=== PATIENT | male | born 1950 | race Hispanic/Latino ===

== ENCOUNTER 2017-04-02 23:40 | Inpatient (IN) | payer MEDICARE, OTHER ==
[2017-04-02 23:40] VITALS: BMI 33.1
--- NOTE | 2017-04-03 00:51 | ED PDOC ---
Arrival/HPI - General Chief Complaint: Altered Mental Status Time Seen by Provider: 04/03/17 00:38 Historian: Patient - History of Present Illness Narrative History of Present Illness (Text): 04/03/17 00:45 García Joseph is a 66 year old male smoker, whose past medical history includes hypertension, diabetes, hyperlipidemia, COPD, vertigo, chronic lower back pain, and peripheral neuropathy, who presents to the Emergency Room brought in by EMS status post syncopal episode. Patient states he was at home earlier tonight when he fell and had a syncopal episode. Patient states he is unable to recall the incident and notes he is having difficulty focusing. Patient states he woke up on the floor, felt weak/dizzy, and was unable to get up on his own. Patient notified his neighbor who called EMS. Patient denies any fever, chills, chest pain, abdominal pain, nausea, vomiting, diarrhea, neck pain, headache, or any other complaints. PMD: Dr. Pierce Bowman Time/Duration: Other (tonight) Symptom Course: Unchanged Activities at Onset: Rest, Light Context: Home Past Medical History - Provider Review Nursing Documentation Reviewed: Yes - Infectious Disease Hx of Infectious Diseases: None - Cardiac Hx Cardiac Disorders: Yes Hx Hypertension: Yes - Pulmonary Hx Respiratory Disorders: No - Neurological Hx Neurological Disorder: Yes (neuropathy) - HEENT Hx HEENT Disorder: No - Renal Hx Renal Disorder: No - Endocrine/Metabolic Hx Diabetes Mellitus Type 2: Yes - Hematological/Oncological Hx Blood Disorders: No - Integumentary Hx Dermatological Disorder: No - Musculoskeletal/Rheumatological Hx Musculoskeletal Disorders: No - Gastrointestinal Hx Gastrointestinal Disorders: No - Genitourinary/Gynecological Hx Genitourinary Disorders: No - Psychiatric Hx Psychophysiologic Disorder: No Hx Substance Use: No - Surgical History Hx Appendectomy: Yes Family/Social History - Physician Review Nursing Documentation Reviewed: Yes Family/Social History: Unknown Family HX Smoking Status: Heavy Smoker > 10 Cigarettes Daily Hx Alcohol Use: No Hx Substance Use: No Allergies/Home Meds Allergies/Adverse Reactions: Allergies No Known Allergies Allergy (Verified 12/24/16 12:53) Home Medications: Home Meds Medication Instructions Recorded Confirmed Alprazolam [Xanax] 0.5 mg PO DAILY 12/24/16 04/03/17 Meclizine [Meclizine*] 25 mg PO TID 12/24/16 04/03/17 Gabapentin [Neurontin] 300 mg PO BID 04/03/17 04/03/17 Meloxicam [Mobic] 15 mg PO DAILY 04/03/17 04/03/17 Review of Systems - Physician Review All systems were reviewed & negative as marked: Yes - Review of Systems Constitutional: Other (+weakness). absent: Fevers Eyes: Normal ENT: Normal Respiratory: Normal. absent: SOB, Cough Cardiovascular: Syncope. absent: Chest Pain Gastrointestinal: Normal. absent: Abdominal Pain, Diarrhea, Nausea, Vomiting Genitourinary Male: Normal Musculoskeletal: Normal. absent: Back Pain, Neck Pain Skin: Normal Neurological: Dizziness. absent: Headache Endocrine: Normal Hemo/Lymphatic: Normal Psychiatric: Normal Physical Exam Vital Signs Reviewed: Yes Vital Signs Temp Pulse Resp BP Pulse Ox 04/03/17 03:20 85 16 138/47 L 95 04/03/17 02:53 87 18 140/78 87 L 04/03/17 00:53 90 18 143/73 96 04/02/17 23:57 98.6 F 97 H 18 147/71 97 Temperature: Afebrile Blood Pressure: Normal Pulse: Regular Respiratory Rate: Normal Appearance: Positive for: Well-Appearing, Non-Toxic, Comfortable Pain Distress: None Mental Status: Positive for: other (Drowsy but arousable, oriented x3) Finger Stick Blood Glucose: 363 - Systems Exam Head: Present: Atraumatic, Normocephalic Pupils: Present: PERRL Extroacular Muscles: Present: EOMI Conjunctiva: Present: Normal Mouth: Present: Moist Mucous Membranes Neck: Present: Normal Range of Motion Respiratory/Chest: Present: Clear to Auscultation, Good Air Exchange. No: Respiratory Distress, Accessory Muscle Use Cardiovascular: Present: Regular Rate and Rhythm, Normal S1, S2. No: Murmurs Abdomen: Present: Normal Bowel Sounds. No: Tenderness, Distention, Peritoneal Signs Back: Present: Normal Inspection Upper Extremity: Present: Normal Inspection. No: Cyanosis, Edema Lower Extremity: Present: Normal Inspection. No: Edema Neurological: Present: GCS=15, CN II-XII Intact Skin: Present: Warm, Dry, Normal Color. No: Rashes Psychiatric: Present: Oriented x 3, Other (Drowsy but arousable) Medical Decision Making ED Course and Treatment: 04/03/17 00:45 Impression: 66 year old male presents s/p syncopal episode with dizziness and weakness. Differential Diagnosis included but are not limited to: syncope Plan: -- CT Head w/o contrast -- EKG -- CXR -- Labs, cardiac enzymes -- Reassess and disposition Prior Visits: Notes and results from previous visits were reviewed. Progress Notes: Reviewed EKG, NSR at [address]pm[address] Non-specific ST/T wave changes. 04/03/17 02:57 Reviewed radiology, CXR shows no active disease. 04/03/17 04:[address] Chelsi Bowman, who is aware and agrees with plan. Pt will go to Telemetry observation for syncope. - Lab Interpretations Lab Results: 04/03/17 01:08 04/03/17 01:08 Lab Results 04/03/17 01:08: WBC 4.3 L, RBC 5.08, Hgb 14.6, Hct 41.2 L, MCV 81.1, MCH 28.7, MCHC 35.4, RDW 13.9, Plt Count 124, MPV 10.2 04/03/17 01:08: Sodium 134, Potassium 4.5, Chloride 103, Carbon Dioxide 22, Anion Gap 14, BUN 14, Creatinine 0.9, Est GFR ( Amer) > 60, Est GFR (Non- Af Amer) > 60, Random Glucose 294 H, Calcium 9.6, Total Bilirubin 1.1, AST 34, ALT 27, Alkaline Phosphatase 90, Lactate Dehydrogenase 653, Total Creatine Kinase 34 L, Troponin I < 0.01, Total Protein 7.0, Albumin 4.1, Globulin 2.9, Albumin/Globulin Ratio 1.4 04/03/17 01:08: PT 10.4, INR 0.96, APTT 25.7 I have reviewed the lab results: Yes - RAD Interpretation Narrative RAD Interpretations (Text): CXR shows no active disease. Radiology Orders: 04/03/17 01:03 HEAD W/O CONTRAST [CT] Stat 04/03/17 01:04 CHEST PORTABLE [RAD] Stat Parallel Computing Software Engineer: ED Physician - EKG Interpretation Interpreted by ED Physician: Yes Type: 12 lead EKG - Scribe Statement The provider has reviewed the documentation as recorded by the Kaz Villafana Provider Attestation: All medical record entries made by the Scribe were at my direction and personally dictated by me. I have reviewed the chart and agree that the record accurately reflects my personal performance of the history, physical exam, medical decision making, and the department course for this patient. I have also personally directed, reviewed, and agree with the discharge instructions and disposition. Disposition/Present on Arrival - Present on Arrival Any Indicators Present on Arrival: No History of DVT/PE: No History of Uncontrolled Diabetes: Yes Urinary Catheter: No History of Decub. Ulcer: No History Surgical Site Infection Following: None - Disposition Have Diagnosis and Disposition been Completed?: Yes Diagnosis: Syncope Disposition: HOSPITALIZED Disposition Time: 04:28 Patient Plan: Observation Patient Problems: Current Active Problems Problem Status Onset Syncope Acute Condition: STABLE Discharge Instructions (ExitCare): Syncope (ED)
[2017-04-03 02:01] LABS: HEMATOCRIT 41.2 % (42.0-52.0); MEAN CELL VOLUME 81.1 fL (80.0-105.0); MEAN CORPUSCULAR HEMOGLOBIN 28.7 pg (25.0-35.0); MEAN CORPUSCULAR HGB CONC 35.4 g/dl (31.0-37.0); MEAN PLATELET VOLUME 10.2 fl (7.0-11.0); RED CELL DISTRIBUTION WIDTH 13.9 % (11.5-14.5); WHITE BLOOD COUNT 4.3 10^3/ul (4.5-11.0)
[2017-04-03 02:09] LABS: INR 0.96 (0.93-1.08); PARTIAL THROMBOPLASTIN TIME 25.7 Seconds (23.7-30.8)
[2017-04-03 02:15] LABS: ALB/GLOB RATIO 1.4 (1.1-1.8); ALKALINE PHOSPHATASE 90 U/L (38-133); ALT/SGPT 27 U/L (7-56); AST/SGOT 34 U/L (15-59); BILIRUBIN,TOTAL 1.1 mg/dL (0.2-1.3); BLOOD UREA NITROGEN 14 mg/dL (7-21); CALCIUM 9.6 mg/dL (8.4-10.5); CARBON DIOXIDE 22 mmol/L (21-33); CHLORIDE 103 mmol/L (98-107); GFR AFRICAN-AMERICAN > 60; GLUCOSE,RANDOM 294 mg/dL (70-110); POTASSIUM 4.5 mmol/L (3.6-5.0); SODIUM 134 mmol/L (132-148)
[2017-04-03 02:26] LABS: TROPONIN I < 0.01 ng/mL
--- NOTE | 2017-04-03 05:05 | CT ---
EXAM: CT Head Without Intravenous Contrast CLINICAL HISTORY: 66 years old, male; Signs and symptoms; Syncope and collapse TECHNIQUE: Axial computed tomography images of the head/brain without intravenous contrast. This CT exam was performed using one or more of the following dose reduction techniques: automated exposure control, adjustment of the mA and/or kV according to patient size, and/or use of iterative reconstruction technique. EXAM DATE/TIME: 04/03/2017 1:03 AM COMPARISON: CT - HEAD W/O CONTRAST 12/23/2016 8:42:54 PM FINDINGS: There is atrophy. There is chronic small vessel ischemic disease. There is no hemorrhage or edema. Again seen is partial opacification of the ethmoid sinuses. The osseous structures are normal. IMPRESSION: No acute findings.
--- NOTE | 2017-04-03 08:43 | RAD ---
HISTORY: Syncope COMPARISON: 12/23/2016 FINDINGS: LUNGS: The lungs are clear. PLEURA: No significant pleural effusion identified, no pneumothorax apparent. CARDIOVASCULAR: Normal. OSSEOUS STRUCTURES: No significant abnormalities. VISUALIZED UPPER ABDOMEN: Normal. OTHER FINDINGS: None. IMPRESSION: No active pulmonary disease.
--- NOTE | 2017-04-03 13:26 | CARD ---
APPROVED REPORT EXAM: Two-dimensional and M-mode echocardiogram with Doppler and color Doppler. INDICATION Chest Pain Syncope 2D DIMENSIONS Left Atrium (2D)4.3 (1.6-4.0cm)IVSd1.5 (0.7-1.1cm) LVDd4.8 (3.9-5.9cm)PWd1.5 (0.7-1.1cm) LVDs3.2 (2.5-4.0cm)FS (%) 33.9 % LVEF (%)62.5 (>50%) M-Mode DIMENSIONS Aortic Root3.30 (2.2-3.7cm)Aortic Cusp Exc.2.10 (1.5-2.0cm) Aortic Valve AoV Peak Knmomnec905.0cm/Kyacee Peak GR.8mmHg Mitral Valve MV E Uxjwtmlu55.1cm/sMV A Mxtqkivp50.7cm/sE/A ratio0.7 TDI E/Lateral E'0.0E/Medial E'0.0 Tricuspid Valve TR Peak Yzwtvhps589rw/sRAP [id number] Peak Gr.18mmHg [id number] LEFT VENTRICLE The left ventricle is normal size. There is mild concentric left ventricular hypertrophy. The left ventricular function is normal. The left ventricular ejection fraction is within the normal range. There is normal LV segmental wall motion. Transmitral Doppler flow pattern is Grade I-abnormal relaxation pattern. RIGHT VENTRICLE The right ventricle is normal size. There is normal right ventricular wall thickness. The right ventricular systolic function is normal. ATRIA The left atrium is borderline dilated. The right atrium size is normal. AORTIC VALVE The aortic valve is mildly sclerotic. No aortic regurgitation is present. There is no aortic valvular stenosis. MITRAL VALVE The mitral valve is mildly thickened. There is no mitral valve regurgitation noted. TRICUSPID VALVE There is no pulmonary hypertension. GREAT VESSELS The aortic root is normal in size. The IVC was not visualized. PERICARDIAL EFFUSION There is a trace circumferential pericardial effusion. <Conclusion> The left ventricle is normal size. There is mild concentric left ventricular hypertrophy. The left ventricular function is normal. The left ventricular ejection fraction is within the normal range. There is normal LV segmental wall motion. Transmitral Doppler flow pattern is Grade I-abnormal relaxation pattern.
[2017-04-03] MEDS: Insulin Reg-MEDIUM-Coverage SC SCH ×3 (13:45→22:55)
--- NOTE | 2017-04-03 15:35 | CON ---
DATE: 04/03/2017 REASON FOR CONSULTATION: Dizziness and altered mental status. HISTORY OF PRESENT ILLNESS: The patient is a 66-year-old male who lives by himself, has a history of hypertension, diabetes mellitus, COPD, and chronic low back pain as well as peripheral neuropathy. The patient presented because of a fainting spell at home. The patient stated that nobody witnessed what happened. He fell on his back, but reported no injuries. The patient denies any associated uri ne incontinence or tongue biting. The patient denies experiencing palpitation. SOCIAL HISTORY: Former smoker. MEDICATIONS: Levemir 20 units subcutaneously at bedtime, Neurontin 300 mg t.i.d., Nicoderm patch, Pe rcocet 2 tablets q. 6 hours p.r.n. HOME MEDICATIONS: Include meclizine, Xanax, Neurontin and Mobic. REVIEW OF SYSTEMS: No nausea or vomiting, no fever or chills. PHYSICAL EXAMINATION: GENERAL: The patient is an elderly male who does not appear to be in any distress. VITAL SIGNS: Blood pressure 152/86, heart rate 89, respirations 17, temperature 98.6. HEENT: No pallor or icterus. NECK: No JVD. CHEST: Clear. HEART: S1, S2 regular. EXTREMITIES: No edema. LABORATORY DATA: PT, PTT are within normal limits. SMA-7 is within normal limits except for glucose of 294. One set of troponin is negative. Hemoglobin and hematocrit 14.6 and 41.2. White count and platelet count are 4.3 and 124,[address] scan without contrast revealed no acute fi ndings. EKG revealed sinus rhythm with nonspecific T-wave changes. Chest x-ray revealed borderline cardiomegaly with mild CHF. ASSESSMENT: 1. Syncopal episode. 2. Hypertension. 3. Uncontrolled diabetes mellitus. 4. Peripheral neuropathy. 5. Abnormal EKG with evidence of nonspecific lateral T-wave changes. RECOMMENDATIONS: Continue current Levemir, Neurontin and Percocet therapy. Start aspirin 81 mg once a day. Obtain an echocardiogram and carotid Doppler. Seizure as well as fall precautions. Caio Alonzo MD cc: [id number] TT: 04/03/2017 15:34:18 Confirmation # [id number] Dictation # [id number]
--- NOTE | 2017-04-03 17:22 | US ---
PROCEDURE: Bilateral carotid artery duplex ultrasound HISTORY: Carotid stenosis syncope PHYSICIAN(S): Idris Arenas MD. TECHNIQUE: Duplex sonography and color-flow Doppler were used to evaluate the carotid bifurcations and limited segments of the vertebral arteries bilaterally. FINDINGS: There is moderate to extensive smooth heterogeneous plaque noted at the carotid bifurcations bilaterally. The peak systolic velocity in the proximal right internal carotid artery is 117 cm/sec. This corresponds to a 40-59 percent proximal right ICA stenosis. Moderately elevated systolic velocities are noted in the proximal right external carotid artery. There is antegrade flow in the right vertebral artery. The peak systolic velocity in the proximal left internal carotid artery is 127 cm/sec. This corresponds to a 40-59 percent proximal left ICA stenosis. Normal systolic velocities are noted in the proximal left external carotid artery. There is antegrade flow in the left vertebral artery. IMPRESSION: 1. Bilateral 40-59 percent proximal ICA stenoses. 2. Antegrade flow in both vertebral arteries.
[2017-04-03] MEDS: Oxycodone/Acetaminophen 5/325 mg Tab PO PRN (21:40)
[2017-04-03] MEDS: Insulin Detemir 100 units/ml Vial (Levemir) SC SCH (22:56)
--- NOTE | 2017-04-03 23:11 | CARD ---
APPROVED REPORT EKG Measurement Heart [id number] <Conclusion> Normal sinus rhythm Nonspecific T wave abnormality Abnormal ECG
--- NOTE | 2017-04-04 05:20 | CP.PCM.PN ---
Subjective - Date & Time of Evaluation Date of Evaluation: 04/04/17 Time of Evaluation: 05:17 - Subjective Subjective: Patient was seen at bedside because he complained of chest pain and sob. Chest pain was in sternal area, mild, no radiation, sharp pain. Has little sob. No other complaints. Denies sweating, palpitation, nausea. 182/87 , 98% on 2L/min. EKG, troponin, SL NTG were ordered before patient was seen. This 66 year old male was admitted with chest pain. Has PMH of DM,HTN, HLD, COPD, peripheral neuropathy, chronic back pain. Objective - Vital Signs/Intake and Output Vital Signs (last 24 hours): Temp Pulse Resp BP Pulse Ox 98.2 F 79 20 135/80 98 04/04/17 00:00 04/04/17 02:00 04/04/17 00:49 04/04/17 00:00 04/04/17 00:00 - Medications Medications: Current Medications Gabapentin (Neurontin) 300 mg PO TID JIMBO PRN Reason: Protocol Last Admin: 04/03/17 17:45 Dose: 300 mg Insulin Detemir (Levemir) 20 unit SC HS [facility] Last Admin: 04/03/17 22:56 Dose: 20 unit Insulin Human Regular (Humulin R Med) 0 units SC ACHS [facility] PRN Reason: Protocol Last Admin: 04/03/17 22:55 Dose: 3 units Nicotine (Nicoderm Cq) 1 patch TD DAILY [facility] Last Admin: 04/03/17 10:42 Dose: 1 patch Oxycodone/Acetaminophen (Percocet 5/325 Mg Tab) 2 tab PO Q6H PRN PRN Reason: Pain, moderate (4-7) Stop: 04/06/17 10:09 Last Admin: 04/03/17 21:40 Dose: 2 tab - Labs Labs: PT 10.4 Seconds (9.9-11.8) 04/03/17 01:08 INR 0.96 (0.93-1.08) 04/03/17 01:08 APTT 25.7 Seconds (23.7-30.8) 04/03/17 01:08 - Constitutional Appears: Well, No Acute Distress - Head Exam Head Exam: NORMAL INSPECTION, NORMOCEPHALIC - Eye Exam Eye Exam: Normal appearance - ENT Exam ENT Exam: Normal Exam - Neck Exam Neck Exam: Normal Inspection - Respiratory Exam Respiratory Exam: Clear to Ausculation Bilateral - Cardiovascular Exam Cardiovascular Exam: REGULAR RHYTHM, +S1 (Normal.), +S2 (Normal.). absent: JVD - GI/Abdominal Exam GI & Abdominal Exam: absent: Distended, Tenderness - Rectal Exam Rectal Exam: Deferred - Extremities Exam Extremities Exam: Normal Inspection - Back Exam Back Exam: NORMAL INSPECTION - Neurological Exam Neurological Exam: Alert, Oriented x3 - Skin Skin Exam: Normal Color Assessment and Plan - Assessment and Plan (Free Text) Assessment: Chest pain. DM. HTN. Obesity. HLD. COPD. Plan: EKG stat-> no acute changes.NSR. Troponin. NTG 0.4mg Q5M x 3., with 2nd NTG pain subsided. Continue present management.
[2017-04-04] MEDS ORDERED: Albuterol-Ipratrop 3 mg / 0.5 (3 ml) UD IH STA (05:24)
[2017-04-04 05:45] LABS: ADD MANUAL DIFF? NO
[2017-04-04 05:56] LABS: BASO # 0.02 K/mm3 (0.0-2.0); BASO % 0.6 % (0.0-3.0); EOS # 0.2 (0.0-0.7); EOS % 5.3 % (1.5-5.0); GRAN # 1.82 (1.4-6.5); GRAN % 50.7 % (50.0-68.0); HEMATOCRIT 40.5 % (42.0-52.0); LYMPH # 1.3 (1.2-3.4); LYMPH % 36.2 % (22.0-35.0); MEAN CELL VOLUME 80.2 fL (80.0-105.0); MEAN CORPUSCULAR HEMOGLOBIN 27.7 pg (25.0-35.0); MEAN CORPUSCULAR HGB CONC 34.6 g/dl (31.0-37.0); MONO # 0.3 (0.1-0.6); MONO % 7.2 % (1.0-6.0); PLATELET COUNT 100 10^3/uL (120.0-450.0); RED CELL DISTRIBUTION WIDTH 13.7 % (11.5-14.5); RETIC% 1.29 % (0.5-1.5); WHITE BLOOD COUNT 3.6 10^3/ul (4.5-11.0)
[2017-04-04 06:02] LABS: ALB/GLOB RATIO 1.4 (1.1-1.8); ALKALINE PHOSPHATASE 71 U/L (38-133); ALT/SGPT 33 U/L (7-56); AST/SGOT 22 U/L (15-59); BILIRUBIN,TOTAL 1.1 mg/dL (0.2-1.3); BLOOD UREA NITROGEN 15 mg/dL (7-21); CALCIUM 9.2 mg/dL (8.4-10.5); CARBON DIOXIDE 25 mmol/L (21-33); CHLORIDE 103 mmol/L (98-107); GFR AFRICAN-AMERICAN > 60; GLUCOSE,RANDOM 213 mg/dL (70-110); POTASSIUM 3.9 mmol/L (3.6-5.0); SODIUM 138 mmol/L (132-148); TOTAL PROTEIN 6.7 g/dL (5.8-8.3)
[2017-04-04 06:16] LABS: TROPONIN I < 0.01 ng/mL
[2017-04-04 07:19] LABS: ERYTHROCYTE SEDIMENTATION RATE 10 mm/hr (0.00-15.0)
[2017-04-04] MEDS: Insulin Reg-MEDIUM-Coverage SC SCH ×4 (08:17→21:44)
--- NOTE | 2017-04-04 10:23 | PN ---
DATE: 04/04/2017 REASON FOR CONSULTATION AND FOLLOWUP: Dizziness, vertigo. BRIEF CLINICAL HISTORY: A 66-year-old male with history of diabetes, hypertension, hyperlipidemia, C OPD, chronic low back pain, peripheral neuropathy. Because of fainting spells, the patient states, w hen he moves his head, he feels dizzy and things spin around, walks with a cane. PHYSICAL EXAMINATION: VITAL SIGNS: Temperature afebrile, heart rate 84, blood pressure 120/77. HEENT: PERRLA. Extraocular muscles intact. NECK: Supple. No carotid bruits. No thyromegaly. CHEST: Clear to auscultation. HEART: S1, S2 regular. ABDOMEN: Soft. EXTREMITIES: Clubbing, cyanosis negative. LABORATORY DATA: Blood workup as follows: WBC 3.6, hemoglobin 14, hematocrit 40.5, platelet count 1 00. ____ 130, potassium 3.9, chloride 103, carbon dioxide 25, anion gap of 14, BUN 15, creatinine 0. 8. Troponin 0.01 x 2 negative. IMPRESSION: No evidence of acute coronary syndrome. Vertigo, possible benign positional vertigo. D iabetes, hypertension, hyperlipidemia, uncontrolled diabetes, peripheral neuropathy. The patient had echocardiography done yesterday that shows normal left ventricular function, ejection fraction withi n normal limit, no segmental wall motion abnormality. No evidence of pulmonary hypertension, no sign ificant regurgitant, valvular heart disease or stenotic valvular disease is noted. No valvular aorti c stenosis or regurgitation noted. RECOMMENDATION: Suggest neuro evaluation. Because of multiple risk factors, suggest a stress test, but the patient has dizzy spells and cannot go under the camera. If remains in hospital, do on Monda y or as outpatient. CVS status is stable. No arrhythmia noted. We will discontinue telemetry. We will do orthostatic hypotension and if remains orthostatic negative, we will discontinue telemetry. Thank you, Dr. Bowman, for providing the opportunity in taking care of the patient. Joey Rodney MD cc: [id number] TT: 04/04/2017 10:22:28 Confirmation # [id number] Dictation # [id number] tn
[2017-04-04] MEDS ORDERED: Gadodiamide 287 MG/ML VIAL (20ML) IV ONE (11:08)
--- NOTE | 2017-04-04 12:19 | CON ---
DATE: 04/04/2017 REASON FOR CONSULTATION: Dizziness. HISTORY OF PRESENT ILLNESS: The patient is a 66-year-old male who has been asked for evaluation of mando burns. The patient's dizziness started about 4 months ago, which was described as room spinning. He was given meclizine which improved symptoms briefly and then again he had episodes of dizziness. He was in the Emergency Room a few times because of these complaints. Over the last few weeks, his dizziness has gotten worse. He has difficulty sitting. He falls backwards. He has been using a wal ker to walk. He is not walking properly even with a walker according to him. Sometimes he said when he turns his head he feels dizzy, mostly towards the right side. Dizziness is not associated with a ny nausea or vomiting. There is no loss of vision. There is no hearing loss or ringing in the ears. He had MRI of the brain done a couple months ago and it was normal. Denies any focal weakness in a nely or legs. REVIEW OF SYSTEMS: Denies any headache, chest pain, shortness of breath, abdominal pain, constipatio n, diarrhea, dysuria, pyuria, cough or sputum production. PAST MEDICAL HISTORY: Includes hypertension, diabetes mellitus, hyperlipidemia, COPD, chronic low b ack pain and peripheral neuropathy. MEDICATIONS: Humulin, Levemir, Neurontin, Percocet p.r.n. He was taking meclizine while he was home ; however, it was not helping him. ALLERGIES: No known drug allergies. SOCIAL HISTORY: He does smoke cigarettes. Denies use of alcohol or illicit drugs. FAMILY HISTORY: Reviewed and noncontributory to the case. PHYSICAL EXAMINATION: GENERAL: The patient is a middle-aged male lying on the bed, in no acute distress. VITAL SIGNS: His blood pressure is 129/77, heart rate is 75 per minute, breathing at a rate of 16 pe r minute, temperature is 97.5 degrees Fahrenheit. HEENT: Head is normocephalic, atraumatic. NECK: Supple. There are no carotid bruits. LUNGS: Clear. CARDIOVASCULAR: S1, S2 audible. No murmurs. ABDOMEN: Soft and nontender. Bowel sounds are present. NEUROLOGIC EXAMINATION: MENTAL STATUS: The patient is awake, alert, oriented to time, place, person. Speech is fluent. Nam ing and repetition is normal. Memory and cognition are intact. CRANIAL NERVES: Pupils are 4 mm bilaterally reactive to light. Visual alexander are full. Extraocular movements are intact. There is no facial asymmetry. Palate is upgoing bilaterally and tongue is mi dline. MOTOR: Tone is normal. Power is 5/5 bilaterally in all extremities. Reflexes 1+ and symmetrical in the upper extremities, absent in the lower extremities. Plantars downgoing bilaterally. CEREBELLAR: Wmxmqm-um-[id number] shows no dysmetria. GAIT: Deferred. The patient walks with the help of a walker and was very unsteady. The patient was made to sit on the bed; however, the patient unable to sit and fall backwards. CEREBELLAR EXAMINATION: [id number]-vk-enqm shows mild terminal dysmetria. Zqix-qp-dmyz is normal. Rapi d alternating movements are normal. LABORATORY DATA: Labs reviewed, shows WBC of 3.6, hemoglobin 14.0, hematocrit 14.5 and platelets of 100. His INR is 0.96. Sodium is 138, potassium 3.9, chloride 103, carbon dioxide content 25, BUN of 15, creatinine 0.8, and glucose of 217. IMPRESSION: 1. Dizziness associated with gait ataxia and postural instability. The differential includes possib le paraneoplastic syndrome with his history of heavy smoking. Other differentials include possible v estibular dysfunction, possible Shy-Drager syndrome. 2. Diabetic neuropathy. RECOMMENDATIONS: 1. The patient to have MRI of the brain with and without contrast. 2. The patient also to have imaging of the chest to rule out any underlying neoplasm of the chest. 3. The patient to have anti-Yo antibodies. 4. The patient to have physical therapy for gait imbalance. 5. We will give him low dose of benzodiazepine, Ativan 1 mg twice a day to see if that helps his diz ziness. 6. The patient is to be continued on his Neurontin for his underlying diabetic neuropathy. 7. Please continue supportive care and other treatment. Thank you for the opportunity to participate in the care of this patient. Itzel Palmer MD cc: [phone] TT: 04/04/2017 12:18:12 Confirmation # [id number] Dictation # [id number]
--- NOTE | 2017-04-04 12:48 | MRI ---
PROCEDURE: MRI BRAIN WITH AND WITHOUT CONTRAST HISTORY: ataxia, r/o cerebellar mets COMPARISON: 12/24/2016 TECHNIQUE: Multiplanar, multisequence MR images of the brain were obtained with and without intravenous contrast enhancement. 20 cc of Omniscan FINDINGS: HEMORRHAGE: None DWI: No evidence of an acute or early subacute infarction. BRAIN PARENCHYMA: No mass,mass effect or edema. No atrophy or chronic microvascular ischemic changes. ENHANCEMENT: No abnormal intracranial enhancement. VENTRICLES: Unremarkable. No hydrocephalus. CRANIUM: Unremarkable. ORBITS: Grossly unremarkable. PARANASAL SINUSES/MASTOIDS: Partial opacification of the right-sided ethmoid air cells VASCULAR SYSTEM: Skull base flow voids intact. OTHER FINDINGS: None . IMPRESSION: No acute findings. No evidence of metastatic disease. There are no cerebellar abnormality seen
--- NOTE | 2017-04-04 12:58 | CT ---
PROCEDURE: CT Chest without contrast HISTORY: copd, smoker, vertigo, r/o lesion COMPARISON: 12/25/2016 TECHNIQUE: Contiguous axial images were obtained through the chest without intravenous contrast enhancement. Sagittal and coronal reconstructions were performed. Radiation dose (DLP): mGy-cm. This CT exam was performed using one or more of the following dose reduction techniques: Automated exposure control, adjustment of the mA and/or kV according to patient size, and/or use of iterative reconstruction technique. FINDINGS: LUNGS: There is a 14 mm patchy nodular infiltrate in the right upper lobe seen on image 16 series 3. This was not present on the previous exam and is most likely infectious or inflammatory in origin. Followup is recommended to exclude neoplasm MEDIASTINUM: Unremarkable thoracic aorta. No aneurysm. Normal sized heart. Main pulmonary artery unremarkable. No vascular congestion. No lymphadenopathy. PLEURA: No pleural fluid. No pneumothorax. BONES: No fracture. No destructive lesion. UPPER ABDOMEN: Grossly unremarkable. OTHER FINDINGS: Extensive coronary artery calcifications are seen IMPRESSION: There is a patchy nodular infiltrate in the right upper lobe . This was not present on the previous exam and is most likely infectious or inflammatory in origin. Followup is recommended to exclude neoplasm
[2017-04-04] MEDS: cefTRIAXone 1 gm 1 GM/100 ML BAG IVPB SCH (17:26)
[2017-04-04] MEDS: Insulin Detemir 100 units/ml Vial (Levemir) SC SCH (21:46)
--- NOTE | 2017-04-04 23:24 | PN ---
DATE: 04/04/2017 The patient was seen this Friday morning in room 264, bed 1. The patient requested a neurology consu ltation by Dr. Cuenca who no longer rounds at [facility] on a regular basis, so I am pleased t o request neurological opinion with Dr. Palmer. I met with Dr. Palmer and discussed the case with him in great detail and then joined him during part of his exam of the patient later this morning. When I first came into the room, I was quite concerned that the patient complained of worsening dizziness, b ut now he reported it as a falling backwards. The nurses report they were not able to do orthostatic blood pressures as they had difficulty getting him to sit at the edge of the bed and it was impossib le for him to stand, he kept falling backwards. I spoke with the patient. We tried again to find th e same results. On physical exam, there is a bit of a tremor which has not been present in the past up until only a f ew days ago. Of course I became quite concerned with the possibility of cerebellar infarct or cerebe llar metastatic disease in view of his history of tobacco use. Although an MRI of the brain and CT s can of the chest was performed within the last [address] of the brain was just done yesterday, I will repeat MRI of the brain with and without gadolinium as well as high resolution CT scan of the chest. I spoke with the radiologist informed him of my suspicion worrying about a primary lung malig rizwan with cerebellum metastases. The case was reviewed with neurology. Workup for paraneoplastic s yndrome was ordered by Dr. Palmer. Later in the day, I have reviewed the CT and MRI reports and scans. MRI with and without contrast was essentially unremarkable. There is no evidence of cerebellar inf arcts, there are some typical changes at age, small vessel disease and minimal atrophy. CT scan of t he chest revealed what looks more like an infiltrate than a solitary mass or nodule that is new since the CT scan of December and does not show on chest x-ray. It is noted near the apex of the right upper lobe, most likely infectious or inflammatory origin, although malignancy could not be ruled out afte r my discussion with the radiologist. So the patient was started on Rocephin. We will follow chest x-ray and repeat CAT scan in a couple o f days to look for resolution of his infiltrate. Meanwhile thallium stress test is pending, hopefull y for Friday after a few days of antibiotics. Tomorrow morning I will explain these findings in grea ter detail with the patient. Await the Hu and Yo antibody screen ordered by Dr. Palmer. Continue mecl izine, nicotine patch, gabapentin, oxycodone, Tylenol, etc. Alex Bowman MD cc: [id number] TT: 04/04/2017 23:23:09 Confirmation # [id number] Dictation # [id number] jn
[2017-04-05] MEDS: Oxycodone/Acetaminophen 5/325 mg Tab PO PRN ×2 (00:37→08:10)
[2017-04-05 07:32] LABS: ADD MANUAL DIFF? NO
[2017-04-05 07:35] LABS: BASO # 0.02 K/mm3 (0.0-2.0); BASO % 0.5 % (0.0-3.0); EOS # 0.3 (0.0-0.7); EOS % 6.9 % (1.5-5.0); GRAN # 2.08 (1.4-6.5); GRAN % 49.2 % (50.0-68.0); HEMATOCRIT 39.3 % (42.0-52.0); LYMPH # 1.5 (1.2-3.4); LYMPH % 34.6 % (22.0-35.0); MEAN CELL VOLUME 80.9 fL (80.0-105.0); MEAN CORPUSCULAR HEMOGLOBIN 27.6 pg (25.0-35.0); MEAN CORPUSCULAR HGB CONC 34.1 g/dl (31.0-37.0); MEAN PLATELET VOLUME 9.7 fl (7.0-11.0); MONO # 0.4 (0.1-0.6); MONO % 8.8 % (1.0-6.0); PLATELET COUNT 99 10^3/uL (120.0-450.0); RED CELL DISTRIBUTION WIDTH 13.6 % (11.5-14.5); WHITE BLOOD COUNT 4.2 10^3/ul (4.5-11.0)
[2017-04-05 07:57] LABS: BLOOD UREA NITROGEN 16 mg/dL (7-21); CALCIUM 9.1 mg/dL (8.4-10.5); CARBON DIOXIDE 27 mmol/L (21-33); CHLORIDE 100 mmol/L (98-107); GFR AFRICAN-AMERICAN > 60; GLUCOSE,RANDOM 232 mg/dL (70-110); SODIUM 135 mmol/L (132-148)
[2017-04-05] MEDS: Insulin Reg-MEDIUM-Coverage SC SCH ×4 (08:11→21:49)
[2017-04-05] MEDS: cefTRIAXone 1 gm 1 GM/100 ML BAG IVPB SCH (09:59)
--- NOTE | 2017-04-05 10:30 | HP ---
CHIEF COMPLAINT: Dizziness and syncope at home. HISTORY OF PRESENT ILLNESS: This is a 66-year-old man I have known for several years with a history of diabetes. This recent episode began in December of this year when he developed sudden onset of room spinning, dizziness made worse with changes in head position. He was initially seen in the office an d treated with meclizine. Approximately 2 days later came to the Emergency Room because of the sever ity of symptoms. CT scan of the head was unremarkable. Labs and EKG were unremarkable. He continue d on meclizine. Approximately 6 days later, room spinning dizziness was extreme. He came to the [facility] Room again. Again, CT scan was unremarkable. He was admitted, evaluated by neurology. MRI o f the brain was done. MRI of the lumbar spine was done. Carotid ultrasound and CT scan of the chest were done and all normal. His symptoms had subsided. He was discharged to home. Over the past 3 m onths, he was unable to work, continued to have intermittent dizziness. His baseline symptoms of ronda betic neuropathy continue to bother him and his sugars remain difficult to control. He was seen by n eurologist and either EMG and/or nerve conduction studies were done showing the diabetic neuropathy. On the day of this admission the patient was home, was in his usual state of health, sugars were thu vated but reasonable, he was in the kitchen and had a syncopal episode, falling to the floor. He den ies incontinence of stool or urine. He denies chest pain, palpitations or diaphoresis. There was no aura. There was no reported seizure-like activity. He woke up on the floor a brief time later, riddhi led the ambulance and came to the Emergency Room. He did not appear postictal to the Emergency Room staff and arrangements were made for admission. Neurology consultation was requested, but the patien t asked for a change in terms of his neurologist. Labs and IV fluids were ordered. Repeat workup wa s not ordered pending neurology input as an extensive workup had just been done. PAST MEDICAL HISTORY: Significant for hypertension since 2007, diabetes since 2007, hyperlipidemia s [place] 2012. He does not take statin medicines because of side effects. There is no history of tuberc ulosis, asthma, seizures and gout. He does have some COPD as he is a lifetime smoker. There is no h istory of TIA, ASCVD, myocardial infarction, coronary artery disease or cancers of any type. In 2009 he had some difficulty with urination and was diagnosed with benign prostatic hypertrophy. He has a history of chronic low back pain and peripheral neuropathy related to his diabetes. PAST SURGICAL HISTORY: Significant for appendectomy at age 18 and hospitalization in 2007 when he wa s diagnosed with hypertension and diabetes. ALLERGIES: He has no allergies to medications. SOCIAL HISTORY: He continues to smoke. He quit drinking in 2007. He does not drink coffee. He has not had a colonoscopy. He is due for an eye exam, but had no insurance up until December when he turne d 66 and became eligible for Medicare. He had a stress test in 2007. There is no dental or podiatry followup. He did not take the flu shot or pneumonia vaccine. FAMILY HISTORY: His mother at age 54 of stroke. His father lived to beyond [id number] and pa ssed in the year 1999. He is the 4th of 6 siblings. He has 2 sisters, both alive and well. He has 3 brothers who passed; 1 of heart disease and 2 of unknown causes. He is single with no children. 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 Problem list in the office includes a diagnosis of hypertension, diabetes with neuropathy, chronic ba ck pain, and benign prostatic hypertrophy. The patient was seen in room 264, bed 1 on this morning, the morning after his late night ad mission, he was admitted to observation status having not yet spent a midnight in hospital. PHYSICAL EXAMINATION: GENERAL: He was awake, alert, appropriate and in good spirits. He answered questions appropriately and his mental status is at baseline. HEAD AND NECK: Unremarkable. HEENT: Conjunctivae are pink. Mucous membranes are moist. NECK: Supple, without masses. Thyroid is not palpable. LUNGS: Clear to auscultation and percussion with a slightly prolonged expiratory phase of COPD. HEART: Regular, nontachycardic. ABDOMEN: Slightly overweight, but nontender. There is no guarding or rebound. EXTREMITIES: DP and PT pulses are present and good. There is no peripheral edema noted. NEUROLOGIC: See neurologist's consult note. IMPRESSION: Syncope with a history of vertigo and continued vertigo symptoms, but now patient report ing a bit of a change in that symptoms are not room spinning, but more of a falling backwards. PLAN: Initial labs were done. We will order neurology consultation with Dr. Cuenca, echocardiogram and stress test with his drug room clerk, Dr. Mendosa, and Dr. Rodney. Need to add a Nicoderm patch in vi ew of his tobacco use disorder. Continue Percocet 10 mg t.i.d. for his neuropathy pain along with Ne urontin/gabapentin. I will ask the nurses to check orthostatic blood pressures. In the Emergency Ro om, neurology consultation was called with Dr. Kan but the patient requests Dr. Cuenca and I will make that change. Will order further workup pending results of the above. Alex Bowman MD cc: [id number] TT: 04/05/2017 10:29:23 poncho
--- NOTE | 2017-04-05 14:06 | PN ---
DATE: 04/05/2017 SUBJECTIVE: The patient is lying on the bed, in no acute distress. Denies having any headache or di zziness. PHYSICAL EXAMINATION: VITAL SIGNS: His blood pressure is 147/85, heart rate is 77 per minute, breathing at a rate of 16 pe r minute, temperature is 97.7 degrees Fahrenheit. HEENT: Normocephalic, atraumatic. NECK: Supple. There are no carotid bruits. LUNGS: Clear. CARDIOVASCULAR: S1, S2 audible. No murmurs. ABDOMEN: Soft, nontender, bowel sounds present. NEUROLOGIC EXAMINATION: MENTAL STATUS: The patient is awake, alert, oriented to time, place, person. Speech is fluent. Nam ing and repetition normal. Memory and cognition are intact. CRANIAL NERVE: Pupils are 3 mm, bilaterally reactive to light. Visual alexander are full. Extraocular movements are intact. There is no facial asymmetry. Palate is upgoing bilaterally and tongue is mi dline. MOTOR: Tone is normal. Power is 5/5 bilaterally in all extremities. He still cannot sit without castro pport and tends to fall backwards. Plantars downgoing bilaterally. LABORATORY DATA: Labs reviewed. MRI of the brain: No acute findings, no evidence of metastatic dis ease. He had a CT scan of the chest that shows there is a patchy nodular infiltrate in the right upp er lobe. This was not present on the previous exam. It is most likely infectious or inflammatory in origin. Followup was recommended to exclude neoplasm. IMPRESSION: Dizziness associated with gait ataxia and postural instability. Rule out paraneoplastic syndrome. RECOMMENDATIONS: 1. The patient had anti-Yo and anti-Hu antibodies done. The reports are awaited. 2. The patient may be continued on Ativan for his dizziness. 3. The patient to have physical therapy for gait imbalance. 4. The patient to be continued on Neurontin for his underlying diabetic neuropathy. 5. The patient to have a repeat CT chest in a few days to see the evolution of the findings of the C T scan of the chest. 6. Please continue supportive care and other treatment. Thank you for the opportunity to participate in the care of this patient. Itzel Palmer MD cc: [id number] TT: 04/05/2017 14:06:37 Confirmation # [id number] Dictation # [id number] tn
--- NOTE | 2017-04-05 16:14 | CARD ---
APPROVED REPORT EKG Measurement Heart [id number] AL 156P68 [id number] <Conclusion> Normal sinus rhythm Nonspecific ST and T wave abnormality Abnormal ECG
[2017-04-05] MEDS ORDERED: Oxycodone/Acetaminophen 5/325 mg Tab PO ONE (18:34)
--- NOTE | 2017-04-05 18:44 | CP.PCM.PN ---
Subjective - Date & Time of Evaluation Date of Evaluation: 04/05/17 Time of Evaluation: 18:34 - Subjective Subjective: pt is c/o cp left sided . pain is constant ,and pt is noted to be coughing.pt is admitted for vertigo /syncopal episode. pt temp is 99.6 Objective - Vital Signs/Intake and Output Vital Signs (last 24 hours): Temp Pulse Resp BP Pulse Ox 98.1 F 101 H 19 141/81 97 04/05/17 18:00 04/05/17 18:00 04/05/17 18:00 04/05/17 18:00 04/05/17 00:00 Intake and Output: 04/05/17 04/05/17 06:59 18:59 Intake Total 120 1240 Output Total 900 Balance -780 1240 - Medications Medications: Current Medications Diazepam (Valium) 2 mg PO BID JIMBO PRN Reason: Protocol Gabapentin (Neurontin) 300 mg PO TID JIMBO PRN Reason: Protocol Last Admin: 04/05/17 17:05 Dose: 300 mg Ceftriaxone Sodium (Rocephin 1 Gram Ivpb) 1 gm in 100 mls @ 100 mls/hr IVPB DAILY JIMBO PRN Reason: Protocol Last Admin: 04/05/17 09:59 Dose: 100 mls/hr Insulin Detemir (Levemir) 20 unit SC HS [facility] Last Admin: 04/04/17 21:46 Dose: 20 unit Insulin Human Regular (Humulin R Med) 0 units SC ACHS JIMBO PRN Reason: Protocol Last Admin: 04/05/17 17:05 Dose: 5 units Meclizine HCl (Antivert) 25 mg PO TID [facility] Nicotine (Nicoderm Cq) 1 patch TD DAILY [facility] Last Admin: 04/05/17 09:59 Dose: 1 patch Oxycodone/Acetaminophen (Percocet 5/325 Mg Tab) 2 tab PO Q6H PRN PRN Reason: Pain, moderate (4-7) Stop: 04/06/17 10:09 Last Admin: 04/05/17 08:10 Dose: 2 tab - Labs Labs: 04/05/17 07:00 04/05/17 07:00 PT 10.4 Seconds (9.9-11.8) 04/03/17 01:08 INR 0.96 (0.93-1.08) 04/03/17 01:08 APTT 25.7 Seconds (23.7-30.8) 04/03/17 01:08 - Constitutional Appears: No Acute Distress - Head Exam Head Exam: NORMOCEPHALIC - Eye Exam Eye Exam: PERRL - ENT Exam ENT Exam: Mucous Membranes Moist - Neck Exam Neck Exam: Full ROM - Respiratory Exam Respiratory Exam: Chest Wall Tenderness, NORMAL BREATHING PATTERN - Cardiovascular Exam Cardiovascular Exam: RRR, +S1, +S2 - Rectal Exam Rectal Exam: Deferred - Extremities Exam Extremities Exam: Full ROM - Neurological Exam Neurological Exam: Awake, CN II-XII Intact, Oriented x3 - Psychiatric Exam Psychiatric exam: Normal Affect - Skin Skin Exam: Dry, Warm Assessment and Plan - Assessment and Plan (Free Text) Assessment: cp / musculoskeletal hx of dm and HTN . VRTIGO. cough and low grade fever./viral syndrome. Plan: eks /no acute changes. will give percocet 1 tab stat. cardiac iso x1.
[2017-04-05 20:04] LABS: TROPONIN I < 0.01 ng/mL
[2017-04-05] MEDS: Insulin Detemir 100 units/ml Vial (Levemir) SC SCH (21:43)
[2017-04-06] MEDS: Oxycodone/Acetaminophen 5/325 mg Tab PO PRN ×2 (04:31→17:27)
[2017-04-06] MEDS: Insulin Reg-MEDIUM-Coverage SC SCH ×4 (08:35→22:48)
[2017-04-06] MEDS ORDERED: guaiFENesin 200 mg/10 ml Syrup UD PO PRN (09:02)
[2017-04-06] MEDS: cefTRIAXone 1 gm 1 GM/100 ML BAG IVPB SCH (09:34)
--- NOTE | 2017-04-06 22:08 | CARD ---
APPROVED REPORT EKG Measurement Heart [id number] <Conclusion> Normal sinus rhythm Nonspecific T wave abnormality Abnormal ECG
[2017-04-06] MEDS: Insulin Detemir 100 units/ml Vial (Levemir) SC SCH (22:32)
--- NOTE | 2017-04-07 08:04 | PN ---
DATE: 04/05/2017 The patient was seen this Friday morning in room 264, bed 1. He continues on telemetry with no ectopy noted. He is awake, alert and appropriate, still complainin g of dizziness. Case was reviewed with the industrial gas servicer today. He remains unable to do orthostatic blood pressures, because he cannot sit up or stand without falling backwards. A CT scan of the chest was reviewed again showing infiltrate, most likely inflammatory or infectious rather than neoplastic in origin. MRI of the brain with and without contrast was reviewed again, which was negative for ce rebellar pathology. LABORATORY DATA: Remain unremarkable. PHYSICAL EXAMINATION: CHEST: Clear. HEART: Regular. I cannot appreciate any rales or rhonchi. There is a decreased expiratory sound of chronic obstructive pulmonary disease. EXTREMITIES: Show no edema. PLAN: Because of persistent dizziness and falling backwards, I will add benzodiazepine in the form o f a long acting Valium 2 mg twice a day. We will also resume his meclizine and hopefully schedule a thallium stress test for Friday. Obviously, it will need to be a Persantine thallium stress as he is unable to stand or walk, but would rule out any cardiac issues involved due to his risk factors and the chest pain that he had on presentation. Alex Bowman MD cc: [id number] TT: 04/05/2017 18:25:45 Confirmation # [id number] Dictation # [id number] mn
[2017-04-07] MEDS: Insulin Reg-MEDIUM-Coverage SC SCH ×4 (08:51→21:52)
[2017-04-07] MEDS ORDERED: Aminophylline 25 mg/ml Inj ONE (11:13)
[2017-04-07] MEDS: cefTRIAXone 1 gm 1 GM/100 ML BAG IVPB SCH (11:26)
[2017-04-07] MEDS: Oxycodone/Acetaminophen 5/325 mg Tab PO PRN ×2 (13:40→21:53)
--- NOTE | 2017-04-07 15:53 | CARD ---
APPROVED REPORT Protocol: LEXISCAN Test Type: Lexiscan Sestamibi Stress Test Attending Physician: Dr. joselyn mccray Referring Physician: Dr. Alex Bowman Test Indications: Syncope Height:6 ft 0 in Weight:267lbs Medications: Rocephin Neurontin Insulin Nicoderm Medical History: 66 y/o male hx of syncopal episode Target HR: 155 bpm Resting ECG: normal Resting Heart Rate: 86 bpm Resting Blood Pressure: 130/70mmHg Submaximum (85%): 132 bpm PROCEDURE Pharmacologic stress testing was performed using 0.4mg per 5ml of regadenoson given intravenously over 7-10 seconds. Reversal agent aminophyline 100 mg, given intravenously for Other. POST EXERCISE Reason for Termination: Protocol completed Target HR: No Max HR: 94 bpm 66% of Maximum Predicted HR: 155 bpm Exercise duration: 00:48 min:sec, 0 Stage Exercise capacity: 1.0METs Max Blood Pressure: 134/64mmHg Blood Pressure response to exercise: normal resting BP - appropriate response Heart Rate response to exercise: appropriate Chest Pain: No, none Angina index: 0 Arrhythmia: No, none ST Change: No, none Deviation: 0 mm INTERPRETATION Stress EKG Conclusion: Negative IV Lexiscan for Ischemia and for chest pain, Nuclear scan to follow. Signed by joselyn mccray Electronically Approved: 04/07/2017 13:20:41 EXAM: Myocardial Perfusion REST/STRESS Stress Test Type: Pharmacologic Imaging Protocol Rest Spect myocardial perfusion imaging was performed in supine position 60 minutes following the injection of 10.6 mCi of Tc-99 Myoview. At peak stress, the patient was injected intravenously with 30.8mCi of Tc-99 tetrofosmin after an infusion time of 0 minutes and 10 seconds. Gated Stress Spect was performed 80 minutes after intravenous Tc-99 Myoview injection. The images were gated to evaluate regional wall motion and calculate ventricular ejection fraction.Images were reconstructed using backfilter projection method in short horizontal and verticle long axis. Spect slices were generated. LV Perfusion The quality of the study is good. The left ventricle is within normal limits in size. The right ventricle is unremarkable. The lung uptake is normal. The distribution of tracer reveals a moderate sized area of moderately to severely decreased perfusion involving mid to basal inferolateral wall on the stress study. The remainder of the LV myocardium is unremarkable. The rest myocardial perfusion study shows improvement of defects. Wall Motion Wall motion study shows inferlateral hypokinesis of the left ventricle. LVEF = 53%. Conclusion 1. Abnormal SPECT myocardial perfusion study. 2. Patitally reversible, inferolateral defec is suggestive of ischemia. 3. Normal overall LV function despite inferolateral hypokinesis.
[2017-04-07] MEDS ORDERED: Aspirin 325 mg EC Tablets PO STA (19:02)
[2017-04-07] MEDS: Insulin Detemir 100 units/ml Vial (Levemir) SC SCH (21:53)
--- NOTE | 2017-04-07 22:59 | PN ---
DATE: 04/06/2017 The patient was seen this Friday morning in room 264, bed 1, resting comfortably in bed, but still ve ry dizzy, cannot sit up without falling backwards. Orthostatic blood pressures were not able to be m easured for that reason. PHYSICAL EXAMINATION: GENERAL: The patient is in good spirits. Awake and alert. LUNGS: Clear. HEART: Regular. He continues on IV Rocephin for the infiltrate seen on CT scan. He is scheduled for a thallium stres s test tomorrow with Dr. Rodney because of the multiple risk factors including tobacco use, diabetes, a nd hypertension. He is on meclizine and Valium for the dizziness. Neurology and cardiology consults appreciated. Case discussed with cardiology. Alex Bowman MD cc: 439 TT: 04/07/2017 22:59:14 Confirmation # [id number] Dictation # [id number] tn
--- NOTE | 2017-04-07 23:04 | PN ---
DATE: 04/07/2017 The patient was seen this Friday late evening. He went for a thallium stress test this morning beccolleen se of the symptoms of chest pain on admission and, because of multiple risk factors, this stress test was abnormal and he is scheduled for cardiac catheterization tomorrow with Dr. Rodney. PLAN: I spoke with the patient about his dizziness. He remains dizzy and falling backwards when he tries to sit up. He tried sitting and even standing, but fell back again. After cardiac catheteriza tion, we need to reassess his neurologic symptoms and I look for input from neurology regarding our t reatment options and to help us determine our next disposition; although, the patient tells me today he was approached about the rehab facilities. Alex Bowman MD cc: [id number] TT: 04/07/2017 23:03:28 Confirmation # [id number] Dictation # [id number]
[2017-04-08] MEDS ORDERED: Lidocaine 2% Inj (20ml) ONE (06:52)
[2017-04-08] MEDS ORDERED: Iohexol 350mgl/ml 50 ML ONE (06:53)
[2017-04-08] MEDS ORDERED: Nitroglycerin 50mg in D5W 50 MG/250 ML BOTTLE IV ONE (06:53)
[2017-04-08] MEDS ORDERED: Midazolam 2 MG/2 ML VIAL ONE ×2 (07:26→08:26)
[2017-04-08] MEDS ORDERED: Phenylephrine 10 mg/ml Inj ONE (07:54)
[2017-04-08] MEDS: Insulin Reg-MEDIUM-Coverage SC SCH ×4 (07:55→22:09)
[2017-04-08] MEDS ORDERED: Eptifibatide 20 mg/10mL Inj IVP ONE ×2 (08:00→08:08)
[2017-04-08] MEDS ORDERED: Iohexol 350 MG/100 ML VIAL ONE (08:02)
--- NOTE | 2017-04-08 08:41 | PN ---
DATE: 04/07/2017 REASON FOR CONSULTATION AND FOLLOWUP: Dizziness, vertigo. BRIEF CLINICAL HISTORY: A 66-year-old male with a history of diabetes, hyperlipidemia, COPD, chronic low back pain, peripheral neuropathy admitted because of the severe vertigo. Multiple risk factors for coronary artery disease. The patient is scheduled for a stress test today. PHYSICAL EXAMINATION: VITAL SIGNS: Temperature afebrile, heart rate 8____, blood pressure 141/84. HEENT: PERRLA. Extraocular muscles intact. NECK: Supple. No carotid bruits. No thyromegaly. CHEST: Clear to auscultation. HEART: S1, S2 regular. ABDOMEN: Soft. EXTREMITIES: Clubbing and cyanosis negative. BLOOD WORKUP: As follows: WBC 4.____, hemoglobin 13.____, hematocrit 39.____, platelet count 99. C hemistry shows sodium 135, potassium 4, chloride 100, ____, anion gap of 12, BUN 16, creatinine 0.9. IMPRESSION: Vertigo, ____ negative, diabetes, hypertension, hyperlipidemia, obesity, multiple risk f actors for coronary artery disease. Suggest a stress test today. The patient had echocardiography d one that showed ejection fraction within the normal limits. No segmental wall motion ____ pulmonary hypertension. No significant valvular regurgitant ____ heart disease. No significant aortic stenosi s. RECOMMENDATION: Continue neuro workup. We will get a stress test today. ____ Dr. Bowman for providing the opportunity in taking care of the patient. We will follow with you. Joey Rodney MD cc:Alex Bomwan MD [id number] TT: 04/07/2017 11:31:45 Confirmation # [id number] Dictation # [id number] poncho
[2017-04-08] MEDS ORDERED: Sodium Chloride 0.9% 1,000 ML IV SCH (09:30)
[2017-04-08] MEDS: cefTRIAXone 1 gm 1 GM/100 ML BAG IVPB SCH (11:00)
--- NOTE | 2017-04-08 11:08 | PN ---
DATE: 04/08/2017 REASON FOR CONSULTATION AND FOLLOWUP: Cardiac evaluation, dizziness, vertigo, chest pain, abnormal s tress test. BRIEF CLINICAL HISTORY: This is a 66-year-old male with history of diabetes, hypertension, hyperlipi demia, COPD, chronic back pain, peripheral neuropathy, active tobacco abuse, admitted with some chest pain, underwent a stress test that was abnormal. The patient is scheduled for cardiac catheterizati on today. Denies any chest pain now. PHYSICAL EXAMINATION: VITAL SIGNS: Temperature afebrile, heart rate 85, blood pressure 151/80. HEENT: PERRLA. Extraocular muscles intact. NECK: Supple. No carotid bruits. No thyromegaly. CHEST: Clear to auscultation. HEART: S1, S2 regular. ABDOMEN: Soft. EXTREMITIES: Clubbing and cyanosis negative. LABORATORY DATA: WBC 4.2, hemoglobin 13.4, hematocrit 39.3, platelet count 99. Chemistry shows sodi um 135, potassium 4, chloride 100, carbon dioxide 24, anion gap 12, BUN 16, creatinine 0.9. IMPRESSION: Abnormal stress test. The patient underwent cardiac catheterization that revealed dista l left main 30% stenosis, left anterior descending proximal 80%, mid to distal 3 stenosis 90% and silviano y distal 95% stenosis near the apex and also in the mid distal third 95% stenosis, circumflex is a mo derate to large caliber vessel, ostial 30% stenosis. Right coronary artery was huge, super-dominant, large caliber vessel, proximally shows very ectatic and in between the 2 ectasias, 99% stenosis note d and distal right coronary artery contains a huge right posterior descending artery which has a 70-8 0% ostial stenosis. Preserved left ventricular function, ejection fraction 55-60%, end-diastolic pre ssure within the range of 15. The patient underwent percutaneous transluminal coronary angioplasty o f right coronary artery with a drug-eluting stent placed and plain balloon angioplasty of distal righ t posterior descending artery was done. Though the patient had technically severe 2-vessel disease, he was not a good candidate for open heart surgery, #1 being high risk of perioperative stroke as wel l as also distal target left anterior descending and right coronary artery are very poor target for c oronary artery bypass graft, so treatment options were catheter-based treatment adapted. RECOMMENDATIONS: Plan is to check lipid profile, TSH, hemoglobin A1c. Continue baby aspirin, contin ue Plavix 75 mg daily, add Lipitor 40 mg daily, add beta arianne 25 mg twice a day, metoprolol, add l isinopril ____ mg daily. Check BUN and creatinine tomorrow. Continue hydration and will schedule fo r a staged PTCA of LAD in 4 weeks, that is 05/08. Discussed at length with the patient. Also, emphas is made on complete compliance with medication, weight reduction as well as complete cessation of smo brenton. We will discuss with Dr. Bowman. Thank you, Dr. Bowman, for providing the opportunity in taking care of the patient. Joey Rodney MD cc:Alex Bowman MD 305 TT: 04/08/2017 11:08:30 Confirmation # [id number] Dictation # [id number] tn
--- NOTE | 2017-04-08 11:30 | PN ---
DATE: 04/08/2017 SUBJECTIVE: The patient is lying on the bed, in no acute distress. Said his dizziness is a little b jin. PHYSICAL EXAMINATION: VITAL SIGNS: His blood pressure is 151/81, heart rate is 85 per minute, breathing at a rate of 16 p er minute, temperature is 98 degrees Fahrenheit. HEENT: Normocephalic, atraumatic. NECK: Supple. There are no carotid bruits. LUNGS: Clear. CARDIOVASCULAR: S1, S2 audible. No murmurs. ABDOMEN: Soft, nontender. Bowel sounds present. NEUROLOGIC EXAMINATION: MENTAL STATUS: The patient is awake, alert, oriented to time, place, person. Speech is fluent. Nam ing and repetition normal. Memory and cognition are intact. CRANIAL NERVE EXAMINATION: Pupils are 4 mm bilaterally reactive to light. Visual alexander are full. Extraocular movements are intact. There is no facial asymmetry. Palate is upgoing bilaterally and t ongue is midline. MOTOR EXAMINATION: No nystagmus is seen. Power is 5/5 bilaterally in all extremities. Cpabhg-uo-ok se shows no dysmetria. Gait is deferred at the moment. LABORATORY DATA: Labs reviewed, shows anti-Hu antibody negative, antibody-Yo negative. IMPRESSION: 1. Dizziness, which is likely secondary to labyrinthine dysfunction. RECOMMENDATIONS: 1. The patient is currently on Valium 10 mg twice a day. The patient will be continued as it is pro bably helping his dizziness. 2. The patient is a good candidate for rehab placement to help his dizziness and gait dysfunction. 3. The patient to be continued on Neurontin for his underlying diabetic neuropathy. 4. Please continue other treatment and supportive care. Thank you for the opportunity to participate in the care of this patient. Itzel Palmer MD cc: [id number] TT: 04/08/2017 11:29:44 Confirmation # [id number] Dictation # [id number] poncho
--- NOTE | 2017-04-08 12:42 | CARD ---
APPROVED REPORT Procedure(s) performed: Left Heart Catheterization PTCA with Stenting of Prximal RCA with GINO PTCA with Balloon Angioplasty of R PDA HISTORY The patient is a 66 year-old male with a history of : most recent EF: 53%. (EF Method: RADIONUCLIDE), diabetes mellitus with insulin treatment , chronic lung disease, tobacco history() : The patient is a current smoker , hypertension , dyslipidemia , was C/o Chest discomfort and abnormal Stress test. INDICATION The indication(s) include : positive stress test. CASE TECHNIQUE The patient was brought electively to the Cardiac Catheterization Laboratory in a fasting state and was prepped and draped in a sterile manner. The left wrist was infiltrated with 2% Lidocaine subcutaneous anesthesia. A 6 Fr Glidesheath (Radial) sheath was inserted into the left radial artery without difficulty. Coronary angiography was performed using coronary diagnostic catheters. The left coronary system was accessed and visualized with a Diagnostic ,5 Fr JL 4 catheter. The right coronary system was accessed and visualized with a Diagnostic ,5 Fr JR 4 catheter. The left ventricle was accessed and visualized with a 5 Fr Pigtail 145 (Angled) catheter. Left ventricular/Aortic Valve gradient assessed on pullback. Left ventriculogram was performed in SENA projection. Closure device was deployed with a Fr TR Band (Large) without any complications. The patient tolerated the procedure well and there were no complications associated with the procedure. Vessel Analysis The patient's coronary anatomy is co-dominant. The left main coronary artery is a large size vessel with diffuse calcification noted throughout this vessel and without significant stenosis. There is a 20-30% stenosis in the distal segment. The left main bifurcates to the left anterior descending and circumflex. The left anterior descending artery is a medium size vessel with diffuse calcification noted throughout this vessel and with significant stenosis. There is a 90% stenosis in the mid segment. Multiple stenoses in mid segment sausage shape and very distal LAD near apex 95% stenosis The first diagonal branch is a medium size vessel with diffuse calcification noted throughout this vessel and without significant stenosis. There is a 70% stenosis in the proximal segment. The second diagonal branch is a medium size vessel with diffuse calcification noted throughout this vessel and without significant stenosis. The circumflex artery is a medium size vessel with diffuse calcification noted throughout this vessel and without significant stenosis. The first obtuse marginal branch is a small size vessel with diffuse calcification noted throughout this vessel and without significant stenosis. The second obtuse marginal branch is a small size vessel with diffuse calcification noted throughout this vessel and without significant stenosis. The left posterior descending artery is a small size vessel with diffuse calcification noted throughout this vessel and without significant stenosis. The right coronary artery is a large size vessel with diffuse calcification noted throughout this vessel and with significant stenosis. There is a 99% stenosis in the proximal segment. Two stenoses and in B/w Ectatic vessel The right posterior descending artery is a large size vessel with diffuse calcification noted throughout this vessel and with significant stenosis. There is a 70-80% stenosis in the ostial segment. and diffusely disease proximal segment The right posterolateral branch is a medium size vessel with diffuse calcification noted throughout this vessel and without significant stenosis. Left Ventricle The left ventricle is normal in size with normal contractility. There was no cardiomyopathy. The left ventricular ejection fraction is estimated to be 55-60%. The left ventricular end diastolic pressure is 15 mmHg. There was no gradient across the aortic valve upon pullback. PCI Technique Lesion Anticoagulation was achieved with Heparin. Percutaneous coronary intervention was performed on the proximal right coronary artery. The lesion stenosis prior to intervention was 99% with RALPH 2 flow. A 6 Fr JR 4 Guide Catheter was used to engage the ostium. BALLOON DILATION A Balloon catheter 2.5 x 15 mm Sprinter RX was inserted and inflated up to 12atm for 20seconds. STENT DEPLOYMENT A drug-eluting stent 3.5 x 18 mm Resolute GINO was inserted and inflated up to 14.00atm for 17seconds. POST STENT DEPLOYMENT BALLOON DILATION A Balloon catheter 5.0 x 8 mm Trek RX NC was inserted and inflated up to 14atm for 20seconds. Final angiography reveals 0 % stenosis with RALPH 3 flow. PCI Technique Lesion 2 Percutaneous Coronary Intervention was performed on the right posterior descending artery. The lesion stenosis prior to intervention was 70-80% with RALPH 2 flow. A 6 Fr JR 4 Guide Catheter was used to engage the ostium. BALLOON DILATION A Balloon catheter 2.5 x 25 mm Sprinter RX was inserted and inflated up to 8.00atm for 60seconds. Multiple Inflation 6-8 atnos for 60 seconds each Final angiography reveals 0 % stenosis with RALPH 3 flow. Conclusion Two Vessel Critical Diz, Involving LAD and RCA Distal RCA and LAD are not good target for CABG, Preserved LV FX. EF-55-60%, EDP-15 mmof Hg. Successful pTCA with GINO of Proximal RCA and POBA of R PDA done( RCA is A Super Dominant and Very large vessel Wrap around apex) Recommendations Smoking Cessation Cardiac Rehabilitation ReferralDaily ASA with Plavix for at least one year Aggressive Medical TherapyCardiac Risk Reduction Program Weight Loss Reduction Program Add Statin Beta En, AndACE Inhibitor as Bp Is tolerated, Stage PTCA of LAD in Four Weeks ( may 08, 2017 ) at 7;30 am. CC; DR. Leora Bowman MD
[2017-04-08 12:48] LABS: ADD MANUAL DIFF? NO
[2017-04-08 12:52] LABS: BASO # 0.01 K/mm3 (0.0-2.0); BASO % 0.3 % (0.0-3.0); EOS # 0.2 (0.0-0.7); EOS % 5.2 % (1.5-5.0); GRAN # 2.17 (1.4-6.5); GRAN % 56.1 % (50.0-68.0); HEMATOCRIT 40.5 % (42.0-52.0); LYMPH # 1.2 (1.2-3.4); LYMPH % 31.9 % (22.0-35.0); MEAN CORPUSCULAR HEMOGLOBIN 28.1 pg (25.0-35.0); MEAN CORPUSCULAR HGB CONC 35.1 g/dl (31.0-37.0); MEAN PLATELET VOLUME 9.8 fl (7.0-11.0); MONO # 0.3 (0.1-0.6); MONO % 6.5 % (1.0-6.0); PLATELET COUNT 123 10^3/uL (120.0-450.0); RED CELL DISTRIBUTION WIDTH 13.6 % (11.5-14.5); WHITE BLOOD COUNT 3.9 10^3/ul (4.5-11.0)
[2017-04-08 13:01] LABS: BLOOD UREA NITROGEN 22 mg/dL (7-21); CALCIUM 9.5 mg/dL (8.4-10.5); CARBON DIOXIDE 23 mmol/L (21-33); CHLORIDE 99 mmol/L (98-107); GFR AFRICAN-AMERICAN > 60; POTASSIUM 4.6 mmol/L (3.6-5.0); SODIUM 133 mmol/L (132-148)
[2017-04-08 13:13] LABS: GLUCOSE,RANDOM 334 mg/dL (70-110)
[2017-04-08] MEDS ORDERED: Bacitracin 500 Units/gm Oint Foilpak UD ONE (13:30)
--- NOTE | 2017-04-08 17:27 | CARD ---
APPROVED REPORT EKG Measurement Heart [id number] ME [id number] <Conclusion> Normal sinus rhythm Normal ECG
[2017-04-08] MEDS: Oxycodone/Acetaminophen 5/325 mg Tab PO PRN (17:28)
[2017-04-08] MEDS: Insulin Detemir 100 units/ml Vial (Levemir) SC SCH (22:09)
[2017-04-09 06:08] VITALS: O2SAT 97
[2017-04-09] MEDS ORDERED: Insulin Detemir 100 units/ml Vial (Levemir) SC SCH (06:09)
--- NOTE | 2017-04-09 08:14 | PN ---
DATE: 04/08/2017 The patient was seen this Friday in room 273, bed 1. He was initially admitted with worsenin g vertigo and falling backwards. The patient also reported some chest pain. Because of multiple ris k factors including cigarette smoking, elevated cholesterol, diabetes, a Thallium stress test was don e and that was abnormal yesterday. Today, he went for cardiac catheterization with Dr. Rodney. Critical stenoses were noted and addressed with stenting and he is scheduled for repeat stenting a fe w weeks. He looks and feels much, much better than before. Four days without smoking has improved h is skin color tremendously. He feels that his dizziness is better with meclizine and benzodiazepines but a true test of his ability with physical therapy, ambulation, and balance has yet to be performe d. He has the been approached by caseworkers and discharge planners to discuss physical therapy and reha bilitation facilities but she says he is not interested in going to a facility out of town. We will consider physical therapy here at [facility] if needed but first we need to test his state of b alance. He is approaching several days of IV antibiotics for pneumonia noted on chest CT. I will or chilo a followup CT scan for tomorrow to view the infiltrate that was not visible on chest x-ray. IMPRESSION: 1. Vertigo or ataxia. 2. Coronary artery disease. Abnormal thallium stress, critical stenosis with stent placement marla hale today. 3. Pneumonic infiltrate noted on chest CT, now on day 4 or 5 of IV antibiotics. 4. Chronic obstructive pulmonary disease. 5. Diabetes. 6. Obesity. PLAN: Repeat CT, physical therapy, TCU evaluation as the patient is not interested in traveling out of town for physical therapy rehab facility but will consider TCU. Alex Bowman MD cc: [id number] TT: 04/09/2017 08:11:22 Confirmation # [id number] Dictation # [id number] tn
[2017-04-09] MEDS: Insulin Reg-MEDIUM-Coverage SC SCH ×3 (08:17→17:05)
[2017-04-09] MEDS: cefTRIAXone 1 gm 1 GM/100 ML BAG IVPB SCH (09:49)
[2017-04-09 09:56] LABS: ADD MANUAL DIFF? NO
[2017-04-09 09:59] LABS: BASO # 0.01 K/mm3 (0.0-2.0); BASO % 0.3 % (0.0-3.0); EOS # 0.2 (0.0-0.7); EOS % 5.9 % (1.5-5.0); GRAN # 2.16 (1.4-6.5); GRAN % 57.7 % (50.0-68.0); HEMATOCRIT 38.9 % (42.0-52.0); LYMPH % 27.8 % (22.0-35.0); MEAN CELL VOLUME 79.7 fL (80.0-105.0); MEAN CORPUSCULAR HEMOGLOBIN 28.3 pg (25.0-35.0); MEAN CORPUSCULAR HGB CONC 35.5 g/dl (31.0-37.0); MEAN PLATELET VOLUME 10.2 fl (7.0-11.0); MONO # 0.3 (0.1-0.6); MONO % 8.3 % (1.0-6.0); PLATELET COUNT 124 10^3/uL (120.0-450.0); RED CELL DISTRIBUTION WIDTH 13.4 % (11.5-14.5); WHITE BLOOD COUNT 3.7 10^3/ul (4.5-11.0)
[2017-04-09 10:12] LABS: ALB/GLOB RATIO 1.4 (1.1-1.8); ALKALINE PHOSPHATASE 83 U/L (38-133); ALT/SGPT 33 U/L (7-56); AST/SGOT 27 U/L (15-59); BILIRUBIN,TOTAL 0.9 mg/dL (0.2-1.3); BLOOD UREA NITROGEN 24 mg/dL (7-21); CALCIUM 9.6 mg/dL (8.4-10.5); CARBON DIOXIDE 23 mmol/L (21-33); CHLORIDE 99 mmol/L (98-107); CHOLESTEROL 217 mg/dL (130-200); GFR AFRICAN-AMERICAN > 60; MAGNESIUM 1.6 mg/dL (1.7-2.2); PHOSPHOROUS 3.9 mg/dL (2.5-4.5); POTASSIUM 4.1 mmol/L (3.6-5.0); SODIUM 134 mmol/L (132-148); TOTAL PROTEIN 7.1 g/dL (5.8-8.3)
[2017-04-09 10:19] LABS: GLUCOSE,RANDOM 371 mg/dL (70-110)
[2017-04-09] MEDS: Oxycodone/Acetaminophen 5/325 mg Tab PO PRN (10:52)
[2017-04-09] MEDS ORDERED: Magnesium Oxide 400 mg Tab UD PO ONE (12:18)
[2017-04-09 12:21] VITALS: RESP 20
--- NOTE | 2017-04-09 15:24 | CARD ---
APPROVED REPORT EKG Measurement Heart [id number] NC [id number] <Conclusion> Normal sinus rhythm Nonspecific T wave abnormality Abnormal ECG
--- NOTE | 2017-04-09 15:43 | PN ---
DATE: 04/09/2017 REASON FOR CONSULTATION AND FOLLOWUP: Cardiac evaluation, coronary artery disease, status post PTCA. BRIEF CLINICAL HISTORY: This is a 66-year-old male with a past medical history of diabetes, hyperten miracle, hyperlipidemia, COPD, chronic back pain, vertigo, peripheral neuropathy, active tobacco abuse. Admitted with some chest discomfort and dizziness. The patient underwent a stress test, abnormal. Yesterday, patient underwent cardiac catheterization and had angioplasty of right coronary artery and plain balloon angioplasty of RPDA. Denies any chest pain, shortness of breath, any palpitation. PHYSICAL EXAMINATION: VITAL SIGNS: Temperature afebrile, heart rate 77, blood pressure 127/61. HEENT: PERRLA. Extraocular muscles intact. NECK: Supple. No carotid bruits. No thyromegaly. CHEST: Clear to auscultation. HEART: S1, S2 regular. ABDOMEN: Soft. EXTREMITIES: Clubbing, cyanosis negative. BLOOD WORKUP: WBC 3.7, hemoglobin 13. , hematocrit 38.8, platelet count 124. Chemistry shows so dium 134, potassium 4. , chloride , carbon dioxide 23, anion gap of 16, BUN 24, creatinine 0 .9. IMPRESSION: Multivessel coronary artery disease, status post percutaneous transluminal coronary naman oplasty of right coronary artery, needs staged percutaneous transluminal coronary angioplasty of left anterior descending on 05/08/2017, diabetes, hypertension, hyperlipidemia, active tobacco abuse, ___ __ vertigo. RECOMMENDATION: Continue aspirin, continue Plavix, continue atorvastatin 40 mg daily, continue ramip ril 1.25 mg daily, continue Lopressor 25 b.i.d. Possible discharge when the patient is stable from n eurology point of view and the patient will be readmitted for a staged PTCA of LAD on 05/08/2017 at 7 a.m. Thank you, Dr. Bowman, for providing us the opportunity in taking care of the patient. Joey Rodney MD cc:Alex Bowman MD 305 TT: 04/09/2017 15:42:32 Confirmation # [id number] Dictation # [id number]
--- NOTE | 2017-04-09 15:59 | CT ---
PROCEDURE: CT Chest without contrast HISTORY: F/U on infiltrate vs neop on prior CT COMPARISON: CT chest from 04/04 2017. TECHNIQUE: Contiguous axial images were obtained through the chest without intravenous contrast enhancement. Sagittal and coronal reconstructions were performed. Radiation dose (DLP): 742.55 mGy-cm. This CT exam was performed using one or more of the following dose reduction techniques: Automated exposure control, adjustment of the mA and/or kV according to patient size, and/or use of iterative reconstruction technique. FINDINGS: LUNGS: Since the prior examination, there has been no significant interval change in the size and appearance of 1.4 x 1.5 cm mixed attenuation lesion with some degree of ground-glass attenuation in the right upper lobe (series 4, image 31). The lungs are well inflated. There is no dense consolidation or suspicious pulmonary nodules. There is a 3 mm calcified nodule in the peripheral left upper lobe. There are no endobronchial lesions. There is subsegmental atelectasis in both lower lobes. MEDIASTINUM: The aorta is not dilated. The heart is normal in size. There is no pericardial effusion. There are advanced atherosclerotic coronary artery calcifications. There is no pathologic axillary or mediastinal lymphadenopathy. PLEURA: No pleural fluid. No pneumothorax. BONES: There are scattered hemangiomas in the thoracic vertebral bodies. There is mild multilevel degenerative disc disease. UPPER ABDOMEN: Both adrenal glands are normal in size. There is mild splenomegaly and statement are of prior granulomatous disease. OTHER FINDINGS: None. IMPRESSION: Little interval change in the size and appearance of mixed density 1.4 x 1.5 cm lesion in the right upper lobe. Findings could be related to nonspecific infection/ inflammation however low grade neoplasm cannot be entirely excluded. Short-term interval follow-up after medical management is recommended to ensure complete resolution.
[2017-04-09 17:10] VITALS: BP 137/73
[2017-04-09] MEDS ORDERED: Magnesium Oxide 400 mg Tab UD PO SCH (18:00)
[2017-04-09 18:31] VITALS: PULSE 75; TEMP 98.3
[2017-04-10] MEDS ORDERED: Magnesium Oxide 400 mg Tab UD PO ONE (11:00)
== END 2017-04-09 21:00 | DRG 246 ==
LOC: ED 23:40 → ERH 04-03 04:28 → 2RNO 04-03 07:58 → OBSVTOIN 04-04 10:21 → 2RSO 04-08 09:17
PROVIDERS: ADMIT Internal Medicine; ATTEND Internal Medicine
PROC: 027034Z Dilation of Coronary Artery, One Artery with Drug-eluting Intraluminal Device, Percutaneous Approach (ICD-10-PCS; principal; 2017-04-08)
PROC: 02703ZZ Dilation of Coronary Artery, One Artery, Percutaneous Approach (ICD-10-PCS; 2017-04-08)
PROC: 4A023N7 Measurement of Cardiac Sampling and Pressure, Left Heart, Percutaneous Approach (ICD-10-PCS; 2017-04-08)
PROC: B2051ZZ Plain Radiography of Left Heart using Low Osmolar Contrast (ICD-10-PCS; 2017-04-08)
PROC: B2011ZZ Plain Radiography of Multiple Coronary Arteries using Low Osmolar Contrast (ICD-10-PCS; 2017-04-08)
PROC: 3E033PZ Introduction of Platelet Inhibitor into Peripheral Vein, Percutaneous Approach (ICD-10-PCS; 2017-04-08)
DX: I25.10 Atherosclerotic heart disease of native coronary artery without angina pectoris (principal); J18.9 Pneumonia, unspecified organism; J44.0 Chronic obstructive pulmonary disease with (acute) lower respiratory infection; H83.2X9 Labyrinthine dysfunction, unspecified ear; E11.42 Type 2 diabetes mellitus with diabetic polyneuropathy; E11.65 Type 2 diabetes mellitus with hyperglycemia; I10 Essential (primary) hypertension; F17.210 Nicotine dependence, cigarettes, uncomplicated; E78.5 Hyperlipidemia, unspecified; R27.0 Ataxia, unspecified; N40.0 Benign prostatic hyperplasia without lower urinary tract symptoms; G89.29 Other chronic pain; M54.5 Low back pain; R55 Syncope and collapse; B34.9 Viral infection, unspecified; E66.9 Obesity, unspecified; Z68.34 Body mass index [BMI] 34.0-34.9, adult

== ENCOUNTER 2017-04-20 12:53 | Inpatient (IN) | payer MEDICARE, OTHER ==
[2017-04-20 13:00] VITALS: BMI 30.3
[2017-04-20] MEDS ORDERED: Sodium Chloride 0.9% 500 ML IV STA (13:19)
[2017-04-20] MEDS ORDERED: Iohexol 350 MG/100 ML VIAL ONE ×2 (13:20→15:30)
--- NOTE | 2017-04-20 13:34 | ED PDOC ---
Arrival/HPI - General Chief Complaint: GI Problem Time Seen by Provider: 04/20/17 12:55 Historian: Patient - History of Present Illness Narrative History of Present Illness (Text): 04/20/17 12:55 A 66 year old male, whose past medical history includes hypertension, coronary artery disease with stents, diabetes, vertigo, peripheral neuropathy, and multiple falls was brought in by EMS complaining of constipation for the past 2 weeks. Patient reports he fell backwards last night and doesn't remember if hit his head or passed out. He does recall feeling dizzy prior to falling. PMD told patient to come to emergency department. Patient reports urinary retention for the past week without any urine output. He also has been having a decrease in appetite and dizziness but denies any chest pain, headache, shortness of breath, leg swelling or any other complaints at this time. PMD: Dr. Bowman Symptom Onset: Sudden Symptom Course: Unchanged Activities at Onset: Rest Context: Home Past Medical History - Provider Review Nursing Documentation Reviewed: Yes - Infectious Disease Hx of Infectious Diseases: None - Cardiac Hx Cardiac Disorders: Yes (hyperlipidemia) Hx Hypertension: Yes - Pulmonary Hx Respiratory Disorders: No - Neurological Hx Neurological Disorder: Yes (neuropathy, vertigo) - HEENT Hx HEENT Disorder: No - Renal Hx Renal Disorder: No - Endocrine/Metabolic Hx Endocrine Disorders: Yes Hx Diabetes Mellitus Type 2: Yes - Hematological/Oncological Hx Blood Transfusions: No Hx Blood Transfusion Reaction: No - Integumentary Hx Dermatological Disorder: No - Musculoskeletal/Rheumatological Hx Musculoskeletal Disorders: Yes (uses cane) Hx Falls: Yes - Gastrointestinal Hx Gastrointestinal Disorders: No - Genitourinary/Gynecological Hx Genitourinary Disorders: No - Psychiatric Hx Psychophysiologic Disorder: No Hx Substance Use: No - Surgical History Hx Vascular Surgery: Yes Other/Comment: "stent in the L arm" - Anesthesia Hx Anesthesia: Yes Hx Anesthesia Reactions: No Hx Malignant Hyperthermia: No Family/Social History - Physician Review Nursing Documentation Reviewed: Yes Family/Social History: No Known Family HX Smoking Status: Former Smoker Hx Alcohol Use: No Hx Substance Use: No Allergies/Home Meds Allergies/Adverse Reactions: Allergies No Known Allergies Allergy (Verified 04/20/17 12:59) Home Medications: Home Meds Medication Instructions Recorded Confirmed Gabapentin [Neurontin] 300 mg PO BID 04/03/17 04/20/17 Insulin Aspar/Insulin N 70/30 1 unit SQ PRN PRN 04/20/17 04/20/17 [Novolog Mix 70/30-U/ml 3Ml] Review of Systems - Physician Review All systems were reviewed & negative as marked: Yes - Review of Systems Constitutional: absent: Fevers Eyes: Vision Changes Respiratory: absent: SOB Cardiovascular: absent: Chest Pain Gastrointestinal: Constipation, Appetite Changes Genitourinary Male: Urinary Output Changes, Other (urinary retention). absent: Frequency Musculoskeletal: absent: Other (leg swelling) Skin: Abscess Neurological: Dizziness. absent: Headache Endocrine: Other (hyperglycemia) Physical Exam Vital Signs Reviewed: Yes Vital Signs Temp Pulse Resp BP Pulse Ox 04/20/17 16:28 85 19 126/81 100 04/20/17 14:38 97.2 F L 04/20/17 13:00 98.6 F 84 18 117/60 95 Temperature: Afebrile Blood Pressure: Normal Pulse: Regular Respiratory Rate: Normal Appearance: Positive for: Non-Toxic Pain Distress: None Mental Status: Positive for: Alert and Oriented X 3 Finger Stick Blood Glucose: 332 - Systems Exam Head: Present: Atraumatic, Normocephalic Pupils: Present: PERRL Conjunctiva: Present: Normal Mouth: Present: Moist Mucous Membranes Pharnyx: Present: Normal. No: ERYTHEMA, EXUDATE Neck: Present: Normal Range of Motion Respiratory/Chest: Present: Clear to Auscultation, Good Air Exchange. No: Respiratory Distress, Accessory Muscle Use Cardiovascular: Present: Regular Rate and Rhythm, Normal S1, S2. No: Murmurs Abdomen: Present: Normal Bowel Sounds. No: Tenderness, Distention, Peritoneal Signs Rectal: Present: Other (moderate amount of hard stool in rectal vault; scribe Belqes present) Back: Present: Normal Inspection Upper Extremity: Present: Normal Inspection. No: Cyanosis, Edema Lower Extremity: Present: Normal Inspection. No: Edema Neurological: Present: GCS=15, CN II-XII Intact, Speech Normal Skin: Present: Warm, Dry, Normal Color. No: Rashes Psychiatric: Present: Alert, Oriented x 3, Normal Insight, Normal Concentration Medical Decision Making ED Course and Treatment: 04/20/17 12:55 Impression: A 66 year old male with constipation and urinary retention. Differential Diagnosis included but are not limited to: non-complicated constipation vs. urinary retention vs. mass vs. obstruction Plan: -- EKG -- CT abd/pelvis -- CT head -- labs -- Urinalysis -- IV fluids, Enema -- Reassess and disposition Prior Visits: Notes and results from previous visits were reviewed. Patient last reported to the emergency department on 04/04/17 for evaluation s/p syncopal episode. - Lab Interpretations I have reviewed the lab results: Yes - EKG Interpretation Interpreted by ED Physician: Yes Type: 12 lead EKG - Medication Orders Current Medication Orders: Sodium Chloride (Sodium Chloride 0.9%) 1,000 mls @ 100 mls/hr IV .Q10H [facility] Stop: 04/21/17 03:12 Discontinued Medications Sodium Chloride (Sodium Chloride 0.9%) 500 mls @ 999 mls/hr IV .Q31M STA Stop: 04/20/17 13:49 Last Admin: 04/20/17 13:27 Dose: 999 mls/hr Iohexol (Omnipaque 350 100 Ml) Confirm Administered Dose 350 mg .ROUTE .STK-MED ONE Stop: 04/20/17 13:21 Iohexol (Omnipaque 350 100 Ml) Confirm Administered Dose 350 mg .ROUTE .STK-MED ONE Stop: 04/20/17 15:31 Sodium Phosphate (Fleet Enema) 135 ml RC STAT STA Stop: 04/20/17 13:18 Last Admin: 04/20/17 13:26 Dose: 135 ml ED OBSERVATION Date of observation admission: 04/20/17 Time of observation admission: 12:55 - Observation admission statement Patient is being placed in observation because:: constipation - Goals of Observation Goals of observation are:: reevaluate patient symptoms - Progress Note Progress Note: 04/20/17 13:30 Patient with glucose of 331, no ag; BUN is 24; labs showing some dehydration as well. Other labs are unremarkable. 04/20/17 13:40 Norris catheter placed with urine output 1000 cc of urine. 04/20/17 15:20 Patient still with minimal stool, minimal bowel movement despite taking stool softener. 04/20/17 15:30 Manual disimpaction redone, significant amount of hard stool removed from vault. EKG: Ordered, reviewed, and independently interpreted the EKG. Rate : 86 BPM Rhythm : NSR Interpretation : Normal intervals, normal axis, no ST/T changes 04/20/17 16:40 CT Abdomen and Pelvis with contrast Creator : Umberto Hooks MD IMPRESSION: Circumferential thickening of the wall of the duodenum. Likely infectious/ inflammatory. Nonobstructing calculus disease right kidney. Additional benign and/or incidental findings described above. 04/20/17 16:42 CT HEAD WITHOUT CONTRAST Creator : Umberto Hooks MD IMPRESSION: No acute intracranial abnormalities. No significant findings to account for the clinical presentation. No significant interval change compared to the prior examination(s). 04/20/17 17:17 Patient with noted history; given the multiple medical issues, including near syncope with dehydration, uncontrolled diabetes with duodenitis on CT and urinary retention, the patient will need multiple midnight stays in the hospital for further evaluation and treatment. Case discussed with Dr. Fuentes Bowman. - Scribe Statement The provider has reviewed the documentation as recorded by the Keyannaibe Christine Palencia Provider Scribe Attestation: All medical record entries made by the Keyannaibodilia were at my direction and personally dictated by me. I have reviewed the chart and agree that the record accurately reflects my personal performance of the history, physical exam, medical decision making, and the department course for this patient. I have also personally directed, reviewed, and agree with the discharge instructions and disposition. Disposition/Present on Arrival - Present on Arrival Any Indicators Present on Arrival: Yes History of DVT/PE: No History of Uncontrolled Diabetes: Yes Urinary Catheter: No History of Decub. Ulcer: No History Surgical Site Infection Following: None - Disposition Have Diagnosis and Disposition been Completed?: Yes Diagnosis: Dizziness, Near syncope, Constipation, Uncontrolled diabetes mellitus, Urinary retention, Duodenitis, Dehydration Disposition: HOSPITALIZED Disposition Time: 12:55 Patient Plan: Admission Condition: FAIR
[2017-04-20 13:42] LABS: ALB/GLOB RATIO 1.4 (1.1-1.8); ALT/SGPT 25 U/L (7-56); AMYLASE 60 U/L (35-125); AST/SGOT 19 U/L (15-59); BLOOD UREA NITROGEN 24 mg/dL (7-21); CALCIUM 9.4 mg/dL (8.4-10.5); GFR AFRICAN-AMERICAN > 60; GFR NON-AFRICAN AMERICAN 55; LIPASE 58 U/L (23-300)
[2017-04-20 13:53] LABS: INR 1.03 (0.93-1.08); PROTHROMBIN TIME 11.1 Seconds (9.9-11.8)
[2017-04-20 14:24] LABS: TROPONIN I < 0.01 ng/mL
[2017-04-20 14:41] LABS: PH,URINE 5.5 (4.7-8.0); URINE BILIRUBIN NEGATIVE (NEGATIVE); URINE BLOOD NEGATIVE (NEGATIVE); URINE GLUCOSE (UA) >=1000 mg/dL (NEGATIVE); URINE LEUKOCYTE ESTERASE NEGATIVE Leu/uL (NEGATIVE); URINE NITRATE NEGATIVE (NEGATIVE); URINE PROTEIN 30 mg/dL (<30 mg/dL); URINE UROBILINOGEN 0.2 E.U./dL (<1 E.U./dL)
[2017-04-20 14:43] LABS: URINE APPEARANCE SL CLOUDY (CLEAR); URINE COLOR YELLOW (YELLOW)
[2017-04-20 14:50] LABS: URINE RBC 0 - 2 /hpf (0-2); URINE WBC 0 - 2 /hpf (0-6)
[2017-04-20 14:51] LABS: URINE EPITHELIAL CELLS 0 - 2 /hpf (0-5)
[2017-04-20 15:04] LABS: BASO # 0.02 K/mm3 (0.0-2.0); BASO % 0.4 % (0.0-3.0); EOS # 0.2 (0.0-0.7); EOS % 3.7 % (1.5-5.0); GRAN # 3.39 (1.4-6.5); GRAN % 72.9 % (50.0-68.0); HEMOGLOBIN 12.6 gm/dL (14.0-18.0); LYMPH # 0.8 (1.2-3.4); LYMPH % 17.2 % (22.0-35.0); MEAN CELL VOLUME 80.9 fL (80.0-105.0); MEAN CORPUSCULAR HEMOGLOBIN 27.7 pg (25.0-35.0); MEAN CORPUSCULAR HGB CONC 34.2 g/dl (31.0-37.0); MEAN PLATELET VOLUME 10.5 fl (7.0-11.0); MONO # 0.3 (0.1-0.6); MONO % 5.8 % (1.0-6.0); PLATELET COUNT 147 10^3/uL (120.0-450.0); RBC 4.55 10^6/uL (3.5-6.1); RED CELL DISTRIBUTION WIDTH 13.7 % (11.5-14.5); WHITE BLOOD COUNT 4.7 10^3/ul (4.5-11.0)
--- NOTE | 2017-04-20 16:38 | CT ---
PROCEDURE: CT Abdomen and Pelvis with contrast HISTORY: No BMs x 2.5 weeks and bloated Hyperglycemia. COMPARISON: 04/09/2017 CT thorax. TECHNIQUE: Contrast dose: 100 cc Omnipaque 350 Radiation dose: Total exam DLP = 3076.99 mGy-cm. This CT exam was performed using one or more of the following dose reduction techniques: Automated exposure control, adjustment of the mA and/or kV according to patient size, and/or use of iterative reconstruction technique. FINDINGS: LOWER THORAX: Unremarkable. LIVER: Hepatic steatosis. No focal masses. No intrahepatic bile duct dilatation or perihepatic ascites. Hepatomegaly. GALLBLADDER AND BILE DUCTS: Unremarkable. PANCREAS: Unremarkable. No gross lesion or ductal dilatation. SPLEEN: Benign-appearing calcifications in an otherwise unremarkable spleen with respect to size and oral contour. ADRENALS: Unremarkable. No mass. KIDNEYS AND URETERS: Right kidney: 7 mm lower pole calculus, nonobstructing. Unremarkable. No hydronephrosis. No solid mass. Incidental finding(s): Lower pole simple cyst left kidney 3.2 cm. VASCULATURE: Densely calcified visceral branches, non aneurysmal abdominal aorta. BOWEL: Circumferential thickening of the duodenum likely infectious or inflammatory. Unremarkable stomach. Constipation without fecal impaction or obstruction. APPENDIX: No abnormalities to suggest acute appendicitis. No right lower quadrant inflammatory processes identified. PERITONEUM: Unremarkable. No free fluid. No free air. LYMPH NODES: Unremarkable. No enlarged lymph nodes. BLADDER: Unremarkable. REPRODUCTIVE: Norris catheter satisfactorily visualized in the decompressed urinary bladder. BONES: No acute fracture. OTHER FINDINGS: None. IMPRESSION: Circumferential thickening of the wall of the duodenum. Likely infectious/ inflammatory. Nonobstructing calculus disease right kidney. Additional benign and/or incidental findings described above.
--- NOTE | 2017-04-20 16:41 | CT ---
PROCEDURE: CT HEAD WITHOUT CONTRAST. HISTORY: fall COMPARISON: 04/03/2017 TECHNIQUE: Axial computed tomography images were obtained through the head/brain without intravenous contrast. Radiation dose: Total exam DLP = 3076.99 mGy-cm. This CT exam was performed using one or more of the following dose reduction techniques: Automated exposure control, adjustment of the mA and/or kV according to patient size, and/or use of iterative reconstruction technique. FINDINGS: HEMORRHAGE: No intracranial hemorrhage. BRAIN: No mass effect or edema. No atrophy or chronic microvascular ischemic changesMacro hypertrophy. VENTRICLES: Unremarkable. No hydrocephalus. CALVARIUM: Unremarkable. PARANASAL SINUSES: Chronic ethmoid sinusitis MASTOID AIR CELLS: Unremarkable as visualized. No inflammatory changes. OTHER FINDINGS: None. IMPRESSION: No acute intracranial abnormalities. No significant findings to account for the clinical presentation. No significant interval change compared to the prior examination(s).
[2017-04-20] MEDS ORDERED: Sodium Chloride 0.9% 1,000 ML IV STA (17:13)
--- NOTE | 2017-04-20 20:17 | CARD ---
APPROVED REPORT EKG Measurement Heart [id number] <Conclusion> Normal sinus rhythm Normal ECG
[2017-04-21] MEDS ORDERED: Oxycodone/Acetaminophen 5/325 mg Tab PO PRN (07:13)
[2017-04-21] MEDS: Insulin Reg-HIGH-Coverage SC SCH ×4 (09:13→21:24)
[2017-04-21] MEDS: POLYETHYLENE GLYCOL 3350 17 GM/Dose PACKET PO SCH (09:14)
[2017-04-21] MEDS: Sodium Chloride 0.45% 1,000 ML IV SCH ×2 (09:15→18:01)
--- NOTE | 2017-04-21 10:07 | CP.PCM.CON ---
History of Present Illness - History of Present Illness History of Present Illness: Consult writtten in chart Imp: Dizziness seconday to lavbrynthine dysfunction. Gait dysfunction Diabetic Neuropathy Rec: Trial oF Valium 2mg bid. Physical Therapy. Increase Neurontin 400 mg tid. Rehab. placement. Past Patient History - Infectious Disease Hx of Infectious Diseases: None - Past Social History Smoking Status: Former Smoker - CARDIAC Hx Cardiac Disorders: Yes (hyperlipidemia) Hx Hypertension: Yes - PULMONARY Hx Respiratory Disorders: No - NEUROLOGICAL Hx Neurological Disorder: Yes (neuropathy, vertigo) - HEENT Hx HEENT Problems: No - RENAL Hx Chronic Kidney Disease: No - ENDOCRINE/METABOLIC Hx Endocrine Disorders: Yes Hx Diabetes Mellitus Type 2: Yes - HEMATOLOGICAL/ONCOLOGICAL Hx Blood Disorders: No - INTEGUMENTARY Hx Dermatological Problems: No - MUSCULOSKELETAL/RHEUMATOLOGICAL Hx Falls: Yes - GASTROINTESTINAL Hx Gastrointestinal Disorders: No - GENITOURINARY/GYNECOLOGICAL Hx Genitourinary Disorders: No - PSYCHIATRIC Hx Psychophysiologic Disorder: No - SURGICAL HISTORY Other/Comment: "stent in the L arm" - ANESTHESIA Hx Anesthesia: Yes Hx Anesthesia Reactions: No Hx Malignant Hyperthermia: No Meds Allergies/Adverse Reactions: Allergies Allergy/AdvReac Type Severity Reaction Status Date / Time No Known Allergies Allergy Verified 04/20/17 12:59 - Medications Medications: Current Medications Diazepam (Valium) 2 mg PO BID [facility] PRN Reason: Protocol Gabapentin (Neurontin) 400 mg PO TID [facility] PRN Reason: Protocol Sodium Chloride (Sodium Chloride 0.45%) 1,000 mls @ 100 mls/hr IV .Q10H [facility] Last Admin: 04/21/17 09:15 Dose: 100 mls/hr Insulin Human Regular (Humulin R High) 0 units SC ACHS [facility] PRN Reason: Protocol Last Admin: 04/21/17 09:13 Dose: 4 units Oxycodone/Acetaminophen (Percocet 5/325 Mg Tab) 1 tab PO Q4H PRN PRN Reason: Pain, moderate (4-7) Stop: 04/24/17 07:14 Polyethylene Glycol (Miralax) 17 gm PO DAILY [facility] Last Admin: 04/21/17 09:14 Dose: 17 gm Tamsulosin HCl (Flomax) 0.4 mg PO DAILY [facility] Last Admin: 04/21/17 09:14 Dose: 0.4 mg Results - Vital Signs Recent Vital Signs: Last Vital Signs Temp 98.3 F 04/21/17 08:53 Pulse 80 04/21/17 08:53 Resp 18 04/21/17 08:53 BP 145/82 04/21/17 08:53 Pulse Ox 98 04/21/17 08:53 - Labs Result Diagrams: 04/20/17 13:26 04/20/17 13:26 Labs: Laboratory Results - last 24 hr 04/21/17 08:41 POC Glucose (mg/dL) 230 H
[2017-04-21 10:22] LABS: BASO # 0.02 K/mm3 (0.0-2.0); BASO % 0.5 % (0.0-3.0); EOS # 0.2 (0.0-0.7); EOS % 4.3 % (1.5-5.0); GRAN # 2.82 (1.4-6.5); GRAN % 66.9 % (50.0-68.0); HEMOGLOBIN 11.8 gm/dL (14.0-18.0); LYMPH % 22.8 % (22.0-35.0); MEAN CELL VOLUME 80.1 fL (80.0-105.0); MEAN CORPUSCULAR HEMOGLOBIN 27.6 pg (25.0-35.0); MEAN CORPUSCULAR HGB CONC 34.4 g/dl (31.0-37.0); MEAN PLATELET VOLUME 9.9 fl (7.0-11.0); MONO # 0.2 (0.1-0.6); MONO % 5.5 % (1.0-6.0); PLATELET COUNT 123 10^3/uL (120.0-450.0); RBC 4.28 10^6/uL (3.5-6.1); RED CELL DISTRIBUTION WIDTH 13.4 % (11.5-14.5); WHITE BLOOD COUNT 4.2 10^3/ul (4.5-11.0)
[2017-04-21 10:33] LABS: ALB/GLOB RATIO 1.4 (1.1-1.8); ALBUMIN 3.7 g/dL (3.0-4.8); ALT/SGPT 29 U/L (7-56); AST/SGOT 21 U/L (15-59); BLOOD UREA NITROGEN 14 mg/dL (7-21); CALCIUM 9.2 mg/dL (8.4-10.5); GFR AFRICAN-AMERICAN > 60; GFR NON-AFRICAN AMERICAN > 60
--- NOTE | 2017-04-21 15:19 | CP.PCM.CON ---
History of Present Illness - History of Present Illness History of Present Illness: shortly patient is 66 years old male, but not no previous psychiatric history, patient denied history of psychiatric admissions, denied history of suicidal attempts, patient has multiple medical problems including hypertension , coronary artery disease with stents, diabetes, vertigo, peripheral neuropathy , and multiple falls was brought in by EMS complaining of constipation for the past 2 weeks, pt also had ? head trauma, psychological consult was called for evaluation of depressive symptoms, patient was making statements like "I want to , why I cannot end it all?". Patient was seen and examined, patient presented to be tearful, reported that she feels hopeless, depressed, and embarrassed. Patient stated that he wanted to , denied any intent or plan to kill himself. Patient reported that he hears voices but nobody is around, patient also reported that she feels hopeless that he has no family, he lives by himself, he cannot work, he has financial problems. Patient reported to have no appetite, not sleeping well. Denied using drugs denied smoking denied drinking alcohol. Past psychiatric history: Patient denied. Medical issues as above. Patient was offered psychiatric admission, patient is willing to sign himself into the psychiatric inpatient unit after medical stabilization. Patient was offered to be initiated on Prozac for depressed mood, Sonata for insomnia. Risk benefits alternatives were discussed with the patient. 04/21/17 10:00 04/21/17 10:00 Lab Results 04/21/17 11:05: POC Glucose (mg/dL) 272 H 04/21/17 10:00: Sodium 138, Potassium 4.3, Chloride 103, Carbon Dioxide 26, Anion Gap 13, BUN 14, Creatinine 0.9, Est GFR ( Amer) > 60, Est GFR (Non- Af Amer) > 60, Random Glucose 274 H, Calcium 9.2, Total Bilirubin 0.9, AST 21, ALT 29, Alkaline Phosphatase 75, Total Protein 6.4, Albumin 3.7, Globulin 2.7, Albumin/Globulin Ratio 1.4 04/21/17 10:00: WBC 4.2 L, RBC 4.28, Hgb 11.8 L, Hct 34.3 L, MCV 80.1, MCH 27.6 , MCHC 34.4, RDW 13.4, Plt Count 123, MPV 9.9, Gran % 66.9, Lymph % (Auto) 22.8 , [place] % (Auto) 5.5, Eos % (Auto) 4.3, Baso % (Auto) 0.5, Gran # 2.82, Lymph # 1.0 L, [place] # 0.2, Eos # 0.2, Baso # 0.02 04/21/17 08:41: POC Glucose (mg/dL) 230 H 04/20/17 13:49: Urine Color Yellow, Urine Appearance Sl cloudy, Urine pH 5.5, Ur Specific [place] >= 1.030, Urine Protein 30 H, Urine Glucose (UA) >=1000, Urine Ketones Negative, Urine Blood Negative, Urine Nitrate Negative, Urine Bilirubin Negative, Urine Urobilinogen 0.2, Ur Leukocyte Esterase Negative, Urine RBC 0 - 2, Urine WBC 0 - 2, Ur Epithelial Cells 0 - 2 04/20/17 13:26: Sodium 138, Potassium 4.3, Chloride 103, Carbon Dioxide 25, Anion Gap 14, BUN 24 H, Creatinine 1.3, Est GFR ( Amer) > 60, Est GFR ( Non-Af Amer) 55, Random Glucose 331 H*, Calcium 9.4, Total Bilirubin 0.6, AST 19 , ALT 25, Alkaline Phosphatase 83, Lactate Dehydrogenase 329 L, Total Creatine Kinase 23 L, Troponin I < 0.01, Total Protein 6.9, Albumin 4.0, Globulin 2.9, Albumin/Globulin Ratio 1.4, Amylase 60, Lipase 58 04/20/17 13:26: PT 11.1, INR 1.03, APTT 28.0 04/20/17 13:26: WBC 4.7 D, RBC 4.55, Hgb 12.6 L, Hct 36.8 L, MCV 80.9, MCH 27.7 , MCHC 34.2, RDW 13.7, Plt Count 147, MPV 10.5, Gran % 72.9 H, Lymph % (Auto) 17.2 L, [place] % (Auto) 5.8, Eos % (Auto) 3.7, Baso % (Auto) 0.4, Gran # 3.39, Lymph # 0.8 L, [place] # 0.3, Eos # 0.2, Baso # 0.02 Vital Signs Temp Pulse Resp BP Pulse Ox 04/21/17 08:53 98.3 F 80 18 145/82 98 04/21/17 08:15 82 04/20/17 20:33 81 17 141/73 04/20/17 18:50 98.5 F 84 20 148/80 99 04/20/17 17:30 81 17 141/73 99 04/20/17 16:28 85 19 126/81 100 04/20/17 14:38 97.2 F L 04/20/17 13:00 98.6 F 84 18 117/60 95 mental status examination: Patient presented to be depressed, tearful during the interview, speech was low volume under productive, more described as depressed, hopeless, and embarrassed , affect was mood congruent thought process coherent and goal directed, thought content patient denied visual hallucinations reported to hear voices, denied paranoid ideation. Insight and judgment are impaired, impulses are well predictable. Impression: Rule out major depressive disorder severe with psychosis Rule out mood disorder due to general medical condition Plan: Prozac will be started for major depressive disorder Sonata will be started at the nighttime for insomnia Physical therapy evaluation Neurologist evaluated patient Physical therapy evaluation Patient was in agreement to go to psychiatric inpatient treatment after medical stabilization We'll follow-up on this patient by us accordingly Thank you very much for letting Carmen speak and care of the patient Past Patient History - Infectious Disease Hx of Infectious Diseases: None - Past Social History Smoking Status: Former Smoker - CARDIAC Hx Cardiac Disorders: Yes (hyperlipidemia) Hx Hypertension: Yes - PULMONARY Hx Respiratory Disorders: No - NEUROLOGICAL Hx Neurological Disorder: Yes (neuropathy, vertigo) - HEENT Hx HEENT Problems: No - RENAL Hx Chronic Kidney Disease: No - ENDOCRINE/METABOLIC Hx Endocrine Disorders: Yes Hx Diabetes Mellitus Type 2: Yes - HEMATOLOGICAL/ONCOLOGICAL Hx Blood Disorders: No - INTEGUMENTARY Hx Dermatological Problems: No - MUSCULOSKELETAL/RHEUMATOLOGICAL Hx Falls: Yes - GASTROINTESTINAL Hx Gastrointestinal Disorders: No - GENITOURINARY/GYNECOLOGICAL Hx Genitourinary Disorders: No - PSYCHIATRIC Hx Psychophysiologic Disorder: No - SURGICAL HISTORY Other/Comment: "stent in the L arm" - ANESTHESIA Hx Anesthesia: Yes Hx Anesthesia Reactions: No Hx Malignant Hyperthermia: No Meds Allergies/Adverse Reactions: Allergies Allergy/AdvReac Type Severity Reaction Status Date / Time No Known Allergies Allergy Verified 04/20/17 12:59 - Medications Medications: Current Medications Diazepam (Valium) 2 mg PO BID [facility] PRN Reason: Protocol Last Admin: 04/21/17 12:28 Dose: 2 mg Fluoxetine HCl (Prozac) 10 mg PO DAILY [facility] Gabapentin (Neurontin) 400 mg PO TID [facility] PRN Reason: Protocol Sodium Chloride (Sodium Chloride 0.45%) 1,000 mls @ 100 mls/hr IV .Q10H [facility] Last Admin: 04/21/17 09:15 Dose: 100 mls/hr Insulin Human Regular (Humulin R High) 0 units SC ACHS [facility] PRN Reason: Protocol Last Admin: 04/21/17 12:35 Dose: 7 units Oxycodone/Acetaminophen (Percocet 5/325 Mg Tab) 1 tab PO Q4H PRN PRN Reason: Pain, moderate (4-7) Stop: 04/24/17 07:14 Polyethylene Glycol (Miralax) 17 gm PO DAILY [facility] Last Admin: 04/21/17 09:14 Dose: 17 gm Tamsulosin HCl (Flomax) 0.4 mg PO DAILY [facility] Last Admin: 04/21/17 09:14 Dose: 0.4 mg Zaleplon (Sonata) 5 mg PO HS PRN PRN Reason: Insomnia Results - Vital Signs Recent Vital Signs: Last Vital Signs Temp 98.3 F 04/21/17 08:53 Pulse 80 04/21/17 08:53 Resp 18 04/21/17 08:53 BP 145/82 04/21/17 08:53 Pulse Ox 98 04/21/17 08:53 - Labs Result Diagrams: 04/21/17 10:00 04/21/17 10:00 Labs: Laboratory Results - last 24 hr 04/21/17 04/21/17 04/21/17 08:41 10:00 10:00 WBC 4.2 L RBC 4.28 Hgb 11.8 L Hct 34.3 L MCV 80.1 MCH 27.6 MCHC 34.4 RDW 13.4 Plt Count 123 MPV 9.9 Gran % 66.9 Lymph % (Auto) 22.8 [place] % (Auto) 5.5 Eos % (Auto) 4.3 Baso % (Auto) 0.5 Gran # 2.82 Lymph # 1.0 L [place] # 0.2 Eos # 0.2 Baso # 0.02 Sodium 138 Potassium 4.3 Chloride 103 Carbon Dioxide 26 Anion Gap 13 BUN 14 Creatinine 0.9 Est GFR ( Amer) > 60 Est GFR (Non-Af Amer) > 60 POC Glucose (mg/dL) 230 H Random Glucose 274 H Calcium 9.2 Total Bilirubin 0.9 AST 21 ALT 29 Alkaline Phosphatase 75 Total Protein 6.4 Albumin 3.7 Globulin 2.7 Albumin/Globulin Ratio 1.4 04/21/17 11:05 WBC RBC Hgb Hct MCV MCH MCHC RDW Plt Count MPV Gran % Lymph % (Auto) [place] % (Auto) Eos % (Auto) Baso % (Auto) Gran # Lymph # [place] # Eos # Baso # Sodium Potassium Chloride Carbon Dioxide Anion Gap BUN Creatinine Est GFR ( Amer) Est GFR (Non-Af Amer) POC Glucose (mg/dL) 272 H Random Glucose Calcium Total Bilirubin AST ALT Alkaline Phosphatase Total Protein Albumin Globulin Albumin/Globulin Ratio
[2017-04-22] MEDS: Sodium Chloride 0.45% 1,000 ML IV SCH ×2 (02:51→13:18)
[2017-04-22 07:03] LABS: BASO # 0.01 K/mm3 (0.0-2.0); BASO % 0.2 % (0.0-3.0); EOS # 0.2 (0.0-0.7); GRAN # 2.56 (1.4-6.5); GRAN % 60.5 % (50.0-68.0); LYMPH # 1.1 (1.2-3.4); MEAN CELL VOLUME 79.5 fL (80.0-105.0); MEAN CORPUSCULAR HEMOGLOBIN 27.4 pg (25.0-35.0); MEAN CORPUSCULAR HGB CONC 34.5 g/dl (31.0-37.0); MEAN PLATELET VOLUME 10.3 fl (7.0-11.0); MONO # 0.4 (0.1-0.6); MONO % 8.3 % (1.0-6.0); PLATELET COUNT 131 10^3/uL (120.0-450.0); RBC 4.38 10^6/uL (3.5-6.1); RED CELL DISTRIBUTION WIDTH 13.4 % (11.5-14.5); WHITE BLOOD COUNT 4.2 10^3/ul (4.5-11.0)
[2017-04-22 07:15] LABS: BLOOD UREA NITROGEN 12 mg/dL (7-21); CALCIUM 9.1 mg/dL (8.4-10.5); GFR AFRICAN-AMERICAN > 60; GFR NON-AFRICAN AMERICAN > 60
[2017-04-22] MEDS: Insulin Reg-HIGH-Coverage SC SCH ×4 (08:00→22:14)
[2017-04-22] MEDS: POLYETHYLENE GLYCOL 3350 17 GM/Dose PACKET PO SCH (09:12)
--- NOTE | 2017-04-22 14:17 | CP.PCM.CON ---
History of Present Illness - History of Present Illness History of Present Illness: F/u note: shortly patient is 66 years old male, but not no previous psychiatric history, patient denied history of psychiatric admissions, denied history of suicidal attempts, patient has multiple medical problems including hypertension , coronary artery disease with stents, diabetes, vertigo, peripheral neuropathy , and multiple falls was brought in by EMS complaining of constipation for the past 2 weeks, pt also had ? head trauma, psychological consult was called for evaluation of depressive symptoms, patient was making statements like "I want to , why I cannot end it all?". Patient was seen and examined yesterday, this short story writer is f/u on this pt today, pt was observed sitting, c/o back pain, pt said that he was not able to sleep last night, patient was educated about PRN meds, pt verbalized understanding. patient presented to be tearful, reported that she feels hopeless, depressed, and embarrassed. was compliant with prozac, no side effects. Patient reported to have no appetite. Patient was offered psychiatric admission, patient is willing to sign himself into the psychiatric inpatient unit after medical stabilization. pt still wants to be admitted to the psych unit. mental status examination: Patient presented to be depressed, tearful during the interview, speech was low volume/ under productive, mood " depressed, hopeless, and embarrassed", affect was mood congruent thought process coherent and goal directed, thought content patient denied visual hallucinations reported to hear voices, denied paranoid ideation. Insight and judgment are impaired, impulses are well predictable. Impression: Rule out major depressive disorder severe with psychosis Rule out mood disorder due to general medical condition Plan: Prozac was started for major depressive disorder Sonata was started at the nighttime for insomnia Physical therapy evaluation Neurologist evaluated patient Physical therapy evaluation Patient was in agreement to go to psychiatric inpatient treatment after medical stabilization We'll follow-up on this patient by us accordingly Thank you very much for letting me to participate in care of your pt. Temp Pulse Resp BP Pulse Ox 98.6 F 77 20 139/83 97 04/22/17 06:00 04/22/17 06:00 04/22/17 06:00 04/22/17 06:00 04/22/17 06:00 Laboratory Results - last 24 hr 04/20/17 04/20/17 04/21/17 13:01 14:33 16:00 WBC RBC Hgb Hct MCV MCH MCHC RDW Plt Count MPV Gran % Lymph % (Auto) [place] % (Auto) Eos % (Auto) Baso % (Auto) Gran # Lymph # [place] # Eos # Baso # Sodium Potassium Chloride Carbon Dioxide Anion Gap BUN Creatinine Est GFR ( Amer) Est GFR (Non-Af Amer) POC Glucose (mg/dL) 332 H 295 H 238 H Random Glucose Calcium 04/21/17 04/22/17 04/22/17 21:06 06:30 06:30 WBC 4.2 L RBC 4.38 Hgb 12.0 L Hct 34.8 L MCV 79.5 L MCH 27.4 MCHC 34.5 RDW 13.4 Plt Count 131 MPV 10.3 Gran % 60.5 Lymph % (Auto) 26.0 [place] % (Auto) 8.3 H Eos % (Auto) 5.0 Baso % (Auto) 0.2 Gran # 2.56 Lymph # 1.1 L [place] # 0.4 Eos # 0.2 Baso # 0.01 Sodium 138 Potassium 4.0 Chloride 104 Carbon Dioxide 25 Anion Gap 13 BUN 12 Creatinine 0.8 Est GFR ( Amer) > 60 Est GFR (Non-Af Amer) > 60 POC Glucose (mg/dL) 186 H Random Glucose 219 H Calcium 9.1 04/22/17 04/22/17 07:10 11:19 WBC RBC Hgb Hct MCV MCH MCHC RDW Plt Count MPV Gran % Lymph % (Auto) [place] % (Auto) Eos % (Auto) Baso % (Auto) Gran # Lymph # [place] # Eos # Baso # Sodium Potassium Chloride Carbon Dioxide Anion Gap BUN Creatinine Est GFR ( Amer) Est GFR (Non-Af Amer) POC Glucose (mg/dL) 251 H 263 H Random Glucose Calcium Past Patient History - Infectious Disease Hx of Infectious Diseases: None - Past Social History Smoking Status: Former Smoker - CARDIAC Hx Cardiac Disorders: Yes (hyperlipidemia) Hx Hypertension: Yes - PULMONARY Hx Respiratory Disorders: No - NEUROLOGICAL Hx Neurological Disorder: Yes (neuropathy, vertigo) - HEENT Hx HEENT Problems: No - RENAL Hx Chronic Kidney Disease: No - ENDOCRINE/METABOLIC Hx Diabetes Mellitus Type 2: Yes - HEMATOLOGICAL/ONCOLOGICAL Hx Blood Disorders: No - INTEGUMENTARY Hx Dermatological Problems: No - MUSCULOSKELETAL/RHEUMATOLOGICAL Hx Falls: Yes - GASTROINTESTINAL Hx Gastrointestinal Disorders: No - GENITOURINARY/GYNECOLOGICAL Hx Genitourinary Disorders: No - PSYCHIATRIC Hx Psychophysiologic Disorder: No - SURGICAL HISTORY Other/Comment: "stent in the L arm" - ANESTHESIA Hx Anesthesia: Yes Hx Anesthesia Reactions: No Hx Malignant Hyperthermia: No Meds Allergies/Adverse Reactions: Allergies Allergy/AdvReac Type Severity Reaction Status Date / Time No Known Allergies Allergy Verified 04/20/17 12:59 - Medications Medications: Current Medications Diazepam (Valium) 2 mg PO BID [facility] PRN Reason: Protocol Last Admin: 04/22/17 09:13 Dose: 2 mg Fluoxetine HCl (Prozac) 10 mg PO DAILY [facility] Last Admin: 04/22/17 09:13 Dose: 10 mg Gabapentin (Neurontin) 400 mg PO TID [facility] PRN Reason: Protocol Last Admin: 04/22/17 13:17 Dose: 400 mg Sodium Chloride (Sodium Chloride 0.45%) 1,000 mls @ 100 mls/hr IV .Q10H [facility] Last Admin: 04/22/17 13:18 Dose: 100 mls/hr Insulin Human Regular (Humulin R High) 0 units SC ACHS [facility] PRN Reason: Protocol Last Admin: 04/22/17 12:52 Dose: 7 units Oxycodone/Acetaminophen (Percocet 5/325 Mg Tab) 1 tab PO Q4H PRN PRN Reason: Pain, moderate (4-7) Stop: 04/24/17 07:14 Polyethylene Glycol (Miralax) 17 gm PO DAILY [facility] Last Admin: 04/22/17 09:12 Dose: 17 gm Tamsulosin HCl (Flomax) 0.4 mg PO DAILY [facility] Last Admin: 04/22/17 09:12 Dose: 0.4 mg Zaleplon (Sonata) 5 mg PO HS PRN PRN Reason: Insomnia Last Admin: 04/21/17 21:24 Dose: 5 mg Results - Vital Signs Recent Vital Signs: Last Vital Signs Temp 98.6 F 04/22/17 06:00 Pulse 77 04/22/17 06:00 Resp 20 04/22/17 06:00 BP 139/83 04/22/17 06:00 Pulse Ox 97 04/22/17 06:00 - Labs Result Diagrams: 04/22/17 06:30 04/22/17 06:30 Labs: Laboratory Results - last 24 hr 04/21/17 04/21/17 04/22/17 16:00 21:06 06:30 WBC 4.2 L RBC 4.38 Hgb 12.0 L Hct 34.8 L MCV 79.5 L MCH 27.4 MCHC 34.5 RDW 13.4 Plt Count 131 MPV 10.3 Gran % 60.5 Lymph % (Auto) 26.0 [place] % (Auto) 8.3 H Eos % (Auto) 5.0 Baso % (Auto) 0.2 Gran # 2.56 Lymph # 1.1 L [place] # 0.4 Eos # 0.2 Baso # 0.01 Sodium Potassium Chloride Carbon Dioxide Anion Gap BUN Creatinine Est GFR ( Amer) Est GFR (Non-Af Amer) POC Glucose (mg/dL) 238 H 186 H Random Glucose Calcium 04/22/17 04/22/17 04/22/17 06:30 07:10 11:19 WBC RBC Hgb Hct MCV MCH MCHC RDW Plt Count MPV Gran % Lymph % (Auto) [place] % (Auto) Eos % (Auto) Baso % (Auto) Gran # Lymph # [place] # Eos # Baso # Sodium 138 Potassium 4.0 Chloride 104 Carbon Dioxide 25 Anion Gap 13 BUN 12 Creatinine 0.8 Est GFR ( Amer) > 60 Est GFR (Non-Af Amer) > 60 POC Glucose (mg/dL) 251 H 263 H Random Glucose 219 H Calcium 9.1
[2017-04-23] MEDS: Sodium Chloride 0.45% 1,000 ML IV SCH ×2 (01:33→12:55)
--- NOTE | 2017-04-23 06:03 | CP.PCM.PN ---
Subjective - Date & Time of Evaluation Date of Evaluation: 04/22/17 Time of Evaluation: 09:00 - Subjective Subjective: Seen this Friday a.m. in Rm 367-1. Severely depressed, sees no future. +BM, dizziness continues but much better than presentation 3 - 4 months ago Objective - Vital Signs/Intake and Output Vital Signs (last 24 hours): Temp Pulse Resp BP Pulse Ox 98.6 F 74 20 151/51 H 94 L 04/23/17 00:00 04/23/17 02:00 04/23/17 00:00 04/23/17 00:00 04/23/17 00:00 Intake and Output: 04/22/17 04/23/17 18:59 06:59 Intake Total 300 660 Output Total 1100 900 Balance -800 -240 - Medications Medications: Current Medications Diazepam (Valium) 2 mg PO BID [facility] PRN Reason: Protocol Last Admin: 04/22/17 17:15 Dose: 2 mg Fluoxetine HCl (Prozac) 10 mg PO DAILY [facility] Last Admin: 04/22/17 09:13 Dose: 10 mg Gabapentin (Neurontin) 400 mg PO TID [facility] PRN Reason: Protocol Last Admin: 04/22/17 17:14 Dose: 400 mg Sodium Chloride (Sodium Chloride 0.45%) 1,000 mls @ 100 mls/hr IV .Q10H [facility] Last Admin: 04/23/17 01:33 Dose: 100 mls/hr Insulin Human Regular (Humulin R High) 0 units SC ACHS [facility] PRN Reason: Protocol Last Admin: 04/22/17 22:14 Dose: Not Given Oxycodone/Acetaminophen (Percocet 5/325 Mg Tab) 1 tab PO Q4H PRN PRN Reason: Pain, moderate (4-7) Stop: 04/24/17 07:14 Polyethylene Glycol (Miralax) 17 gm PO DAILY [facility] Last Admin: 04/22/17 09:12 Dose: 17 gm Tamsulosin HCl (Flomax) 0.4 mg PO DAILY [facility] Last Admin: 04/22/17 09:12 Dose: 0.4 mg Zaleplon (Sonata) 5 mg PO HS PRN PRN Reason: Insomnia Last Admin: 04/21/17 21:24 Dose: 5 mg - Labs Labs: 04/22/17 06:30 04/22/17 06:30 PT 11.1 Seconds (9.9-11.8) 04/20/17 13:26 INR 1.03 (0.93-1.08) 04/20/17 13:26 APTT 28.0 Seconds (23.7-30.8) 04/20/17 13:26 - Constitutional Appears: Non-toxic, No Acute Distress - Head Exam Head Exam: NORMAL INSPECTION - Eye Exam Pupil Exam: PERRL - ENT Exam ENT Exam: Mucous Membranes Moist - Neck Exam Neck Exam: Full ROM, Lymphadenopathy, Meningismus, Normal Inspection, Tenderness , Thyromegaly - Respiratory Exam Respiratory Exam: Clear to Ausculation Bilateral - Cardiovascular Exam Cardiovascular Exam: REGULAR RHYTHM - GI/Abdominal Exam GI & Abdominal Exam: Soft, Normal Bowel Sounds - Extremities Exam Extremities Exam: Full ROM, Normal Capillary Refill, Normal Inspection. absent : Joint Swelling, Pedal Edema - Back Exam Back Exam: NORMAL INSPECTION - Neurological Exam Neurological Exam: Alert, Awake, CN II-XII Intact, Normal Gait, Oriented x3 Neuro motor strength exam: Left Upper Extremity: 5, Right Upper Extremity: 5, Left Lower Extremity: 5, Right Lower Extremity: 5 - Psychiatric Exam Psychiatric exam: Depressed Assessment and Plan (1) Constipation Status: Acute (2) Dehydration Status: Resolved (3) Dizziness Status: Acute (4) Duodenitis Status: Resolved (5) Near syncope Status: Resolved (6) Uncontrolled diabetes mellitus Status: Acute (7) Urinary retention Status: Acute (8) Syncope Status: Acute
[2017-04-23] MEDS: Insulin Reg-HIGH-Coverage SC SCH ×4 (07:46→21:36)
--- NOTE | 2017-04-23 08:57 | CP.PCM.CON ---
History of Present Illness - History of Present Illness History of Present Illness: F/u note: shortly patient is 66 years old male, but not no previous psychiatric history, patient denied history of psychiatric admissions, denied history of suicidal attempts, patient has multiple medical problems including hypertension , coronary artery disease with stents, diabetes, vertigo, peripheral neuropathy , and multiple falls was brought in by EMS complaining of constipation for the past 2 weeks, pt also had ? head trauma, psychological consult was called for evaluation of depressive symptoms, patient was making statements like "I want to , why I cannot end it all?". Patient was seen and examined today, pt aid "my mood is the same, I feel depressed still, no future for me...", pt expressed wish to , but denied thoughts of harming self or others. pt denied feeling anxious, but worried about his future, feeling of loneliness. pt c/o numbness and "pins and needles in my legs, it is my neuropathy", neurontin was offered and started for diabetic neuropathy and mood stabilization/anxiety. pt tolerates prozac well, asked sonata to be given as scheduled. Patient reported to have no appetite. Patient was offered psychiatric admission, patient is willing to sign himself into the psychiatric inpatient unit after medical stabilization. pt still wants to be admitted to the psych unit. mental status examination: Patient presented to be depressed, tearful during the interview, speech was low volume/ under productive, mood " depressed, hopeless, and lonely", affect was mood congruent thought process coherent and goal directed, thought content patient denied visual hallucinations reported to hear voices, denied paranoid ideation. Insight and judgment are impaired, impulses are well predictable. Impression: Rule out major depressive disorder severe with psychosis Rule out mood disorder due to general medical condition Plan: Prozac was increased to 20mg po daily for major depressive disorder Sonata 5mg po jimbo at nighttime for insomnia neurontin 100mg tid for diabetic neuropathy Physical therapy recommended MARYJANE Neurologist evaluated patient Patient was in agreement to go to psychiatric inpatient treatment after medical stabilization We'll follow-up on this patient by us accordingly Thank you very much for letting me to participate in care of your pt. Past Patient History - Infectious Disease Hx of Infectious Diseases: None - Past Social History Smoking Status: Former Smoker - CARDIAC Hx Cardiac Disorders: Yes (hyperlipidemia) Hx Hypertension: Yes - PULMONARY Hx Respiratory Disorders: No - NEUROLOGICAL Hx Neurological Disorder: Yes (neuropathy, vertigo) - HEENT Hx HEENT Problems: No - RENAL Hx Chronic Kidney Disease: No - ENDOCRINE/METABOLIC Hx Diabetes Mellitus Type 2: Yes - HEMATOLOGICAL/ONCOLOGICAL Hx Blood Disorders: No - INTEGUMENTARY Hx Dermatological Problems: No - MUSCULOSKELETAL/RHEUMATOLOGICAL Hx Falls: Yes - GASTROINTESTINAL Hx Gastrointestinal Disorders: No - GENITOURINARY/GYNECOLOGICAL Hx Genitourinary Disorders: No - PSYCHIATRIC Hx Psychophysiologic Disorder: No - SURGICAL HISTORY Other/Comment: "stent in the L arm" - ANESTHESIA Hx Anesthesia: Yes Hx Anesthesia Reactions: No Hx Malignant Hyperthermia: No Meds Allergies/Adverse Reactions: Allergies Allergy/AdvReac Type Severity Reaction Status Date / Time No Known Allergies Allergy Verified 04/20/17 12:59 - Medications Medications: Current Medications Diazepam (Valium) 2 mg PO BID [facility] PRN Reason: Protocol Last Admin: 04/22/17 17:15 Dose: 2 mg Fluoxetine HCl (Prozac) 10 mg PO DAILY [facility] Last Admin: 04/22/17 09:13 Dose: 10 mg Gabapentin (Neurontin) 400 mg PO TID [facility] PRN Reason: Protocol Last Admin: 04/22/17 17:14 Dose: 400 mg Sodium Chloride (Sodium Chloride 0.45%) 1,000 mls @ 100 mls/hr IV .Q10H [facility] Last Admin: 04/23/17 01:33 Dose: 100 mls/hr Insulin Detemir (Levemir) 14 unit SC HS JIMBO Insulin Human Regular (Humulin R High) 0 units SC ACHS [facility] PRN Reason: Protocol Last Admin: 04/23/17 07:46 Dose: 4 units Oxycodone/Acetaminophen (Percocet 5/325 Mg Tab) 1 tab PO Q4H PRN PRN Reason: Pain, moderate (4-7) Stop: 04/24/17 07:14 Polyethylene Glycol (Miralax) 17 gm PO DAILY [facility] Last Admin: 04/22/17 09:12 Dose: 17 gm Tamsulosin HCl (Flomax) 0.4 mg PO DAILY [facility] Last Admin: 04/22/17 09:12 Dose: 0.4 mg Zaleplon (Sonata) 5 mg PO HS PRN PRN Reason: Insomnia Last Admin: 04/21/17 21:24 Dose: 5 mg Results - Vital Signs Recent Vital Signs: Last Vital Signs Temp 98.6 F 04/23/17 00:00 Pulse 73 04/23/17 06:00 Resp 20 04/23/17 00:00 BP 151/51 H 04/23/17 00:00 Pulse Ox 94 L 04/23/17 00:00 - Labs Result Diagrams: 04/22/17 06:30 04/22/17 06:30 Labs: Laboratory Results - last 24 hr 04/22/17 04/22/17 04/22/17 11:19 15:48 21:30 POC Glucose (mg/dL) 263 H 271 H 210 H
[2017-04-23] MEDS: POLYETHYLENE GLYCOL 3350 17 GM/Dose PACKET PO SCH ×2 (09:35→17:07)
--- NOTE | 2017-04-23 11:35 | CP.PCM.PN ---
Subjective - Date & Time of Evaluation Date of Evaluation: 04/23/17 Time of Evaluation: 11:22 - Subjective Subjective: Patient is seen sitting in chair ad bedside. Was speaking to a gnosticism marine mechanic earlier. Depression remains a major problem for him at this time. He is also concerned about his urinary retention ( Norris catheter still in place ) . Scheduled for EGD in AM with Dr. Franco to evaluate the duodenal wall thickening seen on CT. Frustrated as to no answers concerning his dizziness and falls at home, as well as his neuropathy. I reassured the patient that as answers are found they will be relayed and explained to him. Todays physical exam is unchanged. Labs show glucose is still elevated at about 230's. Awaiting Urology consult. Consider D/C Norris and follow a voiding trial. Continue with Prozac and Sonata as per Dr. Jose F Cerna. Patient agrees with transfer to when medically stable. Continuing with Valium 2mg and Neurontin 400mg as per Dr. Palmer. Will continue to follow the patient closely. Objective - Vital Signs/Intake and Output Vital Signs (last 24 hours): Temp Pulse Resp BP Pulse Ox 98.1 F 71 20 157/87 H 96 04/23/17 06:00 04/23/17 06:00 04/23/17 06:00 04/23/17 06:00 04/23/17 06:00 Intake and Output: 04/23/17 04/23/17 06:59 18:59 Intake Total 1860 0 Output Total 900 1200 Balance 960 -1200 - Medications Medications: Current Medications Diazepam (Valium) 2 mg PO BID [facility] PRN Reason: Protocol Last Admin: 04/23/17 09:34 Dose: 2 mg Fluoxetine HCl (Prozac) 20 mg PO DAILY [facility] Last Admin: 04/23/17 09:34 Dose: 20 mg Gabapentin (Neurontin) 400 mg PO TID [facility] PRN Reason: Protocol Last Admin: 04/23/17 09:34 Dose: 400 mg Gabapentin (Neurontin) 100 mg PO TID [facility] PRN Reason: Protocol Last Admin: 04/23/17 09:35 Dose: 100 mg Sodium Chloride (Sodium Chloride 0.45%) 1,000 mls @ 100 mls/hr IV .Q10H [facility] Last Admin: 04/23/17 01:33 Dose: 100 mls/hr Insulin Detemir (Levemir) 14 unit SC HS [facility] Insulin Human Regular (Humulin R High) 0 units SC ACHS [facility] PRN Reason: Protocol Last Admin: 04/23/17 07:46 Dose: 4 units Oxycodone/Acetaminophen (Percocet 5/325 Mg Tab) 1 tab PO Q4H PRN PRN Reason: Pain, moderate (4-7) Stop: 04/24/17 07:14 Polyethylene Glycol (Miralax) 17 gm PO DAILY [facility] Last Admin: 04/23/17 09:35 Dose: 17 gm Tamsulosin HCl (Flomax) 0.4 mg PO DAILY [facility] Last Admin: 04/23/17 09:34 Dose: 0.4 mg Zaleplon (Sonata) 5 mg PO HS PRN PRN Reason: Insomnia Last Admin: 04/21/17 21:24 Dose: 5 mg - Labs Labs: 04/22/17 06:30 04/22/17 06:30 PT 11.1 Seconds (9.9-11.8) 04/20/17 13:26 INR 1.03 (0.93-1.08) 04/20/17 13:26 APTT 28.0 Seconds (23.7-30.8) 04/20/17 13:26
--- NOTE | 2017-04-23 12:04 | CP.PCM.CON ---
<Marry Sykes - Last Filed: 04/23/17 12:03> History of Present Illness - History of Present Illness History of Present Illness: Seen and examined at bedside this am, Chart was reviewed. Request for consult is for Duodenal thickening on ct scan. HPI: This is a 66 y.o male with PMG of HTN, DM, recent PTCA with drug eluding stent on Plavix done on 04/08/17, he is due back to have stage PTCA with Dr. Rodney on 05/08/2017 as reviewed in chart. Patient not sure about having to take "blood thinners". Patient reported to have had dizziness at home and fell, not sure if he had head injury. Had a ct scan of the head that was negative for bleed and infarct. He also complained of constipation for 2 weeks, he stated that he went to rehab after cardiac cath and had no BM while there. He does c/o mid abdominal pain. On admission he said that he had BM upon admission but none for 2 days now. But he was also not urinating at home and found to have urinary retention, now with a arredondo. Patient reports that he does not take any laxatives ,he had ct scan done on admission and found to have constipation, duodenal thickening, nonobstructing right renal stone, and denies N/V, dyspepsia. Never had EGD or colon. Denies weight loss, does c/o loss appetite and feeling depressed, denies wanting to hurt self. He did say that he shashi take Percoet for pain LE, but at least 2x week. PMH: HLD,HTN,DM, type II, Peripheral neuropathy, Vertigo, CAD, s/p stent PSH: Appendectomy, Cardiac cath 04/08/17, PTCA RCA, w/drug eluding stent Social HX: smker, has not smoked for 1 week now, denies ETOH, Drugs Family HX: pateint denies Allergies: NKDA MEDS: reviewed as per MAR ROS: systems reviewed with positive findings, see MAR Past Patient History - Infectious Disease Hx of Infectious Diseases: None - Past Social History Smoking Status: Former Smoker - CARDIAC Hx Cardiac Disorders: Yes (hyperlipidemia) Hx Hypertension: Yes - PULMONARY Hx Respiratory Disorders: No - NEUROLOGICAL Hx Neurological Disorder: Yes (neuropathy, vertigo) - HEENT Hx HEENT Problems: No - RENAL Hx Chronic Kidney Disease: No - ENDOCRINE/METABOLIC Hx Diabetes Mellitus Type 2: Yes - HEMATOLOGICAL/ONCOLOGICAL Hx Blood Disorders: No - INTEGUMENTARY Hx Dermatological Problems: No - MUSCULOSKELETAL/RHEUMATOLOGICAL Hx Falls: Yes - GASTROINTESTINAL Hx Gastrointestinal Disorders: No - GENITOURINARY/GYNECOLOGICAL Hx Genitourinary Disorders: No - PSYCHIATRIC Hx Psychophysiologic Disorder: No - SURGICAL HISTORY Other/Comment: "stent in the L arm" - ANESTHESIA Hx Anesthesia: Yes Hx Anesthesia Reactions: No Hx Malignant Hyperthermia: No Meds Allergies/Adverse Reactions: Allergies Allergy/AdvReac Type Severity Reaction Status Date / Time No Known Allergies Allergy Verified 04/20/17 12:59 - Medications Medications: Current Medications Diazepam (Valium) 2 mg PO BID [facility] PRN Reason: Protocol Last Admin: 04/23/17 09:34 Dose: 2 mg Fluoxetine HCl (Prozac) 20 mg PO DAILY [facility] Last Admin: 04/23/17 09:34 Dose: 20 mg Gabapentin (Neurontin) 400 mg PO TID [facility] PRN Reason: Protocol Last Admin: 04/23/17 09:34 Dose: 400 mg Gabapentin (Neurontin) 100 mg PO TID [facility] PRN Reason: Protocol Last Admin: 04/23/17 09:35 Dose: 100 mg Sodium Chloride (Sodium Chloride 0.45%) 1,000 mls @ 100 mls/hr IV .Q10H [facility] Last Admin: 04/23/17 01:33 Dose: 100 mls/hr Insulin Detemir (Levemir) 14 unit SC HS [facility] Insulin Human Regular (Humulin R High) 0 units SC ACHS [facility] PRN Reason: Protocol Last Admin: 04/23/17 11:32 Dose: 7 units Oxycodone/Acetaminophen (Percocet 5/325 Mg Tab) 1 tab PO Q4H PRN PRN Reason: Pain, moderate (4-7) Stop: 04/24/17 07:14 Polyethylene Glycol (Miralax) 17 gm PO DAILY [facility] Last Admin: 04/23/17 09:35 Dose: 17 gm Tamsulosin HCl (Flomax) 0.4 mg PO DAILY [facility] Last Admin: 04/23/17 09:34 Dose: 0.4 mg Zaleplon (Sonata) 5 mg PO HS PRN PRN Reason: Insomnia Last Admin: 04/21/17 21:24 Dose: 5 mg Physical Exam - Constitutional Appears: No Acute Distress - Head Exam Head Exam: NORMAL INSPECTION - Eye Exam Eye Exam: Normal appearance. absent: Scleral icterus - ENT Exam ENT Exam: Mucous Membranes Moist - Neck Exam Neck exam: Positive for: Normal Inspection - Respiratory Exam Respiratory Exam: Decreased Breath Sounds, NORMAL BREATHING PATTERN. absent: Rales, Wheezes, Respiratory Distress - Cardiovascular Exam Cardiovascular Exam: +S1, +S2 - GI/Abdominal Exam GI & Abdominal Exam: Distended, Normal Bowel Sounds, Soft, Tenderness (mid abdomen). absent: Guarding, Rebound - Extremities Exam Extremities exam: Positive for: pedal pulses present. Negative for: calf tenderness, pedal edema - Neurological Exam Neurological exam: Alert, Oriented x3 - Skin Skin Exam: Dry, Warm Results - Vital Signs Recent Vital Signs: Last Vital Signs Temp 98.1 F 04/23/17 06:00 Pulse 71 04/23/17 06:00 Resp 20 04/23/17 06:00 BP 157/87 H 04/23/17 06:00 Pulse Ox 96 04/23/17 06:00 - Labs Result Diagrams: 04/22/17 06:30 04/22/17 06:30 Labs: Laboratory Results - last 24 hr 04/22/17 04/22/17 04/23/17 15:48 21:30 07:11 POC Glucose (mg/dL) 271 H 210 H 234 H 04/23/17 11:19 POC Glucose (mg/dL) 293 H Assessment & Plan - Assessment and Plan (Free Text) Assessment: ASSESSMENT: Urinary retention Constipation s/p Dehydration Duodenal thickening on ct scan/ Duodenitis Vertigo CAD, s/p PTCA 04/08/17 DM type II PLAN: clear liquid on Miralax, increase to BID start PPI, see orders spoke to patient and nursing staff, patient will benefit from EGD for futher evaluation of duodenal thickening, will clarify anticoagulant therapy. Thank you for this consult and for allowing us to participate in your patient care, will make further recommendations based upon clinical course. Seen and discussed w/ Dr. Franco. <Yehuda Franco V - Last Filed: 04/23/17 23:58> Meds - Medications Medications: Current Medications Aspirin (Aspirin Chewable) 81 mg PO DAILY [facility] Last Admin: 04/23/17 17:33 Dose: 81 mg Clopidogrel Bisulfate (Plavix) 75 mg PO DAILY [facility] Last Admin: 04/23/17 17:34 Dose: 75 mg Diazepam (Valium) 2 mg PO BID [facility] PRN Reason: Protocol Last Admin: 04/23/17 17:06 Dose: 2 mg Fluoxetine HCl (Prozac) 20 mg PO DAILY [facility] Last Admin: 04/23/17 09:34 Dose: 20 mg Gabapentin (Neurontin) 400 mg PO TID [facility] PRN Reason: Protocol Last Admin: 04/23/17 17:06 Dose: 400 mg Gabapentin (Neurontin) 100 mg PO TID [facility] PRN Reason: Protocol Last Admin: 04/23/17 17:05 Dose: 100 mg Sodium Chloride (Sodium Chloride 0.45%) 1,000 mls @ 100 mls/hr IV .Q10H [facility] Last Admin: 04/23/17 12:55 Dose: 100 mls/hr Insulin Detemir (Levemir) 14 unit SC HS [facility] Last Admin: 04/23/17 21:38 Dose: 14 unit Insulin Human Regular (Humulin R High) 0 units SC ACHS [facility] PRN Reason: Protocol Last Admin: 04/23/17 21:36 Dose: Not Given Lisinopril (Zestril) 20 mg PO DAILY [facility] Last Admin: 04/23/17 18:15 Dose: 20 mg Oxycodone/Acetaminophen (Percocet 5/325 Mg Tab) 1 tab PO Q4H PRN PRN Reason: Pain, moderate (4-7) Stop: 04/24/17 07:14 Pantoprazole Sodium (Protonix Inj) 40 mg IVP DAILY [facility] Last Admin: 04/23/17 13:18 Dose: 40 mg Polyethylene Glycol (Miralax) 17 gm PO BID [facility] Last Admin: 04/23/17 17:07 Dose: 17 gm Tamsulosin HCl (Flomax) 0.4 mg PO DAILY [facility] Last Admin: 04/23/17 09:34 Dose: 0.4 mg Zaleplon (Sonata) 5 mg PO HS PRN PRN Reason: Insomnia Last Admin: 04/21/17 21:24 Dose: 5 mg Results - Vital Signs Recent Vital Signs: Last Vital Signs Temp 98.2 F 04/23/17 16:00 Pulse 68 04/23/17 22:00 Resp 20 04/23/17 16:00 BP 160/91 H 04/23/17 18:15 Pulse Ox 96 04/23/17 16:00 - Labs Result Diagrams: 04/22/17 06:30 04/22/17 06:30 Labs: Laboratory Results - last 24 hr 04/23/17 04/23/17 04/23/17 07:11 11:19 15:54 POC Glucose (mg/dL) 234 H 293 H 276 H 04/23/17 21:21 POC Glucose (mg/dL) 218 H Attending/Attestation - Attestation I have personally seen and examined this patient.: Yes I have fully participated in the care of the patient.: Yes I have reviewed all pertinent clinical information: Yes Notes (Text): th
[2017-04-23] MEDS: Insulin Detemir 100 units/ml Vial (Levemir) SC SCH (21:38)
[2017-04-24] MEDS: Sodium Chloride 0.45% 1,000 ML IV SCH (00:03)
[2017-04-24] MEDS: Insulin Reg-HIGH-Coverage SC SCH ×4 (08:19→22:23)
[2017-04-24] MEDS ORDERED: Propofol 10 mg/ml Inj (20 ML) ONE (09:58)
[2017-04-24] MEDS ORDERED: Sodium Chloride 0.9% 1,000 ML IV SCH (10:15)
[2017-04-24] MEDS: POLYETHYLENE GLYCOL 3350 17 GM/Dose PACKET PO SCH ×2 (11:02→18:15)
--- NOTE | 2017-04-24 12:52 | CP.PCM.PCO ---
Physician Communication Note - Physician Communication Note Physician Communication Note: pt was at [facility] during am round,f/u on pt tomorrow , as per RN no acute issue
[2017-04-24] MEDS: Insulin Detemir 100 units/ml Vial (Levemir) SC SCH (22:27)
[2017-04-25] MEDS: Sodium Chloride 0.45% 1,000 ML IV SCH ×2 (00:50→12:02)
--- NOTE | 2017-04-25 06:41 | CP.PCM.PN ---
Subjective - Date & Time of Evaluation Date of Evaluation: 04/24/17 Time of Evaluation: 09:00 - Subjective Subjective: At Endo Objective - Vital Signs/Intake and Output Vital Signs (last 24 hours): Temp Pulse Resp BP Pulse Ox 98.1 F 73 20 115/64 95 04/25/17 01:30 04/25/17 05:33 04/25/17 01:30 04/25/17 01:30 04/25/17 01:30 Intake and Output: 04/24/17 04/25/17 18:59 06:59 Intake Total 480 360 Output Total 1800 1400 Balance -1320 -1040 - Medications Medications: Current Medications Aspirin (Aspirin Chewable) 81 mg PO DAILY [facility] Last Admin: 04/24/17 11:03 Dose: 81 mg Clopidogrel Bisulfate (Plavix) 75 mg PO DAILY [facility] Last Admin: 04/24/17 11:02 Dose: 75 mg Diazepam (Valium) 2 mg PO BID [facility] PRN Reason: Protocol Last Admin: 04/24/17 17:16 Dose: 2 mg Fluoxetine HCl (Prozac) 20 mg PO DAILY [facility] Last Admin: 04/24/17 11:02 Dose: 20 mg Gabapentin (Neurontin) 400 mg PO TID [facility] PRN Reason: Protocol Last Admin: 04/24/17 17:16 Dose: 400 mg Gabapentin (Neurontin) 100 mg PO TID [facility] PRN Reason: Protocol Last Admin: 04/24/17 17:15 Dose: 100 mg Sodium Chloride (Sodium Chloride 0.45%) 1,000 mls @ 100 mls/hr IV .Q10H [facility] Last Admin: 04/25/17 00:50 Dose: 100 mls/hr Insulin Detemir (Levemir) 14 unit SC HS [facility] Last Admin: 04/24/17 22:27 Dose: 14 unit Insulin Human Regular (Humulin R High) 0 units SC ACHS [facility] PRN Reason: Protocol Last Admin: 04/24/17 22:23 Dose: Not Given Lisinopril (Zestril) 20 mg PO DAILY [facility] Last Admin: 04/24/17 11:02 Dose: 20 mg Pantoprazole Sodium (Protonix Inj) 40 mg IVP DAILY [facility] Last Admin: 04/24/17 11:01 Dose: 40 mg Polyethylene Glycol (Miralax) 17 gm PO BID [facility] Last Admin: 04/24/17 18:15 Dose: 17 gm Tamsulosin HCl (Flomax) 0.4 mg PO DAILY [facility] Last Admin: 04/24/17 11:02 Dose: 0.4 mg Zaleplon (Sonata) 5 mg PO HS PRN PRN Reason: Insomnia Last Admin: 04/25/17 01:29 Dose: 5 mg - Labs Labs: 04/22/17 06:30 04/22/17 06:30 PT 11.1 Seconds (9.9-11.8) 04/20/17 13:26 INR 1.03 (0.93-1.08) 04/20/17 13:26 APTT 28.0 Seconds (23.7-30.8) 04/20/17 13:26 - Constitutional Appears: Well Assessment and Plan (1) Constipation Status: Acute (2) Dehydration Status: Resolved (3) Dizziness Status: Acute (4) Duodenitis Status: Resolved (5) Near syncope Status: Resolved (6) Uncontrolled diabetes mellitus Status: Acute (7) Urinary retention Status: Acute (8) Syncope Status: Acute (9) Depressed Status: Acute
[2017-04-25] MEDS: Insulin Reg-HIGH-Coverage SC SCH ×4 (08:23→22:30)
[2017-04-25] MEDS: POLYETHYLENE GLYCOL 3350 17 GM/Dose PACKET PO SCH ×2 (09:29→17:56)
--- NOTE | 2017-04-25 11:14 | CP.PCM.PN ---
<Marry Sykes - Last Filed: 04/25/17 11:11> Subjective - Date & Time of Evaluation Date of Evaluation: 04/25/17 Time of Evaluation: 08:55 - Subjective Subjective: S&E at bedside, chart reviewed. Had egd yesterday, found gastric ulcer and esophagitis, appear BE, no biopsy, patient on ASA and Plavix. Eating breakfast and tolerating. Had small BM, no bleeding or new complaints. No reports of bleeding. No SOB or chest pain. Objective - Vital Signs/Intake and Output Vital Signs (last 24 hours): Temp Pulse Resp BP Pulse Ox 98.3 F 73 20 139/68 96 04/25/17 08:20 04/25/17 09:28 04/25/17 08:20 04/25/17 09:28 04/25/17 08:20 Intake and Output: 04/25/17 04/25/17 06:59 18:59 Intake Total 1800 Output Total 2150 Balance -350 - Medications Medications: Current Medications Aspirin (Aspirin Chewable) 81 mg PO DAILY [facility] Last Admin: 04/25/17 09:29 Dose: 81 mg Clopidogrel Bisulfate (Plavix) 75 mg PO DAILY [facility] Last Admin: 04/25/17 09:28 Dose: 75 mg Diazepam (Valium) 2 mg PO BID [facility] PRN Reason: Protocol Last Admin: 04/25/17 09:28 Dose: 2 mg Fluoxetine HCl (Prozac) 20 mg PO DAILY [facility] Last Admin: 04/25/17 09:28 Dose: 20 mg Gabapentin (Neurontin) 400 mg PO TID [facility] PRN Reason: Protocol Last Admin: 04/25/17 09:29 Dose: 400 mg Gabapentin (Neurontin) 100 mg PO TID [facility] PRN Reason: Protocol Last Admin: 04/25/17 09:28 Dose: 100 mg Sodium Chloride (Sodium Chloride 0.45%) 1,000 mls @ 100 mls/hr IV .Q10H [facility] Last Admin: 04/25/17 00:50 Dose: 100 mls/hr Insulin Detemir (Levemir) 14 unit SC HS [facility] Last Admin: 04/24/17 22:27 Dose: 14 unit Insulin Human Regular (Humulin R High) 0 units SC ACHS [facility] PRN Reason: Protocol Last Admin: 04/25/17 08:23 Dose: 4 units Lisinopril (Zestril) 20 mg PO DAILY [facility] Last Admin: 04/25/17 09:28 Dose: 20 mg Pantoprazole Sodium (Protonix Inj) 40 mg IVP DAILY [facility] Last Admin: 04/25/17 09:29 Dose: 40 mg Polyethylene Glycol (Miralax) 17 gm PO BID [facility] Last Admin: 04/25/17 09:29 Dose: 17 gm Tamsulosin HCl (Flomax) 0.4 mg PO DAILY [facility] Last Admin: 04/25/17 09:28 Dose: 0.4 mg Zaleplon (Sonata) 5 mg PO HS PRN PRN Reason: Insomnia Last Admin: 04/25/17 01:29 Dose: 5 mg - Labs Labs: 04/22/17 06:30 04/22/17 06:30 PT 11.1 Seconds (9.9-11.8) 04/20/17 13:26 INR 1.03 (0.93-1.08) 04/20/17 13:26 APTT 28.0 Seconds (23.7-30.8) 04/20/17 13:26 - Constitutional Appears: No Acute Distress - Head Exam Head Exam: NORMAL INSPECTION - Eye Exam Eye Exam: Normal appearance. absent: Scleral icterus - ENT Exam ENT Exam: Mucous Membranes Moist - Neck Exam Neck Exam: Normal Inspection - Respiratory Exam Respiratory Exam: NORMAL BREATHING PATTERN. absent: Respiratory Distress - Cardiovascular Exam Cardiovascular Exam: +S1, +S2 - GI/Abdominal Exam GI & Abdominal Exam: Soft, Normal Bowel Sounds. absent: Guarding, Tenderness, Rebound - Extremities Exam Extremities Exam: absent: Calf Tenderness, Pedal Edema - Neurological Exam Neurological Exam: Alert, Awake, Oriented x3 - Skin Skin Exam: Dry, Warm Assessment and Plan - Assessment and Plan (Free Text) Assessment: ASSESSMENT: Urinary retention Constipation s/p Dehydration Duodenal thickening on ct scan/ Duodenitis s/p EGD: gastric ulcer, esophagitis, BE Vertigo CAD, s/p PTCA 04/08/17 DM type II PLAN: mod carb soft diet on Miralax, increase to BID continue PPI on ASA and Plavix repeat EGD 8 weeks, discussed with patient Seen and discussed w/ Dr. Franco. <Yehuda Franco V - Last Filed: 04/25/17 23:58> Objective - Vital Signs/Intake and Output Vital Signs (last 24 hours): Temp Pulse Resp BP Pulse Ox 98.7 F 73 18 145/79 93 L 04/25/17 16:00 04/25/17 18:00 04/25/17 16:00 04/25/17 16:00 04/25/17 16:00 Intake and Output: 04/25/17 04/26/17 18:59 06:59 Intake Total 900 380 Output Total 1800 850 Balance -900 -470 - Medications Medications: Current Medications Aspirin (Aspirin Chewable) 81 mg PO DAILY [facility] Last Admin: 04/25/17 09:29 Dose: 81 mg Clopidogrel Bisulfate (Plavix) 75 mg PO DAILY [facility] Last Admin: 04/25/17 09:28 Dose: 75 mg Diazepam (Valium) 2 mg PO BID [facility] PRN Reason: Protocol Last Admin: 04/25/17 17:26 Dose: 2 mg Fluoxetine HCl (Prozac) 20 mg PO DAILY [facility] Last Admin: 04/25/17 09:28 Dose: 20 mg Gabapentin (Neurontin) 400 mg PO TID [facility] PRN Reason: Protocol Last Admin: 04/25/17 17:26 Dose: 400 mg Gabapentin (Neurontin) 100 mg PO TID [facility] PRN Reason: Protocol Last Admin: 04/25/17 17:26 Dose: 100 mg Sodium Chloride (Sodium Chloride 0.45%) 1,000 mls @ 100 mls/hr IV .Q10H [facility] Last Admin: 04/25/17 12:02 Dose: 100 mls/hr Insulin Detemir (Levemir) 14 unit SC HS [facility] Last Admin: 04/25/17 22:30 Dose: 14 unit Insulin Human Regular (Humulin R High) 0 units SC ACHS [facility] PRN Reason: Protocol Last Admin: 04/25/17 22:30 Dose: Not Given Lisinopril (Zestril) 20 mg PO DAILY [facility] Last Admin: 04/25/17 09:28 Dose: 20 mg Pantoprazole Sodium (Protonix Inj) 40 mg IVP DAILY [facility] Last Admin: 04/25/17 09:29 Dose: 40 mg Polyethylene Glycol (Miralax) 17 gm PO BID [facility] Last Admin: 04/25/17 17:56 Dose: Not Given Tamsulosin HCl (Flomax) 0.4 mg PO DAILY [facility] Last Admin: 04/25/17 09:28 Dose: 0.4 mg Zaleplon (Sonata) 5 mg PO HS PRN PRN Reason: Insomnia Last Admin: 04/25/17 23:29 Dose: 5 mg - Labs Labs: 04/22/17 06:30 04/22/17 06:30 PT 11.1 Seconds (9.9-11.8) 04/20/17 13:26 INR 1.03 (0.93-1.08) 04/20/17 13:26 APTT 28.0 Seconds (23.7-30.8) 04/20/17 13:26 Attending/Attestation - Attestation I have personally seen and examined this patient.: Yes I have fully participated in the care of the patient.: Yes I have reviewed all pertinent clinical information, including history, physical exam and plan: Yes Notes (Text): this
--- NOTE | 2017-04-25 15:14 | CP.PCM.PN ---
Subjective - Date & Time of Evaluation Date of Evaluation: 04/25/17 Time of Evaluation: 15:00 - Subjective Subjective: 66 Y/O male admitted on 04/20/2017 complaining of constipation, dizziness frequent falls at home, syncope, and urinary retention. During his hospital stay was found to be severely depressed and therefore consult with Dr. Callie Cerna was requested and patient started on antidepressants. CT of the abdomen showed thickening of the duodenal wall, so Dr. Franco was asked to evaluate. EGD showed some ulcers and gastritis and patient was Rx'ed PPI's. Patient is on ASA and Plavix because of recent coronary stent placement. When seen today, patient is resting comfortably. His spirits are good, much less depressed, even laughed and joked a bit. He did complain they have not taken him for physical therapy yet. Overall is is markedly improved. His Physical exam is unchanged/ unremarkable. At this point we will D/C his Norris Catheter for a voiding trial. If the patient urinates in the next 8 hours, I feel he is medically cleared for transfer to . Objective - Vital Signs/Intake and Output Vital Signs (last 24 hours): Temp Pulse Resp BP Pulse Ox 98.3 F 73 20 139/68 96 04/25/17 08:20 04/25/17 09:28 04/25/17 08:20 04/25/17 09:28 04/25/17 08:20 Intake and Output: 04/25/17 04/25/17 06:59 18:59 Intake Total 1800 900 Output Total 2150 1800 Balance -350 -900 - Medications Medications: Current Medications Aspirin (Aspirin Chewable) 81 mg PO DAILY [facility] Last Admin: 04/25/17 09:29 Dose: 81 mg Clopidogrel Bisulfate (Plavix) 75 mg PO DAILY [facility] Last Admin: 04/25/17 09:28 Dose: 75 mg Diazepam (Valium) 2 mg PO BID [facility] PRN Reason: Protocol Last Admin: 04/25/17 09:28 Dose: 2 mg Fluoxetine HCl (Prozac) 20 mg PO DAILY [facility] Last Admin: 04/25/17 09:28 Dose: 20 mg Gabapentin (Neurontin) 400 mg PO TID [facility] PRN Reason: Protocol Last Admin: 04/25/17 13:03 Dose: 400 mg Gabapentin (Neurontin) 100 mg PO TID [facility] PRN Reason: Protocol Last Admin: 04/25/17 13:03 Dose: 100 mg Sodium Chloride (Sodium Chloride 0.45%) 1,000 mls @ 100 mls/hr IV .Q10H [facility] Last Admin: 04/25/17 12:02 Dose: 100 mls/hr Insulin Detemir (Levemir) 14 unit SC HS [facility] Last Admin: 04/24/17 22:27 Dose: 14 unit Insulin Human Regular (Humulin R High) 0 units SC ACHS [facility] PRN Reason: Protocol Last Admin: 04/25/17 12:00 Dose: 4 units Lisinopril (Zestril) 20 mg PO DAILY [facility] Last Admin: 04/25/17 09:28 Dose: 20 mg Pantoprazole Sodium (Protonix Inj) 40 mg IVP DAILY [facility] Last Admin: 04/25/17 09:29 Dose: 40 mg Polyethylene Glycol (Miralax) 17 gm PO BID [facility] Last Admin: 04/25/17 09:29 Dose: 17 gm Tamsulosin HCl (Flomax) 0.4 mg PO DAILY [facility] Last Admin: 04/25/17 09:28 Dose: 0.4 mg Zaleplon (Sonata) 5 mg PO HS PRN PRN Reason: Insomnia Last Admin: 04/25/17 01:29 Dose: 5 mg - Labs Labs: 04/22/17 06:30 04/22/17 06:30 PT 11.1 Seconds (9.9-11.8) 04/20/17 13:26 INR 1.03 (0.93-1.08) 04/20/17 13:26 APTT 28.0 Seconds (23.7-30.8) 04/20/17 13:26
--- NOTE | 2017-04-25 17:31 | CP.PCM.CON ---
History of Present Illness - History of Present Illness History of Present Illness: F/u note: shortly patient is 66 years old male, but not no previous psychiatric history, patient denied history of psychiatric admissions, denied history of suicidal attempts, patient has multiple medical problems including hypertension , coronary artery disease with stents, diabetes, vertigo, peripheral neuropathy , and multiple falls was brought in by EMS complaining of constipation for the past 2 weeks, pt also had ? head trauma, psychological consult was called for evaluation of depressive symptoms, patient was making statements like "I want to , why I cannot end it all?". 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 patient presented to be less tearful, reported that feels hopeless, depressed, and embarrassed. was compliant with prozac, no side effects. Patient reported his appetite is improving. Patient was offered psychiatric admission, patient is willing to sign himself into the psychiatric inpatient unit after medical stabilization. pt still wants to be admitted to the psych unit. mental status examination: Patient presented to be depressed, was not tearful today, speech was low volume / under productive, mood " depressed", affect was mood congruent thought process coherent and goal directed, thought content patient denied visual hallucinations reported to hear voices, denied paranoid ideation. Insight and judgment are impaired, impulses are well predictable. Impression: Rule out major depressive disorder severe with psychosis Rule out mood disorder due to general medical condition Plan: Prozac was increased to 20mg daily for major depressive disorder Sonata 5mg at nighttime for insomnia Physical therapy evaluation Neurologist evaluated patient Physical therapy evaluation Patient was in agreement to go to psychiatric inpatient treatment after medical stabilization We'll follow-up on this patient by us accordingly Thank you very much for letting me to participate in care of your pt. Past Patient History - Infectious Disease Hx of Infectious Diseases: None - Past Social History Smoking Status: Former Smoker - CARDIAC Hx Cardiac Disorders: Yes (hyperlipidemia) Hx Hypertension: Yes - PULMONARY Hx Respiratory Disorders: No - NEUROLOGICAL Hx Neurological Disorder: Yes (neuropathy, vertigo) - HEENT Hx HEENT Problems: No - RENAL Hx Chronic Kidney Disease: No - ENDOCRINE/METABOLIC Hx Diabetes Mellitus Type 2: Yes - HEMATOLOGICAL/ONCOLOGICAL Hx Blood Disorders: No - INTEGUMENTARY Hx Dermatological Problems: No - MUSCULOSKELETAL/RHEUMATOLOGICAL Hx Falls: Yes - GASTROINTESTINAL Hx Gastrointestinal Disorders: No - GENITOURINARY/GYNECOLOGICAL Hx Genitourinary Disorders: No - PSYCHIATRIC Hx Psychophysiologic Disorder: No - SURGICAL HISTORY Other/Comment: "stent in the L arm" - ANESTHESIA Hx Anesthesia: Yes Hx Anesthesia Reactions: No Hx Malignant Hyperthermia: No Meds Allergies/Adverse Reactions: Allergies Allergy/AdvReac Type Severity Reaction Status Date / Time No Known Allergies Allergy Verified 04/20/17 12:59 - Medications Medications: Current Medications Aspirin (Aspirin Chewable) 81 mg PO DAILY [facility] Last Admin: 04/25/17 09:29 Dose: 81 mg Clopidogrel Bisulfate (Plavix) 75 mg PO DAILY [facility] Last Admin: 04/25/17 09:28 Dose: 75 mg Diazepam (Valium) 2 mg PO BID [facility] PRN Reason: Protocol Last Admin: 04/25/17 09:28 Dose: 2 mg Fluoxetine HCl (Prozac) 20 mg PO DAILY [facility] Last Admin: 04/25/17 09:28 Dose: 20 mg Gabapentin (Neurontin) 400 mg PO TID [facility] PRN Reason: Protocol Last Admin: 04/25/17 13:03 Dose: 400 mg Gabapentin (Neurontin) 100 mg PO TID [facility] PRN Reason: Protocol Last Admin: 04/25/17 13:03 Dose: 100 mg Sodium Chloride (Sodium Chloride 0.45%) 1,000 mls @ 100 mls/hr IV .Q10H [facility] Last Admin: 04/25/17 12:02 Dose: 100 mls/hr Insulin Detemir (Levemir) 14 unit SC HS [facility] Last Admin: 04/24/17 22:27 Dose: 14 unit Insulin Human Regular (Humulin R High) 0 units SC ACHS [facility] PRN Reason: Protocol Last Admin: 04/25/17 12:00 Dose: 4 units Lisinopril (Zestril) 20 mg PO DAILY [facility] Last Admin: 04/25/17 09:28 Dose: 20 mg Pantoprazole Sodium (Protonix Inj) 40 mg IVP DAILY [facility] Last Admin: 04/25/17 09:29 Dose: 40 mg Polyethylene Glycol (Miralax) 17 gm PO BID [facility] Last Admin: 04/25/17 09:29 Dose: 17 gm Tamsulosin HCl (Flomax) 0.4 mg PO DAILY [facility] Last Admin: 04/25/17 09:28 Dose: 0.4 mg Zaleplon (Sonata) 5 mg PO HS PRN PRN Reason: Insomnia Last Admin: 04/25/17 01:29 Dose: 5 mg Results - Vital Signs Recent Vital Signs: Last Vital Signs Temp 98.3 F 04/25/17 08:20 Pulse 73 04/25/17 09:28 Resp 20 04/25/17 08:20 BP 139/68 04/25/17 09:28 Pulse Ox 96 04/25/17 08:20 - Labs Result Diagrams: 04/22/17 06:30 04/22/17 06:30 Labs: Laboratory Results - last 24 hr 04/24/17 04/25/17 04/25/17 21:09 07:42 11:18 POC Glucose (mg/dL) 225 H 231 H 221 H
[2017-04-25] MEDS: Insulin Detemir 100 units/ml Vial (Levemir) SC SCH (22:30)
[2017-04-26] MEDS: Sodium Chloride 0.45% 1,000 ML IV SCH ×2 (08:11→18:40)
[2017-04-26] MEDS: Insulin Reg-HIGH-Coverage SC SCH ×3 (08:23→17:06)
[2017-04-26] MEDS: POLYETHYLENE GLYCOL 3350 17 GM/Dose PACKET PO SCH ×2 (09:59→17:05)
--- NOTE | 2017-04-26 13:30 | CP.PCM.CON ---
History of Present Illness - History of Present Illness History of Present Illness: F/u note: shortly patient is 66 years old male, but not no previous psychiatric history, patient denied history of psychiatric admissions, denied history of suicidal attempts, patient has multiple medical problems including hypertension , coronary artery disease with stents, diabetes, vertigo, peripheral neuropathy , and multiple falls was brought in by EMS complaining of constipation for the past 2 weeks, pt also had ? head trauma, psychological consult was called for evaluation of depressive symptoms, patient was making statements like "I want to , why I cannot end it all?". pt said that he feels meds are "started to work", c/o insomnia, will increase sonata and give a scheduled dose. patient presented to be less tearful, reported that feels hopeless, depressed, and embarrassed. was compliant with prozac, no side effects. Patient reported his appetite is improving. Patient was offered psychiatric admission, patient is willing to sign himself into the psychiatric inpatient unit after medical stabilization. pt still wants to be admitted to the psych unit. mental status examination: Patient presented to be depressed, was not tearful today, speech was low volume / under productive, mood " depressed", affect was mood congruent thought process coherent and goal directed, thought content patient denied visual hallucinations reported to hear voices, denied paranoid ideation. Insight and judgment are impaired, impulses are well predictable. Impression: Rule out major depressive disorder severe with psychosis Rule out mood disorder due to general medical condition Plan: Prozac was increased to 20mg daily for major depressive disorder Sonata 10mg at nighttime for insomnia Physical therapy evaluation Neurologist evaluated patient Physical therapy evaluation Patient was in agreement to go to psychiatric inpatient treatment after medical stabilization We'll follow-up on this patient by us accordingly Thank you very much for letting me to participate in care of your pt. Past Patient History - Infectious Disease Hx of Infectious Diseases: None - Past Social History Smoking Status: Former Smoker - CARDIAC Hx Cardiac Disorders: Yes (hyperlipidemia) Hx Hypertension: Yes - PULMONARY Hx Respiratory Disorders: No - NEUROLOGICAL Hx Neurological Disorder: Yes (neuropathy, vertigo) - HEENT Hx HEENT Problems: No - RENAL Hx Chronic Kidney Disease: No - ENDOCRINE/METABOLIC Hx Diabetes Mellitus Type 2: Yes - HEMATOLOGICAL/ONCOLOGICAL Hx Blood Disorders: No - INTEGUMENTARY Hx Dermatological Problems: No - MUSCULOSKELETAL/RHEUMATOLOGICAL Hx Falls: Yes - GASTROINTESTINAL Hx Gastrointestinal Disorders: No - GENITOURINARY/GYNECOLOGICAL Hx Genitourinary Disorders: No - PSYCHIATRIC Hx Psychophysiologic Disorder: No - SURGICAL HISTORY Other/Comment: "stent in the L arm" - ANESTHESIA Hx Anesthesia: Yes Hx Anesthesia Reactions: No Hx Malignant Hyperthermia: No Meds Allergies/Adverse Reactions: Allergies Allergy/AdvReac Type Severity Reaction Status Date / Time No Known Allergies Allergy Verified 04/20/17 12:59 - Medications Medications: Current Medications Aspirin (Aspirin Chewable) 81 mg PO DAILY [facility] Last Admin: 04/26/17 09:58 Dose: 81 mg Clopidogrel Bisulfate (Plavix) 75 mg PO DAILY [facility] Last Admin: 04/26/17 09:59 Dose: 75 mg Diazepam (Valium) 2 mg PO BID [facility] PRN Reason: Protocol Last Admin: 04/26/17 09:58 Dose: 2 mg Fluoxetine HCl (Prozac) 20 mg PO DAILY [facility] Last Admin: 04/26/17 09:58 Dose: 20 mg Gabapentin (Neurontin) 600 mg PO TID [facility] PRN Reason: Protocol Sodium Chloride (Sodium Chloride 0.45%) 1,000 mls @ 100 mls/hr IV .Q10H [facility] Last Admin: 04/26/17 08:11 Dose: 100 mls/hr Insulin Detemir (Levemir) 14 unit SC HS [facility] Last Admin: 04/25/17 22:30 Dose: 14 unit Insulin Human Regular (Humulin R High) 0 units SC [facility] PRN Reason: Protocol Last Admin: 04/26/17 11:59 Dose: 10 units Lisinopril (Zestril) 20 mg PO DAILY [facility] Last Admin: 04/26/17 09:58 Dose: 20 mg Pantoprazole Sodium (Protonix Inj) 40 mg IVP DAILY [facility] Last Admin: 04/26/17 09:59 Dose: 40 mg Polyethylene Glycol (Miralax) 17 gm PO BID [facility] Last Admin: 04/26/17 09:59 Dose: 17 gm Tamsulosin HCl (Flomax) 0.4 mg PO DAILY [facility] Last Admin: 04/26/17 09:58 Dose: 0.4 mg Zaleplon (Sonata) 10 mg PO [facility] Results - Vital Signs Recent Vital Signs: Last Vital Signs Temp 97.9 F 04/26/17 07:30 Pulse 74 04/26/17 09:58 Resp 20 07/08/17 07:30 BP 141/78 04/26/17 09:58 Pulse Ox 100 04/26/17 07:30 - Labs Result Diagrams: 04/22/17 06:30 04/22/17 06:30
[2017-04-26] MEDS: Insulin Detemir 100 units/ml Vial (Levemir) SC SCH (21:34)
[2017-04-27] MEDS: Sodium Chloride 0.45% 1,000 ML IV SCH ×2 (04:49→15:43)
--- NOTE | 2017-04-27 05:33 | CP.PCM.PN ---
Subjective - Date & Time of Evaluation Date of Evaluation: 04/27/17 Time of Evaluation: 05:30 - Subjective Subjective: S:Patient was seen at bedside. States that his feet are on fire. He is on neurontin at home for his neuropathy and requests neurontin. It has been discontinued. A note of neurologist from 04/21 indicates that neurontion should be increased to 400 mg PO TID. Patient has no other complaints at this time. Medical record was reviewed. O: Last Vital Signs 3 Temp 98.7 F 04/26/17 17:20 Pulse 95 H 04/26/17 18:00 Resp 20 04/26/17 17:20 BP 129/79 04/26/17 17:20 Pulse Ox 97 04/26/17 17:20 Awake, alert ,not in distress. LUNGS:Normal breathing pattern. Both Lower extremity inspection:NAD. A: Neuropathic pain. P:Neurontin 400 mg PO stat. Objective - Vital Signs/Intake and Output Vital Signs (last 24 hours): Temp Pulse Resp BP Pulse Ox 98.7 F 95 H 20 129/79 97 04/26/17 17:20 04/26/17 18:00 04/26/17 17:20 04/26/17 17:20 04/26/17 17:20 Intake and Output: 04/26/17 04/27/17 18:59 06:59 Intake Total 0 360 Output Total 1100 700 Balance -1100 -340 - Medications Medications: Current Medications Aspirin (Aspirin Chewable) 81 mg PO DAILY [facility] Last Admin: 04/26/17 09:58 Dose: 81 mg Clopidogrel Bisulfate (Plavix) 75 mg PO DAILY [facility] Last Admin: 04/26/17 09:59 Dose: 75 mg Diazepam (Valium) 2 mg PO BID [facility] PRN Reason: Protocol Last Admin: 04/26/17 17:05 Dose: 2 mg Fluoxetine HCl (Prozac) 20 mg PO DAILY [facility] Last Admin: 04/26/17 09:58 Dose: 20 mg Gabapentin (Neurontin) 600 mg PO TID [facility] Last Admin: 04/26/17 17:05 Dose: 600 mg Sodium Chloride (Sodium Chloride 0.45%) 1,000 mls @ 100 mls/hr IV .Q10H [facility] Last Admin: 04/27/17 04:49 Dose: 100 mls/hr Insulin Detemir (Levemir) 14 unit SC HS [facility] Last Admin: 04/26/17 21:34 Dose: 14 unit Insulin Human Regular (Humulin R High) 0 units SC [facility] PRN Reason: Protocol Last Admin: 04/26/17 17:06 Dose: 7 units Lisinopril (Zestril) 20 mg PO DAILY [facility] Last Admin: 04/26/17 09:58 Dose: 20 mg Pantoprazole Sodium (Protonix Inj) 40 mg IVP DAILY [facility] Last Admin: 04/26/17 09:59 Dose: 40 mg Polyethylene Glycol (Miralax) 17 gm PO BID [facility] Last Admin: 04/26/17 17:05 Dose: 17 gm Tamsulosin HCl (Flomax) 0.4 mg PO DAILY [facility] Last Admin: 04/26/17 09:58 Dose: 0.4 mg Zaleplon (Sonata) 10 mg PO HS [facility] Last Admin: 04/26/17 21:33 Dose: 10 mg - Labs Labs: 04/22/17 06:30 04/22/17 06:30 PT 11.1 Seconds (9.9-11.8) 04/20/17 13:26 INR 1.03 (0.93-1.08) 04/20/17 13:26 APTT 28.0 Seconds (23.7-30.8) 04/20/17 13:26
[2017-04-27 08:01] LABS: ALB/GLOB RATIO 1.5 (1.1-1.8); ALBUMIN 3.9 g/dL (3.0-4.8); ALT/SGPT 36 U/L (7-56); AST/SGOT 24 U/L (15-59); BLOOD UREA NITROGEN 15 mg/dL (7-21); CALCIUM 9.3 mg/dL (8.4-10.5); GFR AFRICAN-AMERICAN > 60; GFR NON-AFRICAN AMERICAN > 60
[2017-04-27 08:05] LABS: BASO # 0.01 K/mm3 (0.0-2.0); BASO % 0.2 % (0.0-3.0); EOS # 0.2 (0.0-0.7); EOS % 5.1 % (1.5-5.0); GRAN # 2.72 (1.4-6.5); GRAN % 60.9 % (50.0-68.0); HEMOGLOBIN 11.7 gm/dL (14.0-18.0); LYMPH # 1.2 (1.2-3.4); LYMPH % 27.3 % (22.0-35.0); MEAN CELL VOLUME 80.5 fL (80.0-105.0); MEAN CORPUSCULAR HEMOGLOBIN 26.9 pg (25.0-35.0); MEAN CORPUSCULAR HGB CONC 33.4 g/dl (31.0-37.0); MEAN PLATELET VOLUME 10.8 fl (7.0-11.0); MONO # 0.3 (0.1-0.6); MONO % 6.5 % (1.0-6.0); PLATELET COUNT 105 10^3/uL (120.0-450.0); RBC 4.35 10^6/uL (3.5-6.1); RED CELL DISTRIBUTION WIDTH 13.6 % (11.5-14.5); WHITE BLOOD COUNT 4.5 10^3/ul (4.5-11.0)
[2017-04-27] MEDS: Insulin Reg-HIGH-Coverage SC SCH ×4 (08:21→21:34)
[2017-04-27] MEDS: POLYETHYLENE GLYCOL 3350 17 GM/Dose PACKET PO SCH ×2 (09:44→17:28)
--- NOTE | 2017-04-27 12:31 | CP.PCM.CON ---
History of Present Illness - History of Present Illness History of Present Illness: F/u note: shortly patient is 66 years old male, but not no previous psychiatric history, patient denied history of psychiatric admissions, denied history of suicidal attempts, patient has multiple medical problems including hypertension , coronary artery disease with stents, diabetes, vertigo, peripheral neuropathy , and multiple falls was brought in by EMS complaining of constipation for the past 2 weeks, pt also had ? head trauma, psychological consult was called for evaluation of depressive symptoms, patient was making statements like "I want to , why I cannot end it all?". pt said that he feels meds are "started to work", c/o insomnia even after sonata was increased yesterday, will dc it and initiate ambien, risk/benefits and alternatives discussed with pt. patient presented to be less tearful, reported that feels hopeless, depressed, and embarrassed. was compliant with prozac, no side effects. pt reported that his appetite is better, pt ate 100% of his meal. mental status examination: Patient presented to be depressed, was not tearful today, speech was low volume / under productive, mood " depressed", affect was mood congruent thought process coherent and goal directed, thought content patient denied visual hallucinations reported to hear voices, denied paranoid ideation. Insight and judgment are impaired, impulses are well predictable. Impression: Rule out major depressive disorder severe with psychosis Rule out mood disorder due to general medical condition Plan: Prozac was increased to 30mg daily for major depressive disorder Sonata d/c ambien 5mg po hs, pt was educated about risk of falls, pt said "I am not walking during the night time, I will ask for help if I need to" Neurontin 600mg po tid for diabetic neuropathy Physical therapy evaluation Neurologist evaluated patient Physical therapy evaluation Patient was in agreement to go to psychiatric inpatient treatment after medical stabilization We'll follow-up on this patient by us accordingly Thank you very much for letting me to participate in care of your pt. Past Patient History - Infectious Disease Hx of Infectious Diseases: None - Past Social History Smoking Status: Former Smoker - CARDIAC Hx Cardiac Disorders: Yes (hyperlipidemia) Hx Hypertension: Yes - PULMONARY Hx Respiratory Disorders: No - NEUROLOGICAL Hx Neurological Disorder: Yes (neuropathy, vertigo) - HEENT Hx HEENT Problems: No - RENAL Hx Chronic Kidney Disease: No - ENDOCRINE/METABOLIC Hx Diabetes Mellitus Type 2: Yes - HEMATOLOGICAL/ONCOLOGICAL Hx Blood Disorders: No - INTEGUMENTARY Hx Dermatological Problems: No - MUSCULOSKELETAL/RHEUMATOLOGICAL Hx Falls: Yes - GASTROINTESTINAL Hx Gastrointestinal Disorders: No - GENITOURINARY/GYNECOLOGICAL Hx Genitourinary Disorders: No - PSYCHIATRIC Hx Psychophysiologic Disorder: No - SURGICAL HISTORY Other/Comment: "stent in the L arm" - ANESTHESIA Hx Anesthesia: Yes Hx Anesthesia Reactions: No Hx Malignant Hyperthermia: No Meds Allergies/Adverse Reactions: Allergies Allergy/AdvReac Type Severity Reaction Status Date / Time No Known Allergies Allergy Verified 04/20/17 12:59 - Medications Medications: Current Medications Aspirin (Aspirin Chewable) 81 mg PO DAILY [facility] Last Admin: 04/27/17 09:43 Dose: 81 mg Clopidogrel Bisulfate (Plavix) 75 mg PO DAILY [facility] Last Admin: 04/27/17 09:43 Dose: 75 mg Diazepam (Valium) 2 mg PO BID [facility] PRN Reason: Protocol Last Admin: 04/27/17 09:43 Dose: 2 mg Fluoxetine HCl (Prozac) 30 mg PO DAILY [facility] Gabapentin (Neurontin) 600 mg PO TID [facility] Last Admin: 04/27/17 09:43 Dose: 600 mg Sodium Chloride (Sodium Chloride 0.45%) 1,000 mls @ 100 mls/hr IV .Q10H [facility] Last Admin: 04/27/17 04:49 Dose: 100 mls/hr Insulin Detemir (Levemir) 14 unit SC HS [facility] Last Admin: 04/26/17 21:34 Dose: 14 unit Insulin Human Regular (Humulin R High) 0 units SC ACHS [facility] PRN Reason: Protocol Last Admin: 04/27/17 12:08 Dose: 7 units Lisinopril (Zestril) 20 mg PO DAILY [facility] Last Admin: 04/27/17 09:43 Dose: 20 mg Pantoprazole Sodium (Protonix Inj) 40 mg IVP DAILY [facility] Last Admin: 04/27/17 09:44 Dose: 40 mg Polyethylene Glycol (Miralax) 17 gm PO BID [facility] Last Admin: 04/27/17 09:44 Dose: 17 gm Tamsulosin HCl (Flomax) 0.4 mg PO DAILY [facility] Last Admin: 04/27/17 09:43 Dose: 0.4 mg Zolpidem Tartrate (Ambien) 5 mg PO HS PRN; Protocol PRN Reason: Insomnia Results - Vital Signs Recent Vital Signs: Last Vital Signs Temp 99.0 F 04/27/17 06:00 Pulse 71 04/27/17 10:00 Resp 19 04/27/17 06:00 BP 134/73 04/27/17 09:43 Pulse Ox 95 04/27/17 06:00 - Labs Result Diagrams: 04/27/17 07:00 04/27/17 07:00 Labs: Laboratory Results - last 24 hr 04/27/17 04/27/17 07:00 07:00 WBC 4.5 RBC 4.35 Hgb 11.7 L Hct 35.0 L MCV 80.5 MCH 26.9 MCHC 33.4 RDW 13.6 Plt Count 105 L MPV 10.8 Gran % 60.9 Lymph % (Auto) 27.3 [place] % (Auto) 6.5 H Eos % (Auto) 5.1 H Baso % (Auto) 0.2 Gran # 2.72 Lymph # 1.2 [place] # 0.3 Eos # 0.2 Baso # 0.01 Sodium 137 Potassium 3.7 Chloride 103 Carbon Dioxide 24 Anion Gap 14 BUN 15 Creatinine 0.9 Est GFR ( Amer) > 60 Est GFR (Non-Af Amer) > 60 Random Glucose 240 H Calcium 9.3 Total Bilirubin 0.5 AST 24 ALT 36 Alkaline Phosphatase 92 Total Protein 6.4 Albumin 3.9 Globulin 2.5 Albumin/Globulin Ratio 1.5
[2017-04-27 17:19] VITALS: RESP 20
[2017-04-27] MEDS: Insulin Detemir 100 units/ml Vial (Levemir) SC SCH (21:32)
[2017-04-28] MEDS: Sodium Chloride 0.45% 1,000 ML IV SCH (04:22)
[2017-04-28 08:12] VITALS: BP 138/86; TEMP 99.5; O2SAT 96
[2017-04-28] MEDS: Insulin Reg-HIGH-Coverage SC SCH ×3 (09:07→12:52)
[2017-04-28] MEDS: POLYETHYLENE GLYCOL 3350 17 GM/Dose PACKET PO SCH (09:11)
[2017-04-28 09:54] LABS: BASO # 0.03 K/mm3 (0.0-2.0); BASO % 0.6 % (0.0-3.0); EOS # 0.2 (0.0-0.7); EOS % 4.1 % (1.5-5.0); GRAN # 3.32 (1.4-6.5); GRAN % 64.6 % (50.0-68.0); HEMOGLOBIN 12.6 gm/dL (14.0-18.0); LYMPH # 1.2 (1.2-3.4); LYMPH % 23.5 % (22.0-35.0); MEAN CELL VOLUME 80.7 fL (80.0-105.0); MEAN CORPUSCULAR HEMOGLOBIN 27.3 pg (25.0-35.0); MEAN CORPUSCULAR HGB CONC 33.9 g/dl (31.0-37.0); MEAN PLATELET VOLUME 10.7 fl (7.0-11.0); MONO # 0.4 (0.1-0.6); MONO % 7.2 % (1.0-6.0); PLATELET COUNT 114 10^3/uL (120.0-450.0); RBC 4.61 10^6/uL (3.5-6.1); RED CELL DISTRIBUTION WIDTH 13.9 % (11.5-14.5); WHITE BLOOD COUNT 5.1 10^3/ul (4.5-11.0)
[2017-04-28 09:55] LABS: ALB/GLOB RATIO 1.4 (1.1-1.8); ALBUMIN 4.3 g/dL (3.0-4.8); ALT/SGPT 36 U/L (7-56); AST/SGOT 24 U/L (15-59); BLOOD UREA NITROGEN 13 mg/dL (7-21); CALCIUM 9.8 mg/dL (8.4-10.5); GFR AFRICAN-AMERICAN > 60; GFR NON-AFRICAN AMERICAN > 60
--- NOTE | 2017-04-28 12:25 | CP.PCM.PN ---
Subjective - Date & Time of Evaluation Date of Evaluation: 04/28/17 Time of Evaluation: 09:10 - Subjective Subjective: S&E at bedside, chart reviewed. OOB to chair, tolerating breakfast. Had 2 good amount BM, no bleeding, reports it was loose. No N/V or abdominal pain. Had difficulty urination yesterday, urine residual 600 cc. No hematuria. Objective - Vital Signs/Intake and Output Vital Signs (last 24 hours): Temp Pulse Resp BP Pulse Ox 99.5 F 75 20 138/86 96 04/28/17 08:11 04/28/17 09:09 04/28/17 08:11 04/28/17 09:09 04/28/17 08:11 Intake and Output: 04/28/17 04/28/17 06:59 18:59 Intake Total 1560 Output Total 2160 Balance -600 - Medications Medications: Current Medications Aspirin (Aspirin Chewable) 81 mg PO DAILY [facility] Last Admin: 04/28/17 09:08 Dose: 81 mg Clopidogrel Bisulfate (Plavix) 75 mg PO DAILY [facility] Last Admin: 04/28/17 09:08 Dose: 75 mg Diazepam (Valium) 2 mg PO BID [facility] PRN Reason: Protocol Last Admin: 04/28/17 09:12 Dose: 2 mg Fluoxetine HCl (Prozac) 30 mg PO DAILY [facility] Last Admin: 04/28/17 09:08 Dose: 30 mg Gabapentin (Neurontin) 600 mg PO TID [facility] Last Admin: 04/28/17 09:09 Dose: 600 mg Sodium Chloride (Sodium Chloride 0.45%) 1,000 mls @ 100 mls/hr IV .Q10H [facility] Last Admin: 04/28/17 04:22 Dose: Not Given Insulin Detemir (Levemir) 14 unit SC HS [facility] Last Admin: 04/27/17 21:32 Dose: 14 unit Insulin Human Regular (Humulin R High) 0 units SC ACHS [facility] PRN Reason: Protocol Last Admin: 04/28/17 09:11 Dose: 4 units Lisinopril (Zestril) 20 mg PO DAILY [facility] Last Admin: 04/28/17 09:09 Dose: 20 mg Pantoprazole Sodium (Protonix Inj) 40 mg IVP DAILY [facility] Last Admin: 04/28/17 09:08 Dose: 40 mg Polyethylene Glycol (Miralax) 17 gm PO BID [facility] Last Admin: 04/28/17 09:11 Dose: Not Given Tamsulosin HCl (Flomax) 0.4 mg PO DAILY [facility] Last Admin: 04/28/17 09:08 Dose: 0.4 mg Zolpidem Tartrate (Ambien) 5 mg PO HS PRN; Protocol PRN Reason: Insomnia - Labs Labs: 04/28/17 09:20 04/28/17 09:20 PT 11.1 Seconds (9.9-11.8) 04/20/17 13:26 INR 1.03 (0.93-1.08) 04/20/17 13:26 APTT 28.0 Seconds (23.7-30.8) 04/20/17 13:26 - Constitutional Appears: No Acute Distress - Head Exam Head Exam: NORMOCEPHALIC - Eye Exam Eye Exam: Normal appearance. absent: Scleral icterus - ENT Exam ENT Exam: Mucous Membranes Moist - Neck Exam Neck Exam: Normal Inspection - Respiratory Exam Respiratory Exam: NORMAL BREATHING PATTERN. absent: Respiratory Distress - Cardiovascular Exam Cardiovascular Exam: +S1, +S2 - GI/Abdominal Exam GI & Abdominal Exam: Soft, Normal Bowel Sounds. absent: Guarding, Tenderness, Rebound - Extremities Exam Extremities Exam: absent: Calf Tenderness, Pedal Edema - Neurological Exam Neurological Exam: Alert, Awake, Oriented x3 - Skin Skin Exam: Dry, Warm Assessment and Plan - Assessment and Plan (Free Text) Assessment: ASSESSMENT: Urinary retention Constipation s/p Dehydration Duodenal thickening on ct scan/ Duodenitis s/p EGD: gastric ulcer, esophagitis, BE Vertigo CAD, s/p PTCA 04/08/17 DM type II PLAN: continue mod carb soft diet cont Miralax BID continue PPI on ASA and Plavix repeat EGD 8 weeks, discussed with patient, FU ulcers urology FU Seen and discussed w/ Dr. Franco.
--- NOTE | 2017-04-28 15:46 | CP.PCM.CON ---
History of Present Illness - History of Present Illness History of Present Illness: F/u note: shortly patient is 66 years old male, but not no previous psychiatric history, patient denied history of psychiatric admissions, denied history of suicidal attempts, patient has multiple medical problems including hypertension , coronary artery disease with stents, diabetes, vertigo, peripheral neuropathy , and multiple falls was brought in by EMS complaining of constipation for the past 2 weeks, pt also had ? head trauma, psychological consult was called for evaluation of depressive symptoms, patient was making statements like "I want to , why I cannot end it all?". pt said that he feels "very sad, I want to get better", c/o insomnia but was able to fall back to sleep, tolerated ambien better. patient presented to be less tearful, reported that feels hopeless, depressed, and embarrassed. was compliant with prozac, no side effects. pt reported that his appetite is better, pt ate 100% of his meal. mental status examination: Patient presented to be depressed, was not tearful today, speech was low volume / under productive, mood " depressed", affect was mood congruent thought process coherent and goal directed, thought content patient denied visual hallucinations reported to hear voices, denied paranoid ideation. Insight and judgment are impaired, impulses are well predictable. Impression: Rule out major depressive disorder severe with psychosis Rule out mood disorder due to general medical condition Plan: Prozac was increased to 30mg daily yesterday for major depressive disorder Sonata d/c ambien 5mg po hs, for insomnia Neurontin 600mg po tid for diabetic neuropathy Physical therapy evaluation Neurologist evaluated patient Physical therapy evaluation, MARYJANE, pt was able to ambulate with the rolling walker Patient was in agreement to go to psychiatric inpatient treatment after medical stabilization pt will be transferred to the psychiatric inpatient unit, PMD, GI, PT will be f/ u pt on the psych unit Past Patient History - Infectious Disease Hx of Infectious Diseases: None - Past Social History Smoking Status: Former Smoker - CARDIAC Hx Cardiac Disorders: Yes (hyperlipidemia) Hx Hypertension: Yes - PULMONARY Hx Respiratory Disorders: No - NEUROLOGICAL Hx Neurological Disorder: Yes (neuropathy, vertigo) - HEENT Hx HEENT Problems: No - RENAL Hx Chronic Kidney Disease: No - ENDOCRINE/METABOLIC Hx Diabetes Mellitus Type 2: Yes - HEMATOLOGICAL/ONCOLOGICAL Hx Blood Disorders: No - INTEGUMENTARY Hx Dermatological Problems: No - MUSCULOSKELETAL/RHEUMATOLOGICAL Hx Falls: Yes - GASTROINTESTINAL Hx Gastrointestinal Disorders: No - GENITOURINARY/GYNECOLOGICAL Hx Genitourinary Disorders: No - PSYCHIATRIC Hx Psychophysiologic Disorder: No - SURGICAL HISTORY Other/Comment: "stent in the L arm" - ANESTHESIA Hx Anesthesia: Yes Hx Anesthesia Reactions: No Hx Malignant Hyperthermia: No Meds Home Medications: Home Medication List Medication Instructions Recorded Confirmed Type Aspirin [Aspirin Chewable] 81 mg PO DAILY 04/28/17 Rx Clopidogrel [Plavix] 75 mg PO DAILY tab 04/28/17 Rx FLUoxetine [Prozac] 30 mg PO DAILY cap 04/28/17 Rx Gabapentin [Neurontin] 600 mg PO TID tab 04/28/17 Rx Insulin Detemir [Levemir] 14 unit SC HS unit 04/28/17 Rx Insulin Human Regular-HIGH 0 units SC ACHS ml 04/28/17 Rx [HumuLIN R HIGH] Lisinopril [Zestril] 20 mg PO DAILY tab 04/28/17 Rx Pantoprazole [Protonix Inj] 40 mg IVP DAILY vial 04/28/17 Rx Polyethylene Glycol 3350 [Miralax] 17 gm PO BID packet 04/28/17 Rx Tamsulosin [Flomax] 0.4 mg PO DAILY cap 04/28/17 Rx Zolpidem [Ambien] 5 mg PO HS PRN tab 04/28/17 Rx diaZEpam [Valium] 2 mg PO BID tab 04/28/17 Rx Allergies/Adverse Reactions: Allergies Allergy/AdvReac Type Severity Reaction Status Date / Time No Known Allergies Allergy Verified 04/20/17 12:59 - Medications Medications: Current Medications Aspirin (Aspirin Chewable) 81 mg PO DAILY [facility] Last Admin: 04/28/17 09:08 Dose: 81 mg Clopidogrel Bisulfate (Plavix) 75 mg PO DAILY [facility] Last Admin: 04/28/17 09:08 Dose: 75 mg Diazepam (Valium) 2 mg PO BID [facility] PRN Reason: Protocol Last Admin: 04/28/17 09:12 Dose: 2 mg Fluoxetine HCl (Prozac) 30 mg PO DAILY [facility] Last Admin: 04/28/17 09:08 Dose: 30 mg Gabapentin (Neurontin) 600 mg PO TID [facility] Last Admin: 04/28/17 14:35 Dose: 600 mg Sodium Chloride (Sodium Chloride 0.45%) 1,000 mls @ 100 mls/hr IV .Q10H [facility] Last Admin: 04/28/17 04:22 Dose: Not Given Insulin Detemir (Levemir) 14 unit SC HS [facility] Last Admin: 04/27/17 21:32 Dose: 14 unit Insulin Human Regular (Humulin R High) 0 units SC ACHS [facility] PRN Reason: Protocol Last Admin: 04/28/17 12:52 Dose: 10 units Lisinopril (Zestril) 20 mg PO DAILY [facility] Last Admin: 04/28/17 09:09 Dose: 20 mg Pantoprazole Sodium (Protonix Inj) 40 mg IVP DAILY [facility] Last Admin: 04/28/17 09:08 Dose: 40 mg Polyethylene Glycol (Miralax) 17 gm PO BID [facility] Last Admin: 04/28/17 09:11 Dose: Not Given Tamsulosin HCl (Flomax) 0.4 mg PO DAILY [facility] Last Admin: 04/28/17 09:08 Dose: 0.4 mg Zolpidem Tartrate (Ambien) 5 mg PO HS PRN; Protocol PRN Reason: Insomnia Results - Vital Signs Recent Vital Signs: Last Vital Signs Temp 99.5 F 04/28/17 08:11 Pulse 75 04/28/17 09:09 Resp 20 04/28/17 08:11 BP 138/86 04/28/17 09:09 Pulse Ox 96 04/28/17 08:11 - Labs Result Diagrams: 04/28/17 09:20 04/28/17 09:20 Labs: Laboratory Results - last 24 hr 04/27/17 04/27/17 04/28/17 15:52 21:11 09:20 WBC 5.1 RBC 4.61 Hgb 12.6 L Hct 37.2 L MCV 80.7 MCH 27.3 MCHC 33.9 RDW 13.9 Plt Count 114 L MPV 10.7 Gran % 64.6 Lymph % (Auto) 23.5 [place] % (Auto) 7.2 H Eos % (Auto) 4.1 Baso % (Auto) 0.6 Gran # 3.32 Lymph # 1.2 [place] # 0.4 Eos # 0.2 Baso # 0.03 Sodium Potassium Chloride Carbon Dioxide Anion Gap BUN Creatinine Est GFR ( Amer) Est GFR (Non-Af Amer) POC Glucose (mg/dL) 265 H 240 H Random Glucose Calcium Total Bilirubin AST ALT Alkaline Phosphatase Total Protein Albumin Globulin Albumin/Globulin Ratio 04/28/17 09:20 WBC RBC Hgb Hct MCV MCH MCHC RDW Plt Count MPV Gran % Lymph % (Auto) [place] % (Auto) Eos % (Auto) Baso % (Auto) Gran # Lymph # [place] # Eos # Baso # Sodium 137 Potassium 4.1 Chloride 103 Carbon Dioxide 22 Anion Gap 16 BUN 13 Creatinine 0.9 Est GFR ( Amer) > 60 Est GFR (Non-Af Amer) > 60 POC Glucose (mg/dL) Random Glucose 248 H Calcium 9.8 Total Bilirubin 0.8 AST 24 ALT 36 Alkaline Phosphatase 85 Total Protein 7.4 Albumin 4.3 Globulin 3.1 Albumin/Globulin Ratio 1.4
[2017-04-28 17:13] VITALS: PULSE 93
--- NOTE | 2017-05-02 11:38 | CP.PCM.CON ---
History of Present Illness - History of Present Illness History of Present Illness: Chief complaint: Constipation This is a 66 y/o male who was seen in his room at [facility]. Pt reports a history of Diabetes and Diabetic Neuropathy , were he was having multiple falls and was staying in a rehab center where he developed a severe constipation. He reported this to the staff at the facility; however he reported they were non-responsive, and he signed out AMA. Pt presented to the hospital, he reports being disimpacted, and he also reports a__ _ at home. He was found to have urinary retention, and was complaining of poor urine output. Arredondo catheter was then placed and consultation was requested. Pt reports prior to this episode he had been voiding, although with a slow stream. He does report chronic urinary frequency/urgency and urge incontinence for the past few years since being diagnosed with diabetes, he has not seen a urologist, he is unsure about any PSA or prostate cancer screening. A consultation was requested regarding the above. Review of Systems - Review of Systems All systems: reviewed and no additional remarkable complaints except Review of Systems: ROS: 12 point review of systems was obtained. * Positive for dizziness, multiple falls, lower extremity numbness and pain in his feet. * No recent chest pain or palpitation. * No recent cough or SOB * Positive for Constipation * Positive for urinary retention * Other systems are negative Past Patient History - Infectious Disease Hx of Infectious Diseases: None - Past Medical History & Family History Past Medical History?: Yes Pertinent Family History: Noncontributory - Past Social History Smoking Status: Never Smoked Alcohol: None - CARDIAC Hx Cardiac Disorders: Yes (hyperlipidemia) Hx Hypertension: Yes Other/Comment: CAD, HTN - PULMONARY Hx Respiratory Disorders: No - NEUROLOGICAL Hx Neurological Disorder: Yes (neuropathy, vertigo) Other/Comment: Vertigo, Peripheral Neuropathy, Multiple Falls - HEENT Hx HEENT Problems: No - RENAL Hx Chronic Kidney Disease: No - ENDOCRINE/METABOLIC Hx Diabetes Mellitus Type 2: Yes Other/Comment: DM - HEMATOLOGICAL/ONCOLOGICAL Hx Blood Disorders: No - INTEGUMENTARY Hx Dermatological Problems: No - MUSCULOSKELETAL/RHEUMATOLOGICAL Hx Falls: Yes - GASTROINTESTINAL Hx Gastrointestinal Disorders: No Hx Constipation: Yes - GENITOURINARY/GYNECOLOGICAL Hx Genitourinary Disorders: No - PSYCHIATRIC Hx Anxiety: Yes Hx Depression: Yes Hx Emotional Abuse: Yes Hx Physical Abuse: No Hx Sexual Abuse: No Hx Substance Use: No - SURGICAL HISTORY Hx Coronary Stent: Yes Other/Comment: "stent in the L arm" - ANESTHESIA Hx Anesthesia: Yes Hx Anesthesia Reactions: No Hx Malignant Hyperthermia: No Meds Allergies/Adverse Reactions: Allergies Allergy/AdvReac Type Severity Reaction Status Date / Time No Known Allergies Allergy Verified 04/30/17 15:29 - Medications Medications: Current Medications Aspirin (Ecotrin) 81 mg PO DAILY [facility] Last Admin: 05/02/17 08:26 Dose: 81 mg Clopidogrel Bisulfate (Plavix) 75 mg PO DAILY [facility] Last Admin: 05/02/17 08:26 Dose: 75 mg Diazepam (Valium) 2 mg PO BID [facility] PRN Reason: Protocol Last Admin: 05/02/17 08:27 Dose: 2 mg Fluoxetine HCl (Prozac) 40 mg PO DAILY [facility] Last Admin: 05/02/17 08:27 Dose: 40 mg Gabapentin (Neurontin) 600 mg PO TID [facility] PRN Reason: Protocol Last Admin: 05/02/17 08:26 Dose: 600 mg Insulin Detemir (Levemir) 24 unit SC HS [facility] Last Admin: 05/01/17 22:11 Dose: 24 unit Insulin Human Regular (Humulin R Med) 0 units SC ACHS [facility] PRN Reason: Protocol Last Admin: 05/02/17 08:16 Dose: 3 units Lisinopril (Zestril) 20 mg PO DAILY [facility] Last Admin: 05/02/17 08:27 Dose: 20 mg Nicotine (Nicoderm Cq) 1 patch TD DAILY [facility] Last Admin: 05/02/17 08:27 Dose: 1 patch Nitrofurantoin Macrocrystals (Macrobid) 100 mg PO Q12 [facility] Last Admin: 05/02/17 07:10 Dose: 100 mg Pantoprazole Sodium (Protonix Ec Tab) 40 mg PO 0600 [facility] Last Admin: 05/02/17 07:10 Dose: 40 mg Polyethylene Glycol (Miralax) 17 gm PO DAILY PRN PRN Reason: Constipation Tamsulosin HCl (Flomax) 0.4 mg PO DAILY [facility] Last Admin: 05/02/17 08:26 Dose: 0.4 mg Zolpidem Tartrate (Ambien) 5 mg PO HS [facility] PRN Reason: Protocol Last Admin: 05/01/17 22:30 Dose: 5 mg Physical Exam - Constitutional Additional comments: Pt is awake and alert, he is in no acute distress. He is seen in his bed at [facility]. - Neck Exam Additional comments: Supple. No adenopathy - Respiratory Exam Additional comments: Normal respiratory effort. - Cardiovascular Exam Additional comments: Positive S1 and S2 - GI/Abdominal Exam Additional comments: Soft, nontender, non-distended. No Hepatosplenomegaly. No CVA tenderness. - Exam Additional comments: Phallus is normal. There is a arredondo catheter in place, clear color urine noted. Scrotum normal, testes are bilaterally descended, nontender, no masses, epididymis normal. - Back Exam Additional comments: No cyanosis or edema. Normal lower extremity strength noted. Results - Vital Signs Recent Vital Signs: Last Vital Signs Temp 98.1 F 05/02/17 07:48 Pulse 86 05/02/17 07:48 Resp 20 05/02/17 07:48 BP 130/71 05/02/17 07:48 Pulse Ox - Labs Result Diagrams: 04/28/17 09:20 04/28/17 09:20 Labs: WBC count 4.2 Hb: 12.0 GFR: > 60 UA: 0-2 RBC, 0-2 WBC, >1000 Glucose, Positive for protein, Negative for nitrates No Urine culture notedWBC count 4.2 Hb: 12.0 GFR: > 60 UA: 0-2 RBC, 0-2 WBC, >1000 Glucose, Positive for protein, Negative for nitrates No Urine culture noted Laboratory Results - last 24 hr 05/01/17 05/01/17 16:36 21:46 POC Glucose (mg/dL) 278 H 237 H - Impressions Impression: CT scan of the abdomen/pelvis, which showed right kidney 7 mm lower pole calculus, no obstructing, no hydronephrosis, and no mass. There is a simple cyst noted on the lower pole of the left kidney. Bladder was unremarkable. There was circumferential thickening of the wall of the duodenum likely infectious or inflammatory. Assessment & Plan - Assessment and Plan (Free Text) Assessment: This is a 66 y/o male who had urinary retention. Currently pt has a arredondo catheter in place and judging by pt previous symptoms he appears to have a hyperactive bladder likely from diabetes and neuropathy. He also likely has some aspect of bladder outlet obstruction. The plan for now will be to maintain the arredondo catheter indwelling and continue pt on Tamsulosin. Currently Pt is not ambulating well due to the diabetic neuropathy and balance issues. When this has improved and Pt is able to stand and ambulate to the bathroom without difficulty, I would recommend arredondo be removed for a voiding trial. We will need to check it post op residual, after arredondo has been be removed. I discussed with Pt that he also should have outpatient urologic follow up once he is discharged to check on his voiding and improve his symptoms of urgency and urge incontinence. Pt understands and agrees, for now we will continue to address his acute issues of the severe constipation and his dizziness, and plan on a voiding trial when he has medically improved. Plan: Pt understands and agrees, for now we will continue to address his acute issues of the severe constipation and his dizziness, and plan on a voiding trial when he has medically improved.
== END 2017-04-28 16:50 | DRG 392 ==
LOC: ED 12:53 → EROBSV 12:55 → OBSVTOIN 17:13 → ERH 17:32 → 3RNO 18:58
PROVIDERS: ADMIT Internal Medicine; ATTEND Emergency Medicine
PROC: 0T9B70Z Drainage of Bladder with Drainage Device, Via Natural or Artificial Opening (ICD-10-PCS; 2017-04-20)
PROC: 0DJ08ZZ Inspection of Upper Intestinal Tract, Via Natural or Artificial Opening Endoscopic (ICD-10-PCS; principal; 2017-04-24 09:00)
DX: K59.00 Constipation, unspecified (principal); K25.9 Gastric ulcer, unspecified as acute or chronic, without hemorrhage or perforation; K22.70 Barrett's esophagus without dysplasia; R33.9 Retention of urine, unspecified; E11.42 Type 2 diabetes mellitus with diabetic polyneuropathy; E86.0 Dehydration; E11.65 Type 2 diabetes mellitus with hyperglycemia; K29.80 Duodenitis without bleeding; F32.9 Major depressive disorder, single episode, unspecified; K29.70 Gastritis, unspecified, without bleeding; E78.5 Hyperlipidemia, unspecified; G47.00 Insomnia, unspecified; I10 Essential (primary) hypertension; I25.10 Atherosclerotic heart disease of native coronary artery without angina pectoris; H83.2X9 Labyrinthine dysfunction, unspecified ear; R26.9 Unspecified abnormalities of gait and mobility; R55 Syncope and collapse; F41.9 Anxiety disorder, unspecified; Z79.4 Long term (current) use of insulin; Z87.891 Personal history of nicotine dependence; Z95.5 Presence of coronary angioplasty implant and graft

== ENCOUNTER 2017-04-28 16:30 | Inpatient (IN) | payer MEDICARE, OTHER ==
[2017-04-28] MEDS: POLYETHYLENE GLYCOL 3350 17 GM/Dose PACKET PO SCH (18:55)
--- NOTE | 2017-04-28 19:45 | PCM.BM ---
Treatment Plan Problems - Problems identified on initial assessmt HOPELESS/HELPLESS Date Initiated: 04/28/17 Time Initiated: 20:00 Assessment reference: NA Status: Active Priority: 1 ACTIVITY INTOLERANCE Date Initiated: 04/28/17 Time Initiated: 22:00 Assessment reference: NA Status: Active Priority: 2 FEELING WORTHLESS Date Initiated: 04/28/17 Time Initiated: 22:00 Assessment reference: NA Status: Active Priority: 3 ALTERED SLEEP Date Initiated: 04/28/17 Time Initiated: 22:00 Assessment reference: NA Status: Active Priority: 4 Treatment assets and liabiliti Patient Assests: cooperative, negotiates basic needs, cognitively intact Patient Liabilities: live alone, physical pain, financial problems, poor support system, dietary restrictions, medical problems - Milieu Protocol Maintain good personal hygiene: daily Encourage regular showers, daily Remind patient to perform daily oral care, daily Assist patient to perform ADL's Maintain personal safety: every shift Educate patient to report safety concerns to staff, every shift Monitor environment for contraband/sharps Medication safety: Monitor for expected outcome, potential side effects: every shift, Assess barriers to learning: every shift, Assess readiness for medication education: every shift Discharge/Continuing Care - Education Needs Education Needs: Patient Medication, Patient Diagnosis/Disease Process, Patient Coping Skills, Patient Community resources, Patient Activities of Daily Living, Patient Pain, Patient Nutrition, Patient Health Practices/Safety, Patient Personal Hygiene/Grooming, Patient Aftercare Safety Plan - Discharge Discharge Criteria: Tolerates medication w/o severe side effects, Free of Suicidal thoughts, Free of agitation, Normal sleep pattern, Ability to care for self, Reduction of target symptoms Discharge to:: Home
[2017-04-28] MEDS ORDERED: Insulin Detemir 100 units/ml Vial (Levemir) SC SCH (22:00)
[2017-04-28] MEDS: Insulin Reg-LOW-Coverage SC SCH (22:35)
--- NOTE | 2017-04-29 04:38 | CP.PCM.PN ---
Subjective - Date & Time of Evaluation Date of Evaluation: 04/28/17 Time of Evaluation: 21:00 - Subjective Subjective: Patient was seen in the day room. He allegedly fell down . States that he went to throw cup in garbage , he fell down.First denied any headache, dizziness, nausea, pains anywhere in the body , then another time stated that he felt dizzy.States that he did not hit his head or did not pass out.This Has no acute symptoms now. This 66 year old white male was admitted with depression. Has PMH of HTN,DM,HLD,COPD, dizziness, Smoker, appendectomy. Objective - Vital Signs/Intake and Output Vital Signs (last 24 hours): Temp Pulse Resp BP Pulse Ox 98.9 F 98 H 16 132/75 04/28/17 17:44 04/28/17 17:44 04/28/17 17:44 04/28/17 17:44 - Medications Medications: Current Medications Aspirin (Ecotrin) 81 mg PO DAILY [facility] Clopidogrel Bisulfate (Plavix) 75 mg PO DAILY [facility] Diazepam (Valium) 2 mg PO BID [facility] PRN Reason: Protocol Last Admin: 04/28/17 18:55 Dose: 2 mg Fluoxetine HCl (Prozac) 30 mg PO DAILY [facility] Gabapentin (Neurontin) 600 mg PO TID [facility] PRN Reason: Protocol Last Admin: 04/28/17 18:55 Dose: 600 mg Insulin Detemir (Levemir) 14 unit SC HS [facility] Last Admin: 04/28/17 22:37 Dose: 14 unit Insulin Human Regular (Humulin R Low) 0 units SC ACHS [facility] PRN Reason: Protocol Last Admin: 04/28/17 22:35 Dose: 3 units Lisinopril (Zestril) 20 mg PO DAILY [facility] Pantoprazole Sodium (Protonix Ec Tab) 40 mg PO 0600 [facility] Polyethylene Glycol (Miralax) 17 gm PO BID [facility] Last Admin: 04/28/17 18:55 Dose: 17 gm Tamsulosin HCl (Flomax) 0.4 mg PO DAILY [facility] Zolpidem Tartrate (Ambien) 5 mg PO HS [facility] PRN Reason: Protocol Last Admin: 04/28/17 22:34 Dose: 5 mg - Constitutional Appears: Well, No Acute Distress - Head Exam Head Exam: ATRAUMATIC, NORMAL INSPECTION, NORMOCEPHALIC - Eye Exam Eye Exam: Normal appearance - ENT Exam ENT Exam: Normal External Ear Exam - Neck Exam Neck Exam: Normal Inspection - Respiratory Exam Respiratory Exam: NORMAL BREATHING PATTERN - Cardiovascular Exam Cardiovascular Exam: absent: JVD - GI/Abdominal Exam GI & Abdominal Exam: absent: Distended - Rectal Exam Rectal Exam: Deferred - Extremities Exam Extremities Exam: Normal Inspection Additional comments: Stood up with assistance, walked to the chair without having pains. - Back Exam Back Exam: NORMAL INSPECTION - Neurological Exam Neurological Exam: Alert, Oriented x3 - Psychiatric Exam Psychiatric exam: Normal Affect, Normal Mood - Skin Skin Exam: Normal Color Assessment and Plan - Assessment and Plan (Free Text) Assessment: S/P fall. Dizziness. HTN. DM. Depression. Plan: Neurocheck as ordered for 24 hours. F/U by PMD. As per PMD. Continue present management.
[2017-04-29] MEDS ORDERED: Pantoprazole 40 mg EC Tab PO SCH (06:00)
[2017-04-29 08:17] LABS: HDL CHOLESTEROL 35 mg/dL (29-60); LDL CHOLESTEROL 99 mg/dL (0-129)
[2017-04-29 08:56] LABS: FREE T4 0.97 ng/dL (0.78-2.19)
[2017-04-29] MEDS: Insulin Reg-LOW-Coverage SC SCH ×2 (09:54→12:34)
[2017-04-29] MEDS: POLYETHYLENE GLYCOL 3350 17 GM/Dose PACKET PO SCH (09:54)
[2017-04-29] MEDS ORDERED: POLYETHYLENE GLYCOL 3350 17 GM/Dose PACKET PO PRN (10:17)
[2017-04-29 13:25] LABS: URINE APPEARANCE CLEAR (CLEAR); URINE BILIRUBIN NEGATIVE (NEGATIVE); URINE BLOOD NEGATIVE (NEGATIVE); URINE COLOR YELLOW (YELLOW); URINE GLUCOSE (UA) 500 mg/dL (NEGATIVE); URINE LEUKOCYTE ESTERASE NEGATIVE Leu/uL (NEGATIVE); URINE NITRATE NEGATIVE (NEGATIVE); URINE PROTEIN NEGATIVE mg/dL (<30 mg/dL); URINE UROBILINOGEN 0.2 E.U./dL (<1 E.U./dL)
--- NOTE | 2017-04-29 13:26 | PCM.PSYCH ---
Initial Psychiatric Evaluation - Initial Psychiatric Evaluation Type of Admission: Voluntary Legal Status: Capacity (ppatient has capacity to sign consent for treatment) Chief Complaint (in patient's own words): "yesterday I was feeling very hopeless, I was thinking about referral go home, kill myself, it will be and of my story" Patient's Reaction to Hospitalization: patient was transferred from the medical floor for evaluation of depressive symptoms, feeling of hopelessness and helplessness, possible suicidal ideation, no clear plan or intent to kill himself, patient needs further evaluation and stabilization, medications titration. Patient wants to be admitted, wants to get better. History of Present Illness and Precipitating Events: shortly patient is 66 years old male, with not known previous psychiatric history, patient denied history of psychiatric admissions, denied history of suicidal attempts, patient has multiple medical problems including hypertension, coronary artery disease with stents, diabetes, vertigo, peripheral neuropathy, and multiple falls was brought in by EMS complaining of constipation for the past 2 weeks, pt also had ? head trauma, psychiatric consult was called for evaluation of depressive symptoms, patient was making statements like "I want to , why I cannot end it all?". shortly patient was seen on the medical floor. Medical team clear patient for transfer to the psychiatric inpatient unit, patient was transferred yesterday. Please see this comic book writer consultation notes for more detailed information. Transfer was uneventful. At the time of admission to the medical side patient was feeling depressed, hopeless, helpless, worthless, patient also had feeling of being a burden, as well as verbalize thoughts of killing himself by cutting his wrists. Prozac was initiated, this comic book writer implemented Sonata, patient was not able to fall asleep and stays sleeps, Ambien was initiated. patient tolerated medications well, had improved appetite, sleep is somewhat better, but patient was found to be depressed, hopeless, and wants to be admitted to the psychiatric inpatient unit for further evaluation and stabilization. Patient was seen today at the morning time, as per nursing report patient fell yesterday try to take something from the floor, patient lost his balance. Patient was seen by house physician, medical team was notified. medications reviewed, patient is on full precaution. Patient said incident of falling yesterday affect his mood very much. Patient was tearful and sad it will be better if I will and it all, I will go home, and kill myself. "I feel very hopeless, this happening to me?" (pt has prefer neuropathy, difficulties to ambulate, numbness in his LE). pt said that he was thinking to overdose on medications. pt also reported that he had one BM, but " I didn't feel it, now I even more embarrassed, I need to wear diapers?", pt was provided with emotional support and empathic listening, was advised to speak to his PMD. pt denied feeling anxious. no psychotic symptoms elicited. denied abuse Past psych h/o: denied suicidal attempts, denied h/o admission to the psych unit. Family h/o: pt denied family h/o mental illness. pt denied using drugs, but smokes one pack a day, counseling provided. medical history: Patient has diabetes, peripheral neuropathy, urinary retention , lower extremities weakness, multiple medical problems, history of multiple falls in the past Lab Results 04/29/17 06:55: Triglycerides 266 H, Cholesterol 188, LDL Cholesterol Direct 99 , HDL Cholesterol 35 04/29/17 06:55: Free T4 0.97, TSH 3rd Generation 1.82 Vital Signs Temp Pulse Resp BP 04/29/17 09:53 77 128/69 04/29/17 07:37 97.9 F 77 22 128/69 04/29/17 07:23 97.9 F 77 20 128/69 04/28/17 17:44 98.9 F 98 H 16 132/75 Current Medications: Active Medications Generic Name Dose Route Start Last Admin Trade Name Heather PRN Reason Stop Dose Admin Aspirin 81 mg 04/29/17 08:00 04/29/17 09:53 Ecotrin PO 81 mg DAILY [facility] Administration Clopidogrel Bisulfate 75 mg 04/29/17 08:00 04/29/17 09:53 Plavix PO 75 mg DAILY [facility] Administration Diazepam 2 mg 04/28/17 17:45 04/29/17 10:18 Valium PO Not Given BID [facility] Protocol Fluoxetine HCl 30 mg 04/29/17 08:00 04/29/17 09:51 Prozac PO 30 mg DAILY [facility] Administration Gabapentin 600 mg 04/28/17 18:00 04/29/17 09:53 Neurontin PO 600 mg TID [facility] Administration Protocol Insulin Detemir 14 unit 04/28/17 22:00 04/28/17 22:37 Levemir SC 14 unit HS [facility] Administration Insulin Human Regular 0 units 04/28/17 22:00 04/29/17 12:34 Humulin R Low SC 3 units ACHS [facility] Administration Protocol Lisinopril 20 mg 04/29/17 08:00 04/29/17 09:53 Zestril PO 20 mg DAILY [facility] Administration Nicotine 1 patch 04/29/17 10:30 04/29/17 12:40 Nicoderm Cq TD 1 patch DAILY [facility] Administration Pantoprazole Sodium 40 mg 04/29/17 06:00 04/29/17 09:53 Protonix Ec Tab PO 40 mg 0600 [facility] Administration Polyethylene Glycol 17 gm 04/29/17 10:17 Miralax PO DAILY PRN Constipation Tamsulosin HCl 0.4 mg 04/29/17 08:00 04/29/17 09:53 Flomax PO 0.4 mg DAILY [facility] Administration Zolpidem Tartrate 5 mg 04/28/17 22:00 04/28/17 22:34 Ambien PO 5 mg HS [facility] Administration Protocol Past Psychiatric History - Past Psychiatric History Previous Treatment History: None Prior Professional Help: see HPI Prior Psychiatric Treatment: see HPI At [facility]: see HPI Duration: see HPI Nature of Treatment: see HPI Explanation of prior treatment: see HPI History of Abuse: see HPI History of ETOH/Drug Use: see HPI History of Family Illness: see HPI Pertinent Medical Hx (Current Medical&Sleep Prob, Allergies): Allergies Allergy/AdvReac Type Severity Reaction Status Date / Time No Known Allergies Allergy Verified 04/20/17 12:59 Aspirin [Aspirin Chewable] 81 mg PO DAILY 04/28/17 Clopidogrel [Plavix] 75 mg PO DAILY tab 04/28/17 FLUoxetine [Prozac] 30 mg PO DAILY cap 04/28/17 Gabapentin [Neurontin] 600 mg PO TID tab 04/28/17 Insulin Detemir [Levemir] 14 unit SC HS unit 04/28/17 Insulin Human Regular-HIGH [HumuLIN R HIGH] 0 units SC ACHS ml 04/28/17 Lisinopril [Zestril] 20 mg PO DAILY tab 04/28/17 Pantoprazole [Protonix Inj] 40 mg IVP DAILY vial 04/28/17 Polyethylene Glycol 3350 [Miralax] 17 gm PO BID packet 04/28/17 Tamsulosin [Flomax] 0.4 mg PO DAILY cap 04/28/17 Zolpidem [Ambien] 5 mg PO HS PRN tab 04/28/17 diaZEpam [Valium] 2 mg PO BID tab 04/28/17 Review of Systems - Review of Systems Systems not reviewed;Unavailable: Acuity of Condition - EENT Eyes: As Per HPI Ears: As Per HPI Nose/Mouth/Throat: As Per HPI - Cardiovascular Cardiovascular: As Per HPI - Respiratory Respiratory: As Per HPI - Gastrointestinal Gastrointestinal: As Per HPI - Genitourinary Genitourinary: As Per HPI - Reproductive: Male Reproductive:Male: As Per HPI - Musculoskeletal Musculoskeletal: As Par HPI - Integumentary Integumentary: As Per HPI - Neurological Neurological: As Per HPI - Psychiatric Psychiatric: As Per HPI - Endocrine Endocrine: As Per HPI - Hematologic/Lymphatic Hematologic: As Per HPI Mental Status Examination - Personal Presentation Personal Presentation: Looks older than stated age - Affect Affect: Flat - Motor Activity Motor Activity: Calm, Psychomotor Retardation - Reliability in Providing Information Reliability in Providing Information: Fair - Speech Speech: Organized - Mood Mood: Depressed - Formal Thought Process Formal Thought Process: No Impairment - Obsessions/Compulsions Obsessions: None Compulsions: None - Cognitive Functions Orientation: Person, Place, Situation Sensorium: Alert Attention/Concentration: Easily distracted Abstract Thinking: [place] Estimate of Intelligence: Average Judgement: Intact, as evidence by: Insight regarding need for hospitalization - Risk Risk: Suicidal, Self-mutilation, Diminished functioning - Strength & Assets Inventory Strength & Assets Inventory: Cooperative - Limitations Limitations: Other (multiple medical issues, lives alone, feeling depressed) DSM 5 DX - DSM 5 DSM 5 Diagnosis: Rule out major depressive disorder severe with psychosis Rule out mood disorder due to general medical condition - Recommended/Plan of Treatment Treatment Recommendations and Plan of Treatment: milieu, structure, supportive therapy Prozac 30 mg daily for depressive symptoms and anxiety Sonata was started but patient did not improve on the medication Ambien 5 mg at the nighttime started, patient said that her Neurontin 600 mg 3 times a day for neuropathy and anxiety Physical therapy Follow up Patient was seen by neurology team Medical follow up We'll continue Valium 20 mg twice a day as per neurology Patient is on insulin We'll continue lisinopril 20 mg daily We'll continue Protonix Continue MiraLAX We'll continue Flomax social science manager evaluation We will monitor patient closely Projected ELOS: 7 days Prognosis: guarded Discharge Plan and Discharge Criteria: Pt will be not depressed or manic, will be more hopeful, will be not psychotic or anxious, will be not having thoughts of harming self or others, will be tolerating medications well, will not have major side effects, will be able to function, will not pose threat to self or others. - Smoking Cessation Smoking Cessation Initiated: Yes
[2017-04-29] MEDS: Insulin Reg-MEDIUM-Coverage SC SCH ×2 (17:14→21:47)
[2017-04-29] MEDS: Insulin Detemir 100 units/ml Vial (Levemir) SC SCH (21:47)
--- NOTE | 2017-04-29 23:13 | CP.PCM.PN ---
Subjective - Date & Time of Evaluation Date of Evaluation: 04/29/17 Time of Evaluation: 12:00 - Subjective Subjective: dictation system down. pt seen on 5b this friday noon. in day room. appears medically well. glucose better controlledneuropathy pain persists. off opiates. very depressed. difficult to see hope for the future. Objective - Vital Signs/Intake and Output Vital Signs (last 24 hours): Temp Pulse Resp BP Pulse Ox 97.9 F 78 22 154/72 H 04/29/17 07:37 04/29/17 16:00 04/29/17 07:37 04/29/17 16:00 - Medications Medications: Current Medications Aspirin (Ecotrin) 81 mg PO DAILY [facility] Last Admin: 04/29/17 09:53 Dose: 81 mg Clopidogrel Bisulfate (Plavix) 75 mg PO DAILY [facility] Last Admin: 04/29/17 09:53 Dose: 75 mg Diazepam (Valium) 2 mg PO BID [facility] PRN Reason: Protocol Last Admin: 04/29/17 18:06 Dose: 2 mg Fluoxetine HCl (Prozac) 30 mg PO DAILY [facility] Last Admin: 04/29/17 09:51 Dose: 30 mg Gabapentin (Neurontin) 600 mg PO TID [facility] PRN Reason: Protocol Last Admin: 04/29/17 18:06 Dose: 600 mg Insulin Detemir (Levemir) 18 unit SC HS [facility] Last Admin: 04/29/17 21:47 Dose: 18 unit Insulin Human Regular (Humulin R Med) 0 units SC ACHS [facility] PRN Reason: Protocol Last Admin: 04/29/17 21:47 Dose: 2 units Lisinopril (Zestril) 20 mg PO DAILY [facility] Last Admin: 04/29/17 09:53 Dose: 20 mg Nicotine (Nicoderm Cq) 1 patch TD DAILY [facility] Last Admin: 04/29/17 12:40 Dose: 1 patch Pantoprazole Sodium (Protonix Ec Tab) 40 mg PO 0600 [facility] Last Admin: 04/29/17 09:53 Dose: 40 mg Polyethylene Glycol (Miralax) 17 gm PO DAILY [facility] PRN Reason: Constipation Tamsulosin HCl (Flomax) 0.4 mg PO DAILY [facility] Last Admin: 04/29/17 09:53 Dose: 0.4 mg Zolpidem Tartrate (Ambien) 5 mg PO HS [facility] PRN Reason: Protocol Last Admin: 04/29/17 22:14 Dose: 5 mg - Constitutional Appears: Well - Head Exam Head Exam: ATRAUMATIC, NORMAL INSPECTION - Eye Exam Eye Exam: Normal appearance - ENT Exam ENT Exam: Mucous Membranes Moist - Neck Exam Neck Exam: Normal Inspection - Respiratory Exam Respiratory Exam: NORMAL BREATHING PATTERN - Cardiovascular Exam Cardiovascular Exam: REGULAR RHYTHM - Extremities Exam Extremities Exam: Full ROM, Normal Capillary Refill, Normal Inspection - Psychiatric Exam Psychiatric exam: Depressed - Skin Skin Exam: Normal Color
[2017-04-30] MEDS: Pantoprazole 40 mg EC Tab PO SCH (08:18)
[2017-04-30] MEDS: Insulin Reg-MEDIUM-Coverage SC SCH ×4 (08:19→21:35)
[2017-04-30 08:53] LABS: BASO # 0.02 K/mm3 (0.0-2.0); BASO % 0.3 % (0.0-3.0); EOS # 0.3 (0.0-0.7); EOS % 4.4 % (1.5-5.0); GRAN # 4.22 (1.4-6.5); GRAN % 66.7 % (50.0-68.0); HEMOGLOBIN 12.7 gm/dL (14.0-18.0); LYMPH # 1.3 (1.2-3.4); LYMPH % 20.5 % (22.0-35.0); MEAN CELL VOLUME 80.9 fL (80.0-105.0); MEAN CORPUSCULAR HEMOGLOBIN 27.9 pg (25.0-35.0); MEAN CORPUSCULAR HGB CONC 34.4 g/dl (31.0-37.0); MEAN PLATELET VOLUME 10.5 fl (7.0-11.0); MONO # 0.5 (0.1-0.6); MONO % 8.1 % (1.0-6.0); PLATELET COUNT 116 10^3/uL (120.0-450.0); RBC 4.56 10^6/uL (3.5-6.1); WHITE BLOOD COUNT 6.3 10^3/ul (4.5-11.0)
[2017-04-30 09:06] LABS: ALB/GLOB RATIO 1.5 (1.1-1.8); ALBUMIN 4.6 g/dL (3.0-4.8); ALT/SGPT 31 U/L (7-56); AST/SGOT 26 U/L (15-59); BLOOD UREA NITROGEN 17 mg/dL (7-21); CALCIUM 9.8 mg/dL (8.4-10.5); GFR AFRICAN-AMERICAN > 60; GFR NON-AFRICAN AMERICAN > 60
--- NOTE | 2017-04-30 11:18 | PCM.BM ---
Treatment Plan Problems - Problems identified on initial assessmt HOPELESS/HELPLESS Date Initiated: 04/28/17 Time Initiated: 20:00 Assessment reference: NA Status: Active Priority: 1 ACTIVITY INTOLERANCE Date Initiated: 04/28/17 Time Initiated: 22:00 Assessment reference: NA Status: Active Priority: 2 FEELING WORTHLESS Date Initiated: 04/28/17 Time Initiated: 22:00 Assessment reference: NA Status: Active Priority: 3 ALTERED SLEEP Date Initiated: 04/28/17 Time Initiated: 22:00 Assessment reference: NA Status: Active Priority: 4 Treatment assets and liabiliti Patient Assests: cooperative, negotiates basic needs, cognitively intact Patient Liabilities: live alone, physical pain, financial problems, poor support system, dietary restrictions, medical problems - Milieu Protocol Maintain good personal hygiene: daily Encourage regular showers, daily Remind patient to perform daily oral care, daily Assist patient to perform ADL's Maintain personal safety: every shift Educate patient to report safety concerns to staff, every shift Monitor environment for contraband/sharps Medication safety: Monitor for expected outcome, potential side effects: every shift, Assess barriers to learning: every shift, Assess readiness for medication education: every shift Milieu Narrative: milieu, structure, supportive therapy Prozac 30 mg daily for depressive symptoms and anxiety Sonata was started but patient did not improve on the medication Ambien 5 mg at the nighttime started, patient said that her Neurontin 600 mg 3 times a day for neuropathy and anxiety Physical therapy Follow up Patient was seen by neurology team Medical follow up We'll continue Valium 20 mg twice a day as per neurology Patient is on insulin We'll continue lisinopril 20 mg daily We'll continue Protonix Continue MiraLAX We'll continue [place] psychosocial rehabilitation counselor evaluation We will monitor patient closely Family Contact Family involvement: Famliy/SO not involved Discharge/Continuing Care - Education Needs Education Needs: Patient Medication, Patient Diagnosis/Disease Process, Patient Coping Skills, Patient Community resources, Patient Activities of Daily Living, Patient Pain, Patient Nutrition, Patient Health Practices/Safety, Patient Personal Hygiene/Grooming, Patient Aftercare Safety Plan - Discharge Discharge Criteria: Tolerates medication w/o severe side effects, Free of Suicidal thoughts, Free of agitation, Normal sleep pattern, Ability to care for self, Reduction of target symptoms Discharge to:: Home - Additional Comments milieu, structure, supportive therapy Prozac 30 mg daily for depressive symptoms and anxiety Sonata was started but patient did not improve on the medication Ambien 5 mg at the nighttime started, patient said that her Neurontin 600 mg 3 times a day for neuropathy and anxiety Physical therapy Follow up Patient was seen by neurology team Medical follow up We'll continue Valium 20 mg twice a day as per neurology Patient is on insulin We'll continue lisinopril 20 mg daily We'll continue Protonix Continue MiraLAX We'll continue [place] psychosocial rehabilitation counselor evaluation We will monitor patient closely - Treatment Team Participation Patient/Family/SO Statement: milieu, structure, supportive therapy Prozac 30 mg daily for depressive symptoms and anxiety Sonata was started but patient did not improve on the medication Ambien 5 mg at the nighttime started, patient said that her Neurontin 600 mg 3 times a day for neuropathy and anxiety Physical therapy Follow up Patient was seen by neurology team Medical follow up We'll continue Valium 20 mg twice a day as per neurology Patient is on insulin We'll continue lisinopril 20 mg daily We'll continue Protonix Continue MiraLAX We'll continue [place] psychosocial rehabilitation counselor evaluation We will monitor patient closely
[2017-04-30] MEDS: Insulin Reg-LOW-Coverage SC SCH (12:51)
--- NOTE | 2017-04-30 13:26 | PCM.PYCHPN ---
Psychiatric Progress Note - Psychiatric Progress Note Patient seen today, length of contact: 30min Patient Chief Complaint: "I feel little better.." Problems Identified/Issues Discussed: Suicide/ homicide prevention, past psychiatric h/o, current psychiatric symptoms , medical problems, risk/benefits and alternatives of medications, medications compliance, coping strategies, substance abuse h/o, relapse prevention, importance of follow up with psychiatrist and therapist, discharge plan. Medical Problems: diabetes, peripheral neuropathy, urinary retention, lower extremities weakness, multiple medical problems, history of multiple falls in the past Diagnostic Results: 04/30/17 08:30 04/30/17 08:30 Lab Results 04/30/17 08:30: Sodium 139, Potassium 4.2, Chloride 101, Carbon Dioxide 26, Anion Gap 16, BUN 17, Creatinine 1.0, Est GFR ( Amer) > 60, Est GFR (Non- Af Amer) > 60, Random Glucose 254 H, Calcium 9.8, Total Bilirubin 0.9, AST 26, ALT 31, Alkaline Phosphatase 92, Total Protein 7.7, Albumin 4.6, Globulin 3.1, Albumin/Globulin Ratio 1.5 04/30/17 08:30: WBC 6.3 D, RBC 4.56, Hgb 12.7 L, Hct 36.9 L, MCV 80.9, MCH 27.9 , MCHC 34.4, RDW 14.0, Plt Count 116 L, MPV 10.5, Gran % 66.7, Lymph % (Auto) 20.5 L, [place] % (Auto) 8.1 H, Eos % (Auto) 4.4, Baso % (Auto) 0.3, Gran # 4.22, Lymph # 1.3, [place] # 0.5, Eos # 0.3, Baso # 0.02 04/29/17 21:13: POC Glucose (mg/dL) 332 H 04/29/17 16:56: POC Glucose (mg/dL) 294 H 04/29/17 13:10: Urine Color Yellow, Urine Appearance Clear, Urine pH 6.0, Ur Specific [place] 1.015, Urine Protein Negative, Urine Glucose (UA) 500 H, Urine Ketones Negative, Urine Blood Negative, Urine Nitrate Negative, Urine Bilirubin Negative, Urine Urobilinogen 0.2, Ur Leukocyte Esterase Negative 04/29/17 06:55: Triglycerides 266 H, Cholesterol 188, LDL Cholesterol Direct 99 , HDL Cholesterol 35 04/29/17 06:55: Free T4 0.97, TSH 3rd Generation 1.82 04/29/17 06:00: RPR Nonreactive Vital Signs Temp Pulse Resp BP 04/30/17 08:18 77 131/75 04/30/17 06:50 98.2 F 77 17 131/75 04/29/17 16:00 78 154/72 H 04/29/17 09:53 77 128/69 04/29/17 07:37 97.9 F 77 22 128/69 04/29/17 07:23 97.9 F 77 20 128/69 04/28/17 17:44 98.9 F 98 H 16 132/75 DSM 5 Symptoms Update: shortly patient is 66 years old male, with not known previous psychiatric history, patient denied history of psychiatric admissions, denied history of suicidal attempts, patient has multiple medical problems including hypertension, coronary artery disease with stents, diabetes, vertigo, peripheral neuropathy, and multiple falls was brought in by EMS complaining of constipation for the past 2 weeks, pt also had ? head trauma, psychiatric consult was called for evaluation of depressive symptoms, patient was making statements like "I want to , why I cannot end it all?". shortly patient was seen on the medical floor, pt was started on meds, pt c/o hearing some voices at the beginning, but not recently. pt was seen today at the treatment team meeting, presented with improved personal hygiene, was shaved, said that he did not sleep last night (as per report pt slept all day yesterday). Pt was advised not to take any naps. Pt said his mood is improving "a little", still has episodes of hopelessness and helplessness. denied thoughts of harming self or others. pt denied any voices, last time was at the time of admission to the medical floor. NO fall so far. pt denied feeling anxious. as per staff pt is needy, has strong dependent personality traits. pt tolerates meds well, no side effects observed or reported, AIMS 0, no EPS. DSM 5 Diagnosis: Rule out major depressive disorder severe with psychosis Rule out mood disorder due to general medical condition Medication Change: Yes (prozac increased) Medical Record Reviewed: Yes Consults ordered or reviewed: medical team consult appreciated PT consult called Mental Status Examination - Cognitive Function Orientation: Person, Place, Situation Memory: Intact Attention: Poor Concentration: Poor Association: WNL Fund of Knowledge: WNL - Mood Mood: Depressed - Affect Affect: Flat - Formal Thought Process Formal Thought Process: No Impairment - Suicidal Ideation Suicidal Ideation: No - Homicidal Ideation Homicidal Ideation: No Goal/Treatment Plan - Goal/Treatment Plan Need for Continued Stay: Remain at risks for inpatient hospitalization, Severe depression anxiety, Discharge may exacerbated symptoms, Severe functional impairment Progress Toward Problem(s) and Goals/Treatment Plan: milieu, structure, supportive therapy Prozac 40 mg daily for depressive symptoms and anxiety Sonata was started but patient did not improve on the medication Ambien 5 mg at the nighttime started, patient said that her Neurontin 600 mg 3 times a day for neuropathy and anxiety Physical therapy Follow up Patient was seen by neurology team Medical follow up We'll continue Valium 20 mg twice a day as per neurology Patient is on insulin We'll continue lisinopril 20 mg daily We'll continue Protonix Continue MiraLAX We'll continue [place] social welfare clerk evaluation We will monitor patient closely Estimated Date of D/C: 05/05/17 (will evaluate on daily basis) - Smoking Cessation Smoking Cessation Initiated: Yes
--- NOTE | 2017-04-30 13:48 | PCM.BM ---
Treatment Plan Problems - Problems identified on initial assessmt HOPELESS/HELPLESS Date Initiated: 04/28/17 Time Initiated: 20:00 Assessment reference: NA Status: Active Priority: 1 ACTIVITY INTOLERANCE Date Initiated: 04/28/17 Time Initiated: 22:00 Assessment reference: NA Status: Active Priority: 2 FEELING WORTHLESS Date Initiated: 04/28/17 Time Initiated: 22:00 Assessment reference: NA Status: Active Priority: 3 ALTERED SLEEP Date Initiated: 04/28/17 Time Initiated: 22:00 Assessment reference: NA Status: Active Priority: 4 Treatment assets and liabiliti Patient Assests: cooperative, negotiates basic needs, cognitively intact Patient Liabilities: live alone, physical pain, financial problems, poor support system, dietary restrictions, medical problems - Diagnosis (1) MDD (major depressive disorder), single episode, severe with psychosis Status: Acute Interventions: 04/30/17 13:47 Psychoeducation Psychopharmacology/adjustment of medications as needed/ monitoring possible side effects Evaluate pt on daily basis Compliance with medications and follow up appointments Suicide and homicide risk assessment and prevention Relapse prevention Reduction of symptoms Improve functional status Family intervention As outpatient: cognitive behavioral therapy/interpersonal psychotherapy/ psychodynamic psychotherapy/problem-solving therapy (2) Mood disorder due to a general medical condition Status: Acute Interventions: 04/30/17 13:47 Pt will be seen by medical team as needed Medications will be confirmed and resumed Additional consultation by specialists as needed Lab work as needed (CBC, CMP, TSH, free T4, UA, Urine test for females as needed) CXR as needed EKG Physical therapy valuation as needed - Milieu Protocol Maintain good personal hygiene: daily Encourage regular showers, daily Remind patient to perform daily oral care, daily Assist patient to perform ADL's Maintain personal safety: every shift Educate patient to report safety concerns to staff, every shift Monitor environment for contraband/sharps Medication safety: Monitor for expected outcome, potential side effects: every shift, Assess barriers to learning: every shift, Assess readiness for medication education: every shift Milieu Narrative: milieu, structure, supportive therapy Prozac 40 mg daily for depressive symptoms and anxiety Sonata was started but patient did not improve on the medication Ambien 5 mg at the nighttime started, patient said that her Neurontin 600 mg 3 times a day for neuropathy and anxiety Physical therapy Follow up Patient was seen by neurology team Medical follow up We'll continue Valium 20 mg twice a day as per neurology Patient is on insulin We'll continue lisinopril 20 mg daily We'll continue Protonix Continue MiraLAX We'll continue [place] social work msw evaluation We will monitor patient closely Family Contact Family involvement: Famliy/SO not involved Discharge/Continuing Care - Education Needs Education Needs: Patient Medication, Patient Diagnosis/Disease Process, Patient Coping Skills, Patient Community resources, Patient Activities of Daily Living, Patient Pain, Patient Nutrition, Patient Health Practices/Safety, Patient Personal Hygiene/Grooming, Patient Aftercare Safety Plan - Discharge Discharge Criteria: Tolerates medication w/o severe side effects, Free of Suicidal thoughts, Free of agitation, Normal sleep pattern, Ability to care for self, Reduction of target symptoms Discharge to:: Home - Additional Comments milieu, structure, supportive therapy Prozac 40 mg daily for depressive symptoms and anxiety Sonata was started but patient did not improve on the medication Ambien 5 mg at the nighttime started, patient said that her Neurontin 600 mg 3 times a day for neuropathy and anxiety Physical therapy Follow up Patient was seen by neurology team Medical follow up We'll continue Valium 20 mg twice a day as per neurology Patient is on insulin We'll continue lisinopril 20 mg daily We'll continue Protonix Continue MiraLAX We'll continue [place] social work msw evaluation We will monitor patient closely - Treatment Team Participation Patient/Family/SO Statement: milieu, structure, supportive therapy Prozac 40 mg daily for depressive symptoms and anxiety Sonata was started but patient did not improve on the medication Ambien 5 mg at the nighttime started, patient said that her Neurontin 600 mg 3 times a day for neuropathy and anxiety Physical therapy Follow up Patient was seen by neurology team Medical follow up We'll continue Valium 20 mg twice a day as per neurology Patient is on insulin We'll continue lisinopril 20 mg daily We'll continue Protonix Continue MiraLAX We'll continue [place] social work msw evaluation We will monitor patient closely
--- NOTE | 2017-04-30 13:52 | PCM.BM ---
Treatment Plan Problems - Problems identified on initial assessmt HOPELESS/HELPLESS Date Initiated: 04/28/17 Time Initiated: 20:00 Assessment reference: NA Status: Active Priority: 1 ACTIVITY INTOLERANCE Date Initiated: 04/28/17 Time Initiated: 22:00 Assessment reference: NA Status: Active Priority: 2 FEELING WORTHLESS Date Initiated: 04/28/17 Time Initiated: 22:00 Assessment reference: NA Status: Active Priority: 3 ALTERED SLEEP Date Initiated: 04/28/17 Time Initiated: 22:00 Assessment reference: NA Status: Active Priority: 4 Treatment assets and liabiliti Patient Assests: cooperative, negotiates basic needs, cognitively intact Patient Liabilities: live alone, physical pain, financial problems, poor support system, dietary restrictions, medical problems - Milieu Protocol Maintain good personal hygiene: daily Encourage regular showers, daily Remind patient to perform daily oral care, daily Assist patient to perform ADL's Maintain personal safety: every shift Educate patient to report safety concerns to staff, every shift Monitor environment for contraband/sharps Medication safety: Monitor for expected outcome, potential side effects: every shift, Assess barriers to learning: every shift, Assess readiness for medication education: every shift Milieu Narrative: milieu, structure, supportive therapy Prozac 40 mg daily for depressive symptoms and anxiety Sonata was started but patient did not improve on the medication Ambien 5 mg at the nighttime started, patient said that her Neurontin 600 mg 3 times a day for neuropathy and anxiety Physical therapy Follow up Patient was seen by neurology team Medical follow up We'll continue Valium 20 mg twice a day as per neurology Patient is on insulin We'll continue lisinopril 20 mg daily We'll continue Protonix Continue MiraLAX We'll continue [place] geriatric social worker evaluation We will monitor patient closely Family Contact Family involvement: Famliy/SO not involved - Goals for Treatment Patient goals for treatment: TO GET PHYSICAL THERAPY AND SLEEP BETTER Discharge/Continuing Care - Education Needs Education Needs: Patient Medication, Patient Diagnosis/Disease Process, Patient Coping Skills, Patient Community resources, Patient Activities of Daily Living, Patient Pain, Patient Nutrition, Patient Health Practices/Safety, Patient Personal Hygiene/Grooming, Patient Aftercare Safety Plan - Discharge Discharge Criteria: Tolerates medication w/o severe side effects, Free of Suicidal thoughts, Free of agitation, Normal sleep pattern, Ability to care for self, Reduction of target symptoms Discharge to:: Home - Additional Comments milieu, structure, supportive therapy Prozac 40 mg daily for depressive symptoms and anxiety Sonata was started but patient did not improve on the medication Ambien 5 mg at the nighttime started, patient said that her Neurontin 600 mg 3 times a day for neuropathy and anxiety Physical therapy Follow up Patient was seen by neurology team Medical follow up We'll continue Valium 20 mg twice a day as per neurology Patient is on insulin We'll continue lisinopril 20 mg daily We'll continue Protonix Continue MiraLAX We'll continue [place] geriatric social worker evaluation We will monitor patient closely - Treatment Team Participation Patient/Family/SO Statement: milieu, structure, supportive therapy Prozac 40 mg daily for depressive symptoms and anxiety Sonata was started but patient did not improve on the medication Ambien 5 mg at the nighttime started, patient said that her Neurontin 600 mg 3 times a day for neuropathy and anxiety Physical therapy Follow up Patient was seen by neurology team Medical follow up We'll continue Valium 20 mg twice a day as per neurology Patient is on insulin We'll continue lisinopril 20 mg daily We'll continue Protonix Continue MiraLAX We'll continue [place] geriatric social worker evaluation We will monitor patient closely
[2017-04-30] MEDS: Insulin Detemir 100 units/ml Vial (Levemir) SC SCH (21:35)
[2017-05-01] MEDS: Insulin Reg-MEDIUM-Coverage SC SCH ×4 (09:11→22:30)
[2017-05-01] MEDS: Pantoprazole 40 mg EC Tab PO SCH (09:13)
--- NOTE | 2017-05-01 13:28 | PCM.PYCHPN ---
Psychiatric Progress Note - Psychiatric Progress Note Patient seen today, length of contact: 30min Patient Chief Complaint: "I don't feel good today" Problems Identified/Issues Discussed: Suicide/ homicide prevention, past psychiatric h/o, current psychiatric symptoms , medical problems, risk/benefits and alternatives of medications, medications compliance, coping strategies, substance abuse h/o, relapse prevention, importance of follow up with psychiatrist and therapist, discharge plan. Medical Problems: diabetes, peripheral neuropathy, urinary retention, lower extremities weakness, multiple medical problems, history of multiple falls in the past Diagnostic Results: 04/30/17 08:30 04/30/17 08:30 Lab Results 04/30/17 08:30: Sodium 139, Potassium 4.2, Chloride 101, Carbon Dioxide 26, Anion Gap 16, BUN 17, Creatinine 1.0, Est GFR ( Amer) > 60, Est GFR (Non- Af Amer) > 60, Random Glucose 254 H, Calcium 9.8, Total Bilirubin 0.9, AST 26, ALT 31, Alkaline Phosphatase 92, Total Protein 7.7, Albumin 4.6, Globulin 3.1, Albumin/Globulin Ratio 1.5 04/30/17 08:30: WBC 6.3 D, RBC 4.56, Hgb 12.7 L, Hct 36.9 L, MCV 80.9, MCH 27.9 , MCHC 34.4, RDW 14.0, Plt Count 116 L, MPV 10.5, Gran % 66.7, Lymph % (Auto) 20.5 L, [place] % (Auto) 8.1 H, Eos % (Auto) 4.4, Baso % (Auto) 0.3, Gran # 4.22, Lymph # 1.3, [place] # 0.5, Eos # 0.3, Baso # 0.02 04/29/17 21:13: POC Glucose (mg/dL) 332 H 04/29/17 16:56: POC Glucose (mg/dL) 294 H 04/29/17 13:10: Urine Color Yellow, Urine Appearance Clear, Urine pH 6.0, Ur Specific [place] 1.015, Urine Protein Negative, Urine Glucose (UA) 500 H, Urine Ketones Negative, Urine Blood Negative, Urine Nitrate Negative, Urine Bilirubin Negative, Urine Urobilinogen 0.2, Ur Leukocyte Esterase Negative 04/29/17 06:55: Triglycerides 266 H, Cholesterol 188, LDL Cholesterol Direct 99 , HDL Cholesterol 35 04/29/17 06:55: Free T4 0.97, TSH 3rd Generation 1.82 04/29/17 06:00: RPR Nonreactive Vital Signs Temp Pulse Resp BP 04/30/17 08:18 77 131/75 04/30/17 06:50 98.2 F 77 17 131/75 04/29/17 16:00 78 154/72 H 04/29/17 09:53 77 128/69 04/29/17 07:37 97.9 F 77 22 128/69 04/29/17 07:23 97.9 F 77 20 128/69 04/28/17 17:44 98.9 F 98 H 16 132/75 Microbiology 04/29/17 13:10 Urine Urine Culture - Final Methicillin Resistant S Aureus No Known Allergies Allergy (Verified 04/30/17 15:29) Temp Pulse Resp BP Pulse Ox 97.9 F 78 20 132/79 05/01/17 07:28 05/01/17 07:28 05/01/17 07:28 05/01/17 07:28 DSM 5 Symptoms Update: shortly patient is 66 years old male, with not known previous psychiatric history, patient denied history of psychiatric admissions, denied history of suicidal attempts, patient has multiple medical problems including hypertension, coronary artery disease with stents, diabetes, vertigo, peripheral neuropathy, and multiple falls was brought in by EMS complaining of constipation for the past 2 weeks, pt also had ? head trauma, psychiatric consult was called for evaluation of depressive symptoms, patient was making statements like "I want to , why I cannot end it all?". shortly patient was seen on the medical floor, pt was started on meds, pt c/o hearing some voices at the beginning, but not recently. pt was seen today in his room, presented with improved personal hygiene, pt said that he does not feel very well, pt UA was back and positive for s.aureus infection (RN will notify PMD), [facility] team saw pt today, d/w today, neurology will f/u on this pt. Pt said his mood is improving "a little", still has episodes of hopelessness and helplessness. denied thoughts of harming self or others. pt denied any voices, last time was at the time of admission to the medical floor. NO fall so far. pt denied feeling anxious. as per staff pt is needy, has strong dependent personality traits. pt tolerates meds well, no side effects observed or reported, AIMS 0, no EPS. DSM 5 Diagnosis: Rule out major depressive disorder severe with psychosis Rule out mood disorder due to general medical condition Medication Change: No (adjusted yesterday) Medical Record Reviewed: Yes Consults ordered or reviewed: medical team consult appreciated PT consult called Mental Status Examination - Cognitive Function Orientation: Person, Place, Situation Memory: Intact Attention: Poor Concentration: Poor Association: WNL Fund of Knowledge: WNL - Mood Mood: Depressed - Affect Affect: Flat - Formal Thought Process Formal Thought Process: No Impairment - Suicidal Ideation Suicidal Ideation: No - Homicidal Ideation Homicidal Ideation: No Goal/Treatment Plan - Goal/Treatment Plan Need for Continued Stay: Remain at risks for inpatient hospitalization, Severe depression anxiety, Discharge may exacerbated symptoms, Severe functional impairment Progress Toward Problem(s) and Goals/Treatment Plan: milieu, structure, supportive therapy Prozac 40 mg daily for depressive symptoms and anxiety Sonata was started but patient did not improve on the medication Ambien 5 mg at the nighttime started, patient said that her Neurontin 600 mg 3 times a day for neuropathy and anxiety Physical therapy Follow up Patient was seen by neurology team Medical follow up We'll continue Valium 20 mg twice a day as per neurology Patient is on insulin We'll continue lisinopril 20 mg daily We'll continue Protonix Continue MiraLAX We'll continue [place] community mental health social worker evaluation We will monitor patient closely neurology will f/u on pt d/w PMD today Estimated Date of D/C: 05/05/17 (will evaluate on daily basis)
[2017-05-01] MEDS: Insulin Detemir 100 units/ml Vial (Levemir) SC SCH (22:11)
[2017-05-02] MEDS: Pantoprazole 40 mg EC Tab PO SCH (07:10)
[2017-05-02] MEDS: Insulin Reg-MEDIUM-Coverage SC SCH ×4 (08:16→22:49)
--- NOTE | 2017-05-02 10:12 | PCM.PYCHPN ---
Psychiatric Progress Note - Psychiatric Progress Note Patient seen today, length of contact: 30min Patient Chief Complaint: "I want to be better..." Problems Identified/Issues Discussed: Suicide/ homicide prevention, past psychiatric h/o, current psychiatric symptoms , medical problems, risk/benefits and alternatives of medications, medications compliance, coping strategies, substance abuse h/o, relapse prevention, importance of follow up with psychiatrist and therapist, discharge plan. Medical Problems: diabetes, peripheral neuropathy, urinary retention, lower extremities weakness, multiple medical problems, history of multiple falls in the past Diagnostic Results: 04/30/17 08:30 04/30/17 08:30 Lab Results 04/30/17 08:30: Sodium 139, Potassium 4.2, Chloride 101, Carbon Dioxide 26, Anion Gap 16, BUN 17, Creatinine 1.0, Est GFR ( Amer) > 60, Est GFR (Non- Af Amer) > 60, Random Glucose 254 H, Calcium 9.8, Total Bilirubin 0.9, AST 26, ALT 31, Alkaline Phosphatase 92, Total Protein 7.7, Albumin 4.6, Globulin 3.1, Albumin/Globulin Ratio 1.5 04/30/17 08:30: WBC 6.3 D, RBC 4.56, Hgb 12.7 L, Hct 36.9 L, MCV 80.9, MCH 27.9 , MCHC 34.4, RDW 14.0, Plt Count 116 L, MPV 10.5, Gran % 66.7, Lymph % (Auto) 20.5 L, [place] % (Auto) 8.1 H, Eos % (Auto) 4.4, Baso % (Auto) 0.3, Gran # 4.22, Lymph # 1.3, Hunt # 0.5, Eos # 0.3, Baso # 0.02 04/29/17 21:13: POC Glucose (mg/dL) 332 H 04/29/17 16:56: POC Glucose (mg/dL) 294 H 04/29/17 13:10: Urine Color Yellow, Urine Appearance Clear, Urine pH 6.0, Ur Specific [place] 1.015, Urine Protein Negative, Urine Glucose (UA) 500 H, Urine Ketones Negative, Urine Blood Negative, Urine Nitrate Negative, Urine Bilirubin Negative, Urine Urobilinogen 0.2, Ur Leukocyte Esterase Negative 07/11/17 06:55: Triglycerides 266 H, Cholesterol 188, LDL Cholesterol Direct 99 , HDL Cholesterol 35 04/29/17 06:55: Free T4 0.97, TSH 3rd Generation 1.82 04/29/17 06:00: RPR Nonreactive Vital Signs Temp Pulse Resp BP 04/30/17 08:18 77 131/75 04/30/17 06:50 98.2 F 77 17 131/75 04/29/17 16:00 78 154/72 H 04/29/17 09:53 77 128/69 04/29/17 07:37 97.9 F 77 22 128/69 04/29/17 07:23 97.9 F 77 20 128/69 04/28/17 17:44 98.9 F 98 H 16 132/75 Microbiology 04/29/17 13:10 Urine Urine Culture - Final Methicillin Resistant S Aureus No Known Allergies Allergy (Verified 04/30/17 15:29) Temp Pulse Resp BP Pulse Ox 97.9 F 78 20 132/79 05/01/17 07:28 05/01/17 07:28 05/01/17 07:28 05/01/17 07:28 DSM 5 Symptoms Update: shortly patient is 66 years old male, with not known previous psychiatric history, patient denied history of psychiatric admissions, denied history of suicidal attempts, patient has multiple medical problems including hypertension, coronary artery disease with stents, diabetes, vertigo, peripheral neuropathy, and multiple falls was brought in by EMS complaining of constipation for the past 2 weeks, pt also had ? head trauma, psychiatric consult was called for evaluation of depressive symptoms, patient was making statements like "I want to , why I cannot end it all?". shortly patient was seen on the medical floor, pt was started on meds, pt c/o hearing some voices at the beginning, but not recently. pt was seen today in his room, presented with improved personal hygiene, antibiotics sterated by d/w for UTI. pt said his mood is improving "a little", still has episodes of hopelessness and helplessness. denied thoughts of harming self or others. pt denied feeling anxious. as per staff pt is needy, has strong dependent personality traits. pt tolerates meds well, no side effects observed or reported, AIMS 0, no EPS. DSM 5 Diagnosis: Rule out major depressive disorder severe with psychosis Rule out mood disorder due to general medical condition Medication Change: No (adjusted yesterday) Medical Record Reviewed: Yes Consults ordered or reviewed: medical team consult appreciated PT consult called Mental Status Examination - Cognitive Function Orientation: Person, Place, Situation Memory: Intact Attention: Poor (some improvement) Concentration: Poor (some improvement) Association: WNL Fund of Knowledge: WNL - Mood Mood: Depressed - Affect Affect: Flat - Formal Thought Process Formal Thought Process: No Impairment - Suicidal Ideation Suicidal Ideation: No - Homicidal Ideation Homicidal Ideation: No Goal/Treatment Plan - Goal/Treatment Plan Need for Continued Stay: Remain at risks for inpatient hospitalization, Severe depression anxiety, Discharge may exacerbated symptoms, Severe functional impairment Progress Toward Problem(s) and Goals/Treatment Plan: milieu, structure, supportive therapy Prozac 40 mg daily for depressive symptoms and anxiety Sonata was started but patient did not improve on the medication Ambien 5 mg at the nighttime started, patient said that her Neurontin 600 mg 3 times a day for neuropathy and anxiety antibiotics started by PMD Physical therapy Follow up Patient was seen by neurology team Medical follow up We'll continue Valium 20 mg twice a day as per neurology Patient is on insulin We'll continue lisinopril 20 mg daily We'll continue Protonix Continue MiraLAX We'll continue Flomax social organization professor evaluation We will monitor patient closely neurology will f/u on pt d/w PMD today Estimated Date of D/C: 05/05/17 (will evaluate on daily basis)
[2017-05-02] MEDS: Insulin Detemir 100 units/ml Vial (Levemir) SC SCH (22:51)
[2017-05-03] MEDS: Insulin Reg-MEDIUM-Coverage SC SCH ×4 (09:00→21:50)
[2017-05-03] MEDS: Pantoprazole 40 mg EC Tab PO SCH (09:08)
--- NOTE | 2017-05-03 12:54 | PCM.PYCHPN ---
Psychiatric Progress Note - Psychiatric Progress Note Patient seen today, length of contact: 30min Patient Chief Complaint: "I am thinking about , but I don't want to kill myself..." Problems Identified/Issues Discussed: Suicide/ homicide prevention, past psychiatric h/o, current psychiatric symptoms , medical problems, risk/benefits and alternatives of medications, medications compliance, coping strategies, substance abuse h/o, relapse prevention, importance of follow up with psychiatrist and therapist, discharge plan. Medical Problems: diabetes, peripheral neuropathy, urinary retention, lower extremities weakness, multiple medical problems, history of multiple falls in the past Diagnostic Results: 04/30/17 08:30 04/30/17 08:30 Lab Results 04/30/17 08:30: Sodium 139, Potassium 4.2, Chloride 101, Carbon Dioxide 26, Anion Gap 16, BUN 17, Creatinine 1.0, Est GFR ( Amer) > 60, Est GFR (Non- Af Amer) > 60, Random Glucose 254 H, Calcium 9.8, Total Bilirubin 0.9, AST 26, ALT 31, Alkaline Phosphatase 92, Total Protein 7.7, Albumin 4.6, Globulin 3.1, Albumin/Globulin Ratio 1.5 04/30/17 08:30: WBC 6.3 D, RBC 4.56, Hgb 12.7 L, Hct 36.9 L, MCV 80.9, MCH 27.9 , MCHC 34.4, RDW 14.0, Plt Count 116 L, MPV 10.5, Gran % 66.7, Lymph % (Auto) 20.5 L, [place] % (Auto) 8.1 H, Eos % (Auto) 4.4, Baso % (Auto) 0.3, Gran # 4.22, Lymph # 1.3, [place] # 0.5, Eos # 0.3, Baso # 0.02 04/29/17 21:13: POC Glucose (mg/dL) 332 H 04/29/17 16:56: POC Glucose (mg/dL) 294 H 04/29/17 13:10: Urine Color Yellow, Urine Appearance Clear, Urine pH 6.0, Ur Specific [place] 1.015, Urine Protein Negative, Urine Glucose (UA) 500 H, Urine Ketones Negative, Urine Blood Negative, Urine Nitrate Negative, Urine Bilirubin Negative, Urine Urobilinogen 0.2, Ur Leukocyte Esterase Negative 04/29/17 06:55: Triglycerides 266 H, Cholesterol 188, LDL Cholesterol Direct 99 , HDL Cholesterol 35 04/29/17 06:55: Free T4 0.97, TSH 3rd Generation 1.82 04/29/17 06:00: RPR Nonreactive Vital Signs Temp Pulse Resp BP 04/30/17 08:18 77 131/75 04/30/17 06:50 98.2 F 77 17 131/75 04/29/17 16:00 78 154/72 H 04/29/17 09:53 77 128/69 04/29/17 07:37 97.9 F 77 22 128/69 04/29/17 07:23 97.9 F 77 20 128/69 04/28/17 17:44 98.9 F 98 H 16 132/75 Microbiology 04/29/17 13:10 Urine Urine Culture - Final Methicillin Resistant S Aureus No Known Allergies Allergy (Verified 04/30/17 15:29) Temp Pulse Resp BP Pulse Ox 97.9 F 78 20 132/79 05/01/17 07:28 05/01/17 07:28 05/01/17 07:28 05/01/17 07:28 Temp Pulse Resp BP Pulse Ox 97.9 F 73 18 127/61 05/03/17 07:08 05/03/17 09:02 05/03/17 07:08 05/03/17 09:02 DSM 5 Symptoms Update: shortly patient is 66 years old male, with not known previous psychiatric history, patient denied history of psychiatric admissions, denied history of suicidal attempts, patient has multiple medical problems including hypertension, coronary artery disease with stents, diabetes, vertigo, peripheral neuropathy, and multiple falls was brought in by EMS complaining of constipation for the past 2 weeks, pt also had ? head trauma, psychiatric consult was called for evaluation of depressive symptoms, patient was making statements like "I want to , why I cannot end it all?". pt was seen today in his room, presented with improved personal hygiene, antibiotics started by d/w for UTI. pt knows about UTI dx. pt said that he feels better, pt reported that he is ambulating with walker and feeling "very happy about that", pt still has mood symptoms, but denied thoughts of harming self or others, no psychotic symptoms, but pt hears "my mother talks to me in my head", denied voices in the ears. pt said his mood is improving, still has episodes of hopelessness and helplessness. denied thoughts of harming self or others "I am thinking about , but I don't want to kill myself". pt denied feeling anxious. as per staff pt is needy, has strong dependent personality traits. pt tolerates meds well, no side effects observed or reported, AIMS 0, no EPS. DSM 5 Diagnosis: Rule out major depressive disorder severe with psychosis Rule out mood disorder due to general medical condition Medication Change: No Medical Record Reviewed: Yes Consults ordered or reviewed: medical team consult appreciated PT consult called consulted pt, see notes Mental Status Examination - Cognitive Function Orientation: Person, Place, Situation Memory: Intact Attention: Poor (some improvement) Concentration: Poor (some improvement) Association: WNL Fund of Knowledge: WNL - Mood Mood: Depressed ("I feel little better") - Affect Affect: Flat - Formal Thought Process Formal Thought Process: No Impairment - Suicidal Ideation Suicidal Ideation: No - Homicidal Ideation Homicidal Ideation: No Goal/Treatment Plan - Goal/Treatment Plan Need for Continued Stay: Remain at risks for inpatient hospitalization, Severe depression anxiety, Discharge may exacerbated symptoms, Severe functional impairment Progress Toward Problem(s) and Goals/Treatment Plan: milieu, structure, supportive therapy Prozac 40 mg daily for depressive symptoms and anxiety Sonata was started but patient did not improve on the medication Ambien 5 mg at the nighttime started, patient said that her Neurontin 600 mg 3 times a day for neuropathy and anxiety antibiotics started by PMD Physical therapy Follow up Patient was seen by neurology team Medical follow up We'll continue Valium 20 mg twice a day as per neurology Patient is on insulin We'll continue lisinopril 20 mg daily We'll continue Protonix Continue MiraLAX We'll continue Flomax social media campaign manager evaluation We will monitor patient closely neurology will f/u on pt d/w PMD Estimated Date of D/C: 05/05/17 (will evaluate on daily basis)
[2017-05-03] MEDS: Insulin Detemir 100 units/ml Vial (Levemir) SC SCH (21:43)
[2017-05-04 00:51] LABS: URINE BILIRUBIN NEGATIVE (NEGATIVE); URINE BLOOD NEGATIVE (NEGATIVE); URINE GLUCOSE (UA) NEGATIVE (NEGATIVE); URINE LEUKOCYTE ESTERASE SMALL Leu/uL (NEGATIVE); URINE NITRATE NEGATIVE (NEGATIVE); URINE PROTEIN TRACE mg/dL (<30 mg/dL); URINE UROBILINOGEN 0.2 E.U./dL (<1 E.U./dL)
[2017-05-04 00:58] LABS: URINE APPEARANCE SL CLOUDY (CLEAR); URINE COLOR YELLOW (YELLOW); URINE RBC 0 - 2 /hpf (0-2)
[2017-05-04 01:00] LABS: URINE EPITHELIAL CELLS 0 - 2 /hpf (0-5)
[2017-05-04] MEDS: Pantoprazole 40 mg EC Tab PO SCH (06:58)
[2017-05-04 07:36] VITALS: RESP 20
[2017-05-04] MEDS: Insulin Reg-MEDIUM-Coverage SC SCH ×4 (08:33→21:50)
--- NOTE | 2017-05-04 09:58 | CON ---
DATE: 05/03/2017 REASON FOR CONSULTATION: Coronary artery disease, history of angioplasty, and hypertension. HISTORY OF PRESENT ILLNESS: The patient is a 66-year-old male, now admitted to Psychiatry for depression, known case of coronary artery disease, had abnormal stress test on 04/07/2017 following, which he had cath, and that time, he had drug-eluting stent inserted into RCA and plain balloon angioplasty of RPD. He needs staged angioplasty of LAD for which he is scheduled on 05/08/2017. The patient's ejection fraction by cath was 55% to 60%. The patient is lying flat in bed without any chest pain, shortness of breath or palpitation. The patient is known to have diabetes mellitus, hypertension, neuropathy, walking difficulty, hyperlipidemia and vertigo. PAST MEDICAL HISTORY: As mentioned, coronary artery disease. As mentioned, angioplasty above, diabetes, hypertension, neuropathy. FAMILY HISTORY: Nonsignificant. SOCIAL HISTORY: He used to smoke two packs a day until 03/2017 when angioplasty was done. Drinks socially. ALLERGIES: DENIES ANY ALLERGIES. PHYSICAL EXAMINATION VITAL SIGNS: Blood pressure 108/70, respirations 18, pulse 88, temperature 97.9. HEENT: Head is normocephalic. Eyes: Pupils normal. Conjunctiva normal. Nose and throat normal. NECK: JVP low. Carotids equal. THORAX: AP diameter normal. CARDIOVASCULAR: S1 and S2. LUNGS: Clear. ABDOMEN: Soft and nontender. No organomegaly. EXTREMITIES: No clubbing or cyanosis. LABORATORY DATA: WBC is 6.3, hemoglobin 12.7, hematocrit 36.9, platelets 116. Sugar 218, sodium 139, potassium 4.2, BUN 17, creatinine 1.0. Random glucose 254. AST, ALT and total protein are within normal. Triglycerides 266, cholesterol 188 with LDL 99. TSH 1.82. EKG showed regular sinus rhythm. DIAGNOSES: Coronary artery disease, status post drug-eluting stent in right coronary artery and plain balloon angioplasty of right posterior descending artery. The patient is scheduled for staged angioplasty of left anterior descending on 05/08/2017. Diabetes mellitus, hypertension, neuropathy, hyperlipidemia and vertigo. PLAN: The patient is on aspirin 81 mg p.o. daily, Plavix 75 mg p.o. daily, Protonix 40 mg p.o. daily, Neurontin 600 mg p.o. t.i.d., lisinopril 20 p.o. daily, insulin as ordered. Since the patient has high cholesterol, we will start Lipitor 10 mg daily, goal is to keep LDL below 70. The patient is scheduled for 05/08/2017, angioplasty and stent placement for LAD. We will continue to follow with you. Joey Mendosa MD
--- NOTE | 2017-05-04 11:35 | PCM.PYCHPN ---
Psychiatric Progress Note - Psychiatric Progress Note Patient seen today, length of contact: 30min Patient Chief Complaint: "I had a good night sleep" Problems Identified/Issues Discussed: Suicide/ homicide prevention, past psychiatric h/o, current psychiatric symptoms , medical problems, risk/benefits and alternatives of medications, medications compliance, coping strategies, substance abuse h/o, relapse prevention, importance of follow up with psychiatrist and therapist, discharge plan. Medical Problems: diabetes, peripheral neuropathy, urinary retention, lower extremities weakness, multiple medical problems, history of multiple falls in the past Diagnostic Results: 04/30/17 08:30 04/30/17 08:30 Lab Results 04/30/17 08:30: Sodium 139, Potassium 4.2, Chloride 101, Carbon Dioxide 26, Anion Gap 16, BUN 17, Creatinine 1.0, Est GFR ( Amer) > 60, Est GFR (Non- Af Amer) > 60, Random Glucose 254 H, Calcium 9.8, Total Bilirubin 0.9, AST 26, ALT 31, Alkaline Phosphatase 92, Total Protein 7.7, Albumin 4.6, Globulin 3.1, Albumin/Globulin Ratio 1.5 04/30/17 08:30: WBC 6.3 D, RBC 4.56, Hgb 12.7 L, Hct 36.9 L, MCV 80.9, MCH 27.9 , MCHC 34.4, RDW 14.0, Plt Count 116 L, MPV 10.5, Gran % 66.7, Lymph % (Auto) 20.5 L, [place] % (Auto) 8.1 H, Eos % (Auto) 4.4, Baso % (Auto) 0.3, Gran # 4.22, Lymph # 1.3, [place] # 0.5, Eos # 0.3, Baso # 0.02 04/29/17 21:13: POC Glucose (mg/dL) 332 H 04/29/17 16:56: POC Glucose (mg/dL) 294 H 04/29/17 13:10: Urine Color Yellow, Urine Appearance Clear, Urine pH 6.0, Ur Specific [place] 1.015, Urine Protein Negative, Urine Glucose (UA) 500 H, Urine Ketones Negative, Urine Blood Negative, Urine Nitrate Negative, Urine Bilirubin Negative, Urine Urobilinogen 0.2, Ur Leukocyte Esterase Negative 04/29/17 06:55: Triglycerides 266 H, Cholesterol 188, LDL Cholesterol Direct 99 , HDL Cholesterol 35 04/29/17 06:55: Free T4 0.97, TSH 3rd Generation 1.82 04/29/17 06:00: RPR Nonreactive Vital Signs Temp Pulse Resp BP 04/30/17 08:18 77 131/75 04/30/17 06:50 98.2 F 77 17 131/75 04/29/17 16:00 78 154/72 H 04/29/17 09:53 77 128/69 04/29/17 07:37 97.9 F 77 22 128/69 04/29/17 07:23 97.9 F 77 20 128/69 04/28/17 17:44 98.9 F 98 H 16 132/75 Microbiology 04/29/17 13:10 Urine Urine Culture - Final Methicillin Resistant S Aureus No Known Allergies Allergy (Verified 04/30/17 15:29) Temp Pulse Resp BP Pulse Ox 97.9 F 78 20 132/79 05/01/17 07:28 05/01/17 07:28 05/01/17 07:28 05/01/17 07:28 Temp Pulse Resp BP Pulse Ox 97.9 F 73 18 127/61 05/03/17 07:08 05/03/17 09:02 05/03/17 07:08 05/03/17 09:02 DSM 5 Symptoms Update: shortly patient is 66 years old male, with not known previous psychiatric history, patient denied history of psychiatric admissions, denied history of suicidal attempts, patient has multiple medical problems including hypertension, coronary artery disease with stents, diabetes, vertigo, peripheral neuropathy, and multiple falls was brought in by EMS complaining of constipation for the past 2 weeks, pt also had ? head trauma, psychiatric consult was called for evaluation of depressive symptoms, patient was making statements like "I want to , why I cannot end it all?". pt was seen today at the dinning area, presented with improved personal hygiene , pt said that he had a good night sleep, pt reported his mood is "not bad", pt obviously is improving. pt can ambulate with the walker, at times uses wheelchair, pt is on antibiotics started by d/w for UTI. pt said his mood is improving, still has episodes of hopelessness and helplessness. denied thoughts of harming self or others "I am thinking about , but I don't want to kill myself". pt denied feeling anxious. as per staff pt is needy, has strong dependent personality traits. pt tolerates meds well, no side effects observed or reported, AIMS 0, no EPS. DSM 5 Diagnosis: Rule out major depressive disorder severe with psychosis Rule out mood disorder due to general medical condition Medication Change: No Medical Record Reviewed: Yes Consults ordered or reviewed: medical team consult appreciated PT consult called consulted pt, see notes Mental Status Examination - Cognitive Function Orientation: Person, Place, Situation Memory: Intact Attention: Poor (some improvement) Concentration: Poor (some improvement) Association: WNL Fund of Knowledge: WNL - Mood Mood: Depressed ("I feel little better") - Affect Affect: Flat - Formal Thought Process Formal Thought Process: No Impairment - Suicidal Ideation Suicidal Ideation: No - Homicidal Ideation Homicidal Ideation: No Goal/Treatment Plan - Goal/Treatment Plan Need for Continued Stay: Remain at risks for inpatient hospitalization, Severe depression anxiety, Discharge may exacerbated symptoms, Severe functional impairment Progress Toward Problem(s) and Goals/Treatment Plan: milieu, structure, supportive therapy Prozac 40 mg daily for depressive symptoms and anxiety Sonata was started but patient did not improve on the medication Ambien 5 mg at the nighttime started, patient said that her Neurontin 600 mg 3 times a day for neuropathy and anxiety antibiotics started by PMD Physical therapy Follow up Patient was seen by neurology team Medical follow up We'll continue Valium 20 mg twice a day as per neurology Patient is on insulin We'll continue lisinopril 20 mg daily We'll continue Protonix Continue MiraLAX We'll continue [place] social work nurse evaluation for DC planning We will monitor patient closely neurology will f/u on pt d/w PMD Estimated Date of D/C: 05/05/17 (will evaluate on daily basis)
[2017-05-04] MEDS ORDERED: Insulin Detemir 100 units/ml Vial (Levemir) SC SCH (20:33)
[2017-05-05] MEDS: Pantoprazole 40 mg EC Tab PO SCH (06:32)
[2017-05-05 07:22] VITALS: BP 115/71; PULSE 75; TEMP 98
[2017-05-05] MEDS: Insulin Reg-MEDIUM-Coverage SC SCH ×2 (08:11→12:50)
--- NOTE | 2017-05-05 09:45 | PN ---
DATE: 05/04/2017 The patient in room 508, bed 1. REASON FOR CONSULTATION: Follow up coronary artery disease, history of angioplasty, and hypertension. SUBJECTIVE: The patient denies any chest pain, shortness of breath or palpitations. The patient admitted to psychiatric floor for depression. PHYSICAL EXAMINATION VITAL SIGNS: Blood pressure 110/68, respiration 20, pule 87, and temperature 97.7. HEENT: Head is normocephalic. Eyes: Pupils normal. Conjunctivae normal. Nose and throat normal. NECK: JVP low. Carotids equal. THORAX: AP diameter normal. LUNGS: Clear. CARDIOPULMONARY: S1 and S2. ABDOMEN: Soft and nontender. No organomegaly. Bowel sound normal. EXTREMITIES: No clubbing or cyanosis. LABORATORY DATA: WBC is 6.3, hemoglobin 12.7 hematocrit 36.9, platelets 116. Random sugar 218, sodium 139, potassium 4.2, BUN 17, creatinine 1.0. Random glucose 275. AST, ALT, and total protein are within normal. Triglycerides 266. DIAGNOSES: Coronary artery disease. Stress test on 04/07/2017 was abnormal. Following that patient had catheter, had drug-eluting stent inserted into RCA and plain balloon angioplasty of RPD. The patient needs staged angioplasty of LAD for which he is scheduled on 05/08/2017. The patient's ejection fraction on cath was 55% to 60%. Diabetes mellitus, hypertension, diabetic neuropathy, hyperlipidemia, vertigo. PLAN: Continue present therapy including aspirin, Plavix, Protonix, Neurontin, lisinopril, insulin as ordered. Since the goal is keep LDL 70 or below, so I started Lipitor yesterday 10 mg. The patient is scheduled for LAD angioplasty and stent insertion on 05/08/2017. In the meantime, patient is asymptomatic form cardiac point of view. We will follow. Joey Mendosa MD
--- NOTE | 2017-05-05 13:24 | PCM.PYCHDC ---
Mental Status Examination - Mental Status Examination Orientation: Person, Place, Situation, Time Memory: Intact Mood: Neutral Affect: Constricted (was reactive, mood congruent) Speech: Appropriate Attention: WNL Concentration: WNL Association: WNL Fund of Knowledge: WNL Formal Thought Process: No Impairment Description of patient's judgement and insight: Pt has improved insight into mental and medical illness, pt was compliant with medications and unit rules and regulations, pt was going to groups, was calm, cooperative, socially appropriate, no behavioral incidents, no agitation, no aggression. Psychotic Thoughts and Behaviors: Pt denied v/a/t hallucinations, denied paranoid ideations, pt does not appear to be psychotic, and thought process is goal directed. Suicidal Ideation: No Current Homicidal Ideation?: No Plan: pt adamantly denied thoughts of harming self or others denied intent or plan. Discharge Summary - Discharge Note Reason for Hospitalization: patient was transferred from the medical floor for evaluation of depressive symptoms, feeling of hopelessness and helplessness, possible suicidal ideation, no clear plan or intent to kill himself, patient needs further evaluation and stabilization, medications titration. Psychiatric History (includes Medical, Family, Personal Hx): see HPI Laboratory Data: 04/30/17 08:30 04/30/17 08:30 Lab Results 05/04/17 00:20: Urine Color Yellow, Urine Appearance Sl cloudy, Urine pH 6.0, Ur Specific [place] 1.025, Urine Protein Trace H, Urine Glucose (UA) Negative, Urine Ketones Negative, Urine Blood Negative, Urine Nitrate Negative, Urine Bilirubin Negative, Urine Urobilinogen 0.2, Ur Leukocyte Esterase Small H, Urine RBC 0 - 2, Urine WBC 5 - 10, Ur Epithelial Cells 0 - 2, Urine Other [place] 05/02/17 21:35: POC Glucose (mg/dL) 218 H 05/02/17 16:14: POC Glucose (mg/dL) 252 H 05/01/17 21:46: POC Glucose (mg/dL) 237 H 05/01/17 16:36: POC Glucose (mg/dL) 278 H 04/30/17 21:26: POC Glucose (mg/dL) 300 H 04/30/17 16:28: POC Glucose (mg/dL) 275 H 04/30/17 08:30: Sodium 139, Potassium 4.2, Chloride 101, Carbon Dioxide 26, Anion Gap 16, BUN 17, Creatinine 1.0, Est GFR ( Amer) > 60, Est GFR (Non- Af Amer) > 60, Random Glucose 254 H, Calcium 9.8, Total Bilirubin 0.9, AST 26, ALT 31, Alkaline Phosphatase 92, Total Protein 7.7, Albumin 4.6, Globulin 3.1, Albumin/Globulin Ratio 1.5 04/30/17 08:30: WBC 6.3 D, RBC 4.56, Hgb 12.7 L, Hct 36.9 L, MCV 80.9, MCH 27.9 , MCHC 34.4, RDW 14.0, Plt Count 116 L, MPV 10.5, Gran % 66.7, Lymph % (Auto) 20.5 L, [place] % (Auto) 8.1 H, Eos % (Auto) 4.4, Baso % (Auto) 0.3, Gran # 4.22, Lymph # 1.3, [place] # 0.5, Eos # 0.3, Baso # 0.02 04/29/17 21:13: POC Glucose (mg/dL) 332 H 04/29/17 16:56: POC Glucose (mg/dL) 294 H 04/29/17 13:10: Urine Color Yellow, Urine Appearance Clear, Urine pH 6.0, Ur Specific [place] 1.015, Urine Protein Negative, Urine Glucose (UA) 500 H, Urine Ketones Negative, Urine Blood Negative, Urine Nitrate Negative, Urine Bilirubin Negative, Urine Urobilinogen 0.2, Ur Leukocyte Esterase Negative 04/29/17 06:55: Triglycerides 266 H, Cholesterol 188, LDL Cholesterol Direct 99 , HDL Cholesterol 35 04/29/17 06:55: Free T4 0.97, TSH 3rd Generation 1.82 04/29/17 06:00: RPR Nonreactive Vital Signs Temp Pulse Resp BP 05/05/17 08:17 75 115/71 05/05/17 07:19 98.0 F 75 20 115/71 05/04/17 16:28 77 140/66 05/04/17 08:36 82 110/68 05/04/17 07:35 97.7 F 87 20 97/65 L 05/03/17 16:00 88 108/70 05/03/17 09:02 73 127/61 05/03/17 07:08 97.9 F 73 18 127/61 05/02/17 16:30 89 108/67 05/02/17 07:48 98.1 F 86 20 130/71 05/01/17 16:00 89 126/64 05/01/17 07:28 97.9 F 78 20 132/79 04/30/17 15:00 83 115/64 04/30/17 08:18 77 131/75 04/30/17 06:50 98.2 F 77 17 131/75 04/29/17 16:00 78 154/72 H 04/29/17 09:53 77 128/69 04/29/17 07:37 97.9 F 77 22 128/69 04/29/17 07:23 97.9 F 77 20 128/69 04/28/17 17:44 98.9 F 98 H 16 132/75 Consultations:: List each consultation separately and include: 1. Reason for request. 2. Findings. 3. Follow-up Consultations: medical team consult appreciated PT consult called consulted pt, see notes cardiology consult and f/u appreciated Summary of Hospital Course include:: 1. Description of specific treatment plan utilized for patients during their course of treatmen. 2. Summarize the time- course for resolution of acute symptoms and/or regressed behaviors. 3. Describe issues identified and worked on during hospitalization. 4. Describe medication utilized. 5. Describe medical problems identified and treated. 6. Reassessment of suicide risk Summary of Hospital Course: shortly patient is 66 years old male, with not known previous psychiatric history, patient denied history of psychiatric admissions, denied history of suicidal attempts, patient has multiple medical problems including hypertension, coronary artery disease with stents, diabetes, vertigo, peripheral neuropathy, and multiple falls was brought in by EMS complaining of constipation for the past 2 weeks, pt also had ? head trauma, psychiatric consult was called for evaluation of depressive symptoms, patient was making statements like "I want to , why I cannot end it all?". shortly, patient was seen on the medical floor initially. Medical team clear patient for transfer to the psychiatric inpatient unit, patient was transferred to the psychiatric inpatient unit for evaluation and stabilization of depressive symptoms, psychotic symptoms,feeling of hopelessness, helplessness, possible suicidal ideations with a plan to cut his wrists. atient also had problem to fall asleep and stay asleep. Lab Results 04/29/17 06:55: Triglycerides 266 H, Cholesterol 188, LDL Cholesterol Direct 99 , HDL Cholesterol 35 04/29/17 06:55: Free T4 0.97, TSH 3rd Generation 1.82 Vital Signs Temp Pulse Resp BP 04/29/17 09:53 77 128/69 04/29/17 07:37 97.9 F 77 22 128/69 04/29/17 07:23 97.9 F 77 20 128/69 04/28/17 17:44 98.9 F 98 H 16 132/75 patient was stabilized on the following medications: Prozac we'll slowly titrated to 40 mg daily for depressive symptoms and anxiety Sonata was started but patient did not improve on the medication, t was discontinued Ambien 5 mg at the nighttime started, patient tolerated that well, sleep improved Neurontin 600 mg 3 times a day for neuropathy and anxiety patient tolerated medications well, no side effects observed or reported, aims 0 , no EPS. Patient had positive effect on the medications: Mood improved significantly, no feeling of hopelessness, denied feeling of helplessness, patient has future plans, patient psychotic symptoms subsided, sleep improved very much. Patient physical health also improved, patient started to ambulate with a walker. During the course of this hospitalization patient had urinary tract infection for what pt was started antibiotics, patient was seen by athletic team physician as well, at present moment patient will be transferred to the medical side for further as well as sedation and stabilization of coronary artery disease. discussed with primary care physician today. Over the course of this hospitalization pt was attending groups, pt also had medication management, had therapeutic milieu. Overall pt improved significantly, pt's affect became brighter, pt was less depressed, has realistic future oriented plans, pt also does not appear to be psychotic, or anxious, pt was socially appropriate, no behavioral issues, pts insight improved as well and soon pt deemed to be ready for discharge. At the time of the discharge pt denied been depressed, denied thoughts of harming self or others, denied psychotic symptoms, and pt does not appeared to be psychotic, denied been anxious, was considered to pose no threat to self or others, will be following up with 's office (local psychiatrist), information about follow up appointment, time and address provided to the pt, it is patient responsibility to follow up with outpatient clinic, PMD as well as specialists (see SW note for more detailed information). In case pt will need to obtain results of studies pending at discharge pt was provided with contact information of Psychiatric Inpatient unit [phone] as well as Medical Record Department [phone]. Nicotine patch was offered Counseling about smoking and alcohol cessation provided pt will be transferred to the ED for the CAD, see athletic team physician and PMD notes pt will continue all psychotropic meds Pt was educated about safety plan in case of worsening of symptoms or in case of suicidal or homicidal ideation call 911 or go to the nearest ER, also was educated to take meds as prescribed and stay away from drugs, pt verbalized understanding. - Diagnosis (1) MDD (major depressive disorder), single episode, severe with psychosis Current Visit: Yes Status: Acute (2) Mood disorder due to a general medical condition Current Visit: Yes Status: Acute - Final Diagnosis (DSM 5) Condition upon Discharge: GOOD Disposition: HOME/ ROUTINE Follow-up Treatment Plan: At the time of the discharge pt denied been depressed, denied thoughts of harming self or others, denied psychotic symptoms, and pt does not appeared to be psychotic, denied been anxious, was considered to pose no threat to self or others, will be following up with 's office (local psychiatrist), information about follow up appointment, time and address provided to the pt, it is patient responsibility to follow up with outpatient clinic, PMD as well as specialists (see SW note for more detailed information). In case pt will need to obtain results of studies pending at discharge pt was provided with contact information of Psychiatric Inpatient unit [phone] as well as Medical Record Department [phone]. Nicotine patch was offered Counseling about smoking and alcohol cessation provided pt will be transferred to the ED for the CAD, see athletic team physician and PMD notes pt will continue all psychotropic meds Pt was educated about safety plan in case of worsening of symptoms or in case of suicidal or homicidal ideation call 911 or go to the nearest ER, also was educated to take meds as prescribed and stay away from drugs, pt verbalized understanding. - Smoking Cessation Smoking Cessation Medication prescribed: Yes - Antipsychotic Medications Pt discharged on 2 or more routine antipsychotic medications: No
--- NOTE | 2017-05-05 18:09 | PN ---
DATE: 05/05/2017 Patient in room 508, bed 1. REASON FOR CONSULTATION: Followup with coronary artery disease, history of angioplasty, hypertension. HISTORY OF PRESENT ILLNESS: The patient admitted with depression to psychiatric floor. The patient has history of coronary artery disease, status post angioplasty. Denies any chest pain, shortness of breath, palpitation. The patient is sitting in chair comfortably. PHYSICAL EXAMINATION VITAL SIGNS: Blood pressure 115/71, respirations 20, pulse 75, temperature 98. HEENT: Head is normocephalic. Eyes, pupils are normal. Conjunctivae normal. Nose and throat normal. NECK: JVP low. Carotid equal. THORAX: AP diameter normal. LUNGS: Clear. CARDIOVASCULAR: S1 and S2. ABDOMEN: Soft. No tenderness. No organomegaly. Bowel sounds normal. EXTREMITIES: No clubbing, no cyanosis. LABORATORY DATA: WBC 6.3, hemoglobin 12.7, hematocrit 36.9, and platelets 116. Random CO2 of 18. Other labs are reported in all the previous notes, they were done on 04/30. DIAGNOSIS: Coronary artery disease, stress test on 04/07/2017, was abnormal. Following that, the patient had cardiac cath, put drug-eluting stent into RCA and plain balloon angioplasty of RPDA. The patient now needs staged angioplasty of LAD for which he is scheduled on 05/10/2017. The patient's ejection fraction had been on *------* 55% to 60%. The patient also has history of diabetes mellitus, hypertension, diabetic neuropathy, hyperlipidemia, vertigo. We will continue present therapy. The patient will continue to follow by psychiatry for any depression. The patient is on lisinopril 20 daily, Plavix 75 daily, Ecotrin 81 mg daily, insulin as ordered, Lipitor 10 mg daily, Neurontin 600 t.i.d. Clinically, cardiac state is stable. We will follow with you. Joey Mendosa MD
--- NOTE | 2017-05-06 09:58 | PN ---
DATE: 05/04/2017 SUBJECTIVE: The patient was seen this Friday late evening as I made rounds on the 5th floor in room 508, bed 1, new room as there was a leak in his overhead ceiling in the other room. He is quite comfortable, neuropathy pain seems to be better tolerated. He is in good spirits. Depression seems to have improved quite a bit during his stay here on 5B. He is concerned about his cardiac status. He knows that he has underlying coronary artery disease, a stent was recently placed and he is scheduled for another stent placement later this week. He denies any chest pain, but is feeling more anxious without this. PHYSICAL EXAMINATION HEENT: Head and neck are unremarkable. CARDIOPULMONARY: Heart is regular, not tachycardic. LUNGS: Good aeration right and left. EXTREMITIES: Showed no edema. IMPRESSION: 1. Major depressive episode. 2. Coronary artery disease. 3. Diabetes with severe neuropathy. 4. Severe neuropathy. 5. Hypertension. 6. Chronic pain syndrome. PLAN: Continue on antidepressants as per Dr. Ledesma. We will work on discharge plan and try to coordinate patient's discharge with his upcoming catheterization on , allow him a few days to get home and settled prior to his return. Alex Bowman MD
--- NOTE | 2017-05-06 10:21 | PN ---
DATE OF SERVICE: 05/02/2017 The patient was seen this Friday afternoon on the Psychiatry floor, room 513, bed 2. He is awake, alert, and his depression is improving. When I asked the patient to walk with me, he was very happy to do so, knowing that he needs aggressive physical therapy. On initially standing up, he fell backwards sitting on the bed to me that there is some residual vertigo and balance problems that need to be addressed. I took him for a walk in the [place] with his rolling walking. He did well except for little instability when turning. From a medical stand point, his sugar is running little high. I will adjust his insulin accordingly. We just increased his dose yesterday, so I am going to hold and continue sliding scale coverage for today. Vital signs are otherwise unremarkable. I am quite impressed with the progress he has made with regard to his depression as his voice and tone seems to be improving. We will followup closely. Alex Bowman MD
--- NOTE | 2017-05-06 10:47 | PN ---
DATE: 05/01/2017 SUBJECTIVE: The patient is seen early this morning on psychiatry floor, room 513. Hospitalized with profound depression, he seems to be responding nicely to medications. I will be speaking with the patient at length over the last years regarding the severity of his diabetes, diabetic neuropathy, and chronic back pain. MRI done just a few months ago of the lumbar spine was surprisingly unremarkable making much of his pain related to his neuropathy. Now, off opioids, he continues to do surprisingly well and that his pain complaints are quiet. He does complain of muscle weakness. He still has a problem with vertigo and falling backwards. He needs aggressive physical therapy and ambulation. I will ask Dr. Palmer, his neurologist to consult with him and ask physical therapy to follow with him as well. Because of his elevated sugars, I will increase his daily insulin and continue coverage. Alex Bowman MD
--- NOTE | 2017-05-06 15:45 | PN ---
DATE: 05/03/2017 SUBJECTIVE: The patient was seen this Friday head esthetician on the Psychiatry floor within his room, 513, bed #1. There is a leak in the ceiling of his room, so he will be moved to a different room later today. I was able to take the patient for a walk with his rolling walker. He did rather well, we walked approximately 50 yards. His gait instability is much better. His affect is improved with some smile and even occasional *------*. Sugars are still a bit elevated. I will adjust his insulin accordingly because he needs his other medications, of note is that he remains off opiates and I talked to him about this and the importance of remaining off opiates in the future, as I feel strongly it is probably related to depression and a little benefit for chronic peripheral neuropathy pain. We will follow closely and see him later tomorrow. I even have asked the nurses on the floor to continue physical therapy through the weekend and ambulate the patient whenever he requests twice a shift. Alex Bowman MD
== END 2017-05-05 16:00 | disposition short-term general hospital (02) | DRG 881 ==
LOC: PSYC 16:30
PROVIDERS: ADMIT Psychiatry & Neurology Psychiatry; ATTEND Psychiatry & Neurology Psychiatry
DX: F32.9 Major depressive disorder, single episode, unspecified (principal); E11.42 Type 2 diabetes mellitus with diabetic polyneuropathy; S09.90XA Unspecified injury of head, initial encounter; N39.0 Urinary tract infection, site not specified; N32.0 Bladder-neck obstruction; W19.XXXA Unspecified fall, initial encounter; J44.9 Chronic obstructive pulmonary disease, unspecified; F06.30 Mood disorder due to known physiological condition, unspecified; E78.5 Hyperlipidemia, unspecified; F17.210 Nicotine dependence, cigarettes, uncomplicated; F29 Unspecified psychosis not due to a substance or known physiological condition; F41.9 Anxiety disorder, unspecified; G89.4 Chronic pain syndrome; I10 Essential (primary) hypertension; I25.10 Atherosclerotic heart disease of native coronary artery without angina pectoris; K59.00 Constipation, unspecified; N28.1 Cyst of kidney, acquired; N32.81 Overactive bladder; Z91.81 History of falling; Z79.02 Long term (current) use of antithrombotics/antiplatelets; Z79.899 Other long term (current) drug therapy; Z95.5 Presence of coronary angioplasty implant and graft; B95.62 Methicillin resistant Staphylococcus aureus infection as the cause of diseases classified elsewhere

== ENCOUNTER 2017-05-05 15:52 | Inpatient (IN) | payer MEDICARE, OTHER ==
[2017-05-05 16:12] VITALS: BMI 32.3
--- NOTE | 2017-05-05 16:26 | ED PDOC ---
Arrival/HPI - General Chief Complaint: Chest Pain Time Seen by Provider: 05/05/17 16:13 Historian: Patient - History of Present Illness Time/Duration: > week Symptom Onset: Sudden Symptom Course: Unchanged Associated Symptoms (Text): 05/05/17 16:23 Patient has had intermittent chest pain for several weeks. He was admitted to a medical bed and then transferred to the psychiatric unit for depression. His depression has improved, and the patient was sent to the emergency department for admission to a telemetry bed in preparation for his cardiac catheterization. He has a neuropathy of the right lower extremity and a gait disturbance. He is currently having no chest pain or dyspnea. I spoke with his PMD Dr.E Bowman who requested a full admission to a remote telemetry bed. Past Medical History - Infectious Disease Hx of Infectious Diseases: None - Cardiac Hx Cardiac Disorders: Yes (hyperlipidemia) Hx Hypertension: Yes - Pulmonary Hx Respiratory Disorders: No - Neurological Other/Comment: NEUROPATHY - HEENT Hx HEENT Disorder: No - Renal Hx Renal Disorder: No - Endocrine/Metabolic Hx Diabetes Mellitus Type 2: Yes - Hematological/Oncological Hx Blood Disorders: No - Integumentary Hx Dermatological Disorder: No - Musculoskeletal/Rheumatological Hx Falls: Yes - Gastrointestinal Hx Gastrointestinal Disorders: No - Genitourinary/Gynecological Hx Genitourinary Disorders: No - Psychiatric Hx Substance Use: No - Surgical History Other/Comment: "stent in the L arm" - Anesthesia Hx Anesthesia: Yes Hx Anesthesia Reactions: No Hx Malignant Hyperthermia: No Family/Social History - Physician Review Nursing Documentation Reviewed: Yes Family/Social History: Unknown Family HX Smoking Status: Former Smoker Hx Alcohol Use: No Hx Substance Use: No Allergies/Home Meds Allergies/Adverse Reactions: Allergies No Known Allergies Allergy (Verified 04/30/17 15:29) Review of Systems - Physician Review All systems were reviewed & negative as marked: Yes - Review of Systems Respiratory: absent: SOB Cardiovascular: Chest Pain Gastrointestinal: absent: Abdominal Pain Neurological: absent: Headache, Dizziness Physical Exam Vital Signs Temp Pulse Resp BP Pulse Ox 05/05/17 16:11 97.5 F L 78 20 107/55 L 100 Temperature: Afebrile Blood Pressure: Normal Pulse: Regular Respiratory Rate: Normal Appearance: Positive for: Well-Appearing, Non-Toxic, Comfortable Pain Distress: None Mental Status: Positive for: Alert and Oriented X 3 - Systems Exam Head: Present: Atraumatic, Normocephalic Pupils: Present: PERRL Extroacular Muscles: Present: EOMI Conjunctiva: Present: Normal Neck: Present: Normal Range of Motion Respiratory/Chest: Present: Clear to Auscultation, Good Air Exchange, Decreased Breath Sounds. No: Respiratory Distress, Accessory Muscle Use Cardiovascular: Present: Regular Rate and Rhythm, Normal S1, S2. No: Murmurs Abdomen: Present: Normal Bowel Sounds. No: Tenderness, Distention, Peritoneal Signs, Rebound, Guarding Upper Extremity: Present: Normal Inspection. No: Cyanosis, Edema Lower Extremity: Present: Normal Inspection. No: Edema Neurological: Present: GCS=15, CN II-XII Intact, Speech Normal, Motor Func Grossly Intact Skin: Present: Warm, Dry, Normal Color. No: Rashes Psychiatric: Present: Alert, Oriented x 3, Normal Insight, Normal Concentration Disposition/Present on Arrival - Present on Arrival Any Indicators Present on Arrival: No History of DVT/PE: No History of Uncontrolled Diabetes: Yes Urinary Catheter: No History of Decub. Ulcer: No History Surgical Site Infection Following: None - Disposition Have Diagnosis and Disposition been Completed?: Yes Diagnosis: Chest pain Disposition: HOSPITALIZED Disposition Time: 16:25 Patient Plan: Admission, Telemetry Patient Problems: Current Active Problems Problem Status Onset MDD (major depressive disorder), single episode, severe with psychosis Acute Mood disorder due to a general medical condition Acute Condition: GOOD Discharge Instructions (ExitCare): Chest Pain (ED)
[2017-05-05] MEDS ORDERED: POLYETHYLENE GLYCOL 3350 17 GM/Dose PACKET PO PRN (18:50)
--- NOTE | 2017-05-05 20:37 | CARD ---
APPROVED REPORT EKG Measurement Heart [id number] <Conclusion> Normal sinus rhythm Normal ECG
[2017-05-05] MEDS: Insulin Detemir 100 units/ml Vial (Levemir) SC SCH (21:48)
[2017-05-05] MEDS ORDERED: Pneumococcal 23-Valent Vaccine IM ONE (22:14)
[2017-05-06] MEDS: Pantoprazole 40 mg EC Tab PO SCH (05:34)
[2017-05-06] MEDS: Insulin Detemir 100 units/ml Vial (Levemir) SC SCH (22:05)
--- NOTE | 2017-05-07 04:57 | PN ---
DAILY PROGRESS NOTE DATE: 05/06/2017 SUBJECTIVE: The patient was seen this Friday midday in room 375, bed 2. The patient was admitted yesterday to the acute care medical facility for chest pain and multiple risk factors and known coronary artery disease. He was discharged from psychiatry unit for severe depression, which had improved dramatically; however, the patient was becoming more and more anxious over the last day or so, worrying about an upcoming cardiac catheterization and additional stent placement. He was ambulatory on the floors, seemed to be doing rather well; however after discharge, he developed chest pain, came to the emergency room, and was evaluated. Based on known coronary artery disease with stents in place, and additional stent needed, risk factors including diabetes with years of poor control and noncompliance, tobacco use, chronic pain, morbid obesity, and hyperlipidemia. The patient had multiple risk factors, symptoms of pain, and was scheduled for catheterization making it obviously foolhardy to dismiss these, and send him home. He was admitted, cardiac isoenzymes are ordered. Cardiology consult is appreciated with Dr. Rodney, who recommends trying to move up his cardiac catheterization as soon as possible, hopefully that could be done tomorrow. PHYSICAL EXAMINATION: GENERAL: The patient is now pain free. The pain he described as mid chest heaviness, pressure, and squeezing tightness that was made worse with exertion and stress and anxieties similar to chest pain he had had before for his last hospitalization and stent placement. When I saw him, he was chest pain free on medications. HEART: Regular, not tachycardic. LUNGS: Good aeration right and left. EXTREMITIES: Show no edema. IMPRESSION: Chest pain in a 66-year-old patient with multiple risk factors including known coronary artery disease, status post stent placement few weeks ago with additional stents needing to be to placed, uncontrolled diabetes, uncontrolled hyperlipidemia, tobacco use disorder, obesity, and sedentary lifestyle. PLAN: Discharge to home being obviously a foolhardy medical decision, would certainly not be an appropriate thing. The patient has been evaluated by multiple physicians including in the emergency room, cardiology consult, and myself and my partner and his own primary care physicians and he is slated for cardiac catheterization very soon. We will discuss with cardiology; hopefully this can be done as early as tomorrow. Alex Bowman MD [facility] # [id number]
[2017-05-07] MEDS: Pantoprazole 40 mg EC Tab PO SCH (06:54)
[2017-05-07] MEDS: Insulin Detemir 100 units/ml Vial (Levemir) SC SCH (21:28)
[2017-05-08] MEDS: Pantoprazole 40 mg EC Tab PO SCH (05:25)
[2017-05-08 07:09] LABS: BASO # 0.02 K/mm3 (0.0-2.0); BASO % 0.4 % (0.0-3.0); EOS # 0.2 (0.0-0.7); EOS % 4.9 % (1.5-5.0); GRAN # 3.01 (1.4-6.5); GRAN % 60.9 % (50.0-68.0); LYMPH # 1.3 (1.2-3.4); LYMPH % 26.5 % (22.0-35.0); MEAN CELL VOLUME 78.7 fL (80.0-105.0); MEAN CORPUSCULAR HEMOGLOBIN 27.1 pg (25.0-35.0); MEAN CORPUSCULAR HGB CONC 34.5 g/dl (31.0-37.0); MEAN PLATELET VOLUME 10.4 fl (7.0-11.0); MONO # 0.4 (0.1-0.6); MONO % 7.3 % (1.0-6.0); PLATELET COUNT 115 10^3/uL (120.0-450.0); RBC 4.42 10^6/uL (3.5-6.1); RED CELL DISTRIBUTION WIDTH 14.2 % (11.5-14.5); WHITE BLOOD COUNT 4.9 10^3/ul (4.5-11.0)
[2017-05-08] MEDS ORDERED: Iodixanol 320 MG/ML 200 ML BOTTLE IV ONE (07:14)
[2017-05-08] MEDS ORDERED: Iodixanol 320 MG/ML 100 ML BOTTLE IV ONE (07:14)
[2017-05-08 07:21] LABS: INR 1.04 (0.93-1.08); PROTHROMBIN TIME 11.2 Seconds (9.9-11.8)
[2017-05-08 07:42] LABS: BLOOD UREA NITROGEN 28 mg/dL (7-21); CALCIUM 9.8 mg/dL (8.4-10.5); GFR AFRICAN-AMERICAN > 60; GFR NON-AFRICAN AMERICAN > 60; HDL CHOLESTEROL 29 mg/dL (29-60); LDL CHOLESTEROL 101 mg/dL (0-129)
[2017-05-08] MEDS: Midazolam 2 MG/2 ML VIAL ONE ×2 (08:11→11:34)
[2017-05-08] MEDS: Lidocaine 2% Inj (20ml) ONE ×2 (08:15→11:33)
[2017-05-08] MEDS: Phenylephrine 10 mg/ml Inj ONE ×2 (08:25→11:34)
[2017-05-08] MEDS: Eptifibatide 20 mg/10mL Inj IVP ONE ×2 (08:35→11:32)
[2017-05-08] MEDS: Sodium Chloride 0.9% 1,000 ML IV SCH (10:20)
[2017-05-08 11:04] LABS: BASO # 0.01 K/mm3 (0.0-2.0); BASO % 0.2 % (0.0-3.0); EOS # 0.2 (0.0-0.7); EOS % 5.3 % (1.5-5.0); GRAN # 2.49 (1.4-6.5); GRAN % 59.6 % (50.0-68.0); HEMOGLOBIN 11.2 gm/dL (14.0-18.0); LYMPH # 1.1 (1.2-3.4); MEAN CELL VOLUME 79.9 fL (80.0-105.0); MEAN CORPUSCULAR HEMOGLOBIN 27.1 pg (25.0-35.0); MEAN CORPUSCULAR HGB CONC 33.9 g/dl (31.0-37.0); MEAN PLATELET VOLUME 10.8 fl (7.0-11.0); MONO # 0.3 (0.1-0.6); MONO % 7.9 % (1.0-6.0); PLATELET COUNT 115 10^3/uL (120.0-450.0); RBC 4.13 10^6/uL (3.5-6.1); RED CELL DISTRIBUTION WIDTH 14.1 % (11.5-14.5); WHITE BLOOD COUNT 4.2 10^3/ul (4.5-11.0)
[2017-05-08 11:12] LABS: BLOOD UREA NITROGEN 26 mg/dL (7-21); GFR AFRICAN-AMERICAN > 60; GFR NON-AFRICAN AMERICAN > 60
--- NOTE | 2017-05-08 12:42 | CARD ---
APPROVED REPORT EKG Measurement Heart [id number] <Conclusion> Normal sinus rhythm Normal ECG
--- NOTE | 2017-05-08 17:20 | CARD ---
APPROVED REPORT Procedure(s) performed: Left Heart Catheterization PTCA with Stenting of Mid to Disrtal LAD with GINO HISTORY with insulin treatment , previous diagnostic cath, tobacco history() : The patient is a current smoker , previous PCI (The PCI date was 04/08/2017), hypertension , dyslipidemia . INDICATION The indication(s) include : For staged PTCA of LAD. CASE TECHNIQUE The patient was brought electively to the Cardiac Catheterization Laboratory in a fasting state and was prepped and draped in a sterile manner. The right femoral groin was infiltrated with 2% Lidocaine subcutaneous anesthesia. A 6 Fr x 11 cm Rose sheath was inserted into the right femoral artery without difficulty. Coronary angiography was performed using coronary diagnostic catheters. The left coronary system was accessed and visualized with a 6 Fr XB 3.5 catheter. The right coronary system was accessed and visualized with a Diagnostic ,5 Fr JR 4 catheter. The left ventricle was accessed and visualized with a 5 Fr Pigtail 145 (Angled) catheter. Left ventricular/Aortic Valve gradient assessed on pullback. Left ventriculogram was performed in SENA projection. Closure device was deployed with a 6 Fr Angio-Seal without any complications. The patient tolerated the procedure well and there were no complications associated with the procedure. Vessel Analysis The patient's coronary anatomy is co-dominant. The left main coronary artery is a large size vessel with diffuse calcification noted throughout this vessel and without significant stenosis. There is a 20-30% stenosis in the distal segment. The left main bifurcates to the left anterior descending and circumflex. The left anterior descending artery is a medium size vessel with diffuse calcification noted throughout this vessel and with significant stenosis. There is a 90-95% stenosis in the mid segment. Multiple stenoses in mid to distal segment and very distal near apex another 95% stenosis The first diagonal branch is a medium size vessel with diffuse calcification noted throughout this vessel and without significant stenosis. There is a 70% stenosis in the proximal segment. The second diagonal branch is a medium size vessel with diffuse calcification noted throughout this vessel and without significant stenosis. The circumflex artery is a medium size vessel with diffuse calcification noted throughout this vessel and without significant stenosis. The first obtuse marginal branch is a small size vessel with diffuse calcification noted throughout this vessel and without significant stenosis. The left posterior descending artery is a small size vessel with diffuse calcification noted throughout this vessel and without significant stenosis. The right coronary artery is a large size vessel with diffuse calcification noted throughout this vessel and without significant stenosis. patent stent There is a 30% stenosis in the ostial segment. The right posterolateral branch is a large size vessel with diffuse calcification noted throughout this vessel and without significant stenosis. patent POBA Site Left Ventricle The left ventricle is normal in size with normal contractility. There was no cardiomyopathy. The left ventricular ejection fraction is estimated to be 55-60%. The left ventricular end diastolic pressure is 16 mmHg. There was no gradient across the aortic valve upon pullback. PCI Technique Lesion Anticoagulation was achieved with Heparin. Percutaneous coronary intervention was performed on the distal left anterior descending artery segment. The lesion stenosis prior to intervention was 90% with RALPH 2 flow. A 6 Fr XB 3.5 Guide Catheter was used to engage the ostium. BALLOON DILATION A Balloon catheter 2.0 x 20 mm Sprinter RX was inserted and inflated up to 10atm for 30seconds. STENT DEPLOYMENT A drug-eluting stent 2.5 x 30 mm Resolute GINO was inserted and inflated up to 12atm for 30seconds. Final angiography reveals 0 % stenosis with RALPH 3 flow. PCI Technique Lesion 2 Percutaneous Coronary Intervention was performed on the mid left anterior descending artery segment. The lesion stenosis prior to intervention was 95% with RALPH 2 flow. A 6 Fr XB 3.5 Guide Catheter was used to engage the ostium. BALLOON DILATION A Balloon catheter 2.0 x 20 mm Sprinter RX was inserted and inflated up to 12.00atm for 11seconds. STENT DEPLOYMENT A drug-eluting stent 2.5 x 30 mm Resolute GINO was inserted and inflated up to 14.00atm for 14seconds. Final angiography reveals 0 % stenosis with RALPH 3 flow. Conclusion Patent Stent in RCA and POBA site in R PDA Successful PTCA with GINO of Mid and Distal LAD Preserved LV FX. EF-55-60%, EDP-16 mmof hg. Recommendations Smoking Cessation Cardiac Rehabilitation ReferralDaily ASA with Plavix for at least one year Aggressive Medical TherapyCardiac Risk Reduction Program Weight Loss Reduction Program CC; Leora Ceja / Navya.
[2017-05-08] MEDS: Insulin Detemir 100 units/ml Vial (Levemir) SC SCH (21:54)
[2017-05-09 00:04] VITALS: O2SAT 97
[2017-05-09] MEDS: Pantoprazole 40 mg EC Tab PO SCH (05:10)
[2017-05-09] MEDS: Sodium Chloride 0.9% 1,000 ML IV SCH (06:32)
[2017-05-09 07:23] LABS: BASO # 0.02 K/mm3 (0.0-2.0); BASO % 0.5 % (0.0-3.0); EOS # 0.2 (0.0-0.7); EOS % 4.6 % (1.5-5.0); GRAN # 2.53 (1.4-6.5); GRAN % 61.9 % (50.0-68.0); HEMOGLOBIN 10.8 gm/dL (14.0-18.0); LYMPH # 1.1 (1.2-3.4); LYMPH % 25.9 % (22.0-35.0); MEAN CELL VOLUME 78.2 fL (80.0-105.0); MEAN CORPUSCULAR HEMOGLOBIN 26.7 pg (25.0-35.0); MEAN CORPUSCULAR HGB CONC 34.2 g/dl (31.0-37.0); MONO # 0.3 (0.1-0.6); MONO % 7.1 % (1.0-6.0); PLATELET COUNT 105 10^3/uL (120.0-450.0); RBC 4.04 10^6/uL (3.5-6.1); RED CELL DISTRIBUTION WIDTH 13.6 % (11.5-14.5); WHITE BLOOD COUNT 4.1 10^3/ul (4.5-11.0)
[2017-05-09 07:48] LABS: ALB/GLOB RATIO 1.3 (1.1-1.8); ALBUMIN 3.7 g/dL (3.0-4.8); ALT/SGPT 31 U/L (7-56); AST/SGOT 20 U/L (15-59); BLOOD UREA NITROGEN 18 mg/dL (7-21); CALCIUM 9.2 mg/dL (8.4-10.5); GFR AFRICAN-AMERICAN > 60; GFR NON-AFRICAN AMERICAN > 60; MAGNESIUM 1.6 mg/dL (1.7-2.2)
[2017-05-09 11:52] VITALS: BP 134/63; RESP 18; TEMP 97
--- NOTE | 2017-05-09 15:58 | CARD ---
APPROVED REPORT EKG Measurement Heart [id number] <Conclusion> Normal sinus rhythm Normal ECG
[2017-05-09] MEDS ORDERED: Magnesium Oxide 400 mg Tab UD PO STA (17:19)
[2017-05-09 18:22] VITALS: PULSE 80
--- NOTE | 2017-05-09 23:14 | PN ---
DATE: 05/09/2017 REASON FOR THE FOLLOWUP: Status post PTCA of LAD. SUBJECTIVE: The patient denies any chest pain, shortness of breath, or any palpitations. PHYSICAL EXAMINATION VITAL SIGNS: Temperature afebrile, heart rate 72, blood pressure 134/63. HEENT: PERRLA intact. NECK: Supple. No carotid bruit. No thyromegaly. CHEST: Clear to auscultation. HEART: S1 and S2 regular. ABDOMEN: Soft. EXTREMITIES: Clubbing and cyanosis are negative. LABORATORY DATA: Blood workup as follows. WBC 4.8, hemoglobin 10.8, hematocrit 31.6, platelet count 105. Chemistry shows sodium 113, potassium 4.2, chloride 105, carbon dioxide 23, anion gap of 15, BUN 18, and creatinine 0.9. Triglyceides 279, cholesterol 180, LDL 101, HDL 29. IMPRESSION: A 66-year-old male with a past medical history significant for diabetes, hypertension, hyperlipidemia, and obesity. He yesterday underwent percutaneous transluminal coronary angioplasty of left anterior descending, staged percutaneous transluminal coronary angioplasty *------* right coronary artery. RECOMMENDATION: Continue aspirin. Continue Plavix. Supplement magnesium. We will follow with you. Thank you Dr. Bowman for providing the opportunity in taking care of Jake Mariano Joey Rodney MD
== END 2017-05-09 18:26 | disposition home or self-care (01) | DRG 247 ==
LOC: ED 15:52 → ERH 16:21 → 3RSO 18:37 → 2RSO 05-08 09:18
PROVIDERS: ADMIT Internal Medicine; ATTEND Internal Medicine
PROC: 027034Z Dilation of Coronary Artery, One Artery with Drug-eluting Intraluminal Device, Percutaneous Approach (ICD-10-PCS; principal; 2017-05-05)
PROC: 4A023N7 Measurement of Cardiac Sampling and Pressure, Left Heart, Percutaneous Approach (ICD-10-PCS; 2017-05-05)
PROC: B2051ZZ Plain Radiography of Left Heart using Low Osmolar Contrast (ICD-10-PCS; 2017-05-05)
PROC: B2011ZZ Plain Radiography of Multiple Coronary Arteries using Low Osmolar Contrast (ICD-10-PCS; 2017-05-05)
PROC: 3E033PZ Introduction of Platelet Inhibitor into Peripheral Vein, Percutaneous Approach (ICD-10-PCS; 2017-05-05)
DX: I25.10 Atherosclerotic heart disease of native coronary artery without angina pectoris (principal); E11.65 Type 2 diabetes mellitus with hyperglycemia; E78.5 Hyperlipidemia, unspecified; F32.9 Major depressive disorder, single episode, unspecified; Z68.30 Body mass index [BMI] 30.0-30.9, adult; G89.29 Other chronic pain; E66.01 Morbid (severe) obesity due to excess calories; Z79.4 Long term (current) use of insulin; Z91.19 Patient's noncompliance with other medical treatment and regimen; Z72.0 Tobacco use

== ENCOUNTER 2017-05-14 08:24 | Inpatient (IN) | payer MEDICARE, OTHER ==
[2017-05-14] MEDS ORDERED: Sodium Chloride 0.9% 1,000 ML IV STA (08:27)
[2017-05-14] MEDS ORDERED: Iohexol 240 (50 ml) ONE ×2 (08:34→17:40)
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
[2017-05-14 09:14] LABS: ADD MANUAL DIFF? NO
[2017-05-14 09:23] LABS: BASO # 0.01 K/mm3 (0.0-2.0); BASO % 0.2 % (0.0-3.0); EOS # 0.1 (0.0-0.7); EOS % 2.4 % (1.5-5.0); GRAN # 3.89 (1.4-6.5); GRAN % 72.6 % (50.0-68.0); HEMATOCRIT 32.1 % (42.0-52.0); LYMPH % 18.8 % (22.0-35.0); MEAN CELL VOLUME 78.1 fL (80.0-105.0); MEAN CORPUSCULAR HEMOGLOBIN 27.3 pg (25.0-35.0); MEAN CORPUSCULAR HGB CONC 34.9 g/dl (31.0-37.0); MEAN PLATELET VOLUME 10.3 fl (7.0-11.0); MONO # 0.3 (0.1-0.6); PLATELET COUNT 129 10^3/uL (120.0-450.0); WHITE BLOOD COUNT 5.4 10^3/ul (4.5-11.0)
[2017-05-14 09:36] LABS: ALB/GLOB RATIO 1.5 (1.1-1.8); ALKALINE PHOSPHATASE 92 U/L (38-133); ALT/SGPT 35 U/L (7-56); AST/SGOT 24 U/L (15-59); BILIRUBIN,TOTAL 0.7 mg/dL (0.2-1.3); BLOOD UREA NITROGEN 18 mg/dL (7-21); CALCIUM 9.9 mg/dL (8.4-10.5); CARBON DIOXIDE 24 mmol/L (21-33); CHLORIDE 103 mmol/L (98-107); GFR AFRICAN-AMERICAN > 60; GLUCOSE,RANDOM 176 mg/dL (70-110); LIPASE 53 U/L (23-300); POTASSIUM 3.7 mmol/L (3.6-5.0); SODIUM 140 mmol/L (132-148)
[2017-05-14] MEDS ORDERED: Iohexol 350 MG/100 ML VIAL ONE (10:08)
--- NOTE | 2017-05-14 12:46 | CT ---
PROCEDURE: CT Abdomen and Pelvis with contrast HISTORY: r/o colitis COMPARISON: None. TECHNIQUE: Contrast dose: 100 cc of Omni 350 Radiation dose: Total exam DLP = 1324 mGy-cm. This CT exam was performed using one or more of the following dose reduction techniques: Automated exposure control, adjustment of the mA and/or kV according to patient size, and/or use of iterative reconstruction technique. FINDINGS: LOWER THORAX: Unremarkable. LIVER: Unremarkable. No gross lesion or ductal dilatation. GALLBLADDER AND BILE DUCTS: Unremarkable. PANCREAS: Unremarkable. No gross lesion or ductal dilatation. SPLEEN: Unremarkable. ADRENALS: Unremarkable. No mass. KIDNEYS AND URETERS: There is a 6 x 10 mm stone in the right mid ureter with moderate hydronephrosis and perinephric stranding. VASCULATURE: Unremarkable. No aortic aneurysm. BOWEL: Unremarkable. No obstruction. No gross mural thickening. APPENDIX: Normal appendix. PERITONEUM: Unremarkable. No free fluid. No free air. LYMPH NODES: Unremarkable. No enlarged lymph nodes. BLADDER: Unremarkable. REPRODUCTIVE: Unremarkable. BONES: No acute fracture. OTHER FINDINGS: None. IMPRESSION: There is a 6 x 10 mm stone in the right mid ureter with moderate hydronephrosis and perinephric stranding.
[2017-05-14] MEDS ORDERED: LIDOCAINE IV STA ×2 (13:21→13:47)
[2017-05-14] MEDS ORDERED: SODIUM CHLORIDE 0.9% IV STA ×2 (13:21→13:47)
[2017-05-14] MEDS ORDERED: Piperacill/Tazo 4.5gm in NS 4.5 GM/100 ML BAG IVPB STA (13:30)
[2017-05-14] MEDS: Sodium Chloride 0.9% 1,000 ML IV SCH ×2 (14:27→20:39)
[2017-05-14 15:00] LABS: URINE BILIRUBIN NEGATIVE (NEGATIVE); URINE BLOOD NEGATIVE (NEGATIVE); URINE GLUCOSE (UA) NEGATIVE (NEGATIVE); URINE KETONE NEGATIVE (NEGATIVE); URINE LEUKOCYTE ESTERASE SMALL Leu/uL (NEGATIVE); URINE PROTEIN NEGATIVE mg/dL (<30 mg/dL); URINE UROBILINOGEN 0.2 E.U./dL (<1 E.U./dL)
[2017-05-14 15:01] LABS: URINE APPEARANCE CLEAR (CLEAR); URINE COLOR YELLOW (YELLOW)
[2017-05-14 15:14] LABS: URINE BACTERIA FEW (NEG); URINE EPITHELIAL CELLS 0 - 2 /hpf (0-5); URINE RBC NEGATIVE /hpf (0-2)
[2017-05-14] MEDS ORDERED: Morphine 4 mg/ml ISec IVP STA (15:41)
--- NOTE | 2017-05-14 15:58 | RAD ---
HISTORY: preop COMPARISON: CT chest without contrast 04/09/2017 FINDINGS: LUNGS: CT detected was opacity -right upper lobe is less conspicuous on this chest x-ray. Note denser areas of consolidation appreciated PLEURA: No significant pleural effusion identified, no pneumothorax apparent. CARDIOVASCULAR: Probably top-normal OSSEOUS STRUCTURES: Thoracic spondylosis VISUALIZED UPPER ABDOMEN: Normal. OTHER FINDINGS: None. IMPRESSION: No interval consolidation. The previously referenced ground-glass right upper lobe lesion is thought to perceive with chest x-ray technique
[2017-05-14] MEDS ORDERED: Lactated Ringer's 1,000 ML IV SCH (16:53)
[2017-05-14] MEDS ORDERED: HYDROmorphone 0.5 mg/0.5 ml ISec IVP PRN (16:53)
[2017-05-14] MEDS ORDERED: Propofol 10 mg/ml Inj (20 ML) ONE (16:57)
[2017-05-14] MEDS ORDERED: Midazolam 2 MG/2 ML VIAL ONE (16:57)
[2017-05-14] MEDS ORDERED: Lidocaine 1% Inj (20ml) ONE (16:57)
[2017-05-14] MEDS ORDERED: Phenylephrine 10 mg/ml Inj ONE (17:03)
--- NOTE | 2017-05-14 17:37 | CARD ---
APPROVED REPORT EKG Measurement Heart [id number] <Conclusion> Normal sinus rhythm Normal ECG
[2017-05-14] MEDS ORDERED: ePHEDrine 50 mg/ml Inj ONE (17:43)
[2017-05-14] MEDS ORDERED: POLYETHYLENE GLYCOL 3350 17 GM/Dose PACKET PO PRN (20:22)
[2017-05-14] MEDS: HYDROmorphone 1 mg/ml ISec IVP PRN (21:39)
[2017-05-14 21:57] VITALS: BMI 33.0
[2017-05-14] MEDS: Insulin Reg-MEDIUM-Coverage SC SCH (22:04)
[2017-05-14] MEDS: Insulin Detemir 100 units/ml Vial (Levemir) SC SCH (22:09)
[2017-05-15] MEDS: HYDROmorphone 1 mg/ml ISec IVP PRN ×3 (03:49→13:31)
--- NOTE | 2017-05-15 05:13 | OP ---
PROCEDURE DATE: 05/14/2017 PREOPERATIVE DIAGNOSES: Obstructing right ureteral calculus, right hydronephrosis, diabetes. POSTOPERATIVE DIAGNOSES: Obstructing right ureteral calculus, right hydronephrosis, diabetes. PROCEDURE: Cystoscopy, insertion of right ureteral stent. ATTENDING SURGEON: Dr. Troy Salas. TYPE OF ANESTHESIA: General. COMPLICATIONS: None. SPECIMEN: None. DRAINS: 6 x 28 right ureteral stent. DESCRIPTION OF PROCEDURE: After informed consent was obtained, the patient was taken to the operating room, placed in the operating room table. Anesthesia was administered. The patient was placed in dorsal lithotomy position, prepped and draped in the usual sterile fashion. A 22-Eritrean cystoscope was placed in the patient's urethra and advanced proximally under direct vision, total bladder was entered. A full survey inspection of the bladder was then performed, which revealed no stones, tumors, or foreign bodies of the bladder. The bladder was trabeculated with grade II trabeculation. The prostate was markedly enlarged with occlusive appearing lateral and median lobe. Both ureteral orifices were able to be identified. The right ureteral orifices appeared somewhat swollen. At this point, a 5-Eritrean Pollack catheter was introduced through the cystoscope. A sensory wire was introduced through the Pollack catheter and the wire was able to be guided into the right ureteral orifice. The Pollack catheter was able to be introduced into the orifice over the wire and advanced into the distal ureter. At this point, the guidewire was removed and contrast was instilled into system. There was no obvious noted calcification on film. There was retained contrast in the colon which was obscuring some of the view. With contrast in the system, there appeared to be a cutoff in the mid ureter with a filling defect. The ureter above this point was dilated, there was mild to moderate hydronephrosis noted. At this point, the sensory wire was re-passed, it able to be guided around the obstructing point and advanced up the ureter. A 6 x 28 stent was then obtained, it was passed over the wire through the cystoscope and guided into the right ureteral orifice. The stent was then advanced proximally under and fluoroscopic guidance until it was in at the appropriate position. At this point, the wire was removed. A coil was seen in the upper collecting system on fluoroscopy. A coil was seen in later on cystoscopy. There was large amount of dark urine noted draining from the stent. At this point, the procedure was completed. The bladder was drained and the cystoscope was removed. As the patient had a history of recent urinary retention, a 16-Eritrean Coude Norris catheter was passed and placed to straight bladder drainage. Plan is to have the patient admitted to receive further IV antibiotics. He will be checked tomorrow morning and if he is doing okay, Norris can be removed and he can be discharged home after voiding on appropriate antibiotics. The patient will then followup with me in the office for further treatment of the large ureteral calculus. Troy Salas MD
[2017-05-15] MEDS: Pantoprazole 40 mg EC Tab PO SCH (06:14)
[2017-05-15] MEDS: Sodium Chloride 0.9% 1,000 ML IV SCH ×3 (06:15→13:34)
[2017-05-15] MEDS: Insulin Reg-MEDIUM-Coverage SC SCH ×4 (08:22→21:59)
[2017-05-15] MEDS ORDERED: Oxycodone/Acetaminophen 5/325 mg Tab PO PRN (10:33)
--- NOTE | 2017-05-15 12:24 | RAD ---
PROCEDURE: Retrograde pyelogram HISTORY: R/O STONES COMPARISON: TECHNIQUE: Fluoroscopy was provided in the operating room. 34 seconds of fluoro time were used. Only 1 image was submitted FINDINGS: A right-sided ureteral stent is seen. The proximal and distal aspects of the stent were not included on the image. There is some contrast in the collecting system IMPRESSION: As above
--- NOTE | 2017-05-15 15:28 | HP ---
HISTORY OF PRESENT ILLNESS: The patient is a 66-year-old male with a history of diabetes and hypertension. He also has a neuropathy in his right lower extremity. He ambulates with a walker; had frequent falls at home. He is known to have coronary artery disease and had stents placed and underwent PTCA approximately 2 or 3 months ago. The patient was recently hospitalized after frequent falls at home. He became severely depressed; was [facility] and was followed by Dr. Ledesma during that time. Upon discharge, he developed chest pain and palpitations. We will readmitted to [facility] ([facility]); again underwent PTCA of his left anterior descending coronary arteries and was discharged. The patient had fallen several times at home since that discharge last week; however, this time he presents to the emergency room complaining of a right lower quadrant and flank pain. The pain was rather sudden in onset. The patient is evaluated in the emergency room and diagnosed with a urethral calculus and is admitted. Consultations from the urologists Dr. Bass and Dr. Salas is requested. ALLERGIES: He has no known medical allergies. SOCIAL HISTORY: He is a former smoker. He is a nonalcoholic drinker. He lives alone. REVIEW OF SYSTEMS: Otherwise unremarkable. PHYSICAL EXAMINATION: VITAL SIGNS: At the time of admission, his blood pressure was 130/61, heart rate 83 and he was afebrile at 98.2 degrees Fahrenheit. HEENT: Head, eyes, ears, nose and throat are unremarkable. NECK: Supple with no lymphadenopathy and no goiter. GENERAL: The patient was awake, alert and oriented. LUNGS: Clear to auscultation and percussion. HEART: Regular; no murmurs were appreciated. ABDOMEN: Round. There were normal bowel sounds. There was tenderness in the right lower quadrant on palpation. There was no distention. There was no rebound tenderness. There was right-sided CVA tenderness noted. EXTREMITIES: Free of cyanosis, clubbing or edema. NEUROLOGIC: He was intact; however, there were some sensory loss in the right lower extremity. The patient is known to have a neuropathy. DIAGNOSTIC IMAGING: His EKG showed regular sinus rhythm. His CAT scan of the abdomen showed a 6 x 10 mm right mid urethral calculus with hydronephrosis on the right side. LABORATORY DATA: His white blood cell count was normal at 5.4. Hemoglobin was 8.2, hematocrit 32.1, platelet count was 129. BUN and creatinine were 18 and 1.4 respectively. Sodium was 140, potassium 3.7, nonfasting glucose was 176. The patient was evaluated by the urologist . He was taken to the OR and a Pigtail stent was placed in the right ureter on the day of admission. The patient will be reevaluated in the morning. Fransisco Bowman MD MTDD
[2017-05-15] MEDS: Insulin Detemir 100 units/ml Vial (Levemir) SC SCH (22:10)
[2017-05-16] MEDS: HYDROmorphone 1 mg/ml ISec IVP PRN ×2 (00:48→11:41)
[2017-05-16] MEDS: Sodium Chloride 0.9% 1,000 ML IV SCH (00:55)
--- NOTE | 2017-05-16 02:17 | PN ---
DATE: 05/15/2017 SUBJECTIVE: The patient was seen this morning with room 378, bed 1, lying comfortably in bed, Norris catheter draining bloody urine. He is awake, complaining of some residual left-sided pain, understands the procedures that were done yesterday, and has been seen by urology this morning. PHYSICAL EXAMINATION: HEENT: Unremarkable. NECK: Unremarkable. LUNGS: Show good aeration right and left. ABDOMEN: Soft. EXTREMITIES: Show no edema. I did not exercise or walk with him today, but will ask our physical therapy to see him. IMPRESSION: 1. Renal colic, status post placement of a left ureteral stent by late yesterday. 2. Diabetes. 3. Coronary artery disease with recent stent placement. 4. Severe vertigo for several months for all year this year with persistent residual symptoms. 5. Major depression. PLAN: Continue current medications including antidepressants, MiraLax, Percocet for pain, out of bed and Pyridium 200 mg t.i.d. as per urologist. We will follow closely, the patient will be ready for discharge tomorrow. I spoke with him about discharge opportunities and options. It may be best for him to go to subacute rehab facility in [place] as he had a very negative experience earlier at a different facility. Alex Bowman MD
[2017-05-16] MEDS: Pantoprazole 40 mg EC Tab PO SCH (06:10)
[2017-05-16] MEDS: Insulin Reg-MEDIUM-Coverage SC SCH ×3 (08:50→17:04)
[2017-05-16 09:39] VITALS: RESP 20; O2SAT 96
[2017-05-16 17:42] VITALS: BP 138/73; PULSE 76; TEMP 97.8
--- NOTE | 2017-05-18 22:11 | DS ---
HISTORY OF PRESENT ILLNESS: This is a most unfortunate 66-year-old man, I have known for several years with diabetes, chronic pain, and diabetic neuropathy. Since he became eligible for Medicare at the age 66, he has been with severe vertigo prompting an extensive neurological workup including 3 [address] scans, MRIs, Neurology consultation, and EEGs, all essentially unrevealing. He also developed chest pain and had coronary artery disease since his most recent birthday in November, had stents placed. He was admitted for severe depression and only discharged to home recently. On the same of discharge, he returned to the emergency room because of chest pain and had cardiac catheter and stents were placed again. He is only home a few days and now for this admission comes to the hospital with severe flank pain. Kidney stone was seen on CT scan. Urology consultation was called. The patient was admitted. He was treated with antibiotics and IV fluids. Urologists Dr. Bass and Dr. Salas took the patient to the OR. The stent was placed to the ureter. He is held for overnight observation and fluids, symptoms subsided. Because of his chronic underlying condition, as well as the vertigo and generalized weakness, poor gait and instability and problems with balance it was felt he does go to subacute rehab facility. In the past, he had terrible experience at another subacute rehab facility, so the patient agreed to go to either office or [place] area for additional subacute rehab. He was transferred on 05/16/2017. DISCHARGE DIAGNOSES: 1. Renal colic with acute kidney stone in the mid ureter. 2. Diabetes. 3. Hypertension. 4. Coronary artery disease. 5. Status post recent stent placement 1 week ago. 6. Major depression. 7. Hypertension. 8. Diabetes. 9. Obesity. 10. Chronic obstructive pulmonary disease. 11. Active tobacco use disorder. Alex Bowman MD
--- NOTE | 2017-06-16 13:31 | PN ---
DATE: 05/14/2017 POSTOPERATIVE PROGRESS NOTE SUBJECTIVE: The patient is returned to his room on the floor at [facility]. He is status post cystoscopy and stent placement. PHYSICAL EXAMINATION: VITAL SIGNS: He is afebrile. GASTROINTESTINAL: His abdomen is benign. GENITOURINARY: Norris catheter is in place, which is draining clear urine. IMPRESSION AND PLAN: The plan for now is to remove the Norris for a voiding trial tomorrow morning. The patient can be discharged home on antibiotics or if he is going to rehab, he should be discharged on antibiotics. The patient will need to follow up with me in the office approximately 1 to 2 weeks to schedule him for a ureteroscopy, laser lithotripsy and removal of the stone and uretero stent. Troy Salas MD
== END 2017-05-16 19:32 | DRG 694 ==
LOC: ED 08:24 → EROBSV 09:45 → OBSVTOIN 13:33 → ERH 13:33 → EROBSV 13:33 → ERH 14:58 → 3RSO 19:08
PROVIDERS: ADMIT Internal Medicine; ATTEND Internal Medicine
PROC: 0T768DZ Dilation of Right Ureter with Intraluminal Device, Via Natural or Artificial Opening Endoscopic (ICD-10-PCS; principal; 2017-05-14 17:00)
DX: N13.2 Hydronephrosis with renal and ureteral calculous obstruction (principal); E11.40 Type 2 diabetes mellitus with diabetic neuropathy, unspecified; J44.9 Chronic obstructive pulmonary disease, unspecified; I10 Essential (primary) hypertension; I25.10 Atherosclerotic heart disease of native coronary artery without angina pectoris; F32.9 Major depressive disorder, single episode, unspecified; R29.6 Repeated falls; R42 Dizziness and giddiness; E66.9 Obesity, unspecified; Z68.33 Body mass index [BMI] 33.0-33.9, adult; Z72.0 Tobacco use; Z95.5 Presence of coronary angioplasty implant and graft; Z79.4 Long term (current) use of insulin

== ENCOUNTER 2017-09-01 10:27 | Inpatient (IN) | payer MEDICARE, OTHER ==
[2017-09-01 11:38] LABS: INR 1.17 (0.93-1.08)
[2017-09-01] MEDS ORDERED: Lidocaine 2% Jelly (Uro-Jet) ONE (11:54)
[2017-09-01] MEDS ORDERED: cefTRIAXone (Rocephin) 1 gm Inj ONE (11:54)
[2017-09-01] MEDS ORDERED: Iohexol 240 (50 ml) ONE ×2 (11:54→21:45)
[2017-09-01] MEDS ORDERED: Propofol 10 mg/ml Inj (20 ML) ONE ×3 (12:06→21:49)
[2017-09-01] MEDS ORDERED: Midazolam 2 MG/2 ML VIAL ONE (12:06)
[2017-09-01] MEDS ORDERED: Etomidate 20 mg/10ml Inj IV ONE ×2 (12:07→20:49)
[2017-09-01] MEDS ORDERED: ePHEDrine 50 mg/ml Inj ONE (12:25)
[2017-09-01] MEDS ORDERED: Phenylephrine 10 mg/ml Inj ONE ×2 (12:29→21:55)
[2017-09-01] MEDS ORDERED: Lactated Ringer's 1,000 ML IV SCH (13:30)
[2017-09-01] MEDS ORDERED: HYDROmorphone 0.5 mg/0.5 ml ISec IM STA (13:53)
--- NOTE | 2017-09-01 13:53 | RAD ---
PROCEDURE: Retrograde pyelogram HISTORY: RT Retrograde Pyelogram COMPARISON: TECHNIQUE: Fluoroscopy was provided in the operating room. 65 seconds of fluoro time were used. 21 images were submitted FINDINGS: The study shows removal of the right ureteral stent with passage of wires and instruments in the right ureter and collecting system. IMPRESSION: As above
[2017-09-01] MEDS ORDERED: HYDROmorphone 0.5 mg/0.5 ml ISec ONE ×2 (13:56→14:23)
[2017-09-01] MEDS ORDERED: HYDROmorphone 0.5 mg/0.5 ml ISec IVP ONE ×2 (13:57→14:28)
--- NOTE | 2017-09-01 16:44 | OP ---
DATE OF PROCEDURE: 09/01/2017 PREOPERATIVE DIAGNOSES: Right ureteral calculus, indwelling stent. POSTOPERATIVE DIAGNOSIS: Right ureteral calculi. PROCEDURES PERFORMED: Cystoscopy, right ureteroscopy, laser lithotripsy of right ureteral calculus, removal of ureteral debris. ATTENDING SURGEON: Dr. Troy Salas. ANESTHESIA: General. SPECIMENS: There are none. DRAINS: A 20-Austrian 2-way Norris catheter. COMPLICATIONS: There were none. DESCRIPTION OF PROCEDURE: After informed consent was obtained, the patient was taken to the operating room and placed on the operating table. Anesthesia was administered. The patient was placed in the dorsal lithotomy position, prepped and draped in usual sterile fashion. A 21-Austrian cystoscope was placed in the patient's urethra and advanced proximally under direct vision until the bladder was entered. A full survey inspection of the bladder was then performed which revealed some blood clots in the bladder. There was a stent noted exiting from the right ureteral orifice. There was dark orange urine coming out from the right ureteral orifice and dark orange urine coming out from the left ureteral orifice. There were no papillary tumors of the bladder noted. At this point, a sensor wire was obtained. The sensor wire was passed through the cystoscope and guided into the right ureteral orifice. The sensor wire was advanced up the ureter under fluoroscopic guidance until that coiled in the upper collecting system. At this point, the bladder was drained. The cystoscope was re-passed. A grasping forceps was passed and the stent was then grasped and withdrawn through the urethral meatus. On fluoroscopy, the stent was noted to uncoil. It was pulled out through the urethral meatus without difficulty. There were no obvious calcifications noted alongside the stent or in the collecting system. At this point, a semi-rigid ureteroscope was passed under direct vision into the bladder by following the wire. The ureteroscope was able to be advanced into the right ureter and advanced up the ureter under direct guidance. The ureter was widely dilated and scope passage was easy. There were some clots and debris located throughout the ureter. The scope was able to be advanced to the level of the renal pelvis. There was some small stones possibly from encrustation from the stent with a large amount of debris and some clots which were able to be irrigated through the ureteroscope out of the renal pelvis. The scope was withdrawn under direct vision. In the mid ureter, there was an area of ureteral edema with a cluster of larger stones noted. At this point, the holmium laser fiber was passed. The largest stone was approximately 6 mm with a few smaller 3-mm stones. These were able to be fragmented into small pieces. After fragmentation was completed, the holmium laser fiber was removed. Ureteral grasping forceps was then passed. Some of the small stones and debris were able to be dragged out of the ureter. Multiple passes were made on the final pass. There was no large amount of debris. There were a few small remaining calculi less than 1 mm and some small strands of clot. At this point, the ureteroscopy was completed. The cystoscope was re-passed and a 5-Austrian open-ended ureteral catheter was passed over the guidewire and into the ureter. The ureteral catheter was advanced to the level of the kidney and contrast was then instilled. Contrast was noted on fluoroscopic exam to be coming down the ureter and draining into the bladder. There appeared to be some ureteral edema likely from the ureteritis from the indwelling stent. At this point, the procedure was completed, the bladder was drained, and the cystoscope was removed. The patient tolerated the procedure well. He received intravenous antibiotics prior to the procedure. The patient was returned to the supine position and taken to the recovery room awake in stable condition. Troy Salas MD
[2017-09-01] MEDS ORDERED: Sodium Chloride 0.9% 1,000 ML IV STA (16:53)
[2017-09-01] MEDS ORDERED: Piperacillin/Tazobact 3.375 gm 100 ML IVPB STA (18:27)
[2017-09-01 19:05] LABS: BASO # 0.01 K/mm3 (0.0-2.0); BASO % 0.1 % (0.0-3.0); EOS # 0.1 (0.0-0.7); EOS % 1.3 % (1.5-5.0); GRAN # 6.43 (1.4-6.5); GRAN % 86.1 % (50.0-68.0); HEMATOCRIT 28.2 % (42.0-52.0); LYMPH # 0.6 (1.2-3.4); LYMPH % 8.6 % (22.0-35.0); MEAN CELL VOLUME 79.7 fl (80.0-105.0); MEAN CORPUSCULAR HEMOGLOBIN 23.7 pg (25.0-35.0); MEAN CORPUSCULAR HGB CONC 29.8 g/dl (31.0-37.0); MEAN PLATELET VOLUME 8.8 fl (7.0-11.0); MONO # 0.3 (0.1-0.6); MONO % 3.9 % (1.0-6.0); RED CELL DISTRIBUTION WIDTH 16.6 % (11.5-14.5); WHITE BLOOD COUNT 7.5 10^3/ul (4.5-11.0)
[2017-09-01 19:09] LABS: ALB/GLOB RATIO 1.2 (1.1-1.8); BILIRUBIN,TOTAL 0.9 mg/dL (0.2-1.3); CALCIUM 8.9 mg/dL (8.4-10.5); POTASSIUM 4.1 mmol/L (3.6-5.0); TOTAL PROTEIN 6.5 g/dL (5.8-8.3)
[2017-09-01] MEDS ORDERED: Vancomycin 1gm in NS 250ml 1 GM/250 ML BAG IVPB STA (20:05)
[2017-09-01] MEDS ORDERED: Sodium Chloride 0.9% 1,500 ML IV STA (20:05)
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
[2017-09-01] MEDS: Sodium Chloride 0.9% 1,000 ML IV SCH (20:30)
[2017-09-01] MEDS ORDERED: Sodium Chloride 0.9% 1,000 ML IV SCH (20:45)
[2017-09-01] MEDS ORDERED: Succinylcholine 200 mg/10 ml Inj IV ONE (20:49)
[2017-09-01] MEDS ORDERED: Sevoflurane - Inhalation Anesthetic Liq (250 ml) ONE (20:56)
[2017-09-01] MEDS ORDERED: Desflurane Inhalation Anesthetic Liq (240 ml) ONE (22:06)
[2017-09-02] MEDS: Piperacillin/Tazobact 3.375 gm 100 ML IVPB SCH ×2 (00:18→06:20)
[2017-09-02] MEDS: Insulin Lispro (humaLOG) LOW Coverage SC SCH ×5 (00:46→22:07)
--- NOTE | 2017-09-02 02:23 | CT ---
EXAM: CT Head Without Intravenous Contrast CLINICAL HISTORY: 66 years old, male; Signs and symptoms; Cerebral degeneration; Additional info: Eval for acute CVA TECHNIQUE: Axial computed tomography images of the head/brain without intravenous contrast. All CT scans at this facility use one or more dose reduction techniques, viz.: automated exposure control; ma/kV adjustment per patient size (including targeted exams where dose is matched to indication; i.e. head); or iterative reconstruction technique. COMPARISON: CT - HEAD W/O CONTRAST 2017-04-20 15:40 FINDINGS: Brain: No acute intracranial hemorrhage. Age-appropriate periventricular white matter disease. No edema. Ventricles: Age-appropriate ventriculomegaly. Bones: No acute displaced fracture. Sinuses: Unremarkable as visualized. No acute sinusitis. Mastoid air cells: Unremarkable as visualized. No mastoid effusion. IMPRESSION: No acute intracranial hemorrhage, or suspicious mass effect.
[2017-09-02] MEDS: Sodium Chloride 0.9% 1,000 ML IV SCH (05:30)
[2017-09-02] MEDS ORDERED: levoFLOXacin 750 mg in D5W 150 ML BAG IVPB ONE (06:45)
[2017-09-02 06:54] LABS: GRAN % 90.3 % (50.0-68.0); HEMATOCRIT 24.5 % (42.0-52.0); LYMPH # 0.5 (1.2-3.4); LYMPH % 5.4 % (22.0-35.0); MEAN CORPUSCULAR HEMOGLOBIN 23.9 pg (25.0-35.0); MEAN CORPUSCULAR HGB CONC 30.2 g/dl (31.0-37.0); MONO # 0.4 (0.1-0.6); MONO % 4.3 % (1.0-6.0); PLATELET COUNT 176 10^3/uL (120.0-450.0); WHITE BLOOD COUNT 8.8 10^3/ul (4.5-11.0)
[2017-09-02 06:57] LABS: ALB/GLOB RATIO 1.1 (1.1-1.8); CALCIUM 8.1 mg/dL (8.4-10.5); POTASSIUM 4.4 mmol/L (3.6-5.0); TOTAL PROTEIN 5.7 g/dL (5.8-8.3)
[2017-09-02] MEDS ORDERED: DAPTOmycin 500 mg Inj (Cubicin) IV ONE (06:59)
[2017-09-02] MEDS: Meropenem 1 GM in Dextrose 5% In Water 100 ML IVPB SCH ×2 (08:11→22:07)
--- NOTE | 2017-09-02 08:13 | OP ---
PROCEDURE DATE: 09/01/2017 PREOPERATIVE DIAGNOSES: Sepsis, right hydronephrosis. POSTOPERATIVE DIAGNOSES: Sepsis, right hydronephrosis. PROCEDURE: Cystoscopy, evacuation of clots, reinsertion of ureteral stent. ATTENDING SURGEON: Troy Salas MD ANESTHESIA: General. SPECIMENS: Clots were sent to pathology. DRAINS: A 22-Kenyan 3-way Norris catheter and a 6 x 28 right ureteral stent. COMPLICATIONS: There were none. OPERATIVE FINDINGS: After consent was obtained, patient was taken back to the operating room. Patient had been operated on earlier in the day. He had a ureteroscopy with laser lithotripsy and removal of a stent. Patient appeared to be developing sepsis postoperatively. He was taken back to the operating room. In the operating room, he was placed in the operating table and anesthesia was administered. He was placed in dorsolithotomy position and prepped and draped in the usual sterile fashion. Patient received additional IV antibiotics prior to the procedure. A 21-Kenyan cystoscope was placed in the patient's urethra and advanced proximally under direct vision until the bladder was entered. Inspection of the bladder revealed multiple large clots. Some clots were able to be irrigated out of the bladder, others could not. The right ureteral orifice was identified. It was widely opened. There was efflux noted coming out of the orifice. At this point, the cystoscope was changed to a 26-Kenyan resectoscope using the [employer] evacuator. The bulk of the clots could be evacuated out of the bladder. There was some clots, which were adherent to the bladder wall. A loop was obtained, some of the clots were able to be pulled off of the wall using a loop and evacuated out that way. A grasping forceps was also passed and the remaining clots were able to be pulled off of the wall and evacuated from the bladder. There was no active bleeding noted. It appeared to be a marked cystitis. At this point, the resectoscope was withdrawn and the cystoscope was repassed. The open-ended ureteral catheter was advanced through the cystoscope and guided into the orifice. The ureteral catheter was easily advanced into the ureter and contrast was instilled. There was mild hydronephrosis and fullness of the renal pelvis. There were multiple movable filling defects consistent with debris, which had been seen on the early ureteroscopy. At this point, a guidewire was passed through the open-ended ureteral catheter, advanced up the ureter until it coiled in the upper collecting system. The open-ended ureteral catheter was then removed and a 6 x 28 stent was then passed through the cystoscope into the ureter and advanced up the ureter under fluoroscopic guidance. When the stent was in proper position, the guidewire was removed. A coil was seen in the upper collecting system on fluoroscopy. A coil was seen in the bladder on cystoscopy. At this point, final inspection was made. There were few small remaining clots which were able to be irrigated out of the bladder and at this point, the cystoscope was withdrawn. A 22-Kenyan 3-way Norris catheter was then passed and placed to continuous bladder irrigation. Patient tolerated the procedure well. He was returned to the intensive care unit awake and in stable condition. Troy Salas MD
[2017-09-02 08:14] VITALS: BMI 27.1
[2017-09-02 08:43] LABS: PH,URINE 6.5 (4.7-8.0); URINE BILIRUBIN SMALL (NEGATIVE); URINE BLOOD LARGE (NEGATIVE); URINE GLUCOSE (UA) NEGATIVE (NEGATIVE); URINE KETONE NEGATIVE (NEGATIVE); URINE LEUKOCYTE ESTERASE MODERATE Leu/uL (NEGATIVE); URINE PROTEIN >=300 mg/dL (<30 mg/dL)
[2017-09-02 08:44] LABS: URINE APPEARANCE TURBID (CLEAR); URINE COLOR RED (YELLOW)
[2017-09-02 08:46] LABS: URINE BACTERIA FEW (NEG); URINE RBC TNTC /hpf (0-2); URINE WBC 25 - 30 /hpf (0-6)
[2017-09-02 08:52] LABS: ANISOCYTOSIS 1+; BAND 6 % (0-2); HYPOCHROMIA 2+; NEUTROPHIL 88 % (50.0-70.0); PLATELET ESTIMATE NORMAL (NORMAL); POLYCHROMASIA SLIGHT
[2017-09-02 08:53] LABS: LARGE PLATELETS PRESENT; MICROCYTOSIS 1+; OVALOCYTES SLIGHT; TOXIC GRANULATION SLIGHT
--- NOTE | 2017-09-02 09:17 | RAD ---
HISTORY: sepsis COMPARISON: 05/14/2017 FINDINGS: LUNGS: No active pulmonary disease. PLEURA: No significant pleural effusion identified, no pneumothorax apparent. CARDIOVASCULAR: Normal. OSSEOUS STRUCTURES: No significant abnormalities. VISUALIZED UPPER ABDOMEN: Normal. OTHER FINDINGS: None. IMPRESSION: No active disease.
[2017-09-02] MEDS ORDERED: Oxycodone/Acetaminophen 5/325 mg Tab PO PRN (09:32)
--- NOTE | 2017-09-02 09:40 | CP.CCUPN ---
<Sriram Thomas - Last Filed: 09/02/17 09:33> CCU Subjective - Physician Review Subjective (Free Text): 09/02/17 09:33 Sriram Thomas D.O. PGY-3, Critical Care Progress Note 66 year old male with a PMH of CAD w/ GINO to LAD and RCA, depression, IDDM2, and right utereteral stone who [place] [facility] [place] with Dr. Salas for R utereteral stone lithotripsy and stent removal, course complicated by sepsis and re-insertion of stent same day by Dr. Salas. Patient was seen and examined at bedside. Patient is still somewhat confused, but looks comfortable. Patient states that his pain is well controlled at this time and has no other complaints at this time. No CP/SOB/N/V/D/C/or recurred fevers. CCU Objective - Vital Signs / Intake & Output Vital Signs (Last 4 hours): Vital Signs Temp Pulse Resp BP Pulse Ox 09/02/17 08:41 104 H 30 H 145/60 96 09/02/17 08:35 101.7 F H 09/02/17 08:15 99 H 27 H 114/59 L 97 09/02/17 08:14 99 H 28 H 96 09/02/17 08:10 96 H 26 H 96 09/02/17 08:00 98 H 25 H 127/57 L 95 09/02/17 07:50 100 H 24 97 09/02/17 07:45 97 H 27 H 111/55 L 95 09/02/17 07:40 102 H 97 09/02/17 07:30 102.4 F H 101 H 22 149/67 80 L 09/02/17 07:20 104 H 24 98 09/02/17 07:15 104 H 26 H 132/59 L 70 L 09/02/17 07:10 103 H 34 H 96 09/02/17 07:00 103 H 48 H 129/60 97 09/02/17 06:50 100 H 25 H 95 09/02/17 06:45 102 H 27 H 129/65 96 09/02/17 06:40 102 H 25 H 96 09/02/17 06:30 100 H 27 H 137/55 L 95 09/02/17 06:23 103 F H 09/02/17 06:20 101 H 29 H 95 09/02/17 06:15 103 H 35 H 134/60 94 L 09/02/17 06:10 104 H 26 H 97 09/02/17 06:00 117 H 27 H 145/60 95 09/02/17 05:50 104 H 26 H 96 09/02/17 05:45 96 H 27 H 133/62 94 L 09/02/17 05:40 103 H 27 H 95 Intake and Output (Last 8hrs): Intake & Output 09/01/17 09/02/17 09/02/17 22:59 06:59 14:59 Intake Total 3050 Output Total 50 1750 Balance -50 1300 Weight 93.185 kg Intake: IV 2600 Left Antecubital 1100 ns bolus 1500 Other 450 Output: Urine 50 1750 3-way Urethral 1750 Other: Voiding Method Self-Catheterization # Bowel Movements 0 - Physical Exam Head: Positive for: Atraumatic, Normocephalic Pupils: Positive for: PERRL Extroacular Muscles: Positive for: EOMI Ears: Positive for: Normal Mouth: Positive for: Moist Mucous Membranes, Normal Tounge Nose (External): Positive for: Atraumatic Neck: Positive for: Normal Range of Motion, Trachea Midline. Negative for: MIDLINE TENDERNESS Respiratory/Chest: Positive for: Clear to Auscultation, Good Air Exchange. Negative for: Wheezes, Rales, Rhonchi Cardiovascular: Positive for: Regular Rate and Rhythm, Normal S1, S2. Negative for: Murmurs, Rub, Gallop Abdomen: Positive for: Normal Bowel Sounds. Negative for: Tenderness, Distention, Guarding Genitourinary Male: Positive for: Other (arredondo in place w/ CBI) Upper Extremity: Positive for: Normal Inspection. Negative for: Cyanosis, Edema Lower Extremity: Positive for: Normal Inspection, Other (SCDs in place). Negative for: Edema Neurological: Positive for: Other (awake, alert, oriented to self, not place or time, follows simple commands, nonfocal) Skin: Positive for: Warm, Dry. Negative for: Rashes - Medications Active Medications: Active Medications Generic Name Dose Route Start Last Admin Trade Name Freq PRN Reason Stop Dose Admin Acetaminophen 650 mg 09/01/17 18:55 09/02/17 06:23 Tylenol 650 Mg Supp RC 650 mg Q6H PRN Administration Fever >100.4 F Sodium Chloride 1,000 mls @ 100 mls/hr 09/01/17 19:00 09/02/17 05:30 Sodium Chloride 0.9% IV 100 mls/hr .Q10H JIMOB Administration Meropenem 1 gm/ Dextrose 100 mls @ 100 mls/hr 09/02/17 07:00 09/02/17 08:11 IVPB 09/09/17 07:01 100 mls/hr Q12 JIMBO Administration Protocol Insulin Human Lispro 0 units 09/01/17 22:00 09/02/17 08:15 Humalog Low SC 3 units ACHS JIMBO Administration Protocol Oxycodone HCl 5 mg 09/02/17 09:33 Oxycodone Immediate Release Tab PO Q6H PRN Pain, moderate (4-7) Pantoprazole Sodium 40 mg 09/02/17 10:00 Protonix Inj IVP DAILY JIMBO - Patient Studies Lab Studies: Lab Studies 09/02/17 09/02/17 09/02/17 Range/Units 08:25 07:22 06:00 WBC (4.5-11.0) 10^3/ul RBC (3.5-6.1) 10^6/uL Hgb (14.0-18.0) g/dL Hct (42.0-52.0) % MCV (80.0-105.0) fl MCH (25.0-35.0) pg MCHC (31.0-37.0) g/dl RDW (11.5-14.5) % Plt Count (120.0-450.0) 10^3/uL MPV (7.0-11.0) fl Gran % (50.0-68.0) % Lymph % (Auto) (22.0-35.0) % [place] % (Auto) (1.0-6.0) % Eos % (Auto) (1.5-5.0) % Baso % (Auto) (0.0-3.0) % Gran # (1.4-6.5) Lymph # (1.2-3.4) [place] # (0.1-0.6) Eos # (0.0-0.7) Baso # (0.0-2.0) K/mm3 Neutrophils % (Manual) (50.0-70.0) % Band Neutrophils % (0-2) % Lymphocytes % (Manual) (22.0-35.0) % Monocytes % (Manual) (1.0-6.0) % Toxic Granulation Platelet Evaluation (NORMAL) Large Platelets Polychromasia Hypochromasia Anisocytosis (manual) Microcytosis (manual) Ovalocytes PT (9.4-12.5) SECONDS INR (0.93-1.08) Sodium (132-148) mmol/L Potassium (3.6-5.0) mmol/L Chloride (98-107) mmol/L Carbon Dioxide (21-33) mmol/L Anion Gap (10-20) BUN (7-21) mg/dL Creatinine (0.8-1.5) mg/dL Est GFR ( Amer) Est GFR (Non-Af Amer) POC Glucose (mg/dL) 297 H (65-110) mg/dL Random Glucose (70-110) mg/dL Lactic Acid 2.7 H (0.7-2.1) mmol/L Calcium (8.4-10.5) mg/dL Total Bilirubin (0.2-1.3) mg/dL AST (17-59) U/L ALT (7-56) U/L Alkaline Phosphatase (38-126) U/L Total Protein (5.8-8.3) g/dL Albumin (3.0-4.8) g/dL Globulin gm/dL Albumin/Globulin Ratio (1.1-1.8) Urine Color Red (YELLOW) Urine Appearance Turbid (CLEAR) Urine pH 6.5 (4.7-8.0) Ur Specific [place] 1.020 (1.005-1.035) Urine Protein >=300 H (<30 mg/dL) mg/dL Urine Glucose (UA) Negative (NEGATIVE) mg/dL Urine Ketones Negative (NEGATIVE) mg/dL Urine Blood Large H (NEGATIVE) Urine Nitrate Positive H (NEGATIVE) Urine Bilirubin Small H (NEGATIVE) Urine Urobilinogen 1.0 H (<1 E.U./dL) E.U./dL Ur Leukocyte Esterase Moderate H (NEGATIVE) Cynthia/uL Urine RBC Tntc (0-2) /hpf Urine WBC 25 - 30 (0-6) /hpf Urine Bacteria Few (NEG) 09/02/17 09/02/17 09/02/17 Range/Units 06:00 06:00 00:50 WBC 8.8 (4.5-11.0) 10^3/ul RBC 3.10 L (3.5-6.1) 10^6/uL Hgb 7.4 L (14.0-18.0) g/dL Hct 24.5 L (42.0-52.0) % MCV 79.0 L (80.0-105.0) fl MCH 23.9 L (25.0-35.0) pg MCHC 30.2 L (31.0-37.0) g/dl RDW 17.0 H (11.5-14.5) % Plt Count 176 (120.0-450.0) 10^3/uL MPV 9.0 (7.0-11.0) fl Gran % 90.3 H (50.0-68.0) % Lymph % (Auto) 5.4 L (22.0-35.0) % [place] % (Auto) 4.3 (1.0-6.0) % Eos % (Auto) 0.0 L (1.5-5.0) % Baso % (Auto) 0.0 (0.0-3.0) % Gran # 7.90 H (1.4-6.5) Lymph # 0.5 L (1.2-3.4) [place] # 0.4 (0.1-0.6) Eos # 0.0 (0.0-0.7) Baso # 0.00 (0.0-2.0) K/mm3 Neutrophils % (Manual) 88 H (50.0-70.0) % Band Neutrophils % 6 H (0-2) % Lymphocytes % (Manual) 5 L (22.0-35.0) % Monocytes % (Manual) 1 (1.0-6.0) % Toxic Granulation Slight Platelet Evaluation Normal (NORMAL) Large Platelets Present Polychromasia Slight Hypochromasia 2+ Anisocytosis (manual) 1+ Microcytosis (manual) 1+ Ovalocytes Slight PT (9.4-12.5) SECONDS INR (0.93-1.08) Sodium 134 (132-148) mmol/L Potassium 4.4 (3.6-5.0) mmol/L Chloride 103 (98-107) mmol/L Carbon Dioxide 24 (21-33) mmol/L Anion Gap 11 (10-20) BUN 32 H (7-21) mg/dL Creatinine 2.0 H (0.8-1.5) mg/dL Est GFR ( Amer) 41 Est GFR (Non-Af Amer) 34 POC Glucose (mg/dL) (65-110) mg/dL Random Glucose 297 H (70-110) mg/dL Lactic Acid 3.6 H (0.7-2.1) mmol/L Calcium 8.1 L (8.4-10.5) mg/dL Total Bilirubin 1.0 (0.2-1.3) mg/dL AST 32 (17-59) U/L ALT 33 (7-56) U/L Alkaline Phosphatase 73 (38-126) U/L Total Protein 5.7 L (5.8-8.3) g/dL Albumin 2.9 L (3.0-4.8) g/dL Globulin 2.7 gm/dL Albumin/Globulin Ratio 1.1 (1.1-1.8) Urine Color (YELLOW) Urine Appearance (CLEAR) Urine pH (4.7-8.0) Ur Specific [place] (1.005-1.035) Urine Protein (<30 mg/dL) mg/dL Urine Glucose (UA) (NEGATIVE) mg/dL Urine Ketones (NEGATIVE) mg/dL Urine Blood (NEGATIVE) Urine Nitrate (NEGATIVE) Urine Bilirubin (NEGATIVE) Urine Urobilinogen (<1 E.U./dL) E.U./dL Ur Leukocyte Esterase (NEGATIVE) Cynthia/uL Urine RBC (0-2) /hpf Urine WBC (0-6) /hpf Urine Bacteria (NEG) 09/02/17 09/01/17 09/01/17 Range/Units 00:40 18:44 18:44 WBC (4.5-11.0) 10^3/ul RBC (3.5-6.1) 10^6/uL Hgb (14.0-18.0) g/dL Hct (42.0-52.0) % MCV (80.0-105.0) fl MCH (25.0-35.0) pg MCHC (31.0-37.0) g/dl RDW (11.5-14.5) % Plt Count (120.0-450.0) 10^3/uL MPV (7.0-11.0) fl Gran % (50.0-68.0) % Lymph % (Auto) (22.0-35.0) % [place] % (Auto) (1.0-6.0) % Eos % (Auto) (1.5-5.0) % Baso % (Auto) (0.0-3.0) % Gran # (1.4-6.5) Lymph # (1.2-3.4) [place] # (0.1-0.6) Eos # (0.0-0.7) Baso # (0.0-2.0) K/mm3 Neutrophils % (Manual) (50.0-70.0) % Band Neutrophils % (0-2) % Lymphocytes % (Manual) (22.0-35.0) % Monocytes % (Manual) (1.0-6.0) % Toxic Granulation Platelet Evaluation (NORMAL) Large Platelets Polychromasia Hypochromasia Anisocytosis (manual) Microcytosis (manual) Ovalocytes PT (9.4-12.5) SECONDS INR (0.93-1.08) Sodium 137 (132-148) mmol/L Potassium 4.1 (3.6-5.0) mmol/L Chloride 102 (98-107) mmol/L Carbon Dioxide 24 (21-33) mmol/L Anion Gap 15 (10-20) BUN 26 H (7-21) mg/dL Creatinine 1.7 H (0.8-1.5) mg/dL Est GFR ( Amer) 49 Est GFR (Non-Af Amer) 41 POC Glucose (mg/dL) 321 H (65-110) mg/dL Random Glucose 200 H (70-110) mg/dL Lactic Acid 3.8 H (0.7-2.1) mmol/L Calcium 8.9 (8.4-10.5) mg/dL Total Bilirubin 0.9 (0.2-1.3) mg/dL AST 16 L (17-59) U/L ALT 23 (7-56) U/L Alkaline Phosphatase 102 (38-126) U/L Total Protein 6.5 (5.8-8.3) g/dL Albumin 3.5 (3.0-4.8) g/dL Globulin 3.0 gm/dL Albumin/Globulin Ratio 1.2 (1.1-1.8) Urine Color (YELLOW) Urine Appearance (CLEAR) Urine pH (4.7-8.0) Ur Specific [place] (1.005-1.035) Urine Protein (<30 mg/dL) mg/dL Urine Glucose (UA) (NEGATIVE) mg/dL Urine Ketones (NEGATIVE) mg/dL Urine Blood (NEGATIVE) Urine Nitrate (NEGATIVE) Urine Bilirubin (NEGATIVE) Urine Urobilinogen (<1 E.U./dL) E.U./dL Ur Leukocyte Esterase (NEGATIVE) Cynthia/uL Urine RBC (0-2) /hpf Urine WBC (0-6) /hpf Urine Bacteria (NEG) 09/01/17 09/01/17 Range/Units 18:44 11:22 WBC 7.5 D (4.5-11.0) 10^3/ul RBC 3.54 (3.5-6.1) 10^6/uL Hgb 8.4 L (14.0-18.0) g/dL Hct 28.2 L (42.0-52.0) % MCV 79.7 L (80.0-105.0) fl MCH 23.7 L (25.0-35.0) pg MCHC 29.8 L (31.0-37.0) g/dl RDW 16.6 H (11.5-14.5) % Plt Count 193 (120.0-450.0) 10^3/uL MPV 8.8 (7.0-11.0) fl Gran % 86.1 H (50.0-68.0) % Lymph % (Auto) 8.6 L (22.0-35.0) % [place] % (Auto) 3.9 (1.0-6.0) % Eos % (Auto) 1.3 L (1.5-5.0) % Baso % (Auto) 0.1 (0.0-3.0) % Gran # 6.43 (1.4-6.5) Lymph # 0.6 L (1.2-3.4) [place] # 0.3 (0.1-0.6) Eos # 0.1 (0.0-0.7) Baso # 0.01 (0.0-2.0) K/mm3 Neutrophils % (Manual) (50.0-70.0) % Band Neutrophils % (0-2) % Lymphocytes % (Manual) (22.0-35.0) % Monocytes % (Manual) (1.0-6.0) % Toxic Granulation Platelet Evaluation (NORMAL) Large Platelets Polychromasia Hypochromasia Anisocytosis (manual) Microcytosis (manual) Ovalocytes PT 12.9 H (9.4-12.5) SECONDS INR 1.17 H (0.93-1.08) Sodium (132-148) mmol/L Potassium (3.6-5.0) mmol/L Chloride (98-107) mmol/L Carbon Dioxide (21-33) mmol/L Anion Gap (10-20) BUN (7-21) mg/dL Creatinine (0.8-1.5) mg/dL Est GFR ( Amer) Est GFR (Non-Af Amer) POC Glucose (mg/dL) (65-110) mg/dL Random Glucose (70-110) mg/dL Lactic Acid (0.7-2.1) mmol/L Calcium (8.4-10.5) mg/dL Total Bilirubin (0.2-1.3) mg/dL AST (17-59) U/L ALT (7-56) U/L Alkaline Phosphatase (38-126) U/L Total Protein (5.8-8.3) g/dL Albumin (3.0-4.8) g/dL Globulin gm/dL Albumin/Globulin Ratio (1.1-1.8) Urine Color (YELLOW) Urine Appearance (CLEAR) Urine pH (4.7-8.0) Ur Specific [place] (1.005-1.035) Urine Protein (<30 mg/dL) mg/dL Urine Glucose (UA) (NEGATIVE) mg/dL Urine Ketones (NEGATIVE) mg/dL Urine Blood (NEGATIVE) Urine Nitrate (NEGATIVE) Urine Bilirubin (NEGATIVE) Urine Urobilinogen (<1 E.U./dL) E.U./dL Ur Leukocyte Esterase (NEGATIVE) Cynthia/uL Urine RBC (0-2) /hpf Urine WBC (0-6) /hpf Urine Bacteria (NEG) Laboratory Results - last 24 hr 09/01/17 09/01/1717 11:22 18:44 18:44 WBC 7.5 D RBC 3.54 Hgb 8.4 L Hct 28.2 L MCV 79.7 L MCH 23.7 L MCHC 29.8 L RDW 16.6 H Plt Count 193 MPV 8.8 Gran % 86.1 H Lymph % (Auto) 8.6 L [place] % (Auto) 3.9 Eos % (Auto) 1.3 L Baso % (Auto) 0.1 Gran # 6.43 Lymph # 0.6 L [place] # 0.3 Eos # 0.1 Baso # 0.01 Neutrophils % (Manual) Band Neutrophils % Lymphocytes % (Manual) Monocytes % (Manual) Toxic Granulation Platelet Evaluation Large Platelets Polychromasia Hypochromasia Anisocytosis (manual) Microcytosis (manual) Ovalocytes PT 12.9 H INR 1.17 H Sodium 137 Potassium 4.1 Chloride 102 Carbon Dioxide 24 Anion Gap 15 BUN 26 H Creatinine 1.7 H Est GFR ( Amer) 49 Est GFR (Non-Af Amer) 41 POC Glucose (mg/dL) Random Glucose 200 H Lactic Acid Calcium 8.9 Total Bilirubin 0.9 AST 16 L ALT 23 Alkaline Phosphatase 102 Total Protein 6.5 Albumin 3.5 Globulin 3.0 Albumin/Globulin Ratio 1.2 Urine Color Urine Appearance Urine pH Ur Specific [place] Urine Protein Urine Glucose (UA) Urine Ketones Urine Blood Urine Nitrate Urine Bilirubin Urine Urobilinogen Ur Leukocyte Esterase Urine RBC Urine WBC Urine Bacteria 09/01/17 09/02/17 09/02/17 18:44 00:40 00:50 WBC RBC Hgb Hct MCV MCH MCHC RDW Plt Count MPV Gran % Lymph % (Auto) [place] % (Auto) Eos % (Auto) Baso % (Auto) Gran # Lymph # [place] # Eos # Baso # Neutrophils % (Manual) Band Neutrophils % Lymphocytes % (Manual) Monocytes % (Manual) Toxic Granulation Platelet Evaluation Large Platelets Polychromasia Hypochromasia Anisocytosis (manual) Microcytosis (manual) Ovalocytes PT INR Sodium Potassium Chloride Carbon Dioxide Anion Gap BUN Creatinine Est GFR ( Amer) Est GFR (Non-Af Amer) POC Glucose (mg/dL) 321 H Random Glucose Lactic Acid 3.8 H 3.6 H Calcium Total Bilirubin AST ALT Alkaline Phosphatase Total Protein Albumin Globulin Albumin/Globulin Ratio Urine Color Urine Appearance Urine pH Ur Specific [place] Urine Protein Urine Glucose (UA) Urine Ketones Urine Blood Urine Nitrate Urine Bilirubin Urine Urobilinogen Ur Leukocyte Esterase Urine RBC Urine WBC Urine Bacteria 09/02/17 09/02/17 09/02/17 06:00 06:00 06:00 WBC 8.8 RBC 3.10 L Hgb 7.4 L Hct 24.5 L MCV 79.0 L MCH 23.9 L MCHC 30.2 L RDW 17.0 H Plt Count 176 MPV 9.0 Gran % 90.3 H Lymph % (Auto) 5.4 L [place] % (Auto) 4.3 Eos % (Auto) 0.0 L Baso % (Auto) 0.0 Gran # 7.90 H Lymph # 0.5 L [place] # 0.4 Eos # 0.0 Baso # 0.00 Neutrophils % (Manual) 88 H Band Neutrophils % 6 H Lymphocytes % (Manual) 5 L Monocytes % (Manual) 1 Toxic Granulation Slight Platelet Evaluation Normal Large Platelets Present Polychromasia Slight Hypochromasia 2+ Anisocytosis (manual) 1+ Microcytosis (manual) 1+ Ovalocytes Slight PT INR Sodium 134 Potassium 4.4 Chloride 103 Carbon Dioxide 24 Anion Gap 11 BUN 32 H Creatinine 2.0 H Est GFR ( Amer) 41 Est GFR (Non-Af Amer) 34 POC Glucose (mg/dL) Random Glucose 297 H Lactic Acid 2.7 H Calcium 8.1 L Total Bilirubin 1.0 AST 32 ALT 33 Alkaline Phosphatase 73 Total Protein 5.7 L Albumin 2.9 L Globulin 2.7 Albumin/Globulin Ratio 1.1 Urine Color Urine Appearance Urine pH Ur Specific [place] Urine Protein Urine Glucose (UA) Urine Ketones Urine Blood Urine Nitrate Urine Bilirubin Urine Urobilinogen Ur Leukocyte Esterase Urine RBC Urine WBC Urine Bacteria 09/02/17 09/02/17 07:22 08:25 WBC RBC Hgb Hct MCV MCH MCHC RDW Plt Count MPV Gran % Lymph % (Auto) [place] % (Auto) Eos % (Auto) Baso % (Auto) Gran # Lymph # [place] # Eos # Baso # Neutrophils % (Manual) Band Neutrophils % Lymphocytes % (Manual) Monocytes % (Manual) Toxic Granulation Platelet Evaluation Large Platelets Polychromasia Hypochromasia Anisocytosis (manual) Microcytosis (manual) Ovalocytes PT INR Sodium Potassium Chloride Carbon Dioxide Anion Gap BUN Creatinine Est GFR ( Amer) Est GFR (Non-Af Amer) POC Glucose (mg/dL) 297 H Random Glucose Lactic Acid Calcium Total Bilirubin AST ALT Alkaline Phosphatase Total Protein Albumin Globulin Albumin/Globulin Ratio Urine Color Red Urine Appearance Turbid Urine pH 6.5 Ur Specific [place] 1.020 Urine Protein >=300 H Urine Glucose (UA) Negative Urine Ketones Negative Urine Blood Large H Urine Nitrate Positive H Urine Bilirubin Small H Urine Urobilinogen 1.0 H Ur Leukocyte Esterase Moderate H Urine RBC Tntc Urine WBC 25 - 30 Urine Bacteria Few Fingerstick Blood Sugar Results: 297 Assessment/Plan - Assessment and Plan (Free Text) Assessment: 66 year old male with a PMH of CAD w/ GINO to LAD and RCA, depression, IDDM2, and right utereteral stone who [place] [facility] [place] with Dr. Salas for R utereteral stone lithotripsy and stent removal, course complicated by sepsis and re-insertion of stent same day by Dr. Salas. Plan: Neurological AMS likely a result of post anesthesia and sepsis/fever Head CT was negative Will continue to monitor clinically Cardiovascular Hx of CAD with RCA and LAD GINO HD stable ASA and plavix on hold, will speak with urology to confirm re-starting Pulmnologic Protecting airway Satting well on NC Maintain O2Sat >92% GI NPO at this time, swallow eval pending Cont GI ppx Nephro/Electrolytes JOYCE likely combination obstructive and prerenal from sepsis, received 30ml/kg Cont NS @ 100 ID Sepsis, likely UTI versus seeding of the infection from the post ureteral stent removal Nov this AM, no leukocytosis, PRN acetaminophen in place Pending blood and urine cultures ID Dr. Marie following, will get 1 dose of daptomycin and now on merrem POD #1 cystoscopy with stent removal, lithotripsy of the right renal calculi, and then s/p replacement of stent Urology Dr. Salas following, continue with CBI PRN oxycodone, pain management Endo Known diabetic, cont RISS and accuchecks Heme Normocytic anemia likely secondary to post operative bleed, superimposed with hematuria, versus dilution HD stable Currently asymptomatic Hematuria getting pipe maker and pipe maker Will continue to monitor and transfuse if below 7 according to TRICS trial GI/DVT prophylaxis: protonix/SCDs only due to hematuria Patient was seen and examined at bedside and case was discussed at length with attending physician. - Date & Time Date: 09/02/17 Time: 07:00 <[place] Mary - Last Filed: 09/02/17 10:49> CCU Objective - Vital Signs / Intake & Output Vital Signs (Last 4 hours): Vital Signs Temp Pulse Resp BP Pulse Ox 09/02/17 10:15 96 H 25 H 127/59 L 95 09/02/17 10:10 98 H 23 95 09/02/17 10:01 97 H 19 97/72 L 96 09/02/17 10:00 97 H 24 96 09/02/17 09:50 98 H 16 97 09/02/17 09:45 98 H 25 H 120/62 95 09/02/17 09:40 98 H 17 96 09/02/17 09:30 96 H 13 115/84 96 09/02/17 09:20 97 H 18 94 L 09/02/17 09:15 91 H 127/57 L 99 09/02/17 09:10 98 H 22 99 09/02/17 09:00 98 H 19 119/58 L 96 09/02/17 08:50 99 H 16 95 09/02/17 08:45 100 H 21 137/59 L 99 09/02/17 08:41 104 H 30 H 145/60 96 09/02/17 08:40 97 H 27 H 96 09/02/17 08:35 101.7 F H 09/02/17 08:30 101 H 25 H 123/73 98 09/02/17 08:20 100 H 22 97 09/02/17 08:15 99 H 27 H 114/59 L 97 09/02/17 08:14 99 H 28 H 96 09/02/17 08:10 96 H 26 H 96 09/02/17 08:00 98 H 25 H 127/57 L 95 09/02/17 07:50 100 H 24 97 09/02/17 07:45 97 H 27 H 111/55 L 95 09/02/17 07:40 102 H 97 09/02/17 07:30 102.4 F H 101 H 22 149/67 80 L 09/02/17 07:20 104 H 24 98 09/02/17 07:15 104 H 26 H 132/59 L 70 L 09/02/17 07:10 103 H 34 H 96 09/02/17 07:00 103 H 48 H 129/60 97 09/02/17 06:50 100 H 25 H 95 Intake and Output (Last 8hrs): Intake & Output 09/01/17 09/02/17 09/02/17 22:59 06:59 14:59 Intake Total 3050 Output Total 50 1750 Balance -50 1300 Weight 205 lb 7 oz Intake: IV 2600 Left Antecubital 1100 ns bolus 1500 Other 450 Output: Urine 50 1750 3-way Urethral 1750 Other: Voiding Method Self-Catheterization # Bowel Movements 0 - Medications Active Medications: Active Medications Generic Name Dose Route Start Last Admin Trade Name Freq PRN Reason Stop Dose Admin Acetaminophen 650 mg 09/01/17 18:55 09/02/17 06:23 Tylenol 650 Mg Supp RC 650 mg Q6H PRN Administration Fever >100.4 F Sodium Chloride 1,000 mls @ 100 mls/hr 09/01/17 19:00 09/02/17 05:30 Sodium Chloride 0.9% IV 100 mls/hr .Q10H JIMBO Administration Meropenem 1 gm/ Dextrose 100 mls @ 100 mls/hr 09/02/17 07:00 09/02/17 08:11 IVPB 09/09/17 07:01 100 mls/hr Q12 JIMBO Administration Protocol Insulin Human Lispro 0 units 09/01/17 22:00 09/02/17 08:15 Humalog Low SC 3 units ACHS JIMBO Administration Protocol Oxycodone HCl 5 mg 09/02/17 09:33 09/02/17 09:50 Oxycodone Immediate Release Tab PO 5 mg Q6H PRN Administration Pain, moderate (4-7) Pantoprazole Sodium 40 mg 09/02/17 10:00 09/02/17 10:12 Protonix Inj IVP 40 mg DAILY JIMBO Administration - Patient Studies Lab Studies: Lab Studies 09/02/17 09/02/17 09/02/17 Range/Units 08:25 07:22 06:00 WBC (4.5-11.0) 10^3/ul RBC (3.5-6.1) 10^6/uL Hgb (14.0-18.0) g/dL Hct (42.0-52.0) % MCV (80.0-105.0) fl MCH (25.0-35.0) pg MCHC (31.0-37.0) g/dl RDW (11.5-14.5) % Plt Count (120.0-450.0) 10^3/uL MPV (7.0-11.0) fl Gran % (50.0-68.0) % Lymph % (Auto) (22.0-35.0) % [place] % (Auto) (1.0-6.0) % Eos % (Auto) (1.5-5.0) % Baso % (Auto) (0.0-3.0) % Gran # (1.4-6.5) Lymph # (1.2-3.4) [place] # (0.1-0.6) Eos # (0.0-0.7) Baso # (0.0-2.0) K/mm3 Neutrophils % (Manual) (50.0-70.0) % Band Neutrophils % (0-2) % Lymphocytes % (Manual) (22.0-35.0) % Monocytes % (Manual) (1.0-6.0) % Toxic Granulation Platelet Evaluation (NORMAL) Large Platelets Polychromasia Hypochromasia Anisocytosis (manual) Microcytosis (manual) Ovalocytes PT (9.4-12.5) SECONDS INR (0.93-1.08) Sodium (132-148) mmol/L Potassium (3.6-5.0) mmol/L Chloride (98-107) mmol/L Carbon Dioxide (21-33) mmol/L Anion Gap (10-20) BUN (7-21) mg/dL Creatinine (0.8-1.5) mg/dL Est GFR ( Amer) Est GFR (Non-Af Amer) POC Glucose (mg/dL) 297 H (65-110) mg/dL Random Glucose (70-110) mg/dL Lactic Acid 2.7 H (0.7-2.1) mmol/L Calcium (8.4-10.5) mg/dL Total Bilirubin (0.2-1.3) mg/dL AST (17-59) U/L ALT (7-56) U/L Alkaline Phosphatase (38-126) U/L Total Protein (5.8-8.3) g/dL Albumin (3.0-4.8) g/dL Globulin gm/dL Albumin/Globulin Ratio (1.1-1.8) Urine Color Red (YELLOW) Urine Appearance Turbid (CLEAR) Urine pH 6.5 (4.7-8.0) Ur Specific [place] 1.020 (1.005-1.035) Urine Protein >=300 H (<30 mg/dL) mg/dL Urine Glucose (UA) Negative (NEGATIVE) mg/dL Urine Ketones Negative (NEGATIVE) mg/dL Urine Blood Large H (NEGATIVE) Urine Nitrate Positive H (NEGATIVE) Urine Bilirubin Small H (NEGATIVE) Urine Urobilinogen 1.0 H (<1 E.U./dL) E.U./dL Ur Leukocyte Esterase Moderate H (NEGATIVE) Cynthia/uL Urine RBC Tntc (0-2) /hpf Urine WBC 25 - 30 (0-6) /hpf Urine Bacteria Few (NEG) 09/02/17 09/02/17 09/02/17 Range/Units 06:00 06:00 00:50 WBC 8.8 (4.5-11.0) 10^3/ul RBC 3.10 L (3.5-6.1) 10^6/uL Hgb 7.4 L (14.0-18.0) g/dL Hct 24.5 L (42.0-52.0) % MCV 79.0 L (80.0-105.0) fl MCH 23.9 L (25.0-35.0) pg MCHC 30.2 L (31.0-37.0) g/dl RDW 17.0 H (11.5-14.5) % Plt Count 176 (120.0-450.0) 10^3/uL MPV 9.0 (7.0-11.0) fl Gran % 90.3 H (50.0-68.0) % Lymph % (Auto) 5.4 L (22.0-35.0) % [place] % (Auto) 4.3 (1.0-6.0) % Eos % (Auto) 0.0 L (1.5-5.0) % Baso % (Auto) 0.0 (0.0-3.0) % Gran # 7.90 H (1.4-6.5) Lymph # 0.5 L (1.2-3.4) [place] # 0.4 (0.1-0.6) Eos # 0.0 (0.0-0.7) Baso # 0.00 (0.0-2.0) K/mm3 Neutrophils % (Manual) 88 H (50.0-70.0) % Band Neutrophils % 6 H (0-2) % Lymphocytes % (Manual) 5 L (22.0-35.0) % Monocytes % (Manual) 1 (1.0-6.0) % Toxic Granulation Slight Platelet Evaluation Normal (NORMAL) Large Platelets Present Polychromasia Slight Hypochromasia 2+ Anisocytosis (manual) 1+ Microcytosis (manual) 1+ Ovalocytes Slight PT (9.4-12.5) SECONDS INR (0.93-1.08) Sodium 134 (132-148) mmol/L Potassium 4.4 (3.6-5.0) mmol/L Chloride 103 (98-107) mmol/L Carbon Dioxide 24 (21-33) mmol/L Anion Gap 11 (10-20) BUN 32 H (7-21) mg/dL Creatinine 2.0 H (0.8-1.5) mg/dL Est GFR ( Amer) 41 Est GFR (Non-Af Amer) 34 POC Glucose (mg/dL) (65-110) mg/dL Random Glucose 297 H (70-110) mg/dL Lactic Acid 3.6 H (0.7-2.1) mmol/L Calcium 8.1 L (8.4-10.5) mg/dL Total Bilirubin 1.0 (0.2-1.3) mg/dL AST 32 (17-59) U/L ALT 33 (7-56) U/L Alkaline Phosphatase 73 (38-126) U/L Total Protein 5.7 L (5.8-8.3) g/dL Albumin 2.9 L (3.0-4.8) g/dL Globulin 2.7 gm/dL Albumin/Globulin Ratio 1.1 (1.1-1.8) Urine Color (YELLOW) Urine Appearance (CLEAR) Urine pH (4.7-8.0) Ur Specific [place] (1.005-1.035) Urine Protein (<30 mg/dL) mg/dL Urine Glucose (UA) (NEGATIVE) mg/dL Urine Ketones (NEGATIVE) mg/dL Urine Blood (NEGATIVE) Urine Nitrate (NEGATIVE) Urine Bilirubin (NEGATIVE) Urine Urobilinogen (<1 E.U./dL) E.U./dL Ur Leukocyte Esterase (NEGATIVE) Cynthia/uL Urine RBC (0-2) /hpf Urine WBC (0-6) /hpf Urine Bacteria (NEG) 09/02/17 09/01/17 09/01/17 Range/Units 00:40 18:44 18:44 WBC (4.5-11.0) 10^3/ul RBC (3.5-6.1) 10^6/uL Hgb (14.0-18.0) g/dL Hct (42.0-52.0) % MCV (80.0-105.0) fl MCH (25.0-35.0) pg MCHC (31.0-37.0) g/dl RDW (11.5-14.5) % Plt Count (120.0-450.0) 10^3/uL MPV (7.0-11.0) fl Gran % (50.0-68.0) % Lymph % (Auto) (22.0-35.0) % [place] % (Auto) (1.0-6.0) % Eos % (Auto) (1.5-5.0) % Baso % (Auto) (0.0-3.0) % Gran # (1.4-6.5) Lymph # (1.2-3.4) [place] # (0.1-0.6) Eos # (0.0-0.7) Baso # (0.0-2.0) K/mm3 Neutrophils % (Manual) (50.0-70.0) % Band Neutrophils % (0-2) % Lymphocytes % (Manual) (22.0-35.0) % Monocytes % (Manual) (1.0-6.0) % Toxic Granulation Platelet Evaluation (NORMAL) Large Platelets Polychromasia Hypochromasia Anisocytosis (manual) Microcytosis (manual) Ovalocytes PT (9.4-12.5) SECONDS INR (0.93-1.08) Sodium 137 (132-148) mmol/L Potassium 4.1 (3.6-5.0) mmol/L Chloride 102 (98-107) mmol/L Carbon Dioxide 24 (21-33) mmol/L Anion Gap 15 (10-20) BUN 26 H (7-21) mg/dL Creatinine 1.7 H (0.8-1.5) mg/dL Est GFR ( Amer) 49 Est GFR (Non-Af Amer) 41 POC Glucose (mg/dL) 321 H (65-110) mg/dL Random Glucose 200 H (70-110) mg/dL Lactic Acid 3.8 H (0.7-2.1) mmol/L Calcium 8.9 (8.4-10.5) mg/dL Total Bilirubin 0.9 (0.2-1.3) mg/dL AST 16 L (17-59) U/L ALT 23 (7-56) U/L Alkaline Phosphatase 102 (38-126) U/L Total Protein 6.5 (5.8-8.3) g/dL Albumin 3.5 (3.0-4.8) g/dL Globulin 3.0 gm/dL Albumin/Globulin Ratio 1.2 (1.1-1.8) Urine Color (YELLOW) Urine Appearance (CLEAR) Urine pH (4.7-8.0) Ur Specific [place] (1.005-1.035) Urine Protein (<30 mg/dL) mg/dL Urine Glucose (UA) (NEGATIVE) mg/dL Urine Ketones (NEGATIVE) mg/dL Urine Blood (NEGATIVE) Urine Nitrate (NEGATIVE) Urine Bilirubin (NEGATIVE) Urine Urobilinogen (<1 E.U./dL) E.U./dL Ur Leukocyte Esterase (NEGATIVE) Cynthia/uL Urine RBC (0-2) /hpf Urine WBC (0-6) /hpf Urine Bacteria (NEG) 09/01/17 09/01/17 Range/Units 18:44 11:22 WBC 7.5 D (4.5-11.0) 10^3/ul RBC 3.54 (3.5-6.1) 10^6/uL Hgb 8.4 L (14.0-18.0) g/dL Hct 28.2 L (42.0-52.0) % MCV 79.7 L (80.0-105.0) fl MCH 23.7 L (25.0-35.0) pg MCHC 29.8 L (31.0-37.0) g/dl RDW 16.6 H (11.5-14.5) % Plt Count 193 (120.0-450.0) 10^3/uL MPV 8.8 (7.0-11.0) fl Gran % 86.1 H (50.0-68.0) % Lymph % (Auto) 8.6 L (22.0-35.0) % [place] % (Auto) 3.9 (1.0-6.0) % Eos % (Auto) 1.3 L (1.5-5.0) % Baso % (Auto) 0.1 (0.0-3.0) % Gran # 6.43 (1.4-6.5) Lymph # 0.6 L (1.2-3.4) [place] # 0.3 (0.1-0.6) Eos # 0.1 (0.0-0.7) Baso # 0.01 (0.0-2.0) K/mm3 Neutrophils % (Manual) (50.0-70.0) % Band Neutrophils % (0-2) % Lymphocytes % (Manual) (22.0-35.0) % Monocytes % (Manual) (1.0-6.0) % Toxic Granulation Platelet Evaluation (NORMAL) Large Platelets Polychromasia Hypochromasia Anisocytosis (manual) Microcytosis (manual) Ovalocytes PT 12.9 H (9.4-12.5) SECONDS INR 1.17 H (0.93-1.08) Sodium (132-148) mmol/L Potassium (3.6-5.0) mmol/L Chloride (98-107) mmol/L Carbon Dioxide (21-33) mmol/L Anion Gap (10-20) BUN (7-21) mg/dL Creatinine (0.8-1.5) mg/dL Est GFR ( Amer) Est GFR (Non-Af Amer) POC Glucose (mg/dL) (65-110) mg/dL Random Glucose (70-110) mg/dL Lactic Acid (0.7-2.1) mmol/L Calcium (8.4-10.5) mg/dL Total Bilirubin (0.2-1.3) mg/dL AST (17-59) U/L ALT (7-56) U/L Alkaline Phosphatase (38-126) U/L Total Protein (5.8-8.3) g/dL Albumin (3.0-4.8) g/dL Globulin gm/dL Albumin/Globulin Ratio (1.1-1.8) Urine Color (YELLOW) Urine Appearance (CLEAR) Urine pH (4.7-8.0) Ur Specific [place] (1.005-1.035) Urine Protein (<30 mg/dL) mg/dL Urine Glucose (UA) (NEGATIVE) mg/dL Urine Ketones (NEGATIVE) mg/dL Urine Blood (NEGATIVE) Urine Nitrate (NEGATIVE) Urine Bilirubin (NEGATIVE) Urine Urobilinogen (<1 E.U./dL) E.U./dL Ur Leukocyte Esterase (NEGATIVE) Cynthia/uL Urine RBC (0-2) /hpf Urine WBC (0-6) /hpf Urine Bacteria (NEG) Laboratory Results - last 24 hr 09/01/17 09/01/17 09/01/17 11:22 18:44 18:44 WBC 7.5 D RBC 3.54 Hgb 8.4 L Hct 28.2 L MCV 79.7 L MCH 23.7 L MCHC 29.8 L RDW 16.6 H Plt Count 193 MPV 8.8 Gran % 86.1 H Lymph % (Auto) 8.6 L [place] % (Auto) 3.9 Eos % (Auto) 1.3 L Baso % (Auto) 0.1 Gran # 6.43 Lymph # 0.6 L [place] # 0.3 Eos # 0.1 Baso # 0.01 Neutrophils % (Manual) Band Neutrophils % Lymphocytes % (Manual) Monocytes % (Manual) Toxic Granulation Platelet Evaluation Large Platelets Polychromasia Hypochromasia Anisocytosis (manual) Microcytosis (manual) Ovalocytes PT 12.9 H INR 1.17 H Sodium 137 Potassium 4.1 Chloride 102 Carbon Dioxide 24 Anion Gap 15 BUN 26 H Creatinine 1.7 H Est GFR ( Amer) 49 Est GFR (Non-Af Amer) 41 POC Glucose (mg/dL) Random Glucose 200 H Lactic Acid Calcium 8.9 Total Bilirubin 0.9 AST 16 L ALT 23 Alkaline Phosphatase 102 Total Protein 6.5 Albumin 3.5 Globulin 3.0 Albumin/Globulin Ratio 1.2 Urine Color Urine Appearance Urine pH Ur Specific [place] Urine Protein Urine Glucose (UA) Urine Ketones Urine Blood Urine Nitrate Urine Bilirubin Urine Urobilinogen Ur Leukocyte Esterase Urine RBC Urine WBC Urine Bacteria 09/01/17 09/02/17 09/02/17 18:44 00:40 00:50 WBC RBC Hgb Hct MCV MCH MCHC RDW Plt Count MPV Gran % Lymph % (Auto) [place] % (Auto) Eos % (Auto) Baso % (Auto) Gran # Lymph # [place] # Eos # Baso # Neutrophils % (Manual) Band Neutrophils % Lymphocytes % (Manual) Monocytes % (Manual) Toxic Granulation Platelet Evaluation Large Platelets Polychromasia Hypochromasia Anisocytosis (manual) Microcytosis (manual) Ovalocytes PT INR Sodium Potassium Chloride Carbon Dioxide Anion Gap BUN Creatinine Est GFR ( Amer) Est GFR (Non-Af Amer) POC Glucose (mg/dL) 321 H Random Glucose Lactic Acid 3.8 H 3.6 H Calcium Total Bilirubin AST ALT Alkaline Phosphatase Total Protein Albumin Globulin Albumin/Globulin Ratio Urine Color Urine Appearance Urine pH Ur Specific [place] Urine Protein Urine Glucose (UA) Urine Ketones Urine Blood Urine Nitrate Urine Bilirubin Urine Urobilinogen Ur Leukocyte Esterase Urine RBC Urine WBC Urine Bacteria 09/02/17 09/02/17 09/02/17 06:00 06:00 06:00 WBC 8.8 RBC 3.10 L Hgb 7.4 L Hct 24.5 L MCV 79.0 L MCH 23.9 L MCHC 30.2 L RDW 17.0 H Plt Count 176 MPV 9.0 Gran % 90.3 H Lymph % (Auto) 5.4 L [place] % (Auto) 4.3 Eos % (Auto) 0.0 L Baso % (Auto) 0.0 Gran # 7.90 H Lymph # 0.5 L [place] # 0.4 Eos # 0.0 Baso # 0.00 Neutrophils % (Manual) 88 H Band Neutrophils % 6 H Lymphocytes % (Manual) 5 L Monocytes % (Manual) 1 Toxic Granulation Slight Platelet Evaluation Normal Large Platelets Present Polychromasia Slight Hypochromasia 2+ Anisocytosis (manual) 1+ Microcytosis (manual) 1+ Ovalocytes Slight PT INR Sodium 134 Potassium 4.4 Chloride 103 Carbon Dioxide 24 Anion Gap 11 BUN 32 H Creatinine 2.0 H Est GFR ( Amer) 41 Est GFR (Non-Af Amer) 34 POC Glucose (mg/dL) Random Glucose 297 H Lactic Acid 2.7 H Calcium 8.1 L Total Bilirubin 1.0 AST 32 ALT 33 Alkaline Phosphatase 73 Total Protein 5.7 L Albumin 2.9 L Globulin 2.7 Albumin/Globulin Ratio 1.1 Urine Color Urine Appearance Urine pH Ur Specific [place] Urine Protein Urine Glucose (UA) Urine Ketones Urine Blood Urine Nitrate Urine Bilirubin Urine Urobilinogen Ur Leukocyte Esterase Urine RBC Urine WBC Urine Bacteria 09/02/17 09/02/17 07:22 08:25 WBC RBC Hgb Hct MCV MCH MCHC RDW Plt Count MPV Gran % Lymph % (Auto) [place] % (Auto) Eos % (Auto) Baso % (Auto) Gran # Lymph # [place] # Eos # Baso # Neutrophils % (Manual) Band Neutrophils % Lymphocytes % (Manual) Monocytes % (Manual) Toxic Granulation Platelet Evaluation Large Platelets Polychromasia Hypochromasia Anisocytosis (manual) Microcytosis (manual) Ovalocytes PT INR Sodium Potassium Chloride Carbon Dioxide Anion Gap BUN Creatinine Est GFR ( Amer) Est GFR (Non-Af Amer) POC Glucose (mg/dL) 297 H Random Glucose Lactic Acid Calcium Total Bilirubin AST ALT Alkaline Phosphatase Total Protein Albumin Globulin Albumin/Globulin Ratio Urine Color Red Urine Appearance Turbid Urine pH 6.5 Ur Specific [place] 1.020 Urine Protein >=300 H Urine Glucose (UA) Negative Urine Ketones Negative Urine Blood Large H Urine Nitrate Positive H Urine Bilirubin Small H Urine Urobilinogen 1.0 H Ur Leukocyte Esterase Moderate H Urine RBC Tntc Urine WBC 25 - 30 Urine Bacteria Few EKG/Cardiology Studies: Cardiology / EKG Studies 09/02/17 10:28 EKG [ELECTROCARDIOGRAM] Stat Comment: Reason For Exam: CP Assessment/Plan - Assessment and Plan (Free Text) Plan: Patient seen and examined with resident, agree with ntoe with following additions/exceptions: Patient is 66yo male with PMHx of ?/dementia, CAD with stents, DM, admitted from [facility] s/p urological procedure, ureteral stent removal, lithotripsy, post op started having fevers, AMS, and increased lactate, admitted to ICU with severe Sepsis. Currently febrile, but HD stable, comfortable, with no major complaints. On broad spectrum abx, ID is following. Cultures pending Severe Sepsis UTI Dehydration CAD DM ARF Recommend: - supp o2 as needed - broad spectrum antibiotics as per ID - consider imaging, CT abdomen/pelvis without contrast (increased Cr) - follow up cultures - check prolcacitonin - anti-pyretics, cooling blanket - IVF hydration - check Ulytes - FS control - follow up ID - discuss with urology restarting dual antiplatelet agents, hx of CAD - GI ppx - DVT ppx - follow up urology critical care time 45 minutes
[2017-09-02] MEDS: oxyCODONE 5 mg Immediate Release Tab PO PRN ×3 (09:50→22:10)
--- NOTE | 2017-09-02 09:52 | RAD ---
PROCEDURE: Fluoroscopy up to 1 hour HISTORY: RT URETER STENT INSERTION COMPARISON: TECHNIQUE: Fluoroscopy was provided in the operating room. A single image was submitted FINDINGS: The images over the mid ureter showing a stent in place. The distal and proximal ends are not visualized. IMPRESSION: As above
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
[2017-09-02 10:56] LABS: GRAN # 6.68 (1.4-6.5); GRAN % 92.2 % (50.0-68.0); LYMPH # 0.4 (1.2-3.4); LYMPH % 5.2 % (22.0-35.0); MEAN CELL VOLUME 78.9 fl (80.0-105.0); MEAN CORPUSCULAR HEMOGLOBIN 23.6 pg (25.0-35.0); MEAN CORPUSCULAR HGB CONC 29.9 g/dl (31.0-37.0); MEAN PLATELET VOLUME 8.9 fl (7.0-11.0); MONO # 0.2 (0.1-0.6); MONO % 2.6 % (1.0-6.0); RED CELL DISTRIBUTION WIDTH 16.8 % (11.5-14.5); WHITE BLOOD COUNT 7.3 10^3/ul (4.5-11.0)
[2017-09-02 11:01] LABS: HEMATOCRIT 22.4 % (42.0-52.0)
[2017-09-02 11:10] LABS: CALCIUM 8.1 mg/dL (8.4-10.5); MAGNESIUM 1.3 mg/dL (1.7-2.2); PHOSPHOROUS 3.5 mg/dL (2.5-4.5); POTASSIUM 4.2 mmol/L (3.6-5.0); TOTAL PROTEIN 5.7 g/dL (5.8-8.3)
[2017-09-02 11:34] LABS: ALB/GLOB RATIO 1.1 (1.1-1.8)
[2017-09-02] MEDS ORDERED: Magnesium Sulfate 2 GM in Sodium Chloride 0.9% 100 ML IVPB ONE (11:56)
[2017-09-02] MEDS ORDERED: DiphenhydrAMINE 50 mg/ml Inj IVP STA (12:03)
[2017-09-02 21:18] LABS: GRAN # 6.18 (1.4-6.5); GRAN % 89.3 % (50.0-68.0); HEMATOCRIT 25.5 % (42.0-52.0); LYMPH # 0.5 (1.2-3.4); LYMPH % 7.4 % (22.0-35.0); MEAN CELL VOLUME 79.2 fl (80.0-105.0); MEAN CORPUSCULAR HEMOGLOBIN 25.2 pg (25.0-35.0); MEAN CORPUSCULAR HGB CONC 31.8 g/dl (31.0-37.0); MEAN PLATELET VOLUME 8.8 fl (7.0-11.0); MONO # 0.2 (0.1-0.6); MONO % 3.3 % (1.0-6.0); RED CELL DISTRIBUTION WIDTH 16.8 % (11.5-14.5); WHITE BLOOD COUNT 6.9 10^3/ul (4.5-11.0)
[2017-09-02 21:36] LABS: BILIRUBIN,TOTAL 0.8 mg/dL (0.2-1.3); CALCIUM 8.2 mg/dL (8.4-10.5); MAGNESIUM 1.8 mg/dL (1.7-2.2); POTASSIUM 3.7 mmol/L (3.6-5.0); TOTAL PROTEIN 5.7 g/dL (5.8-8.3)
--- NOTE | 2017-09-02 22:11 | CARD ---
APPROVED REPORT EKG Measurement Heart [id number] <Conclusion> Normal sinus rhythm Nonspecific ST and T wave abnormality Prolonged QT Abnormal ECG
--- NOTE | 2017-09-02 23:39 | CT ---
EXAM: CT Abdomen and Pelvis Without Intravenous Contrast CLINICAL HISTORY: 66 years old, male; Pain; Other: Flank; Additional info: Anemia, S/P lithotripsy TECHNIQUE: Axial computed tomography images of the abdomen and pelvis without intravenous contrast. All CT scans at this facility use one or more dose reduction techniques, viz.: automated exposure control; ma/kV adjustment per patient size (including targeted exams where dose is matched to indication; i.e. head); or iterative reconstruction technique. MIP reconstructed images were created and reviewed. Coronal and sagittal reformatted images were created and reviewed. COMPARISON: CT - ABD PELVIS PO IV CONTRAST 2017-05-14 12:19 FINDINGS: Lower thorax: Small bilateral pleural effusions, with adjacent compressive atelectasis (an interval change from the previous examination). ABDOMEN: Liver: The liver is enlarged and demonstrates diffuse fatty infiltration. Gallbladder and bile ducts: No acute finding. No calcified stones. No intra-extrahepatic biliary ductal dilation. Pancreas: Limited evaluation secondary to the lack of intravenous contrast. Spleen: Benign-appearing calcified nodules in an otherwise unremarkable spleen with respect to size and contour. Adrenals: No acute findings. Kidneys and ureters: Right-sided nephroureteral stent, with the proximal pigtail in the right renal pelvis and the distal pigtail within the patient's bladder. Bilateral perinephric stranding, a stable and nonspecific finding. PELVIS: Bladder: The bladder is decompressed with a Norris catheter. Extravesicular air is identified dissecting throughout the soft tissues of the extraperitoneum. Reproductive: No acute findings. Appendix: The appendix is not definitively visualized, however no pericecal inflammatory change is identified to suggest the presence of acute appendicitis. ABDOMEN and PELVIS: Stomach and bowel: A small amount of presacral fluid is identified - an interval change. Peritoneum: As above. Lymph nodes: Limited evaluation without intravenous contrast. Vasculature: No aortic aneurysm. Calcified atherosclerotic disease. Bones: No acute fracture. IMPRESSION: Findings consistent with an extraperitoneal bladder rupture, with bladder decompression by a Norris catheter. Appropriate decompression of the right kidney, with a nephroureteral stent in good position. No findings to account for patient's anemia, as detailed above.
--- NOTE | 2017-09-03 03:56 | CP.PCM.PCO ---
Subjective - Physician Review Events Since Last Encounter (Free Text): 09/03/17 03:[address] abd/pelvis which showed extraperitoneal bladder rupture. I notified Dr. Salas at 2:30am of the results and he instructed to stop bladder irrigation. Results also reviewed results to Dr. Guo. Mery Cole PGY2
[2017-09-03 07:12] LABS: EOS % 0.1 % (1.5-5.0); GRAN # 5.9 (1.4-6.5); GRAN % 87.3 % (50.0-68.0); HEMATOCRIT 28.4 % (42.0-52.0); LYMPH # 0.6 (1.2-3.4); LYMPH % 8.6 % (22.0-35.0); MEAN CELL VOLUME 78.9 fl (80.0-105.0); MEAN CORPUSCULAR HEMOGLOBIN 24.7 pg (25.0-35.0); MEAN CORPUSCULAR HGB CONC 31.3 g/dl (31.0-37.0); MONO # 0.3 (0.1-0.6); RED CELL DISTRIBUTION WIDTH 16.5 % (11.5-14.5); WHITE BLOOD COUNT 6.8 10^3/ul (4.5-11.0)
[2017-09-03] MEDS: Insulin Lispro (humaLOG) LOW Coverage SC SCH ×4 (07:39→22:51)
[2017-09-03 07:46] LABS: ALB/GLOB RATIO 1.1 (1.1-1.8); ALKALINE PHOSPHATASE 83 U/L (38-126); ALT/SGPT 32 U/L (7-56); AST/SGOT 34 U/L (17-59); BILIRUBIN,TOTAL 0.9 mg/dL (0.2-1.3); BLOOD UREA NITROGEN 28 mg/dL (7-21); CALCIUM 8.7 mg/dL (8.4-10.5); CARBON DIOXIDE 23 mmol/L (21-33); CHLORIDE 106 mmol/L (98-107); GFR AFRICAN-AMERICAN > 60; GLUCOSE,RANDOM 205 mg/dL (70-110); MAGNESIUM 1.9 mg/dL (1.7-2.2); PHOSPHOROUS 3.2 mg/dL (2.5-4.5); POTASSIUM 3.5 mmol/L (3.6-5.0); SODIUM 139 mmol/L (132-148); TOTAL PROTEIN 6.2 g/dL (5.8-8.3)
[2017-09-03] MEDS: oxyCODONE 5 mg Immediate Release Tab PO PRN ×2 (07:49→14:19)
--- NOTE | 2017-09-03 08:41 | PN ---
POSTOPERATIVE PROGRESS NOTE DATE: 09/02/2017 SUBJECTIVE: The patient is seen in the Intensive Care Unit at [facility]. He is awake and responding to questions, although somewhat lethargic. PHYSICAL EXAMINATION: VITAL SIGNS: Currently afebrile, temperature 100.8, low-grade fever, pulse 98, blood pressure 128/61, respirations 19. ABDOMEN: His abdomen is soft. No rebound or guarding. GENITOURINARY: Phallus is normal. Norris catheter in place, draining slightly blood-tinged urine on slow CBI. IMPRESSION AND PLAN: This appears to be urosepsis after initial removal of stent and ureteroscopy. Stent was replaced as the patient developed fever and chills prior to discharge. As for his mental status, the patient had a CT scan which showed no acute infarcts or abnormalities. The patient has a history of depression and has been in a nursing facility. It is unclear how much of this is chronic or due to the likely septic episode. We will discuss this with the tumbling barrel painter and Dr. Bowman, who have been following him medically. Urologically, plan is to continue IV fluids and antibiotics. We will discontinue the CBI and remove the Norris catheter. Tomorrow, the patient should be able to void. I would restart him on Flomax if his blood pressure remains okay. Await results of cultures and continue antibiotics as per ID recommendation. I will continue to follow him with you. Troy Salas MD
[2017-09-03] MEDS: Meropenem 1 GM in Dextrose 5% In Water 100 ML IVPB SCH ×2 (09:00→21:21)
[2017-09-03] MEDS ORDERED: Morphine 2 mg/ml ISec IVP PRN (09:12)
[2017-09-03] MEDS ORDERED: Vancomycin 1gm in NS 250ml 1 GM/250 ML BAG IVPB STA (10:17)
--- NOTE | 2017-09-03 10:19 | CP.PCM.PN ---
Subjective - Date & Time of Evaluation Date of Evaluation: 09/03/17 Time of Evaluation: 09:10 - Subjective Subjective: Patient is awake but still somewhat lethargic, still with some confusion, still with fevers. Objective - Vital Signs/Intake and Output Vital Signs (last 24 hours): Temp Pulse Resp BP Pulse Ox 102 F H 96 H 21 144/95 H 94 L 09/03/17 04:00 09/03/17 06:00 09/03/17 04:40 09/03/17 04:00 09/03/17 04:40 Intake and Output: 09/03/17 09/03/17 06:59 18:59 Intake Total 1525 Output Total 1400 Balance 125 - Medications Medications: Current Medications Sodium Chloride (Sodium Chloride 0.9%) 1,000 mls @ 100 mls/hr IV .Q10H [facility] Last Admin: 09/02/17 05:30 Dose: 100 mls/hr Meropenem 1 gm/ Dextrose 100 mls @ 100 mls/hr IVPB Q12 JIMBO PRN Reason: Protocol Stop: 09/09/17 07:01 Last Admin: 09/02/17 22:07 Dose: 100 mls/hr Acetaminophen (Ofirmev) 1,000 mg in 100 mls @ 400 mls/hr IVPB Q6H PRN PRN Reason: fevers Stop: 09/04/17 19:38 Last Admin: 09/03/17 03:30 Dose: 400 mls/hr Insulin Human Lispro (Humalog Low) 0 units SC ACHS JIMBO PRN Reason: Protocol Last Admin: 09/02/17 22:07 Dose: Not Given Oxycodone HCl (Oxycodone Immediate Release Tab) 5 mg PO Q6H PRN PRN Reason: Pain, moderate (4-7) Last Admin: 09/02/17 22:10 Dose: 5 mg Pantoprazole Sodium (Protonix Inj) 40 mg IVP DAILY JIMBO Last Admin: 09/02/17 10:12 Dose: 40 mg - Labs Labs: 09/02/17 21:10 09/02/17 21:10 PT 12.9 SECONDS (9.4-12.5) H 09/01/17 11:22 INR 1.17 (0.93-1.08) H 09/01/17 11:22 - Constitutional Appears: Chronically Ill - Head Exam Head Exam: NORMAL INSPECTION - ENT Exam ENT Exam: Mucous Membranes Moist - Neck Exam Neck Exam: absent: Lymphadenopathy, Meningismus - Respiratory Exam Respiratory Exam: Decreased Breath Sounds. absent: Rales - Cardiovascular Exam Cardiovascular Exam: +S1, +S2 - GI/Abdominal Exam GI & Abdominal Exam: Soft, Tenderness (on the lower quadrants with guarding). absent: Distended, Rigid Assessment and Plan - Assessment and Plan (Free Text) Plan: Assessment Severe sepsis with acute on chronic renal failure and acute encephalopathy probably related to possible perforated urinary bladder and UTI with associated ureteral stone, right ureteral stent placement S/P lithotripsy POD#2 CAD S/P PCI right ureteral stent placement because of obstructing ureteral stone 04/2017 HTN DM PVD history of depression Plan will give another dose of IV Vancomycin and continue Merrem day 2 pending blood and urine cx reviewed CT scan of the abdomen and pelvis follow up plans of Urology discussed with Dr. Li will continue to monitor clinically
--- NOTE | 2017-09-03 13:59 | RAD ---
HISTORY: confirm picc placement COMPARISON: No prior. FINDINGS: LUNGS: No active pulmonary disease. PLEURA: No significant pleural effusion identified, no pneumothorax apparent. CARDIOVASCULAR: Normal. OSSEOUS STRUCTURES: No significant abnormalities. VISUALIZED UPPER ABDOMEN: Normal. OTHER FINDINGS: None. IMPRESSION: Right-sided PICC line is seen at the cavoatrial junction in satisfactory position
--- NOTE | 2017-09-03 14:29 | CP.CCUPN ---
<Sriram Thomas - Last Filed: 09/03/17 14:18> CCU Subjective - Physician Review Subjective (Free Text): 09/03/17 11:18 Sriram Thomas D.O. PGY-2, Critical Care Progress Note 66 year old male with a PMH of CAD w/ GINO to LAD and RCA, depression, IDDM2, and right utereteral stone who presented to [facility] for SDS with Dr. Salas for R utereteral stone lithotripsy and stent removal, course complicated by sepsis and re-insertion of stent same day by Dr. Salas. Patient was seen and examined at bedside. Patient is improving slowly, was fully oriented and able to carry a conversation this AM. Patient states that he mostly just has some lower abdominal pain. CCU Objective - Vital Signs / Intake & Output Vital Signs (Last 4 hours): Vital Signs Pulse Resp BP Pulse Ox 09/03/17 13:30 97 H 22 96 09/03/17 13:00 97 09/03/17 12:30 103 H 19 97 09/03/17 12:00 98 H 19 98 09/03/17 11:56 96 H 20 09/03/17 11:55 99 H 20 09/03/17 11:54 97 H 18 09/03/17 11:53 97 H 21 09/03/17 11:52 100 H 19 09/03/17 11:51 98 H 20 09/03/17 11:50 102 H 23 09/03/17 11:49 96 H 19 09/03/17 11:48 95 H 19 09/03/17 11:47 98 H 19 09/03/17 11:30 96 H 18 100 09/03/17 11:00 98 H 20 145/99 H 96 09/03/17 10:30 93 H 22 98 Intake and Output (Last 8hrs): Intake & Output 09/02/17 09/03/17 09/03/17 22:59 06:59 14:59 Intake Total 5600 1200 Output Total 6029 1400 Balance -429 -200 Weight 97.522 kg 97.522 kg Intake: IV 800 1200 Left Antecubital 800 Left Forearm 1200 Oral 0 Blood Product 1300 Red Blood Cells Cpd As1 325 Lr Unit [id number] Red Blood Cells Cpd As1 325 Lr Unit [id number] Other 3500 Output: Urine 6029 1400 3-way Urethral 6029 1400 Other: # Bowel Movements 3 1 - Physical Exam Head: Positive for: Atraumatic, Normocephalic Pupils: Positive for: PERRL Extroacular Muscles: Positive for: EOMI Ears: Positive for: Normal Mouth: Positive for: Moist Mucous Membranes, Normal Tounge Nose (External): Positive for: Atraumatic Neck: Positive for: Normal Range of Motion, Trachea Midline. Negative for: MIDLINE TENDERNESS Respiratory/Chest: Positive for: Clear to Auscultation, Good Air Exchange. Negative for: Wheezes, Rales, Rhonchi Cardiovascular: Positive for: Regular Rate and Rhythm, Normal S1, S2. Negative for: Murmurs, Rub, Gallop Abdomen: Positive for: Normal Bowel Sounds. Negative for: Tenderness, Distention, Guarding Genitourinary Male: Positive for: Other (arredondo in place w/ CBI) Upper Extremity: Positive for: Normal Inspection. Negative for: Cyanosis, Edema Lower Extremity: Positive for: Normal Inspection, Other (SCDs in place). Negative for: Edema Neurological: Positive for: Other (awake, alert, oriented to self, place, but not time or situation, follows commands, nonfocal) Skin: Positive for: Warm, Dry. Negative for: Rashes - Medications Active Medications: Active Medications Generic Name Dose Route Start Last Admin Trade Name Freq PRN Reason Stop Dose Admin Meropenem 1 gm/ Dextrose 100 mls @ 100 mls/hr 09/02/17 07:00 09/03/17 09:00 IVPB 09/09/17 07:01 100 mls/hr Q12 JIMBO Administration Protocol Acetaminophen 1,000 mg in 100 mls @ 400 mls/hr 09/02/17 19:37 09/03/17 11:10 Ofirmev IVPB 09/04/17 19:38 400 mls/hr Q6H PRN Administration fevers Potassium Chloride 20 meq/ 1,010 mls @ 100 mls/hr 09/03/17 08:30 09/03/17 08: 53 Sodium Chloride IV 100 mls/hr .[id number] JIMBO Administration Insulin Human Lispro 0 units 09/01/17 22:00 09/03/17 07:39 Humalog Low SC 2 units ACHS JIMBO Administration Protocol Morphine Sulfate 1 mg 09/03/17 09:19 09/03/17 10:54 Morphine IV 1 mg Q4H PRN Administration Pain, severe (8-10) Oxycodone HCl 5 mg 09/02/17 09:33 09/03/17 07:49 Oxycodone Immediate Release Tab PO 5 mg Q6H PRN Administration Pain, moderate (4-7) Pantoprazole Sodium 40 mg 09/02/17 10:00 09/03/17 09:01 Protonix Inj IVP 40 mg DAILY JIMBO Administration - Patient Studies Lab Studies: Microbiology Studies 09/01/17 20:25 MRSA Culture (Admit) - Final Naris MRSA NOT DETECTED 09/02/17 08:25 Urine Culture - Final Urine,[place]red[place] No Growth (<1,000 CFU/ML) 09/01/17 18:44 Blood Culture - Preliminary Blood-Venous NO GROWTH AFTER 24 HOURS 09/01/17 18:44 Blood Culture - Preliminary Blood-Venous NO GROWTH AFTER 24 HOURS Lab Studies 09/03/17 09/03/17 09/03/17 Range/Units 07:16 06:50 06:50 WBC 6.8 (4.5-11.0) 10^3/ul RBC 3.60 (3.5-6.1) 10^6/uL Hgb 8.9 L (14.0-18.0) g/dL Hct 28.4 L (42.0-52.0) % MCV 78.9 L (80.0-105.0) fl MCH 24.7 L (25.0-35.0) pg MCHC 31.3 (31.0-37.0) g/dl RDW 16.5 H (11.5-14.5) % Plt Count 162 (120.0-450.0) 10^3/uL MPV 9.0 (7.0-11.0) fl Gran % 87.3 H (50.0-68.0) % Lymph % (Auto) 8.6 L (22.0-35.0) % [place] % (Auto) 4.0 (1.0-6.0) % Eos % (Auto) 0.1 L (1.5-5.0) % Baso % (Auto) 0.0 (0.0-3.0) % Gran # 5.90 (1.4-6.5) Lymph # 0.6 L (1.2-3.4) [place] # 0.3 (0.1-0.6) Eos # 0.0 (0.0-0.7) Baso # 0.00 (0.0-2.0) K/mm3 Sodium 139 (132-148) mmol/L Potassium 3.5 L (3.6-5.0) mmol/L Chloride 106 (98-107) mmol/L Carbon Dioxide 23 (21-33) mmol/L Anion Gap 13 (10-20) BUN 28 H (7-21) mg/dL Creatinine 1.4 (0.8-1.5) mg/dl Est GFR ( Amer) > 60 Est GFR (Non-Af Amer) 51 POC Glucose (mg/dL) 232 H (65-110) mg/dL Random Glucose 205 H (70-110) mg/dL Calcium 8.7 (8.4-10.5) mg/dL Phosphorus 3.2 (2.5-4.5) mg/dL Magnesium 1.9 (1.7-2.2) mg/dL Total Bilirubin 0.9 (0.2-1.3) mg/dL AST 34 (17-59) U/L ALT 32 (7-56) U/L Alkaline Phosphatase 83 (38-126) U/L Total Protein 6.2 (5.8-8.3) g/dL Albumin 3.2 (3.0-4.8) g/dL Globulin 3.0 gm/dL Albumin/Globulin Ratio 1.1 (1.1-1.8) Blood Type Antibody Screen Crossmatch BBK History Checked 09/02/17 09/02/17 09/02/17 Range/Units 21:41 21:10 21:10 WBC 6.9 (4.5-11.0) 10^3/ul RBC 3.22 L (3.5-6.1) 10^6/uL Hgb 8.1 L (14.0-18.0) g/dL Hct 25.5 L (42.0-52.0) % MCV 79.2 L (80.0-105.0) fl MCH 25.2 (25.0-35.0) pg MCHC 31.8 (31.0-37.0) g/dl RDW 16.8 H (11.5-14.5) % Plt Count 138 (120.0-450.0) 10^3/uL MPV 8.8 (7.0-11.0) fl Gran % 89.3 H (50.0-68.0) % Lymph % (Auto) 7.4 L (22.0-35.0) % [place] % (Auto) 3.3 (1.0-6.0) % Eos % (Auto) 0.0 L (1.5-5.0) % Baso % (Auto) 0.0 (0.0-3.0) % Gran # 6.18 (1.4-6.5) Lymph # 0.5 L (1.2-3.4) [place] # 0.2 (0.1-0.6) Eos # 0.0 (0.0-0.7) Baso # 0.00 (0.0-2.0) K/mm3 Sodium 136 (132-148) mmol/L Potassium 3.7 (3.6-5.0) mmol/L Chloride 106 (98-107) mmol/L Carbon Dioxide 22 (21-33) mmol/L Anion Gap 12 (10-20) BUN 29 H (7-21) mg/dL Creatinine 1.5 (0.8-1.5) mg/dl Est GFR ( Amer) 57 Est GFR (Non-Af Amer) 47 POC Glucose (mg/dL) 250 H (65-110) mg/dL Random Glucose 238 H (70-110) mg/dL Calcium 8.2 L (8.4-10.5) mg/dL Phosphorus 3.0 (2.5-4.5) mg/dL Magnesium 1.8 (1.7-2.2) mg/dL Total Bilirubin 0.8 (0.2-1.3) mg/dL AST 30 (17-59) U/L ALT 37 (7-56) U/L Alkaline Phosphatase 69 (38-126) U/L Total Protein 5.7 L (5.8-8.3) g/dL Albumin 2.9 L (3.0-4.8) g/dL Globulin 2.9 gm/dL Albumin/Globulin Ratio 1.0 L (1.1-1.8) Blood Type Antibody Screen Crossmatch BBK History Checked 09/02/17 09/02/17 Range/Units 16:48 10:30 WBC (4.5-11.0) 10^3/ul RBC (3.5-6.1) 10^6/uL Hgb (14.0-18.0) g/dL Hct (42.0-52.0) % MCV (80.0-105.0) fl MCH (25.0-35.0) pg MCHC (31.0-37.0) g/dl RDW (11.5-14.5) % Plt Count (120.0-450.0) 10^3/uL MPV (7.0-11.0) fl Gran % (50.0-68.0) % Lymph % (Auto) (22.0-35.0) % [place] % (Auto) (1.0-6.0) % Eos % (Auto) (1.5-5.0) % Baso % (Auto) (0.0-3.0) % Gran # (1.4-6.5) Lymph # (1.2-3.4) [place] # (0.1-0.6) Eos # (0.0-0.7) Baso # (0.0-2.0) K/mm3 Sodium (132-148) mmol/L Potassium (3.6-5.0) mmol/L Chloride (98-107) mmol/L Carbon Dioxide (21-33) mmol/L Anion Gap (10-20) BUN (7-21) mg/dL Creatinine (0.8-1.5) mg/dl Est GFR ( Amer) Est GFR (Non-Af Amer) POC Glucose (mg/dL) 256 H (65-110) mg/dL Random Glucose (70-110) mg/dL Calcium (8.4-10.5) mg/dL Phosphorus (2.5-4.5) mg/dL Magnesium (1.7-2.2) mg/dL Total Bilirubin (0.2-1.3) mg/dL AST (17-59) U/L ALT (7-56) U/L Alkaline Phosphatase (38-126) U/L Total Protein (5.8-8.3) g/dL Albumin (3.0-4.8) g/dL Globulin gm/dL Albumin/Globulin Ratio (1.1-1.8) Blood Type O POSITIVE Antibody Screen Negative Crossmatch See Detail BBK History Checked Patient has bt Laboratory Results - last 24 hr 09/02/17 09/02/17 09/02/17 10:30 16:48 21:10 WBC 6.9 RBC 3.22 L Hgb 8.1 L Hct 25.5 L MCV 79.2 L MCH 25.2 MCHC 31.8 RDW 16.8 H Plt Count 138 MPV 8.8 Gran % 89.3 H Lymph % (Auto) 7.4 L [place] % (Auto) 3.3 Eos % (Auto) 0.0 L Baso % (Auto) 0.0 Gran # 6.18 Lymph # 0.5 L [place] # 0.2 Eos # 0.0 Baso # 0.00 Sodium Potassium Chloride Carbon Dioxide Anion Gap BUN Creatinine Est GFR ( Amer) Est GFR (Non-Af Amer) POC Glucose (mg/dL) 256 H Random Glucose Calcium Phosphorus Magnesium Total Bilirubin AST ALT Alkaline Phosphatase Total Protein Albumin Globulin Albumin/Globulin Ratio Blood Type O POSITIVE Antibody Screen Negative Crossmatch See Detail BBK History Checked Patient has bt 09/02/17 09/02/17 09/03/17 21:10 21:41 06:50 WBC 6.8 RBC 3.60 Hgb 8.9 L Hct 28.4 L MCV 78.9 L MCH 24.7 L MCHC 31.3 RDW 16.5 H Plt Count 162 MPV 9.0 Gran % 87.3 H Lymph % (Auto) 8.6 L [place] % (Auto) 4.0 Eos % (Auto) 0.1 L Baso % (Auto) 0.0 Gran # 5.90 Lymph # 0.6 L [place] # 0.3 Eos # 0.0 Baso # 0.00 Sodium 136 Potassium 3.7 Chloride 106 Carbon Dioxide 22 Anion Gap 12 BUN 29 H Creatinine 1.5 Est GFR ( Amer) 57 Est GFR (Non-Af Amer) 47 POC Glucose (mg/dL) 250 H Random Glucose 238 H Calcium 8.2 L Phosphorus 3.0 Magnesium 1.8 Total Bilirubin 0.8 AST 30 ALT 37 Alkaline Phosphatase 69 Total Protein 5.7 L Albumin 2.9 L Globulin 2.9 Albumin/Globulin Ratio 1.0 L Blood Type Antibody Screen Crossmatch BBK History Checked 09/03/17 09/03/17 06:50 07:16 WBC RBC Hgb Hct MCV MCH MCHC RDW Plt Count MPV Gran % Lymph % (Auto) [place] % (Auto) Eos % (Auto) Baso % (Auto) Gran # Lymph # [place] # Eos # Baso # Sodium 139 Potassium 3.5 L Chloride 106 Carbon Dioxide 23 Anion Gap 13 BUN 28 H Creatinine 1.4 Est GFR ( Amer) > 60 Est GFR (Non-Af Amer) 51 POC Glucose (mg/dL) 232 H Random Glucose 205 H Calcium 8.7 Phosphorus 3.2 Magnesium 1.9 Total Bilirubin 0.9 AST 34 ALT 32 Alkaline Phosphatase 83 Total Protein 6.2 Albumin 3.2 Globulin 3.0 Albumin/Globulin Ratio 1.1 Blood Type Antibody Screen Crossmatch BBK History Checked Fingerstick Blood Sugar Results: 232 Critical Care Progress Note - Nutrition Nutrition: Nutrition Category Date Time Status Dysphagia/Modified Consistency Diet [DIET] Diets 09/03/17 Dinner Ordered Assessment/Plan - Assessment and Plan (Free Text) Assessment: 66 year old male with a PMH of CAD w/ GINO to LAD and RCA, depression, IDDM2, and right utereteral stone who presented to [facility] for SDS with Dr. Salas for R utereteral stone lithotripsy and stent removal, course complicated by sepsis and re-insertion of stent same day by Dr. Salas Plan: Neurological AMS improved, likely was 2/2 sepsis/fever Head CT was negative Will continue to monitor clinically Cardiovascular Hx of CAD with RCA and LAD GINO HD stable ASA and plavix on hold at this time given recent CT abd/pelvis findings Pulmnologic Protecting airway Satting well on NC Maintain O2Sat >92% GI Will advance diet today and monitor Cont GI ppx Nephro/Electrolytes JOYCE was likely combination obstructive and prerenal from sepsis BUN and Cr downtrending Strict IxOs Cont NS @ 100 ID Sepsis likely UTI versus seeding of the infection from the post ureteral stent removal Still having fevers, cont PRN tylenol No leukocytosis BCxs negative x2 D1, UCx negative ID Dr. Marie following, recs appreciated POD #2 cystoscopy with stent removal, lithotripsy of the right renal calculi, and then s/p replacement of stent Urology Dr. Salas following CT abd/pelvis showed findings suspicious for bladder rupture Discussed findings with Dr. Salas overnight who states it is bladder tear only and management should include holding CBI Discussed again with Dr. Salas in the AM who states that CBI can be re-started at a slower rate, no further recs Cont pain management Endo Known diabetic, cont RISS and accuchecks Heme Normocytic anemia likely secondary to post operative bleeding, superimposed with hematuria, versus dilution S/p 2U PRBC with improvement in Hgb HD stable at this time No signs of active bleeding Will continue to monitor closely GI/DVT prophylaxis: protonix/SCDs only due to hematuria Patient was seen and examined at bedside and case was discussed at length with attending physician. - Date & Time Date: 09/03/17 Time: 08:45 <Demetris Li - Last Filed: 09/03/17 16:09> CCU Objective - Vital Signs / Intake & Output Vital Signs (Last 4 hours): Vital Signs Pulse Resp Pulse Ox 09/03/17 14:00 110 H 09/03/17 13:30 97 H 22 96 09/03/17 13:00 97 09/03/17 12:30 103 H 19 97 Intake and Output (Last 8hrs): Intake & Output 09/03/17 09/03/17 09/03/17 06:59 14:59 22:59 Intake Total 1200 Output Total 1400 Balance -200 Weight 215 lb 215 lb Intake: IV 1200 Left Forearm 1200 Oral 0 Output: Urine 1400 3-way Urethral 1400 Other: # Bowel Movements 1 - Medications Active Medications: Active Medications Generic Name Dose Route Start Last Admin Trade Name Freq PRN Reason Stop Dose Admin Meropenem 1 gm/ Dextrose 100 mls @ 100 mls/hr 09/02/17 07:00 09/03/17 09:00 IVPB 09/09/17 07:01 100 mls/hr Q12 JIMBO Administration Protocol Acetaminophen 1,000 mg in 100 mls @ 400 mls/hr 09/02/17 19:37 09/03/17 11:10 Ofirmev IVPB 09/04/17 19:38 400 mls/hr Q6H PRN Administration fevers Potassium Chloride 40 meq/ 1,020 mls @ 125 mls/hr 09/03/17 15:00 Sodium Chloride IV .Q8H10M [facility] Insulin Human Lispro 0 units 09/01/17 22:00 09/03/17 14:19 Humalog Low SC Not Given ACHS [facility] Protocol Morphine Sulfate 1 mg 09/03/17 09:19 09/03/17 15:05 Morphine IV 1 mg Q4H PRN Administration Pain, severe (8-10) Oxycodone HCl 5 mg 09/02/17 09:33 09/03/17 14:19 Oxycodone Immediate Release Tab PO 5 mg Q6H PRN Administration Pain, moderate (4-7) Pantoprazole Sodium 40 mg 09/02/17 10:00 09/03/17 09:01 Protonix Inj IVP 40 mg DAILY JIMBO Administration - Patient Studies Lab Studies: Microbiology Studies 09/01/17 20:25 MRSA Culture (Admit) - Final Naris MRSA NOT DETECTED 09/02/17 08:25 Urine Culture - Final Urine,[place] No Growth (<1,000 CFU/ML) 09/01/17 18:44 Blood Culture - Preliminary Blood-Venous NO GROWTH AFTER 24 HOURS 09/01/17 18:44 Blood Culture - Preliminary Blood-Venous NO GROWTH AFTER 24 HOURS Lab Studies 09/03/17 09/03/17 09/03/17 Range/Units 14:10 14:10 07:16 WBC 6.3 (4.5-11.0) 10^3/ul RBC 3.35 L (3.5-6.1) 10^6/uL Hgb 8.3 L (14.0-18.0) g/dL Hct 26.2 L (42.0-52.0) % MCV 78.2 L (80.0-105.0) fl MCH 24.8 L (25.0-35.0) pg MCHC 31.7 (31.0-37.0) g/dl RDW 16.3 H (11.5-14.5) % Plt Count 143 (120.0-450.0) 10^3/uL MPV 9.1 (7.0-11.0) fl Gran % 87.8 H (50.0-68.0) % Lymph % (Auto) 8.3 L (22.0-35.0) % [place] % (Auto) 3.7 (1.0-6.0) % Eos % (Auto) 0.2 L (1.5-5.0) % Baso % (Auto) 0.0 (0.0-3.0) % Gran # 5.53 (1.4-6.5) Lymph # 0.5 L (1.2-3.4) [place] # 0.2 (0.1-0.6) Eos # 0.0 (0.0-0.7) Baso # 0.00 (0.0-2.0) K/mm3 Sodium 138 (132-148) mmol/L Potassium 3.4 L (3.6-5.0) mmol/L Chloride 108 H (98-107) mmol/L Carbon Dioxide 21 (21-33) mmol/L Anion Gap 12 (10-20) BUN 25 H (7-21) mg/dL Creatinine 1.3 (0.8-1.5) mg/dl Est GFR ( Amer) > 60 Est GFR (Non-Af Amer) 55 POC Glucose (mg/dL) 232 H (65-110) mg/dL Random Glucose 223 H (70-110) mg/dL Calcium 8.4 (8.4-10.5) mg/dL Phosphorus 2.4 L (2.5-4.5) mg/dL Magnesium 1.7 (1.7-2.2) mg/dL Total Bilirubin 0.9 (0.2-1.3) mg/dL AST 28 (17-59) U/L ALT 36 (7-56) U/L Alkaline Phosphatase 81 (38-126) U/L Total Protein 5.8 (5.8-8.3) g/dL Albumin 2.9 L (3.0-4.8) g/dL Globulin 2.8 gm/dL Albumin/Globulin Ratio 1.0 L (1.1-1.8) Blood Type Antibody Screen Crossmatch BBK History Checked 09/03/17 09/03/17 09/02/17 Range/Units 06:50 06:50 21:41 WBC 6.8 (4.5-11.0) 10^3/ul RBC 3.60 (3.5-6.1) 10^6/uL Hgb 8.9 L (14.0-18.0) g/dL Hct 28.4 L (42.0-52.0) % MCV 78.9 L (80.0-105.0) fl MCH 24.7 L (25.0-35.0) pg MCHC 31.3 (31.0-37.0) g/dl RDW 16.5 H (11.5-14.5) % Plt Count 162 (120.0-450.0) 10^3/uL MPV 9.0 (7.0-11.0) fl Gran % 87.3 H (50.0-68.0) % Lymph % (Auto) 8.6 L (22.0-35.0) % [place] % (Auto) 4.0 (1.0-6.0) % Eos % (Auto) 0.1 L (1.5-5.0) % Baso % (Auto) 0.0 (0.0-3.0) % Gran # 5.90 (1.4-6.5) Lymph # 0.6 L (1.2-3.4) [place] # 0.3 (0.1-0.6) Eos # 0.0 (0.0-0.7) Baso # 0.00 (0.0-2.0) K/mm3 Sodium 139 (132-148) mmol/L Potassium 3.5 L (3.6-5.0) mmol/L Chloride 106 (98-107) mmol/L Carbon Dioxide 23 (21-33) mmol/L Anion Gap 13 (10-20) BUN 28 H (7-21) mg/dL Creatinine 1.4 (0.8-1.5) mg/dl Est GFR ( Amer) > 60 Est GFR (Non-Af Amer) 51 POC Glucose (mg/dL) 250 H (65-110) mg/dL Random Glucose 205 H (70-110) mg/dL Calcium 8.7 (8.4-10.5) mg/dL Phosphorus 3.2 (2.5-4.5) mg/dL Magnesium 1.9 (1.7-2.2) mg/dL Total Bilirubin 0.9 (0.2-1.3) mg/dL AST 34 (17-59) U/L ALT 32 (7-56) U/L Alkaline Phosphatase 83 (38-126) U/L Total Protein 6.2 (5.8-8.3) g/dL Albumin 3.2 (3.0-4.8) g/dL Globulin 3.0 gm/dL Albumin/Globulin Ratio 1.1 (1.1-1.8) Blood Type Antibody Screen Crossmatch BBK History Checked 09/02/17 09/02/17 09/02/17 Range/Units 21:10 21:10 16:48 WBC 6.9 (4.5-11.0) 10^3/ul RBC 3.22 L (3.5-6.1) 10^6/uL Hgb 8.1 L (14.0-18.0) g/dL Hct 25.5 L (42.0-52.0) % MCV 79.2 L (80.0-105.0) fl MCH 25.2 (25.0-35.0) pg MCHC 31.8 (31.0-37.0) g/dl RDW 16.8 H (11.5-14.5) % Plt Count 138 (120.0-450.0) 10^3/uL MPV 8.8 (7.0-11.0) fl Gran % 89.3 H (50.0-68.0) % Lymph % (Auto) 7.4 L (22.0-35.0) % [place] % (Auto) 3.3 (1.0-6.0) % Eos % (Auto) 0.0 L (1.5-5.0) % Baso % (Auto) 0.0 (0.0-3.0) % Gran # 6.18 (1.4-6.5) Lymph # 0.5 L (1.2-3.4) [place] # 0.2 (0.1-0.6) Eos # 0.0 (0.0-0.7) Baso # 0.00 (0.0-2.0) K/mm3 Sodium 136 (132-148) mmol/L Potassium 3.7 (3.6-5.0) mmol/L Chloride 106 (98-107) mmol/L Carbon Dioxide 22 (21-33) mmol/L Anion Gap 12 (10-20) BUN 29 H (7-21) mg/dL Creatinine 1.5 (0.8-1.5) mg/dl Est GFR ( Amer) 57 Est GFR (Non-Af Amer) 47 POC Glucose (mg/dL) 256 H (65-110) mg/dL Random Glucose 238 H (70-110) mg/dL Calcium 8.2 L (8.4-10.5) mg/dL Phosphorus 3.0 (2.5-4.5) mg/dL Magnesium 1.8 (1.7-2.2) mg/dL Total Bilirubin 0.8 (0.2-1.3) mg/dL AST 30 (17-59) U/L ALT 37 (7-56) U/L Alkaline Phosphatase 69 (38-126) U/L Total Protein 5.7 L (5.8-8.3) g/dL Albumin 2.9 L (3.0-4.8) g/dL Globulin 2.9 gm/dL Albumin/Globulin Ratio 1.0 L (1.1-1.8) Blood Type Antibody Screen Crossmatch BBK History Checked 09/02/17 Range/Units 10:30 WBC (4.5-11.0) 10^3/ul RBC (3.5-6.1) 10^6/uL Hgb (14.0-18.0) g/dL Hct (42.0-52.0) % MCV (80.0-105.0) fl MCH (25.0-35.0) pg MCHC (31.0-37.0) g/dl RDW (11.5-14.5) % Plt Count (120.0-450.0) 10^3/uL MPV (7.0-11.0) fl Gran % (50.0-68.0) % Lymph % (Auto) (22.0-35.0) % [place] % (Auto) (1.0-6.0) % Eos % (Auto) (1.5-5.0) % Baso % (Auto) (0.0-3.0) % Gran # (1.4-6.5) Lymph # (1.2-3.4) [place] # (0.1-0.6) Eos # (0.0-0.7) Baso # (0.0-2.0) K/mm3 Sodium (132-148) mmol/L Potassium (3.6-5.0) mmol/L Chloride (98-107) mmol/L Carbon Dioxide (21-33) mmol/L Anion Gap (10-20) BUN (7-21) mg/dL Creatinine (0.8-1.5) mg/dl Est GFR ( Amer) Est GFR (Non-Af Amer) POC Glucose (mg/dL) (65-110) mg/dL Random Glucose (70-110) mg/dL Calcium (8.4-10.5) mg/dL Phosphorus (2.5-4.5) mg/dL Magnesium (1.7-2.2) mg/dL Total Bilirubin (0.2-1.3) mg/dL AST (17-59) U/L ALT (7-56) U/L Alkaline Phosphatase (38-126) U/L Total Protein (5.8-8.3) g/dL Albumin (3.0-4.8) g/dL Globulin gm/dL Albumin/Globulin Ratio (1.1-1.8) Blood Type O POSITIVE Antibody Screen Negative Crossmatch See Detail BBK History Checked Patient has bt Laboratory Results - last 24 hr 09/02/17 09/02/17 09/02/17 10:30 16:48 21:10 WBC 6.9 RBC 3.22 L Hgb 8.1 L Hct 25.5 L MCV 79.2 L MCH 25.2 MCHC 31.8 RDW 16.8 H Plt Count 138 MPV 8.8 Gran % 89.3 H Lymph % (Auto) 7.4 L [place] % (Auto) 3.3 Eos % (Auto) 0.0 L Baso % (Auto) 0.0 Gran # 6.18 Lymph # 0.5 L [place] # 0.2 Eos # 0.0 Baso # 0.00 Sodium Potassium Chloride Carbon Dioxide Anion Gap BUN Creatinine Est GFR ( Amer) Est GFR (Non-Af Amer) POC Glucose (mg/dL) 256 H Random Glucose Calcium Phosphorus Magnesium Total Bilirubin AST ALT Alkaline Phosphatase Total Protein Albumin Globulin Albumin/Globulin Ratio Blood Type O POSITIVE Antibody Screen Negative Crossmatch See Detail BBK History Checked Patient has bt 09/02/17 09/02/17 09/03/17 21:10 21:41 06:50 WBC 6.8 RBC 3.60 Hgb 8.9 L Hct 28.4 L MCV 78.9 L MCH 24.7 L MCHC 31.3 RDW 16.5 H Plt Count 162 MPV 9.0 Gran % 87.3 H Lymph % (Auto) 8.6 L [place] % (Auto) 4.0 Eos % (Auto) 0.1 L Baso % (Auto) 0.0 Gran # 5.90 Lymph # 0.6 L [place] # 0.3 Eos # 0.0 Baso # 0.00 Sodium 136 Potassium 3.7 Chloride 106 Carbon Dioxide 22 Anion Gap 12 BUN 29 H Creatinine 1.5 Est GFR ( Amer) 57 Est GFR (Non-Af Amer) 47 POC Glucose (mg/dL) 250 H Random Glucose 238 H Calcium 8.2 L Phosphorus 3.0 Magnesium 1.8 Total Bilirubin 0.8 AST 30 ALT 37 Alkaline Phosphatase 69 Total Protein 5.7 L Albumin 2.9 L Globulin 2.9 Albumin/Globulin Ratio 1.0 L Blood Type Antibody Screen Crossmatch BBK History Checked 09/03/17 09/03/17 09/03/17 06:50 07:16 14:10 WBC 6.3 RBC 3.35 L Hgb 8.3 L Hct 26.2 L MCV 78.2 L MCH 24.8 L MCHC 31.7 RDW 16.3 H Plt Count 143 MPV 9.1 Gran % 87.8 H Lymph % (Auto) 8.3 L [place] % (Auto) 3.7 Eos % (Auto) 0.2 L Baso % (Auto) 0.0 Gran # 5.53 Lymph # 0.5 L [place] # 0.2 Eos # 0.0 Baso # 0.00 Sodium 139 Potassium 3.5 L Chloride 106 Carbon Dioxide 23 Anion Gap 13 BUN 28 H Creatinine 1.4 Est GFR ( Amer) > 60 Est GFR (Non-Af Amer) 51 POC Glucose (mg/dL) 232 H Random Glucose 205 H Calcium 8.7 Phosphorus 3.2 Magnesium 1.9 Total Bilirubin 0.9 AST 34 ALT 32 Alkaline Phosphatase 83 Total Protein 6.2 Albumin 3.2 Globulin 3.0 Albumin/Globulin Ratio 1.1 Blood Type Antibody Screen Crossmatch BBK History Checked 09/03/17 14:10 WBC RBC Hgb Hct MCV MCH MCHC RDW Plt Count MPV Gran % Lymph % (Auto) [place] % (Auto) Eos % (Auto) Baso % (Auto) Gran # Lymph # [place] # Eos # Baso # Sodium 138 Potassium 3.4 L Chloride 108 H Carbon Dioxide 21 Anion Gap 12 BUN 25 H Creatinine 1.3 Est GFR ( Amer) > 60 Est GFR (Non-Af Amer) 55 POC Glucose (mg/dL) Random Glucose 223 H Calcium 8.4 Phosphorus 2.4 L Magnesium 1.7 Total Bilirubin 0.9 AST 28 ALT 36 Alkaline Phosphatase 81 Total Protein 5.8 Albumin 2.9 L Globulin 2.8 Albumin/Globulin Ratio 1.0 L Blood Type Antibody Screen Crossmatch BBK History Checked Critical Care Progress Note - Nutrition Nutrition: Nutrition Category Date Time Status Dysphagia/Modified Consistency Diet [DIET] Diets 09/03/17 Dinner Ordered Attending/Attestation - Attestation I have personally seen and examined this patient.: Yes I have fully participated in the care of the patient.: Yes I have reviewed all pertinent clinical information: Yes Notes (Text): 09/03/17 16:00 66 yo with likely UTI with sepsis, s/p uretheral stent. Cystoscopy revealed chronic cystitis as per my conversation with Dr. Salas. Free air on CT after procedure-->surgical consult with Dr. Chambers requested; discussed with Dr. Salas as well-->states tear rather then rupture likely and recommended to proceed wth slow CBI and serial abdo exam. Abdo--soft, but mildly tender, hemodynamically relatively stable except isolated episode of SVT with stable BP , Had normal BM. Repeated labs: no leukocytosis, renal function is stable, no Hb drop. Abdo exam is unchanged-->will repeat CT abdo in am (or earlier if clinical exam deteriorates). Dr. Chambers consult is pending ccm time 40 min
[2017-09-03 14:33] LABS: EOS % 0.2 % (1.5-5.0); GRAN # 5.53 (1.4-6.5); GRAN % 87.8 % (50.0-68.0); HEMATOCRIT 26.2 % (42.0-52.0); LYMPH # 0.5 (1.2-3.4); LYMPH % 8.3 % (22.0-35.0); MEAN CELL VOLUME 78.2 fl (80.0-105.0); MEAN CORPUSCULAR HEMOGLOBIN 24.8 pg (25.0-35.0); MEAN CORPUSCULAR HGB CONC 31.7 g/dl (31.0-37.0); MEAN PLATELET VOLUME 9.1 fl (7.0-11.0); MONO # 0.2 (0.1-0.6); MONO % 3.7 % (1.0-6.0); RED CELL DISTRIBUTION WIDTH 16.3 % (11.5-14.5); WHITE BLOOD COUNT 6.3 10^3/ul (4.5-11.0)
[2017-09-03 14:46] LABS: ALKALINE PHOSPHATASE 81 U/L (38-126); ALT/SGPT 36 U/L (7-56); AST/SGOT 28 U/L (17-59); BILIRUBIN,TOTAL 0.9 mg/dL (0.2-1.3); BLOOD UREA NITROGEN 25 mg/dL (7-21); CALCIUM 8.4 mg/dL (8.4-10.5); CARBON DIOXIDE 21 mmol/L (21-33); CHLORIDE 108 mmol/L (98-107); GFR AFRICAN-AMERICAN > 60; GLUCOSE,RANDOM 223 mg/dL (70-110); MAGNESIUM 1.7 mg/dL (1.7-2.2); PHOSPHOROUS 2.4 mg/dL (2.5-4.5); POTASSIUM 3.4 mmol/L (3.6-5.0); SODIUM 138 mmol/L (132-148); TOTAL PROTEIN 5.8 g/dL (5.8-8.3)
--- NOTE | 2017-09-03 16:35 | CP.PCM.CON ---
History of Present Illness - History of Present Illness History of Present Illness: Surgery Consult: Dr. Chambers 66 y/o M with PMHx of CAD, w/drug eluting stent to LAD & RCA, DM, Depression, Rt ureteral stone s/p R ureteral lithotripsy on 09/01 and stent removal by Dr. Salas. Post operative course was complicated by sepsis and stent was re- inserted. Pt was admitted to the ICU for close monitoring. Over the course of his stay, pt started having worsening of abdominal pain which prompted a CT abdomen/pelvis. CT showed findings consistent with extra-peritoneal bladder rupture with arredondo catheter in place in the bladder and R nephroureteral stent. General surgery called to evaluate for free air. Upon examining the patient in the ICU, he is A&O x 1 and unable to answer questions appropriately. Patient groaning and complaining of abdominal pain. Unable to answer other questions at this time. PMHx - CAD, Drug eluting stent to LAD and RCA, Depression, IDDM, nephrolithiasis PSHx- Rt ureteral stent, Rt ureteral lithotripsy Allergies - none Social - smokes 1 PPD w/ 50 pack year hx, Denies alcohol, Denies illicit drugs Review of Systems - Review of Systems All systems: reviewed and no additional remarkable complaints except (as per HPI ) Past Patient History - Infectious Disease Hx of Infectious Diseases: MRSA - Past Medical History & Family History Past Medical History?: Yes - Past Social History Smoking Status: Former Smoker Home Situation {Lives}: Other (residential) - CARDIAC Hx Pacemaker: No - HEENT Hx HEENT Problems: No - RENAL Hx Chronic Kidney Disease: Yes Hx Kidney Stones: Yes - ENDOCRINE/METABOLIC Hx Diabetes Mellitus Type 2: Yes - INTEGUMENTARY Hx Dermatological Problems: No - GASTROINTESTINAL Hx Gastrointestinal Disorders: No - GENITOURINARY/GYNECOLOGICAL Hx Genitourinary Disorders: No - PSYCHIATRIC Hx Substance Use: No - SURGICAL HISTORY Hx Surgeries: Yes Hx Coronary Stent: Yes - ANESTHESIA Hx Anesthesia: Yes Hx Anesthesia Reactions: No Hx Malignant Hyperthermia: No Meds Allergies/Adverse Reactions: Allergies Allergy/AdvReac Type Severity Reaction Status Date / Time No Known Allergies Allergy Verified 05/14/17 20:35 - Medications Medications: Current Medications Meropenem 1 gm/ Dextrose 100 mls @ 100 mls/hr IVPB Q12 JIMBO PRN Reason: Protocol Stop: 09/09/17 07:01 Last Admin: 09/03/17 09:00 Dose: 100 mls/hr Acetaminophen (Ofirmev) 1,000 mg in 100 mls @ 400 mls/hr IVPB Q6H PRN PRN Reason: fevers Stop: 09/04/17 19:38 Last Admin: 09/03/17 11:10 Dose: 400 mls/hr Potassium Chloride 40 meq/ (Sodium Chloride) 1,020 mls @ 125 mls/hr IV .Q8H10M [facility] Insulin Human Lispro (Humalog Low) 0 units SC ACHS [facility] PRN Reason: Protocol Last Admin: 09/03/17 14:19 Dose: Not Given Morphine Sulfate (Morphine) 1 mg IV Q4H PRN PRN Reason: Pain, severe (8-10) Last Admin: 09/03/17 15:05 Dose: 1 mg Oxycodone HCl (Oxycodone Immediate Release Tab) 5 mg PO Q6H PRN PRN Reason: Pain, moderate (4-7) Last Admin: 09/03/17 14:19 Dose: 5 mg Pantoprazole Sodium (Protonix Inj) 40 mg IVP DAILY [facility] Last Admin: 09/03/17 09:01 Dose: 40 mg Physical Exam - Constitutional Appears: Non-toxic - Head Exam Head Exam: ATRAUMATIC, NORMAL INSPECTION, NORMOCEPHALIC - Eye Exam Eye Exam: EOMI, Normal appearance Pupil Exam: NORMAL ACCOMODATION - ENT Exam ENT Exam: Mucous Membranes Moist, Normal Exam - Neck Exam Neck exam: Positive for: Normal Inspection - Respiratory Exam Respiratory Exam: Clear to Auscultation Bilateral, NORMAL BREATHING PATTERN - Cardiovascular Exam Cardiovascular Exam: Tachycardia (Range 97-110), REGULAR RHYTHM. absent: Systolic Murmur - GI/Abdominal Exam GI & Abdominal Exam: Normal Bowel Sounds, Soft, Tenderness (Mild LLQ, RLQ, Suprapubic). absent: Rebound - Extremities Exam Extremities exam: Positive for: normal inspection - Neurological Exam Neurological exam: Altered - Skin Skin Exam: Dry, Intact, Normal Color, Warm Results - Vital Signs Recent Vital Signs: Last Vital Signs Temp 101.5 F H 09/03/17 12:00 Pulse 110 H 09/03/17 14:00 Resp 22 09/03/17 13:30 BP 145/99 H 09/03/17 11:00 Pulse Ox 96 09/03/17 13:30 - Labs Result Diagrams: 09/03/17 14:10 09/03/17 14:10 Labs: Laboratory Results - last 24 hr 09/02/17 09/02/17 09/02/17 10:30 16:48 21:10 WBC 6.9 RBC 3.22 L Hgb 8.1 L Hct 25.5 L MCV 79.2 L MCH 25.2 MCHC 31.8 RDW 16.8 H Plt Count 138 MPV 8.8 Gran % 89.3 H Lymph % (Auto) 7.4 L Fajardo % (Auto) 3.3 Eos % (Auto) 0.0 L Baso % (Auto) 0.0 Gran # 6.18 Lymph # 0.5 L Fajardo # 0.2 Eos # 0.0 Baso # 0.00 Sodium Potassium Chloride Carbon Dioxide Anion Gap BUN Creatinine Est GFR ( Amer) Est GFR (Non-Af Amer) POC Glucose (mg/dL) 256 H Random Glucose Calcium Phosphorus Magnesium Total Bilirubin AST ALT Alkaline Phosphatase Total Protein Albumin Globulin Albumin/Globulin Ratio Blood Type O POSITIVE Antibody Screen Negative Crossmatch See Detail BBK History Checked Patient has bt 09/02/17 09/02/17 09/03/17 21:10 21:41 06:50 WBC 6.8 RBC 3.60 Hgb 8.9 L Hct 28.4 L MCV 78.9 L MCH 24.7 L MCHC 31.3 RDW 16.5 H Plt Count 162 MPV 9.0 Gran % 87.3 H Lymph % (Auto) 8.6 L Fajardo % (Auto) 4.0 Eos % (Auto) 0.1 L Baso % (Auto) 0.0 Gran # 5.90 Lymph # 0.6 L Fajardo # 0.3 Eos # 0.0 Baso # 0.00 Sodium 136 Potassium 3.7 Chloride 106 Carbon Dioxide 22 Anion Gap 12 BUN 29 H Creatinine 1.5 Est GFR ( Amer) 57 Est GFR (Non-Af Amer) 47 POC Glucose (mg/dL) 250 H Random Glucose 238 H Calcium 8.2 L Phosphorus 3.0 Magnesium 1.8 Total Bilirubin 0.8 AST 30 ALT 37 Alkaline Phosphatase 69 Total Protein 5.7 L Albumin 2.9 L Globulin 2.9 Albumin/Globulin Ratio 1.0 L Blood Type Antibody Screen Crossmatch BBK History Checked 09/03/17 09/03/17 09/03/17 06:50 07:16 14:10 WBC 6.3 RBC 3.35 L Hgb 8.3 L Hct 26.2 L MCV 78.2 L MCH 24.8 L MCHC 31.7 RDW 16.3 H Plt Count 143 MPV 9.1 Gran % 87.8 H Lymph % (Auto) 8.3 L Fajardo % (Auto) 3.7 Eos % (Auto) 0.2 L Baso % (Auto) 0.0 Gran # 5.53 Lymph # 0.5 L Fajardo # 0.2 Eos # 0.0 Baso # 0.00 Sodium 139 Potassium 3.5 L Chloride 106 Carbon Dioxide 23 Anion Gap 13 BUN 28 H Creatinine 1.4 Est GFR ( Amer) > 60 Est GFR (Non-Af Amer) 51 POC Glucose (mg/dL) 232 H Random Glucose 205 H Calcium 8.7 Phosphorus 3.2 Magnesium 1.9 Total Bilirubin 0.9 AST 34 ALT 32 Alkaline Phosphatase 83 Total Protein 6.2 Albumin 3.2 Globulin 3.0 Albumin/Globulin Ratio 1.1 Blood Type Antibody Screen Crossmatch BBK History Checked 09/03/17 14:10 WBC RBC Hgb Hct MCV MCH MCHC RDW Plt Count MPV Gran % Lymph % (Auto) Fajardo % (Auto) Eos % (Auto) Baso % (Auto) Gran # Lymph # Fajardo # Eos # Baso # Sodium 138 Potassium 3.4 L Chloride 108 H Carbon Dioxide 21 Anion Gap 12 BUN 25 H Creatinine 1.3 Est GFR ( Amer) > 60 Est GFR (Non-Af Amer) 55 POC Glucose (mg/dL) Random Glucose 223 H Calcium 8.4 Phosphorus 2.4 L Magnesium 1.7 Total Bilirubin 0.9 AST 28 ALT 36 Alkaline Phosphatase 81 Total Protein 5.8 Albumin 2.9 L Globulin 2.8 Albumin/Globulin Ratio 1.0 L Blood Type Antibody Screen Crossmatch BBK History Checked - Imaging and Cardiology CT scan - abdomen Status: Image reviewed by me, Report reviewed by me Assessment & Plan - Assessment and Plan (Free Text) Assessment: 66 y/o M s/p lithotripsy on 09/01 now with free air as seen on CT abdomen, r/o bladder injury Plan: - serial abdominal exams - Repeat CT scan in AM vs OR for laparoscopy - pain control - strict I&O's - NPO, IVF, IV ABX - AM Type & Cross, CBC, CMP - d/w Dr. Reyes [place], PGY-3 Surgery
[2017-09-04] MEDS: oxyCODONE 5 mg Immediate Release Tab PO PRN ×3 (02:38→17:52)
[2017-09-04 07:05] LABS: GRAN # 6.15 (1.4-6.5); GRAN % 87.4 % (50.0-68.0); HEMATOCRIT 27.2 % (42.0-52.0); LYMPH # 0.6 (1.2-3.4); LYMPH % 8.1 % (22.0-35.0); MEAN CELL VOLUME 78.4 fl (80.0-105.0); MEAN CORPUSCULAR HEMOGLOBIN 24.8 pg (25.0-35.0); MEAN CORPUSCULAR HGB CONC 31.6 g/dl (31.0-37.0); MEAN PLATELET VOLUME 9.5 fl (7.0-11.0); MONO # 0.3 (0.1-0.6); MONO % 4.5 % (1.0-6.0); RED CELL DISTRIBUTION WIDTH 16.5 % (11.5-14.5)
[2017-09-04 07:07] LABS: ALKALINE PHOSPHATASE 84 U/L (38-126); ALT/SGPT 32 U/L (7-56); AST/SGOT 26 U/L (17-59); BILIRUBIN,TOTAL 0.9 mg/dL (0.2-1.3); BLOOD UREA NITROGEN 21 mg/dL (7-21); CALCIUM 8.5 mg/dL (8.4-10.5); CARBON DIOXIDE 19 mmol/L (21-33); CHLORIDE 112 mmol/L (98-107); GFR AFRICAN-AMERICAN > 60; GLUCOSE,RANDOM 253 mg/dL (70-110); POTASSIUM 3.7 mmol/L (3.6-5.0); SODIUM 143 mmol/L (132-148)
--- NOTE | 2017-09-04 08:18 | CON ---
DATE: 09/03/2017 SUBJECTIVE: I have asked to see this patient this afternoon. He is in CCU, bed 6. PHYSICAL EXAMINATION: VITAL SIGNS: At the present time, his vital signs showed a temperature of 101.5 this morning, pulse of 110, respiratory rate 22, and O2 saturation 96%. He apparently made in the last 12 hours about a liter of urine. The irrigation is ongoing and apparently has just been stopped. He has had multiple bowel movements. NEUROLOGIC: The patient is confused and argumentative. He was crying in pain and that seems to have resolved with the morphine. ABDOMEN: I examined him twice in the last 2 hours, first time he was tender, he was not tender now. There is no guarding or rebound, but there is distention. MEDICATIONS: Presently, he is on meropenem and vancomycin, I believe, getting insulin, oxycodone, and pain medicine recently morphine. I am aware he has had morphine. LABORATORY DATA: Remarkable for white count that is consistently low normal 6.3, hemoglobin 8.3, having received 2 units of packed cells for hemoglobin 6.9, and platelet count 142. INR 1.17. The micro so far with blood cultures are negative. It is noted that the BUN is 25 and creatinine 1.3. Lactic acid, I do not see. Glucose is elevated, now 200. CAT scan is reviewed by myself and the report reviewed seems to be retroperitoneal perforation, gas seen around the bladder, and subcutaneous tissues. There is some inflammation by the cecum, but no free air. I discussed with the patient, with Dr. Bass and Dr. Li. The patient had multiple complaints of pain, confusion, and aggression in the jail, blaming this on the stent, the stent was removed, but then replaced. The CAT scan was done on 09/02/2017. CAT scan showing some air in the retroperitoneal area. IMPRESSION AND PLAN: This is retroperitoneal perforation or leak of the bladder. It seemed to be drained well with the Norris. We will hold intervention. I will see the patient tomorrow at about 6:30. Plan either repeat CAT scan and after discussion with either laparoscopy or laparotomy, but for right now, he seems stable and appropriately treated. Alex Chambers, MD
[2017-09-04] MEDS: Insulin Lispro (humaLOG) LOW Coverage SC SCH ×4 (08:58→22:01)
[2017-09-04] MEDS ORDERED: Vancomycin 1gm in NS 250ml 250 ML IVPB SCH (09:15)
--- NOTE | 2017-09-04 09:26 | CP.CCUPN ---
<Raphael Varghese - Last Filed: 09/04/17 10:26> CCU Subjective - Physician Review Events Since Last Encounter (Free Text): 09/04/17 10:[address] Mary Pt seen and examined at bedside. Patient still reports abdominal pain. Overnight , patient was Febrile to Tmax of 102.3F. No CP/SOB. No new complaints. CCU Objective - Vital Signs / Intake & Output Vital Signs (Last 4 hours): Vital Signs Pulse Resp BP Pulse Ox 09/04/17 07:00 90 21 139/79 96 09/04/17 06:30 98 H 29 H 95 09/04/17 06:00 94 H 25 H 152/84 H 94 L 09/04/17 05:30 106 H 29 H 95 Intake and Output (Last 8hrs): Intake & Output 09/03/17 09/04/17 09/04/17 22:59 06:59 14:59 Intake Total 1860 Output Total 2650 Balance -790 Intake: IV 1800 Right Upper arm 1800 Oral 60 Output: Urine 2650 3-way Urethral 2650 - Physical Exam Head: Positive for: Atraumatic, Normocephalic Pupils: Positive for: PERRL Extroacular Muscles: Positive for: EOMI Ears: Positive for: Normal Mouth: Positive for: Moist Mucous Membranes, Normal Tounge Nose (External): Positive for: Atraumatic Neck: Positive for: Normal Range of Motion, Trachea Midline. Negative for: MIDLINE TENDERNESS Respiratory/Chest: Positive for: Clear to Auscultation, Good Air Exchange. Negative for: Wheezes, Rales, Rhonchi Cardiovascular: Positive for: Regular Rate and Rhythm, Normal S1, S2. Negative for: Murmurs, Rub, Gallop Abdomen: Positive for: Tenderness (diffusely tender to palpation.), Normal Bowel Sounds. Negative for: Distention, Peritoneal Signs, Rebound, Guarding Genitourinary Male: Positive for: Other (arredondo in place w/ CBI) Upper Extremity: Positive for: Normal Inspection. Negative for: Cyanosis, Edema Lower Extremity: Positive for: Normal Inspection, Other (SCDs in place). Negative for: Edema Neurological: Positive for: Other (awake, alert, oriented to self, place, but not time or situation, follows commands, nonfocal) Skin: Positive for: Warm, Dry. Negative for: Rashes Psychiatric: Positive for: Alert, Oriented x 3 - Medications Active Medications: Active Medications Generic Name Dose Route Start Last Admin Trade Name Freq PRN Reason Stop Dose Admin Meropenem 1 gm/ Dextrose 100 mls @ 100 mls/hr 09/02/17 07:00 09/03/17 21:21 IVPB 09/09/17 07:01 100 mls/hr Q12 JIMBO Administration Protocol Acetaminophen 1,000 mg in 100 mls @ 400 mls/hr 09/02/17 19:37 09/04/17 06:15 Ofirmev IVPB 09/04/17 19:38 400 mls/hr Q6H PRN Administration fevers Potassium Chloride 40 meq/ 1,020 mls @ 125 mls/hr 09/03/17 15:00 09/04/17 02: 00 Sodium Chloride IV 125 mls/hr .Q8H10M JIMBO Administration Vancomycin HCl 1 gm in 250 mls @ 167 mls/hr 09/04/17 09:15 Vancomycin 1gm IVPB Q12H [facility] Protocol Insulin Human Lispro 0 units 09/01/17 22:00 09/04/17 08:58 Humalog Low SC Not Given ACHS [facility] Protocol Morphine Sulfate 1 mg 09/03/17 09:19 09/03/17 19:06 Morphine IV 1 mg Q4H PRN Administration Pain, severe (8-10) Oxycodone HCl 5 mg 09/02/17 09:33 09/04/17 02:38 Oxycodone Immediate Release Tab PO 5 mg Q6H PRN Administration Pain, moderate (4-7) Pantoprazole Sodium 40 mg 09/02/17 10:00 09/03/17 09:01 Protonix Inj IVP 40 mg DAILY JIMBO Administration - Patient Studies Lab Studies: Microbiology Studies 09/01/17 18:44 Blood Culture - Preliminary Blood-Venous NO GROWTH AFTER 48 HOURS 09/01/17 18:44 Blood Culture - Preliminary Blood-Venous NO GROWTH AFTER 48 HOURS 09/01/17 20:25 MRSA Culture (Admit) - Final Naris MRSA NOT DETECTED 09/02/17 08:25 Urine Culture - Final Urine,Arredondo No Growth (<1,000 CFU/ML) Lab Studies 09/04/17 09/04/17 09/04/17 Range/Units 05:30 05:30 05:30 WBC 7.0 (4.5-11.0) 10^3/ul RBC 3.47 L (3.5-6.1) 10^6/uL Hgb 8.6 L (14.0-18.0) g/dL Hct 27.2 L (42.0-52.0) % MCV 78.4 L (80.0-105.0) fl MCH 24.8 L (25.0-35.0) pg MCHC 31.6 (31.0-37.0) g/dl RDW 16.5 H (11.5-14.5) % Plt Count 159 (120.0-450.0) 10^3/uL MPV 9.5 (7.0-11.0) fl Gran % 87.4 H (50.0-68.0) % Lymph % (Auto) 8.1 L (22.0-35.0) % [place] % (Auto) 4.5 (1.0-6.0) % Eos % (Auto) 0.0 L (1.5-5.0) % Baso % (Auto) 0.0 (0.0-3.0) % Gran # 6.15 (1.4-6.5) Lymph # 0.6 L (1.2-3.4) [place] # 0.3 (0.1-0.6) Eos # 0.0 (0.0-0.7) Baso # 0.00 (0.0-2.0) K/mm3 Sodium 143 (132-148) mmol/L Potassium 3.7 (3.6-5.0) mmol/L Chloride 112 H (98-107) mmol/L Carbon Dioxide 19 L (21-33) mmol/L Anion Gap 15 (10-20) BUN 21 (7-21) mg/dL Creatinine 1.2 (0.8-1.5) mg/dl Est GFR ( Amer) > 60 Est GFR (Non-Af Amer) > 60 POC Glucose (mg/dL) (65-110) mg/dL Random Glucose 253 H (70-110) mg/dL Calcium 8.5 (8.4-10.5) mg/dL Phosphorus (2.5-4.5) mg/dL Magnesium (1.7-2.2) mg/dL Total Bilirubin 0.9 (0.2-1.3) mg/dL AST 26 (17-59) U/L ALT 32 (7-56) U/L Alkaline Phosphatase 84 (38-126) U/L Total Protein 6.0 (5.8-8.3) g/dL Albumin 3.1 (3.0-4.8) g/dL Globulin 2.9 gm/dL Albumin/Globulin Ratio 1.0 L (1.1-1.8) Blood Type O POSITIVE Antibody Screen Negative Crossmatch See Detail BBK History Checked Patient has bt 09/03/17 09/03/17 09/03/17 Range/Units 22:17 14:10 14:10 WBC 6.3 (4.5-11.0) 10^3/ul RBC 3.35 L (3.5-6.1) 10^6/uL Hgb 8.3 L (14.0-18.0) g/dL Hct 26.2 L (42.0-52.0) % MCV 78.2 L (80.0-105.0) fl MCH 24.8 L (25.0-35.0) pg MCHC 31.7 (31.0-37.0) g/dl RDW 16.3 H (11.5-14.5) % Plt Count 143 (120.0-450.0) 10^3/uL MPV 9.1 (7.0-11.0) fl Gran % 87.8 H (50.0-68.0) % Lymph % (Auto) 8.3 L (22.0-35.0) % [place] % (Auto) 3.7 (1.0-6.0) % Eos % (Auto) 0.2 L (1.5-5.0) % Baso % (Auto) 0.0 (0.0-3.0) % Gran # 5.53 (1.4-6.5) Lymph # 0.5 L (1.2-3.4) [place] # 0.2 (0.1-0.6) Eos # 0.0 (0.0-0.7) Baso # 0.00 (0.0-2.0) K/mm3 Sodium 138 (132-148) mmol/L Potassium 3.4 L (3.6-5.0) mmol/L Chloride 108 H (98-107) mmol/L Carbon Dioxide 21 (21-33) mmol/L Anion Gap 12 (10-20) BUN 25 H (7-21) mg/dL Creatinine 1.3 (0.8-1.5) mg/dl Est GFR ( Amer) > 60 Est GFR (Non-Af Amer) 55 POC Glucose (mg/dL) 217 H (65-110) mg/dL Random Glucose 223 H (70-110) mg/dL Calcium 8.4 (8.4-10.5) mg/dL Phosphorus 2.4 L (2.5-4.5) mg/dL Magnesium 1.7 (1.7-2.2) mg/dL Total Bilirubin 0.9 (0.2-1.3) mg/dL AST 28 (17-59) U/L ALT 36 (7-56) U/L Alkaline Phosphatase 81 (38-126) U/L Total Protein 5.8 (5.8-8.3) g/dL Albumin 2.9 L (3.0-4.8) g/dL Globulin 2.8 gm/dL Albumin/Globulin Ratio 1.0 L (1.1-1.8) Blood Type Antibody Screen Crossmatch BBK History Checked 09/03/17 Range/Units 07:16 WBC (4.5-11.0) 10^3/ul RBC (3.5-6.1) 10^6/uL Hgb (14.0-18.0) g/dL Hct (42.0-52.0) % MCV (80.0-105.0) fl MCH (25.0-35.0) pg MCHC (31.0-37.0) g/dl RDW (11.5-14.5) % Plt Count (120.0-450.0) 10^3/uL MPV (7.0-11.0) fl Gran % (50.0-68.0) % Lymph % (Auto) (22.0-35.0) % [place] % (Auto) (1.0-6.0) % Eos % (Auto) (1.5-5.0) % Baso % (Auto) (0.0-3.0) % Gran # (1.4-6.5) Lymph # (1.2-3.4) [place] # (0.1-0.6) Eos # (0.0-0.7) Baso # (0.0-2.0) K/mm3 Sodium (132-148) mmol/L Potassium (3.6-5.0) mmol/L Chloride (98-107) mmol/L Carbon Dioxide (21-33) mmol/L Anion Gap (10-20) BUN (7-21) mg/dL Creatinine (0.8-1.5) mg/dl Est GFR ( Amer) Est GFR (Non-Af Amer) POC Glucose (mg/dL) 232 H (65-110) mg/dL Random Glucose (70-110) mg/dL Calcium (8.4-10.5) mg/dL Phosphorus (2.5-4.5) mg/dL Magnesium (1.7-2.2) mg/dL Total Bilirubin (0.2-1.3) mg/dL AST (17-59) U/L ALT (7-56) U/L Alkaline Phosphatase (38-126) U/L Total Protein (5.8-8.3) g/dL Albumin (3.0-4.8) g/dL Globulin gm/dL Albumin/Globulin Ratio (1.1-1.8) Blood Type Antibody Screen Crossmatch BBK History Checked Laboratory Results - last 24 hr 09/03/17 09/03/17 09/03/17 07:16 14:10 14:10 WBC 6.3 RBC 3.35 L Hgb 8.3 L Hct 26.2 L MCV 78.2 L MCH 24.8 L MCHC 31.7 RDW 16.3 H Plt Count 143 MPV 9.1 Gran % 87.8 H Lymph % (Auto) 8.3 L [place] % (Auto) 3.7 Eos % (Auto) 0.2 L Baso % (Auto) 0.0 Gran # 5.53 Lymph # 0.5 L [place] # 0.2 Eos # 0.0 Baso # 0.00 Sodium 138 Potassium 3.4 L Chloride 108 H Carbon Dioxide 21 Anion Gap 12 BUN 25 H Creatinine 1.3 Est GFR ( Amer) > 60 Est GFR (Non-Af Amer) 55 POC Glucose (mg/dL) 232 H Random Glucose 223 H Calcium 8.4 Phosphorus 2.4 L Magnesium 1.7 Total Bilirubin 0.9 AST 28 ALT 36 Alkaline Phosphatase 81 Total Protein 5.8 Albumin 2.9 L Globulin 2.8 Albumin/Globulin Ratio 1.0 L Blood Type Antibody Screen Crossmatch BBK History Checked 09/03/17 09/04/17 09/04/17 22:17 05:30 05:30 WBC 7.0 RBC 3.47 L Hgb 8.6 L Hct 27.2 L MCV 78.4 L MCH 24.8 L MCHC 31.6 RDW 16.5 H Plt Count 159 MPV 9.5 Gran % 87.4 H Lymph % (Auto) 8.1 L [place] % (Auto) 4.5 Eos % (Auto) 0.0 L Baso % (Auto) 0.0 Gran # 6.15 Lymph # 0.6 L [place] # 0.3 Eos # 0.0 Baso # 0.00 Sodium 143 Potassium 3.7 Chloride 112 H Carbon Dioxide 19 L Anion Gap 15 BUN 21 Creatinine 1.2 Est GFR ( Amer) > 60 Est GFR (Non-Af Amer) > 60 POC Glucose (mg/dL) 217 H Random Glucose 253 H Calcium 8.5 Phosphorus Magnesium Total Bilirubin 0.9 AST 26 ALT 32 Alkaline Phosphatase 84 Total Protein 6.0 Albumin 3.1 Globulin 2.9 Albumin/Globulin Ratio 1.0 L Blood Type Antibody Screen Crossmatch BBK History Checked 09/04/17 05:30 WBC RBC Hgb Hct MCV MCH MCHC RDW Plt Count MPV Gran % Lymph % (Auto) [place] % (Auto) Eos % (Auto) Baso % (Auto) Gran # Lymph # [place] # Eos # Baso # Sodium Potassium Chloride Carbon Dioxide Anion Gap BUN Creatinine Est GFR ( Amer) Est GFR (Non-Af Amer) POC Glucose (mg/dL) Random Glucose Calcium Phosphorus Magnesium Total Bilirubin AST ALT Alkaline Phosphatase Total Protein Albumin Globulin Albumin/Globulin Ratio Blood Type O POSITIVE Antibody Screen Negative Crossmatch See Detail BBK History Checked Patient has bt Fingerstick Blood Sugar Results: 217 Critical Care Progress Note - Nutrition Nutrition: Nutrition Category Date Time Status Dysphagia/Modified Consistency Diet [DIET] Diets 09/03/17 Dinner Ordered Assessment/Plan - Assessment and Plan (Free Text) Assessment: 66 yo M with a PMHx of CAD w/ GINO to LAD and RCA, depression, IDDM2, and right utereteral stone [place] [facility] [place] Dr. Salas for R utereteral stone lithotripsy and stent removal, course complicated by sepsis and re- insertion of stent same day by Dr. Salas. CT A/P with findings of possible bladder wall injury. Awaiting repeat CT and monitoring cinical status. Neurological: AMS improved, likely was 2/2 sepsis/fever Head CT was negative Will continue to monitor clinically Cardiovascular: Hx of CAD with RCA and LAD GINO HD stable ASA and plavix on hold at this time given recent CT abd/pelvis findings Pulmnologic: Protecting airway Satting well on NC Maintain O2Sat >92% GI: Awaiting repeat CT A/P. May advance diet slowly today pending CT results Cont GI ppx Nephro/Electrolytes: JOYCE was likely combination obstructive and prerenal from sepsis BUN and Cr downtrending Strict IxOs Cont NS+40mEQ K @ 125 ID: Sepsis likely UTI versus seeding of the infection from the post ureteral stent removal Still having fevers with Tmax of 102.3F, cont PRN tylenol No leukocytosis BCxs NGTD, UCx negative ID Dr. Marie following, recs appreciated IV Abx: Merrem, Vanc : POD #3 cystoscopy with stent removal, lithotripsy of the right renal calculi, and then s/p replacement of R ureteral stent Urology Dr. Salas following CT abd/pelvis showed findings suspicious for bladder rupture Repeat CT A/P pending G.Surgery consulted, Dr. Chambers, appreciate recs No acute plans for emergent surgery. Will follow patient status clinically and f/u repeat CT A/P Discussed findings with Dr. Bass, (covering for Dr. Salas), states that Dr. Salas will be in to evaluate the patient later today. States that we may decrease the CBI in the interim Cont pain management Endo: Known diabetic, cont RISS and accuchecks Heme: Normocytic anemia likely secondary to post operative bleeding, superimposed with hematuria, versus dilution Hematuria improving HD stable at this time No signs of active bleeding Will continue to monitor closely PPx: protonix SCDs Discussed case with Dr. Usman Varghese PGY1 <Berlin Mary - Last Filed: 09/04/17 12:09> CCU Objective - Vital Signs / Intake & Output Intake and Output (Last 8hrs): Intake & Output 09/03/17 09/04/17 09/04/17 22:59 06:59 14:59 Intake Total 1860 Output Total 2650 Balance -790 Intake: IV 1800 Right Upper arm 1800 Oral 60 Output: Urine 2650 3-way Urethral 2650 - Medications Active Medications: Active Medications Generic Name Dose Route Start Last Admin Trade Name Freq PRN Reason Stop Dose Admin Meropenem 1 gm/ Dextrose 100 mls @ 100 mls/hr 09/02/17 07:00 09/04/17 10:55 IVPB 09/09/17 07:01 100 mls/hr Q12 JIMBO Administration Protocol Acetaminophen 1,000 mg in 100 mls @ 400 mls/hr 09/02/17 19:37 09/04/17 06:15 Ofirmev IVPB 09/04/17 19:38 400 mls/hr Q6H PRN Administration fevers Potassium Chloride 40 meq/ 1,020 mls @ 125 mls/hr 09/03/17 15:00 09/04/17 10: 54 Sodium Chloride IV 125 mls/hr .Q8H10M JIMBO Administration Vancomycin HCl 1 gm in 250 mls @ 167 mls/hr 09/04/17 09:15 Vancomycin 1gm IVPB Q12H JIM[facility] Protocol Insulin Human Lispro 0 units 09/01/17 22:00 09/04/17 08:58 Humalog Low SC Not Given ACHS JIMBO Protocol Morphine Sulfate 1 mg 09/03/17 09:19 09/03/17 19:06 Morphine IV 1 mg Q4H PRN Administration Pain, severe (8-10) Oxycodone HCl 5 mg 09/02/17 09:33 09/04/17 10:17 Oxycodone Immediate Release Tab PO 5 mg Q6H PRN Administration Pain, moderate (4-7) Pantoprazole Sodium 40 mg 09/02/17 10:00 09/04/17 10:55 Protonix Inj IVP 40 mg DAILY JIMBO Administration - Patient Studies Lab Studies: Microbiology Studies 09/01/17 18:44 Blood Culture - Preliminary Blood-Venous NO GROWTH AFTER 48 HOURS 09/01/17 18:44 Blood Culture - Preliminary Blood-Venous NO GROWTH AFTER 48 HOURS 09/01/17 20:25 MRSA Culture (Admit) - Final Naris MRSA NOT DETECTED 09/02/17 08:25 Urine Culture - Final Urine,Arred[place] No Growth (<1,000 CFU/ML) Lab Studies 09/04/17 09/04/17 09/04/17 Range/Units 11:20 05:30 05:30 WBC (4.5-11.0) 10^3/ul RBC (3.5-6.1) 10^6/uL Hgb (14.0-18.0) g/dL Hct (42.0-52.0) % MCV (80.0-105.0) fl MCH (25.0-35.0) pg MCHC (31.0-37.0) g/dl RDW (11.5-14.5) % Plt Count (120.0-450.0) 10^3/uL MPV (7.0-11.0) fl Gran % (50.0-68.0) % Lymph % (Auto) (22.0-35.0) % [place] % (Auto) (1.0-6.0) % Eos % (Auto) (1.5-5.0) % Baso % (Auto) (0.0-3.0) % Gran # (1.4-6.5) Lymph # (1.2-3.4) [place] # (0.1-0.6) Eos # (0.0-0.7) Baso # (0.0-2.0) K/mm3 Sodium 143 (132-148) mmol/L Potassium 3.7 (3.6-5.0) mmol/L Chloride 112 H (98-107) mmol/L Carbon Dioxide 19 L (21-33) mmol/L Anion Gap 15 (10-20) BUN 21 (7-21) mg/dL Creatinine 1.2 (0.8-1.5) mg/dl Est GFR ( Amer) > 60 Est GFR (Non-Af Amer) > 60 POC Glucose (mg/dL) (65-110) mg/dL Random Glucose 253 H (70-110) mg/dL Calcium 8.5 (8.4-10.5) mg/dL Phosphorus (2.5-4.5) mg/dL Magnesium (1.7-2.2) mg/dL Total Bilirubin 0.9 (0.2-1.3) mg/dL AST 26 (17-59) U/L ALT 32 (7-56) U/L Alkaline Phosphatase 84 (38-126) U/L Total Protein 6.0 (5.8-8.3) g/dL Albumin 3.1 (3.0-4.8) g/dL Globulin 2.9 gm/dL Albumin/Globulin Ratio 1.0 L (1.1-1.8) Influenza Typ A,B (EIA) Negative for flu a/b (NEGATIVE) Blood Type O POSITIVE Antibody Screen Negative Crossmatch See Detail BBK History Checked Patient has bt 09/04/17 09/03/17 09/03/17 Range/Units 05:30 22:17 14:10 WBC 7.0 (4.5-11.0) 10^3/ul RBC 3.47 L (3.5-6.1) 10^6/uL Hgb 8.6 L (14.0-18.0) g/dL Hct 27.2 L (42.0-52.0) % MCV 78.4 L (80.0-105.0) fl MCH 24.8 L (25.0-35.0) pg MCHC 31.6 (31.0-37.0) g/dl RDW 16.5 H (11.5-14.5) % Plt Count 159 (120.0-450.0) 10^3/uL MPV 9.5 (7.0-11.0) fl Gran % 87.4 H (50.0-68.0) % Lymph % (Auto) 8.1 L (22.0-35.0) % [place] % (Auto) 4.5 (1.0-6.0) % Eos % (Auto) 0.0 L (1.5-5.0) % Baso % (Auto) 0.0 (0.0-3.0) % Gran # 6.15 (1.4-6.5) Lymph # 0.6 L (1.2-3.4) [place] # 0.3 (0.1-0.6) Eos # 0.0 (0.0-0.7) Baso # 0.00 (0.0-2.0) K/mm3 Sodium 138 (132-148) mmol/L Potassium 3.4 L (3.6-5.0) mmol/L Chloride 108 H (98-107) mmol/L Carbon Dioxide 21 (21-33) mmol/L Anion Gap 12 (10-20) BUN 25 H (7-21) mg/dL Creatinine 1.3 (0.8-1.5) mg/dl Est GFR ( Amer) > 60 Est GFR (Non-Af Amer) 55 POC Glucose (mg/dL) 217 H (65-110) mg/dL Random Glucose 223 H (70-110) mg/dL Calcium 8.4 (8.4-10.5) mg/dL Phosphorus 2.4 L (2.5-4.5) mg/dL Magnesium 1.7 (1.7-2.2) mg/dL Total Bilirubin 0.9 (0.2-1.3) mg/dL AST 28 (17-59) U/L ALT 36 (7-56) U/L Alkaline Phosphatase 81 (38-126) U/L Total Protein 5.8 (5.8-8.3) g/dL Albumin 2.9 L (3.0-4.8) g/dL Globulin 2.8 gm/dL Albumin/Globulin Ratio 1.0 L (1.1-1.8) Influenza Typ A,B (EIA) (NEGATIVE) Blood Type Antibody Screen Crossmatch BBK History Checked 09/03/17 Range/Units 14:10 WBC 6.3 (4.5-11.0) 10^3/ul RBC 3.35 L (3.5-6.1) 10^6/uL Hgb 8.3 L (14.0-18.0) g/dL Hct 26.2 L (42.0-52.0) % MCV 78.2 L (80.0-105.0) fl MCH 24.8 L (25.0-35.0) pg MCHC 31.7 (31.0-37.0) g/dl RDW 16.3 H (11.5-14.5) % Plt Count 143 (120.0-450.0) 10^3/uL MPV 9.1 (7.0-11.0) fl Gran % 87.8 H (50.0-68.0) % Lymph % (Auto) 8.3 L (22.0-35.0) % [place] % (Auto) 3.7 (1.0-6.0) % Eos % (Auto) 0.2 L (1.5-5.0) % Baso % (Auto) 0.0 (0.0-3.0) % Gran # 5.53 (1.4-6.5) Lymph # 0.5 L (1.2-3.4) [place] # 0.2 (0.1-0.6) Eos # 0.0 (0.0-0.7) Baso # 0.00 (0.0-2.0) K/mm3 Sodium (132-148) mmol/L Potassium (3.6-5.0) mmol/L Chloride (98-107) mmol/L Carbon Dioxide (21-33) mmol/L Anion Gap (10-20) BUN (7-21) mg/dL Creatinine (0.8-1.5) mg/dl Est GFR ( Amer) Est GFR (Non-Af Amer) POC Glucose (mg/dL) (65-110) mg/dL Random Glucose (70-110) mg/dL Calcium (8.4-10.5) mg/dL Phosphorus (2.5-4.5) mg/dL Magnesium (1.7-2.2) mg/dL Total Bilirubin (0.2-1.3) mg/dL AST (17-59) U/L ALT (7-56) U/L Alkaline Phosphatase (38-126) U/L Total Protein (5.8-8.3) g/dL Albumin (3.0-4.8) g/dL Globulin gm/dL Albumin/Globulin Ratio (1.1-1.8) Influenza Typ A,B (EIA) (NEGATIVE) Blood Type Antibody Screen Crossmatch BBK History Checked Laboratory Results - last 24 hr 09/03/17 09/03/17 09/03/17 14:10 14:10 22:17 WBC 6.3 RBC 3.35 L Hgb 8.3 L Hct 26.2 L MCV 78.2 L MCH 24.8 L MCHC 31.7 RDW 16.3 H Plt Count 143 MPV 9.1 Gran % 87.8 H Lymph % (Auto) 8.3 L [place] % (Auto) 3.7 Eos % (Auto) 0.2 L Baso % (Auto) 0.0 Gran # 5.53 Lymph # 0.5 L [place] # 0.2 Eos # 0.0 Baso # 0.00 Sodium 138 Potassium 3.4 L Chloride 108 H Carbon Dioxide 21 Anion Gap 12 BUN 25 H Creatinine 1.3 Est GFR ( Amer) > 60 Est GFR (Non-Af Amer) 55 POC Glucose (mg/dL) 217 H Random Glucose 223 H Calcium 8.4 Phosphorus 2.4 L Magnesium 1.7 Total Bilirubin 0.9 AST 28 ALT 36 Alkaline Phosphatase 81 Total Protein 5.8 Albumin 2.9 L Globulin 2.8 Albumin/Globulin Ratio 1.0 L Influenza Typ A,B (EIA) Blood Type Antibody Screen Crossmatch BBK History Checked 09/04/17 09/04/17 09/04/17 05:30 05:30 05:30 WBC 7.0 RBC 3.47 L Hgb 8.6 L Hct 27.2 L MCV 78.4 L MCH 24.8 L MCHC 31.6 RDW 16.5 H Plt Count 159 MPV 9.5 Gran % 87.4 H Lymph % (Auto) 8.1 L [place] % (Auto) 4.5 Eos % (Auto) 0.0 L Baso % (Auto) 0.0 Gran # 6.15 Lymph # 0.6 L [place] # 0.3 Eos # 0.0 Baso # 0.00 Sodium 143 Potassium 3.7 Chloride 112 H Carbon Dioxide 19 L Anion Gap 15 BUN 21 Creatinine 1.2 Est GFR ( Amer) > 60 Est GFR (Non-Af Amer) > 60 POC Glucose (mg/dL) Random Glucose 253 H Calcium 8.5 Phosphorus Magnesium Total Bilirubin 0.9 AST 26 ALT 32 Alkaline Phosphatase 84 Total Protein 6.0 Albumin 3.1 Globulin 2.9 Albumin/Globulin Ratio 1.0 L Influenza Typ A,B (EIA) Blood Type O POSITIVE Antibody Screen Negative Crossmatch See Detail BBK History Checked Patient has bt 09/04/17 11:20 WBC RBC Hgb Hct MCV MCH MCHC RDW Plt Count MPV Gran % Lymph % (Auto) [place] % (Auto) Eos % (Auto) Baso % (Auto) Gran # Lymph # [place] # Eos # Baso # Sodium Potassium Chloride Carbon Dioxide Anion Gap BUN Creatinine Est GFR ( Amer) Est GFR (Non-Af Amer) POC Glucose (mg/dL) Random Glucose Calcium Phosphorus Magnesium Total Bilirubin AST ALT Alkaline Phosphatase Total Protein Albumin Globulin Albumin/Globulin Ratio Influenza Typ A,B (EIA) Negative for flu a/b Blood Type Antibody Screen Crossmatch BBK History Checked Critical Care Progress Note - Nutrition Nutrition: Nutrition Category Date Time Status Dysphagia/Modified Consistency Diet [DIET] Diets 09/03/17 Dinner Ordered Assessment/Plan - Assessment and Plan (Free Text) Assessment: Patient seen and examined with resident, agree with ntoe with following additions/exceptions: Patient is 66yo male with PMHx of ?dementia, CAD with stents, DM, admitted from [facility] s/p urological procedure, ureteral stent removal, lithotripsy, post op started having fevers, AMS, and increased lactate, admitted to ICU with severe Sepsis. Patient had CT A/P which showed air in the extraperitoneal space, 2/2 possibly bladder tear. Currently afebrile, but HD stable, comfortable, with no major complaints. On broad spectrum abx, ID is following. Cultures thus far negative Severe Sepsis UTI Dehydration CAD DM ARF Extraperotineal Air Recommend: - supp o2 as needed - broad spectrum antibiotics as per ID - follow up cultures - check prolcacitonin - anti-pyretics - IVF hydration - FS control - consider restarting dual antiplatelet agents if no surgical intervention - GI ppx - DVT ppx - follow up urology, surgery critical care time 45 minutes
--- NOTE | 2017-09-04 10:15 | CT ---
PROCEDURE: CT Abdomen and Pelvis without intravenous contrast HISTORY: Re-Eval of Extraperitoneal Bladder perforation COMPARISON: CT 09/02/2017 TECHNIQUE: Without contrast.. Contrast Dose: Radiation dose: Total exam DLP = 1375 mGy-cm. This CT exam was performed using one or more of the following dose reduction techniques: Automated exposure control, adjustment of the mA and/or kV according to patient size, and/or use of iterative reconstruction technique. FINDINGS: LOWER THORAX: Unremarkable. LIVER: Unremarkable. No gross lesion or ductal dilatation. GALLBLADDER AND BILE DUCTS: Unremarkable. PANCREAS: Unremarkable. No gross lesion or ductal dilatation. SPLEEN: There is mild splenomegaly. The spleen measures 17 cm AP x 8 cm in with. ADRENALS: Unremarkable. No mass. KIDNEYS AND URETERS: There is a right-sided ureteral stent. There is bilateral perinephric stranding. VASCULATURE: Unremarkable. No aortic aneurysm. BOWEL: Unremarkable. No obstruction. No gross mural thickening. APPENDIX: Unremarkable. Normal appendix. PERITONEUM: As seen previously there is a large amount of extraperitoneal air around the bladder extending into the inguinal canals and anteriorly along the anterior abdominal wall. There is a slight decrease in the amount of air. LYMPH NODES: Unremarkable. No enlarged lymph nodes. BLADDER: The bladder is thick-walled. There is a Norris catheter in place. REPRODUCTIVE: Unremarkable. BONES: No acute fracture. OTHER FINDINGS: None. IMPRESSION: As seen previously there is a large amount of extraperitoneal air around the bladder extending into the inguinal canals and anteriorly along the anterior abdominal wall. There is a slight decrease in the amount of air.
--- NOTE | 2017-09-04 10:26 | CP.PCM.PN ---
Subjective - Date & Time of Evaluation Date of Evaluation: 09/04/17 Time of Evaluation: 10:00 - Subjective Subjective: Patient continues to have pain in the lower abdominal area, still with intermittent fevers, awake, responds to simple questions, aware that he is in [facility] and he had a cystoscopy and ureter stent placement. No diarrhea. Objective - Vital Signs/Intake and Output Vital Signs (last 24 hours): Temp Pulse Resp BP Pulse Ox 102.3 F H 97 H 22 145/99 H 96 09/03/17 21:34 09/03/17 22:00 09/03/17 13:30 09/03/17 11:00 09/03/17 13:30 - Medications Medications: Current Medications Meropenem 1 gm/ Dextrose 100 mls @ 100 mls/hr IVPB Q12 JIMBO PRN Reason: Protocol Stop: 09/09/17 07:01 Last Admin: 09/03/17 21:21 Dose: 100 mls/hr Acetaminophen (Ofirmev) 1,000 mg in 100 mls @ 400 mls/hr IVPB Q6H PRN PRN Reason: fevers Stop: 09/04/17 19:38 Last Admin: 09/04/17 06:15 Dose: 400 mls/hr Potassium Chloride 40 meq/ (Sodium Chloride) 1,020 mls @ 125 mls/hr IV .Q8H10M [facility] Last Admin: 09/04/17 02:00 Dose: 125 mls/hr Insulin Human Lispro (Humalog Low) 0 units SC ACHS JIMBO PRN Reason: Protocol Last Admin: 09/03/17 22:51 Dose: Not Given Morphine Sulfate (Morphine) 1 mg IV Q4H PRN PRN Reason: Pain, severe (8-10) Last Admin: 09/03/17 19:06 Dose: 1 mg Oxycodone HCl (Oxycodone Immediate Release Tab) 5 mg PO Q6H PRN PRN Reason: Pain, moderate (4-7) Last Admin: 09/04/17 02:38 Dose: 5 mg Pantoprazole Sodium (Protonix Inj) 40 mg IVP DAILY [facility] Last Admin: 09/03/17 09:01 Dose: 40 mg - Labs Labs: 09/03/17 14:10 09/03/17 14:10 PT 12.9 SECONDS (9.4-12.5) H 09/01/17 11:22 INR 1.17 (0.93-1.08) H 09/01/17 11:22 - Constitutional Appears: Chronically Ill - Head Exam Head Exam: NORMAL INSPECTION - ENT Exam ENT Exam: Mucous Membranes Moist - Neck Exam Neck Exam: absent: Lymphadenopathy, Meningismus - Respiratory Exam Respiratory Exam: Decreased Breath Sounds - Cardiovascular Exam Cardiovascular Exam: +S1, +S2 - GI/Abdominal Exam GI & Abdominal Exam: Guarding (less guarding noted compared to previous days), Soft, Tenderness (in the lower abdominal area) Assessment and Plan - Assessment and Plan (Free Text) Plan: Assessment Severe sepsis with acute on chronic renal failure (improved) and acute encephalopathy probably related to possible perforated urinary bladder with retroperitoneal air and UTI with associated ureteral stone, right ureteral stent placement S/P lithotripsy POD#3 CAD S/P PCI right ureteral stent placement because of obstructing ureteral stone 04/2017 HTN DM PVD history of depression Plan now that the renal function has normalized, will start IV Vancomycin q12 (and monitor renal function) and continue Merrem day 3; blood and urine cx are negative from 2 days ago - will repeat blood cx today reviewed CT scan of the abdomen and pelvis - had repeat CT scan today and will review discussed with Dr. Bass - observe patient will continue to monitor clinically
[2017-09-04] MEDS: Meropenem 1 GM in Dextrose 5% In Water 100 ML IVPB SCH ×2 (10:55→22:30)
--- NOTE | 2017-09-04 12:10 | CP.PCM.PN ---
Subjective - Date & Time of Evaluation Date of Evaluation: 09/04/17 Time of Evaluation: 12:01 - Subjective Subjective: General Surgery - Dr. Chambers Pt S&E. Overnight pt was continued on CBI with 2000cc of irrigaton used and a total of 4600cc of output in the arredondo. Pt continues to complain of pain in the abdomen diffusely as well as in the back. He is afebrile, denies any N/V, SOb/Chest pain. Objective - Vital Signs/Intake and Output Vital Signs (last 24 hours): Temp Pulse Resp BP Pulse Ox 100.0 F H 90 21 139/79 96 09/04/17 04:00 09/04/17 07:00 09/04/17 07:00 09/04/17 07:00 09/04/17 07:00 Intake and Output: 09/04/17 09/04/17 06:59 18:59 Intake Total 1860 Output Total 2650 Balance -790 - Medications Medications: Current Medications Meropenem 1 gm/ Dextrose 100 mls @ 100 mls/hr IVPB Q12 JIMBO PRN Reason: Protocol Stop: 09/09/17 07:01 Last Admin: 09/04/17 10:55 Dose: 100 mls/hr Acetaminophen (Ofirmev) 1,000 mg in 100 mls @ 400 mls/hr IVPB Q6H PRN PRN Reason: fevers Stop: 09/04/17 19:38 Last Admin: 09/04/17 06:15 Dose: 400 mls/hr Potassium Chloride 40 meq/ (Sodium Chloride) 1,020 mls @ 125 mls/hr IV .Q8H10M [facility] Last Admin: 09/04/17 10:54 Dose: 125 mls/hr Vancomycin HCl (Vancomycin 1gm) 1 gm in 250 mls @ 167 mls/hr IVPB Q12H JIMBO PRN Reason: Protocol Insulin Human Lispro (Humalog Low) 0 units SC ACHS JIMBO PRN Reason: Protocol Last Admin: 09/04/17 08:58 Dose: Not Given Morphine Sulfate (Morphine) 1 mg IV Q4H PRN PRN Reason: Pain, severe (8-10) Last Admin: 09/03/17 19:06 Dose: 1 mg Oxycodone HCl (Oxycodone Immediate Release Tab) 5 mg PO Q6H PRN PRN Reason: Pain, moderate (4-7) Last Admin: 09/04/17 10:17 Dose: 5 mg Pantoprazole Sodium (Protonix Inj) 40 mg IVP DAILY JIMBO Last Admin: 09/04/17 10:55 Dose: 40 mg - Labs Labs: 09/04/17 05:30 09/04/17 05:30 PT 12.9 SECONDS (9.4-12.5) H 09/01/17 11:22 INR 1.17 (0.93-1.08) H 09/01/17 11:22 - Constitutional Appears: No Acute Distress - Head Exam Head Exam: ATRAUMATIC, NORMAL INSPECTION, NORMOCEPHALIC - Eye Exam Eye Exam: Normal appearance - Respiratory Exam Respiratory Exam: NORMAL BREATHING PATTERN. absent: Respiratory Distress - Cardiovascular Exam Cardiovascular Exam: REGULAR RHYTHM - GI/Abdominal Exam GI & Abdominal Exam: Guarding (suprapubic region), Soft, Tenderness (diffusely, mostly suprapubic). absent: Distended, Rigid, Rebound - Neurological Exam Neurological Exam: Alert, Oriented x3 - Psychiatric Exam Psychiatric exam: Normal Affect, Normal Mood - Skin Skin Exam: Dry, Intact, Normal Color Assessment and Plan - Assessment and Plan (Free Text) Assessment: 66M s/p cysto on 09/01 with extraperitoneal bladder injury Plan: - Urine output has been adequate in presence of irrigation, indicating any tear would have likely sealed by now - Repeat CT similar with slight decrease in amount of extraperitoneal air - Continue pain control, Is/Os - Case was discussed b/w Urology and Surgical team - No plans for surgical intervention at this time DW Dr. Reyes Melgar PGY3
[2017-09-04] MEDS: Vancomycin 1gm in NS 250ml 1 GM/250 ML BAG IVPB SCH ×2 (12:34→21:42)
--- NOTE | 2017-09-04 15:00 | PN ---
DATE: 09/03/2017 SUBJECTIVE: The patient is a 66-year-old male admitted to [facility] on 09/01/2017, by my associate Dr. Alex Bowman with diagnosis of right ureteral calculus. 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 He also has a history of coronary artery disease status post PTCA, the last of which was in 04/2017. The patient was in a subacute rehab facility, although it was still difficult for him to ambulate because of his neuropathy. He was complaining of abdominal pain, brought to the [facility] and is admitted. He underwent cystoscopy with Dr. Salas. Case was discussed with Dr. Salas. Multiple blood clots were removed from the bladder, the bladder wall was very friable. After the procedure, the patient became obtunded, mental status change, complained of increasing abdominal pain, he was therefore transferred to the Intensive Care Unit. Follow CAT scan is suggesting bladder rupture with fluid in the retroperitoneal space. When seeing today, the patient is status post transfusion of 2 units of packed red blood cells type O positive. He is being treated with vancomycin. He is complaining of abdominal pain and feeling sick. PHYSICAL EXAMINATION: LUNGS: His lungs are clear anteriorly. HEART: Regular. ABDOMEN: Diffusely tender especially in the suprapubic area. LABORATORY DATA: The white blood cell count this morning is 6.8 and hemoglobin and hematocrit are 8.9 and 28.2. Blood urea nitrogen is 28, creatinine is 1.4, sodium is 139, and potassium is 3.5. IMPRESSION AND PLAN: So, the patient continues to be followed slowly. Case was discussed with Dr. Salas. He relays to me that the case was also discussed with Dr. Chambers. The plan is to continue on vancomycin, continue gentle flushing of the bladder, and allow the patient's condition to subside. The patient will continued to be followed closely. Fransisco Bowman MD
[2017-09-04] MEDS: Morphine 5 MG/ML SYRINGE IV PRN (20:15)
--- NOTE | 2017-09-05 02:17 | PN ---
DATE: 09/04/2017 DAILY PROGRESS NOTE SUBJECTIVE: The patient was seen this early afternoon in intensive care unit, ICU bed 6. His dear friend and power of workers compensation attorney was at the bedside. The patient is much more awake, able to carry on conversation, although most of what he had to say was "Help me Dr. Dill". He is awake and alert, follows commands, recognizes me. Can answer simple questions. Reports some low abdominal pain. PHYSICAL EXAMINATION: HEAD AND NECK: Otherwise unremarkable. LUNGS: Show good aeration, right and left. HEART: Regular, not tachycardic, but in the mid 90s. ABDOMEN: Soft. There is some tenderness in the lower mid abdomen. EXTREMITIES: Show no edema. IMPRESSION: 1. Abdominal pain. 2. Urinary tract infection. 3. Bladder leak. 4. History of kidney stones. 5. Hypertension. 6. Diabetes. 7. Coronary artery disease, status post recent stenting procedure. PLAN: Continuing antibiotics. Surgical, urologic, and infectious disease consultation appreciated along with the extensive note from the hospital underground repairer. We will continue current plan and medications as outlined in the underground repairer's note. Alex Bowman MD MTDD
[2017-09-05] MEDS: Pantoprazole 40 mg EC Tab PO SCH (05:42)
[2017-09-05] MEDS: oxyCODONE 5 mg Immediate Release Tab PO PRN ×3 (05:42→21:29)
[2017-09-05] MEDS ORDERED: Levalbuterol 0.63 MG/3 ML Inhal Soln UD IH PRN (06:45)
[2017-09-05] MEDS: Morphine 5 MG/ML SYRINGE IV PRN (06:45)
[2017-09-05 07:17] LABS: ALB/GLOB RATIO 0.9 (1.1-1.8); ALKALINE PHOSPHATASE 81 U/L (38-126); ALT/SGPT 34 U/L (7-56); AST/SGOT 30 U/L (17-59); BILIRUBIN,TOTAL 0.8 mg/dL (0.2-1.3); BLOOD UREA NITROGEN 21 mg/dL (7-21); CALCIUM 8.7 mg/dL (8.4-10.5); CARBON DIOXIDE 22 mmol/L (21-33); CHLORIDE 113 mmol/L (98-107); GFR AFRICAN-AMERICAN > 60; GLUCOSE,RANDOM 263 mg/dL (70-110); MAGNESIUM 1.9 mg/dL (1.7-2.2); PHOSPHOROUS 2.4 mg/dL (2.5-4.5); POTASSIUM 3.5 mmol/L (3.6-5.0); SODIUM 144 mmol/L (132-148); TOTAL PROTEIN 5.9 g/dL (5.8-8.3)
[2017-09-05 07:28] LABS: GRAN # 6.71 (1.4-6.5); GRAN % 83.8 % (50.0-68.0); HEMATOCRIT 28.4 % (42.0-52.0); LYMPH # 0.7 (1.2-3.4); LYMPH % 8.8 % (22.0-35.0); MEAN CELL VOLUME 78.9 fl (80.0-105.0); MEAN CORPUSCULAR HEMOGLOBIN 24.4 pg (25.0-35.0); MEAN PLATELET VOLUME 9.9 fl (7.0-11.0); MONO # 0.6 (0.1-0.6); MONO % 7.4 % (1.0-6.0); RED CELL DISTRIBUTION WIDTH 16.7 % (11.5-14.5)
[2017-09-05] MEDS ORDERED: Potassium Phosphate 15 MMOLE in Sodium Chloride 0.9% 250 ML IVPB ONE (07:49)
[2017-09-05] MEDS: Insulin Lispro (humaLOG) LOW Coverage SC SCH (08:08)
--- NOTE | 2017-09-05 08:29 | PN ---
DATE: 09/03/2017 SUBJECTIVE: The patient is seen in the ICU at [facility]. OBJECTIVE: GENERAL: He currently appears stable. VITAL SIGNS: He has a low-grade temperature, blood pressure of 152/86, pulse 92, and respirations 16. ABDOMEN: Soft, no guarding, no rebound. No CVA tenderness. No suprapubic tenderness. GENITOURINARY: Phallus is normal. Norris catheter in place, which is draining lightly tinged urine on slow CBI. RESULTS: Cultures so far are negative. The patient had a CT scan, which showed fluid in the pelvis and question of bladder perforations. IMPRESSION AND PLAN: The patient appears to be stable at this time. Likely sepsis, although cultures were negative likely from antibiotics. I reviewed the CT scan and I have discussed with General Surgery. During the cystoscopy, the patient's bladder was extremely friable and appeared to have cystitis possibly from the indwelling stent and/or infection. When the clots were removed, it is possible that from the force of irrigation, there was some extravasation of fluid due to the bladder friability. Treatment for extraperitoneal bladder perforation is indwelling Norris catheter and the patient is adequately drained at this time. I gently irrigated his Norris catheter and removed a few clots. It is now running clear. The plan is to continue Norris drainage. Continue antibiotics and treatment for sepsis. We will plan on a repeat CT scan either tomorrow or the following day to make sure the patient is not developing any abscess or worsening of the fluid collections. I have discussed this with General Surgery who agrees. They do not feel there was any bowel involvement or need for surgical intervention at this time. We will reevaluate the patient tomorrow. Troy Salas MD
--- NOTE | 2017-09-05 08:39 | PN ---
DATE: 09/04/2017 SUBJECTIVE: The patient remains in the Intensive Care Unit. He is still complaining of abdominal and low back pain. OBJECTIVE: VITAL SIGNS: He has been afebrile, pulse 92, BP 140/80, respirations 20. ABDOMEN: Soft. Mild diffuse tenderness. There is no rebound or guarding. Bladder is not palpably distended. : Norris catheter in place draining clear urine on slow CBI. INTAKE/OUTPUT: Show a good urine output. LABORATORY DATA: WBC count 7.0, hemoglobin 8.6, creatinine down to 1.2 with a GFR greater than 60. Repeat CT showed decreased air in the pelvis, no evidence of abscess. IMPRESSION AND PLAN: The patient appears to be improving, his cultures have been negative. There is decreasing air noted on CT scan. It is unclear how much of his pain is from the indwelling stent versus the fluid and air in the retroperitoneum versus his chronic pain from his neuropathy. Prior to this procedure, the patient was having chronic pain of unclear etiology which is why he was in an assisted nursing facility getting rehab as he was unable to walk. Plan for now will be to continue observation, IV fluids and IV antibiotics. I would plan on a repeat CT scan next week to see if it has resolved. I think we would also consider a physical therapy evaluation at some point, possibly Neurology consultation regarding the patient's underlying neuropathy and chronic pain, but it does not appear that he needs any surgical intervention at this time. Would continue Norris drainage on slow CBI, so it does not get clotted. Continue on tamsulosin. I will consider discontinuation of Norris catheter in a few days. Troy Salas MD
--- NOTE | 2017-09-05 09:50 | CP.CCUPN ---
<Raphael Varghese - Last Filed: 09/05/17 09:47> CCU Subjective - Physician Review Events Since Last Encounter (Free Text): 09/05/17 09:[address] Mary Pt seen and examined at bedside. No acute events overnight. Patient is delirious this morning, states that he does not know where he is and is a bit confused. He does report some SOB this morning. Tmax of 101F overnight. CCU Objective - Vital Signs / Intake & Output Vital Signs (Last 4 hours): Vital Signs Pulse Resp BP Pulse Ox 09/05/17 09:30 106 H 27 H 100 09/05/17 09:00 112 H 29 H 144/83 100 09/05/17 08:30 113 H 42 H 100 09/05/17 08:00 104 H 27 H 127/77 100 09/05/17 07:30 112 H 33 H 100 09/05/17 07:22 157/98 H 09/05/17 07:00 130 H 44 H 157/98 H 100 09/05/17 06:30 127 H 86 L 09/05/17 06:04 108 H 42 H 161/94 H 97 09/05/17 06:00 108 H 42 H 165/97 H 99 Intake and Output (Last 8hrs): Intake & Output 09/04/17 09/05/17 09/05/17 22:59 06:59 14:59 Intake Total 2330 1860 1230 Output Total 3275 1000 1250 Balance -945 860 -20 Intake: IV 1500 1500 Right Upper arm 1500 1500 Oral 480 360 480 Other 350 750 Output: Urine 3275 1000 1250 3-way Urethral 3275 1000 1250 Other: # Bowel Movements 2 - Physical Exam Head: Positive for: Atraumatic, Normocephalic Pupils: Positive for: PERRL Extroacular Muscles: Positive for: EOMI Ears: Positive for: Normal Mouth: Positive for: Moist Mucous Membranes, Normal Tounge Nose (External): Positive for: Atraumatic Neck: Positive for: Normal Range of Motion, Trachea Midline. Negative for: MIDLINE TENDERNESS Respiratory/Chest: Positive for: Clear to Auscultation, Good Air Exchange. Negative for: Wheezes, Rales, Rhonchi Cardiovascular: Positive for: Regular Rate and Rhythm, Normal S1, S2. Negative for: Murmurs, Rub, Gallop Abdomen: Positive for: Tenderness (diffusely tender to palpation.), Normal Bowel Sounds. Negative for: Distention, Peritoneal Signs, Rebound, Guarding Genitourinary Male: Positive for: Other (arredondo in place w/ CBI) Upper Extremity: Positive for: Normal Inspection. Negative for: Cyanosis, Edema Lower Extremity: Positive for: Normal Inspection, Other (SCDs in place). Negative for: Edema Neurological: Positive for: Other (awake, alert, confused this morning. Follows commands, nonfocal) Skin: Positive for: Warm, Dry. Negative for: Rashes Psychiatric: Positive for: Alert, Anxious, Agitated - Medications Active Medications: Active Medications Generic Name Dose Route Start Last Admin Trade Name Freq PRN Reason Stop Dose Admin Acetaminophen 650 mg 09/04/17 21:51 09/05/17 05:41 Tylenol 325mg Tab PO 650 mg Q6H PRN Administration Fever >100.4 F Alprazolam 0.5 mg 09/05/17 08:38 09/05/17 08:46 Xanax PO 0.5 mg TID PRN Administration Anxiety Protocol Aspirin 81 mg 09/05/17 10:00 Ecotrin PO DAILY JIMBO Clopidogrel Bisulfate 75 mg 09/04/17 15:00 09/04/17 17:17 Plavix PO 75 mg DAILY JIMBO Administration Meropenem 1 gm/ Dextrose 100 mls @ 100 mls/hr 09/02/17 07:00 09/04/17 22:30 IVPB 09/09/17 07:01 100 mls/hr Q12 JIMBO Administration Protocol Vancomycin HCl 1 gm in 250 mls @ 167 mls/hr 09/04/17 09:15 09/04/17 21:42 Vancomycin 1gm IVPB 167 mls/hr Q12H JIMBO Administration Protocol Potassium Phosphate 15 mmole/ 255 mls @ 42.5 mls/hr 09/05/17 07:49 09/05/17 08:29 Sodium Chloride IVPB 09/05/17 13:48 42.5 mls/hr ONCE ONE Administration Insulin Human Lispro 0 units 09/01/17 22:00 09/05/17 08:08 Humalog Low SC 4 units ACHS JIMBO Administration Protocol Levalbuterol HCl 0.63 mg 09/05/17 06:45 09/05/17 06:54 Xopenex IH 0.63 mg [id number] PRN Administration Shortness of Breath Morphine Sulfate 1 mg 09/04/17 20:01 09/05/17 06:45 Morphine IV 1 mg Q4H PRN Administration Pain, severe (8-10) Oxycodone HCl 5 mg 09/02/17 09:33 09/05/17 05:42 Oxycodone Immediate Release Tab PO 5 mg Q6H PRN Administration Pain, moderate (4-7) Pantoprazole Sodium 40 mg 09/05/17 06:00 09/05/17 05:42 Protonix Ec Tab PO 40 mg 0600 JIMBO Administration - Patient Studies Lab Studies: Microbiology Studies 09/04/17 07:20 Blood Culture - Preliminary Blood-Venous NO GROWTH AFTER 24 HOURS 09/04/17 07:00 Blood Culture - Preliminary Blood-Venous NO GROWTH AFTER 24 HOURS 09/01/17 18:44 Blood Culture - Preliminary Blood-Venous NO GROWTH AFTER 3 DAYS 09/01/17 18:44 Blood Culture - Preliminary Blood-Venous NO GROWTH AFTER 3 DAYS Lab Studies 09/05/17 09/05/17 09/05/17 Range/Units 07:46 06:00 06:00 WBC 8.0 (4.5-11.0) 10^3/ul RBC 3.60 (3.5-6.1) 10^6/uL Hgb 8.8 L (14.0-18.0) g/dL Hct 28.4 L (42.0-52.0) % MCV 78.9 L (80.0-105.0) fl MCH 24.4 L (25.0-35.0) pg MCHC 31.0 (31.0-37.0) g/dl RDW 16.7 H (11.5-14.5) % Plt Count 184 (120.0-450.0) 10^3/uL MPV 9.9 (7.0-11.0) fl Gran % 83.8 H (50.0-68.0) % Lymph % (Auto) 8.8 L (22.0-35.0) % [place] % (Auto) 7.4 H (1.0-6.0) % Eos % (Auto) 0.0 L (1.5-5.0) % Baso % (Auto) 0.0 (0.0-3.0) % Gran # 6.71 H (1.4-6.5) Lymph # 0.7 L (1.2-3.4) [place] # 0.6 (0.1-0.6) Eos # 0.0 (0.0-0.7) Baso # 0.00 (0.0-2.0) K/mm3 Sodium 144 (132-148) mmol/L Potassium 3.5 L (3.6-5.0) mmol/L Chloride 113 H (98-107) mmol/L Carbon Dioxide 22 (21-33) mmol/L Anion Gap 13 (10-20) BUN 21 (7-21) mg/dL Creatinine 1.1 (0.8-1.5) mg/dl Est GFR ( Amer) > 60 Est GFR (Non-Af Amer) > 60 POC Glucose (mg/dL) 319 H (65-110) mg/dL Random Glucose 263 H (70-110) mg/dL Calcium 8.7 (8.4-10.5) mg/dL Phosphorus 2.4 L (2.5-4.5) mg/dL Magnesium 1.9 (1.7-2.2) mg/dL Total Bilirubin 0.8 (0.2-1.3) mg/dL AST 30 (17-59) U/L ALT 34 (7-56) U/L Alkaline Phosphatase 81 (38-126) U/L Total Protein 5.9 (5.8-8.3) g/dL Albumin 2.9 L (3.0-4.8) g/dL Globulin 3.1 gm/dL Albumin/Globulin Ratio 0.9 L (1.1-1.8) Procalcitonin (0.19-0.49) NG/ML Influenza Typ A,B (EIA) (NEGATIVE) Blood Type Antibody Screen Crossmatch BBK History Checked 09/04/17 09/04/17 09/04/17 Range/Units 21:59 16:21 11:20 WBC (4.5-11.0) 10^3/ul RBC (3.5-6.1) 10^6/uL Hgb (14.0-18.0) g/dL Hct (42.0-52.0) % MCV (80.0-105.0) fl MCH (25.0-35.0) pg MCHC (31.0-37.0) g/dl RDW (11.5-14.5) % Plt Count (120.0-450.0) 10^3/uL MPV (7.0-11.0) fl Gran % (50.0-68.0) % Lymph % (Auto) (22.0-35.0) % [place] % (Auto) (1.0-6.0) % Eos % (Auto) (1.5-5.0) % Baso % (Auto) (0.0-3.0) % Gran # (1.4-6.5) Lymph # (1.2-3.4) [place] # (0.1-0.6) Eos # (0.0-0.7) Baso # (0.0-2.0) K/mm3 Sodium (132-148) mmol/L Potassium (3.6-5.0) mmol/L Chloride (98-107) mmol/L Carbon Dioxide (21-33) mmol/L Anion Gap (10-20) BUN (7-21) mg/dL Creatinine (0.8-1.5) mg/dl Est GFR ( Amer) Est GFR (Non-Af Amer) POC Glucose (mg/dL) 274 H 250 H (65-110) mg/dL Random Glucose (70-110) mg/dL Calcium (8.4-10.5) mg/dL Phosphorus (2.5-4.5) mg/dL Magnesium (1.7-2.2) mg/dL Total Bilirubin (0.2-1.3) mg/dL AST (17-59) U/L ALT (7-56) U/L Alkaline Phosphatase (38-126) U/L Total Protein (5.8-8.3) g/dL Albumin (3.0-4.8) g/dL Globulin gm/dL Albumin/Globulin Ratio (1.1-1.8) Procalcitonin (0.19-0.49) NG/ML Influenza Typ A,B (EIA) Negative for flu a/b (NEGATIVE) Blood Type Antibody Screen Crossmatch BBK History Checked 09/04/17 09/04/17 09/04/17 Range/Units 11:08 07:29 05:30 WBC (4.5-11.0) 10^3/ul RBC (3.5-6.1) 10^6/uL Hgb (14.0-18.0) g/dL Hct (42.0-52.0) % MCV (80.0-105.0) fl MCH (25.0-35.0) pg MCHC (31.0-37.0) g/dl RDW (11.5-14.5) % Plt Count (120.0-450.0) 10^3/uL MPV (7.0-11.0) fl Gran % (50.0-68.0) % Lymph % (Auto) (22.0-35.0) % [place] % (Auto) (1.0-6.0) % Eos % (Auto) (1.5-5.0) % Baso % (Auto) (0.0-3.0) % Gran # (1.4-6.5) Lymph # (1.2-3.4) [place] # (0.1-0.6) Eos # (0.0-0.7) Baso # (0.0-2.0) K/mm3 Sodium (132-148) mmol/L Potassium (3.6-5.0) mmol/L Chloride (98-107) mmol/L Carbon Dioxide (21-33) mmol/L Anion Gap (10-20) BUN (7-21) mg/dL Creatinine (0.8-1.5) mg/dl Est GFR ( Amer) Est GFR (Non-Af Amer) POC Glucose (mg/dL) 251 H 273 H (65-110) mg/dL Random Glucose (70-110) mg/dL Calcium (8.4-10.5) mg/dL Phosphorus (2.5-4.5) mg/dL Magnesium (1.7-2.2) mg/dL Total Bilirubin (0.2-1.3) mg/dL AST (17-59) U/L ALT (7-56) U/L Alkaline Phosphatase (38-126) U/L Total Protein (5.8-8.3) g/dL Albumin (3.0-4.8) g/dL Globulin gm/dL Albumin/Globulin Ratio (1.1-1.8) Procalcitonin (0.19-0.49) NG/ML Influenza Typ A,B (EIA) (NEGATIVE) Blood Type O POSITIVE Antibody Screen Negative Crossmatch See Detail BBK History Checked Patient has bt 09/04/17 Range/Units 01:58 WBC (4.5-11.0) 10^3/ul RBC (3.5-6.1) 10^6/uL Hgb (14.0-18.0) g/dL Hct (42.0-52.0) % MCV (80.0-105.0) fl MCH (25.0-35.0) pg MCHC (31.0-37.0) g/dl RDW (11.5-14.5) % Plt Count (120.0-450.0) 10^3/uL MPV (7.0-11.0) fl Gran % (50.0-68.0) % Lymph % (Auto) (22.0-35.0) % [place] % (Auto) (1.0-6.0) % Eos % (Auto) (1.5-5.0) % Baso % (Auto) (0.0-3.0) % Gran # (1.4-6.5) Lymph # (1.2-3.4) [place] # (0.1-0.6) Eos # (0.0-0.7) Baso # (0.0-2.0) K/mm3 Sodium (132-148) mmol/L Potassium (3.6-5.0) mmol/L Chloride (98-107) mmol/L Carbon Dioxide (21-33) mmol/L Anion Gap (10-20) BUN (7-21) mg/dL Creatinine (0.8-1.5) mg/dl Est GFR ( Amer) Est GFR (Non-Af Amer) POC Glucose (mg/dL) (65-110) mg/dL Random Glucose (70-110) mg/dL Calcium (8.4-10.5) mg/dL Phosphorus (2.5-4.5) mg/dL Magnesium (1.7-2.2) mg/dL Total Bilirubin (0.2-1.3) mg/dL AST (17-59) U/L ALT (7-56) U/L Alkaline Phosphatase (38-126) U/L Total Protein (5.8-8.3) g/dL Albumin (3.0-4.8) g/dL Globulin gm/dL Albumin/Globulin Ratio (1.1-1.8) Procalcitonin 25.02 H (0.19-0.49) NG/ML Influenza Typ A,B (EIA) (NEGATIVE) Blood Type Antibody Screen Crossmatch BBK History Checked Laboratory Results - last 24 hr 09/04/17 09/04/17 09/04/17 01:58 05:30 07:29 WBC RBC Hgb Hct MCV MCH MCHC RDW Plt Count MPV Gran % Lymph % (Auto) [place] % (Auto) Eos % (Auto) Baso % (Auto) Gran # Lymph # [place] # Eos # Baso # Sodium Potassium Chloride Carbon Dioxide Anion Gap BUN Creatinine Est GFR ( Amer) Est GFR (Non-Af Amer) POC Glucose (mg/dL) 273 H Random Glucose Calcium Phosphorus Magnesium Total Bilirubin AST ALT Alkaline Phosphatase Total Protein Albumin Globulin Albumin/Globulin Ratio Procalcitonin 25.02 H Influenza Typ A,B (EIA) Blood Type O POSITIVE Antibody Screen Negative Crossmatch See Detail BBK History Checked Patient has bt 09/04/17 09/04/17 09/04/17 11:08 11:20 16:21 WBC RBC Hgb Hct MCV MCH MCHC RDW Plt Count MPV Gran % Lymph % (Auto) [place] % (Auto) Eos % (Auto) Baso % (Auto) Gran # Lymph # [place] # Eos # Baso # Sodium Potassium Chloride Carbon Dioxide Anion Gap BUN Creatinine Est GFR ( Amer) Est GFR (Non-Af Amer) POC Glucose (mg/dL) 251 H 250 H Random Glucose Calcium Phosphorus Magnesium Total Bilirubin AST ALT Alkaline Phosphatase Total Protein Albumin Globulin Albumin/Globulin Ratio Procalcitonin Influenza Typ A,B (EIA) Negative for flu a/b Blood Type Antibody Screen Crossmatch BBK History Checked 09/04/17 09/05/17 09/05/17 21:59 06:00 06:00 WBC 8.0 RBC 3.60 Hgb 8.8 L Hct 28.4 L MCV 78.9 L MCH 24.4 L MCHC 31.0 RDW 16.7 H Plt Count 184 MPV 9.9 Gran % 83.8 H Lymph % (Auto) 8.8 L [place] % (Auto) 7.4 H Eos % (Auto) 0.0 L Baso % (Auto) 0.0 Gran # 6.71 H Lymph # 0.7 L [place] # 0.6 Eos # 0.0 Baso # 0.00 Sodium 144 Potassium 3.5 L Chloride 113 H Carbon Dioxide 22 Anion Gap 13 BUN 21 Creatinine 1.1 Est GFR ( Amer) > 60 Est GFR (Non-Af Amer) > 60 POC Glucose (mg/dL) 274 H Random Glucose 263 H Calcium 8.7 Phosphorus 2.4 L Magnesium 1.9 Total Bilirubin 0.8 AST 30 ALT 34 Alkaline Phosphatase 81 Total Protein 5.9 Albumin 2.9 L Globulin 3.1 Albumin/Globulin Ratio 0.9 L Procalcitonin Influenza Typ A,B (EIA) Blood Type Antibody Screen Crossmatch BBK History Checked 09/05/17 07:46 WBC RBC Hgb Hct MCV MCH MCHC RDW Plt Count MPV Gran % Lymph % (Auto) [place] % (Auto) Eos % (Auto) Baso % (Auto) Gran # Lymph # [place] # Eos # Baso # Sodium Potassium Chloride Carbon Dioxide Anion Gap BUN Creatinine Est GFR ( Amer) Est GFR (Non-Af Amer) POC Glucose (mg/dL) 319 H Random Glucose Calcium Phosphorus Magnesium Total Bilirubin AST ALT Alkaline Phosphatase Total Protein Albumin Globulin Albumin/Globulin Ratio Procalcitonin Influenza Typ A,B (EIA) Blood Type Antibody Screen Crossmatch BBK History Checked Fingerstick Blood Sugar Results: 319 Critical Care Progress Note - Nutrition Nutrition: Nutrition Category Date Time Status Heart Healthy Diet [DIET] Diets 09/04/17 Lunch Ordered Assessment/Plan - Assessment and Plan (Free Text) Assessment: 66 yo M with a PMHx of CAD w/ GINO to LAD and RCA, depression, IDDM2, and right utereteral stone who presented to [facility] for SDS with Dr. Salas for R utereteral stone lithotripsy and stent removal, course complicated by sepsis and re- insertion of stent same day by Dr. Salas. CT A/P with findings of possible bladder wall injury. Repeat CT with extraperitoneal air mildly improved. Neurological: AMS waxing and waning, likely was 2/2 sepsis/fever Head CT was negative Will continue to monitor clinically Cardiovascular: Hx of CAD with RCA and LAD GINO HD stable ASA and plavix resumed CXR this morning with some cephalization noted. Given Stat dose of lasix with improvement in patient's resp status. Fluids discontinued Pulmnologic: Protecting airway Satting well on NC Maintain O2Sat >92% GI: Repeat CT with mild improvement of extraperitoneal air ADAT Cont GI ppx Nephro/Electrolytes: JOYCE was likely combination obstructive and prerenal from sepsis BUN and Cr downtrending Strict IxOs Monitor and replete electrolytes as needed ID: Sepsis likely UTI versus seeding of the infection from the post ureteral stent removal Still having fevers with Tmax of 101F, cont PRN tylenol No leukocytosis BCxs NGTD, UCx negative ID Dr. Marie following, recs appreciated IV Abx: Merrem, Vanc : POD #4 cystoscopy with stent removal, lithotripsy of the right renal calculi, and then s/p replacement of R ureteral stent Urology Dr. Salas following CT abd/pelvis showed findings suspicious for bladder rupture Repeat CT A/P with mild improvement in extraperitoneal air G.Surgery consulted, Dr. Chambers, appreciate recs No acute plans for emergent surgery. Will follow patient status clinically Cont pain management Endo: Known diabetic, cont RISS and accuchecks Heme: Normocytic anemia likely secondary to post operative bleeding, superimposed with hematuria, versus dilution Hematuria improving HD stable at this time No signs of active bleeding Will continue to monitor closely PPx: protonix SCDs Dispo: Patient is stable for transfer to tele floor. Please re-consult the ICU team if patient's clinical status changes. Discussed case with Dr. Usman Varghese PGY1 <[place] Mary - Last Filed: 09/05/17 11:12> CCU Objective - Vital Signs / Intake & Output Vital Signs (Last 4 hours): Vital Signs Pulse Resp BP Pulse Ox 09/05/17 09:30 106 H 27 H 100 09/05/17 09:00 112 H 29 H 144/83 100 09/05/17 08:30 113 H 42 H 100 09/05/17 08:00 104 H 27 H 127/77 100 09/05/17 07:30 112 H 33 H 100 09/05/17 07:22 157/98 H Intake and Output (Last 8hrs): Intake & Output 09/04/17 09/05/17 09/05/17 22:59 06:59 14:59 Intake Total 2330 1860 1230 Output Total 3275 1000 1250 Balance -945 860 -20 Intake: IV 1500 1500 Right Upper arm 1500 1500 Oral 480 360 480 Other 350 750 Output: Urine 3275 1000 1250 3-way Urethral 3275 1000 1250 Other: # Bowel Movements 2 - Medications Active Medications: Active Medications Generic Name Dose Route Start Last Admin Trade Name Freq PRN Reason Stop Dose Admin Acetaminophen 650 mg 09/04/17 21:51 09/05/17 05:41 Tylenol 325mg Tab PO 650 mg Q6H PRN Administration Fever >100.4 F Alprazolam 0.5 mg 09/05/17 08:38 09/05/17 08:46 Xanax PO 0.5 mg TID PRN Administration Anxiety Protocol Aspirin 81 mg 09/05/17 10:00 09/05/17 10:37 Ecotrin PO 81 mg DAILY JIMBO Administration Clopidogrel Bisulfate 75 mg 09/04/17 15:00 09/05/17 10:37 Plavix PO 75 mg DAILY JIMBO Administration Meropenem 1 gm/ Dextrose 100 mls @ 100 mls/hr 09/02/17 07:00 09/05/17 10:38 IVPB 09/09/17 07:01 100 mls/hr Q12 JIMBO Administration Protocol Vancomycin HCl 1 gm in 250 mls @ 167 mls/hr 09/04/17 09:15 09/04/17 21:42 Vancomycin 1gm IVPB 167 mls/hr Q12H JIMBO Administration Protocol Potassium Phosphate 15 mmole/ 255 mls @ 42.5 mls/hr 09/05/17 07:49 09/05/17 08:29 Sodium Chloride IVPB 09/05/17 13:48 42.5 mls/hr ONCE ONE Administration Insulin Human Lispro 0 units 09/01/17 22:00 09/05/17 08:08 Humalog Low SC 4 units ACHS JIMBO Administration Protocol Levalbuterol HCl 0.63 mg 09/05/17 06:45 09/05/17 06:54 Xopenex IH 0.63 mg [id number] PRN Administration Shortness of Breath Morphine Sulfate 1 mg 09/04/17 20:01 09/05/17 06:45 Morphine IV 1 mg Q4H PRN Administration Pain, severe (8-10) Oxycodone HCl 5 mg 09/02/17 09:33 09/05/17 05:42 Oxycodone Immediate Release Tab PO 5 mg Q6H PRN Administration Pain, moderate (4-7) Pantoprazole Sodium 40 mg 09/05/17 06:00 09/05/17 05:42 Protonix Ec Tab PO 40 mg 0600 JIMBO Administration - Patient Studies Lab Studies: Microbiology Studies 09/04/17 07:20 Blood Culture - Preliminary Blood-Venous NO GROWTH AFTER 24 HOURS 09/04/17 07:00 Blood Culture - Preliminary Blood-Venous NO GROWTH AFTER 24 HOURS 09/01/17 18:44 Blood Culture - Preliminary Blood-Venous NO GROWTH AFTER 3 DAYS 09/01/17 18:44 Blood Culture - Preliminary Blood-Venous NO GROWTH AFTER 3 DAYS Lab Studies 09/05/17 09/05/17 09/05/17 Range/Units 07:46 06:00 06:00 WBC 8.0 (4.5-11.0) 10^3/ul RBC 3.60 (3.5-6.1) 10^6/uL Hgb 8.8 L (14.0-18.0) g/dL Hct 28.4 L (42.0-52.0) % MCV 78.9 L (80.0-105.0) fl MCH 24.4 L (25.0-35.0) pg MCHC 31.0 (31.0-37.0) g/dl RDW 16.7 H (11.5-14.5) % Plt Count 184 (120.0-450.0) 10^3/uL MPV 9.9 (7.0-11.0) fl Gran % 83.8 H (50.0-68.0) % Lymph % (Auto) 8.8 L (22.0-35.0) % [place] % (Auto) 7.4 H (1.0-6.0) % Eos % (Auto) 0.0 L (1.5-5.0) % Baso % (Auto) 0.0 (0.0-3.0) % Gran # 6.71 H (1.4-6.5) Lymph # 0.7 L (1.2-3.4) [place] # 0.6 (0.1-0.6) Eos # 0.0 (0.0-0.7) Baso # 0.00 (0.0-2.0) K/mm3 Sodium 144 (132-148) mmol/L Potassium 3.5 L (3.6-5.0) mmol/L Chloride 113 H (98-107) mmol/L Carbon Dioxide 22 (21-33) mmol/L Anion Gap 13 (10-20) BUN 21 (7-21) mg/dL Creatinine 1.1 (0.8-1.5) mg/dl Est GFR ( Amer) > 60 Est GFR (Non-Af Amer) > 60 POC Glucose (mg/dL) 319 H (65-110) mg/dL Random Glucose 263 H (70-110) mg/dL Calcium 8.7 (8.4-10.5) mg/dL Phosphorus 2.4 L (2.5-4.5) mg/dL Magnesium 1.9 (1.7-2.2) mg/dL Total Bilirubin 0.8 (0.2-1.3) mg/dL AST 30 (17-59) U/L ALT 34 (7-56) U/L Alkaline Phosphatase 81 (38-126) U/L Total Protein 5.9 (5.8-8.3) g/dL Albumin 2.9 L (3.0-4.8) g/dL Globulin 3.1 gm/dL Albumin/Globulin Ratio 0.9 L (1.1-1.8) Procalcitonin (0.19-0.49) NG/ML Influenza Typ A,B (EIA) (NEGATIVE) 09/04/17 09/04/17 09/04/17 Range/Units 21:59 16:21 11:20 WBC (4.5-11.0) 10^3/ul RBC (3.5-6.1) 10^6/uL Hgb (14.0-18.0) g/dL Hct (42.0-52.0) % MCV (80.0-105.0) fl MCH (25.0-35.0) pg MCHC (31.0-37.0) g/dl RDW (11.5-14.5) % Plt Count (120.0-450.0) 10^3/uL MPV (7.0-11.0) fl Gran % (50.0-68.0) % Lymph % (Auto) (22.0-35.0) % [place] % (Auto) (1.0-6.0) % Eos % (Auto) (1.5-5.0) % Baso % (Auto) (0.0-3.0) % Gran # (1.4-6.5) Lymph # (1.2-3.4) [place] # (0.1-0.6) Eos # (0.0-0.7) Baso # (0.0-2.0) K/mm3 Sodium (132-148) mmol/L Potassium (3.6-5.0) mmol/L Chloride (98-107) mmol/L Carbon Dioxide (21-33) mmol/L Anion Gap (10-20) BUN (7-21) mg/dL Creatinine (0.8-1.5) mg/dl Est GFR ( Amer) Est GFR (Non-Af Amer) POC Glucose (mg/dL) 274 H 250 H (65-110) mg/dL Random Glucose (70-110) mg/dL Calcium (8.4-10.5) mg/dL Phosphorus (2.5-4.5) mg/dL Magnesium (1.7-2.2) mg/dL Total Bilirubin (0.2-1.3) mg/dL AST (17-59) U/L ALT (7-56) U/L Alkaline Phosphatase (38-126) U/L Total Protein (5.8-8.3) g/dL Albumin (3.0-4.8) g/dL Globulin gm/dL Albumin/Globulin Ratio (1.1-1.8) Procalcitonin (0.19-0.49) NG/ML Influenza Typ A,B (EIA) Negative for flu a/b (NEGATIVE) 09/04/17 09/04/17 09/04/17 Range/Units 11:08 07:29 01:58 WBC (4.5-11.0) 10^3/ul RBC (3.5-6.1) 10^6/uL Hgb (14.0-18.0) g/dL Hct (42.0-52.0) % MCV (80.0-105.0) fl MCH (25.0-35.0) pg MCHC (31.0-37.0) g/dl RDW (11.5-14.5) % Plt Count (120.0-450.0) 10^3/uL MPV (7.0-11.0) fl Gran % (50.0-68.0) % Lymph % (Auto) (22.0-35.0) % [place] % (Auto) (1.0-6.0) % Eos % (Auto) (1.5-5.0) % Baso % (Auto) (0.0-3.0) % Gran # (1.4-6.5) Lymph # (1.2-3.4) [place] # (0.1-0.6) Eos # (0.0-0.7) Baso # (0.0-2.0) K/mm3 Sodium (132-148) mmol/L Potassium (3.6-5.0) mmol/L Chloride (98-107) mmol/L Carbon Dioxide (21-33) mmol/L Anion Gap (10-20) BUN (7-21) mg/dL Creatinine (0.8-1.5) mg/dl Est GFR ( Amer) Est GFR (Non-Af Amer) POC Glucose (mg/dL) 251 H 273 H (65-110) mg/dL Random Glucose (70-110) mg/dL Calcium (8.4-10.5) mg/dL Phosphorus (2.5-4.5) mg/dL Magnesium (1.7-2.2) mg/dL Total Bilirubin (0.2-1.3) mg/dL AST (17-59) U/L ALT (7-56) U/L Alkaline Phosphatase (38-126) U/L Total Protein (5.8-8.3) g/dL Albumin (3.0-4.8) g/dL Globulin gm/dL Albumin/Globulin Ratio (1.1-1.8) Procalcitonin 25.02 H (0.19-0.49) NG/ML Influenza Typ A,B (EIA) (NEGATIVE) Laboratory Results - last 24 hr 09/04/17 09/04/17 09/04/17 01:58 07:29 11:08 WBC RBC Hgb Hct MCV MCH MCHC RDW Plt Count MPV Gran % Lymph % (Auto) [place] % (Auto) Eos % (Auto) Baso % (Auto) Gran # Lymph # [place] # Eos # Baso # Sodium Potassium Chloride Carbon Dioxide Anion Gap BUN Creatinine Est GFR ( Amer) Est GFR (Non-Af Amer) POC Glucose (mg/dL) 273 H 251 H Random Glucose Calcium Phosphorus Magnesium Total Bilirubin AST ALT Alkaline Phosphatase Total Protein Albumin Globulin Albumin/Globulin Ratio Procalcitonin 25.02 H Influenza Typ A,B (EIA) 09/04/17 09/04/17 09/04/17 11:20 16:21 21:59 WBC RBC Hgb Hct MCV MCH MCHC RDW Plt Count MPV Gran % Lymph % (Auto) [place] % (Auto) Eos % (Auto) Baso % (Auto) Gran # Lymph # [place] # Eos # Baso # Sodium Potassium Chloride Carbon Dioxide Anion Gap BUN Creatinine Est GFR ( Amer) Est GFR (Non-Af Amer) POC Glucose (mg/dL) 250 H 274 H Random Glucose Calcium Phosphorus Magnesium Total Bilirubin AST ALT Alkaline Phosphatase Total Protein Albumin Globulin Albumin/Globulin Ratio Procalcitonin Influenza Typ A,B (EIA) Negative for flu a/b 09/05/17 09/05/17 09/05/17 06:00 06:00 07:46 WBC 8.0 RBC 3.60 Hgb 8.8 L Hct 28.4 L MCV 78.9 L MCH 24.4 L MCHC 31.0 RDW 16.7 H Plt Count 184 MPV 9.9 Gran % 83.8 H Lymph % (Auto) 8.8 L [place] % (Auto) 7.4 H Eos % (Auto) 0.0 L Baso % (Auto) 0.0 Gran # 6.71 H Lymph # 0.7 L [place] # 0.6 Eos # 0.0 Baso # 0.00 Sodium 144 Potassium 3.5 L Chloride 113 H Carbon Dioxide 22 Anion Gap 13 BUN 21 Creatinine 1.1 Est GFR ( Amer) > 60 Est GFR (Non-Af Amer) > 60 POC Glucose (mg/dL) 319 H Random Glucose 263 H Calcium 8.7 Phosphorus 2.4 L Magnesium 1.9 Total Bilirubin 0.8 AST 30 ALT 34 Alkaline Phosphatase 81 Total Protein 5.9 Albumin 2.9 L Globulin 3.1 Albumin/Globulin Ratio 0.9 L Procalcitonin Influenza Typ A,B (EIA) Critical Care Progress Note - Nutrition Nutrition: Nutrition Category Date Time Status Heart Healthy Diet [DIET] Diets 09/04/17 Lunch Ordered Assessment/Plan - Assessment and Plan (Free Text) Assessment: Patient seen and examined with resident, agree with ntoe with following additions/exceptions: Patient is 66yo male with PMHx of ?dementia, CAD with stents, DM, admitted from [facility] s/p urological procedure, ureteral stent removal, lithotripsy, post op started having fevers, AMS, and increased lactate, admitted to ICU with severe Sepsis. Patient had CT A/P which showed air in the extraperitoneal space, 2/2 possibly bladder tear. Currently afebrile, but HD stable, comfortable, with no major complaints. Cultures thus far negative. This morning patient complaining of SOB, CXR with increased pulm vasc congestion, had rales on exam, Lasix 40mg IV x 1 given, with good UOP, IVF fluids stopped. Stable from surgical standpoint, as per surgery Severe Sepsis UTI Dehydration CAD DM ARF Extraperotineal Air Recommend: - supp o2 as needed - broad spectrum antibiotics as per ID - follow up cultures - IV Lasix x 1 - DC IV fluids - FS control - cont ASA, Plavix - GI ppx - DVT ppx
[2017-09-05] MEDS: Meropenem 1 GM in Dextrose 5% In Water 100 ML IVPB SCH ×2 (10:38→22:43)
--- NOTE | 2017-09-05 10:48 | CP.PCM.PN ---
Subjective - Date & Time of Evaluation Date of Evaluation: 09/05/17 Time of Evaluation: 09:40 - Subjective Subjective: Still with abdominal pain, still with lethargy although better compared to previous days, still having intermittent fevers. Objective - Vital Signs/Intake and Output Vital Signs (last 24 hours): Temp Pulse Resp BP Pulse Ox 100.4 F H 109 H 28 H 141/83 99 09/05/17 05:41 09/05/17 06:00 09/05/17 04:30 09/05/17 01:00 09/05/17 04:30 Intake and Output: 09/04/17 09/05/17 18:59 06:59 Intake Total 2330 1860 Output Total 3275 1000 Balance -945 860 - Medications Medications: Current Medications Acetaminophen (Tylenol 325mg Tab) 650 mg PO Q6H PRN PRN Reason: Fever >100.4 F Last Admin: 09/05/17 05:41 Dose: 650 mg Clopidogrel Bisulfate (Plavix) 75 mg PO DAILY [facility] Last Admin: 09/04/17 17:17 Dose: 75 mg Meropenem 1 gm/ Dextrose 100 mls @ 100 mls/hr IVPB Q12 JIMBO PRN Reason: Protocol Stop: 09/09/17 07:01 Last Admin: 09/04/17 22:30 Dose: 100 mls/hr Potassium Chloride 40 meq/ (Sodium Chloride) 1,020 mls @ 125 mls/hr IV .Q8H10M [facility] Last Admin: 09/05/17 05:42 Dose: 125 mls/hr Vancomycin HCl (Vancomycin 1gm) 1 gm in 250 mls @ 167 mls/hr IVPB Q12H JIMBO PRN Reason: Protocol Last Admin: 09/04/17 21:42 Dose: 167 mls/hr Insulin Human Lispro (Humalog Low) 0 units SC ACHS JIMBO PRN Reason: Protocol Last Admin: 09/04/17 22:01 Dose: Not Given Levalbuterol HCl (Xopenex) 0.63 mg IH [id number] PRN PRN Reason: Shortness of Breath Last Admin: 09/05/17 06:54 Dose: 0.63 mg Morphine Sulfate (Morphine) 1 mg IV Q4H PRN PRN Reason: Pain, severe (8-10) Last Admin: 09/05/17 06:45 Dose: 1 mg Oxycodone HCl (Oxycodone Immediate Release Tab) 5 mg PO Q6H PRN PRN Reason: Pain, moderate (4-7) Last Admin: 09/05/17 05:42 Dose: 5 mg Pantoprazole Sodium (Protonix Ec Tab) 40 mg PO 0600 JIMBO Last Admin: 09/05/17 05:42 Dose: 40 mg - Labs Labs: 09/04/17 05:30 09/04/17 05:30 PT 12.9 SECONDS (9.4-12.5) H 09/01/17 11:22 INR 1.17 (0.93-1.08) H 09/01/17 11:22 - Constitutional Appears: Other (somewhat lethargic) - Head Exam Head Exam: NORMAL INSPECTION - ENT Exam ENT Exam: Mucous Membranes Moist - Neck Exam Neck Exam: absent: Lymphadenopathy, Meningismus - Respiratory Exam Respiratory Exam: Decreased Breath Sounds - Cardiovascular Exam Cardiovascular Exam: +S1, +S2 - GI/Abdominal Exam GI & Abdominal Exam: Soft, Tenderness (lower quadrants). absent: Distended, Firm, Guarding, Rigid Assessment and Plan - Assessment and Plan (Free Text) Plan: Assessment Severe sepsis with acute on chronic renal failure (improved) and acute encephalopathy probably related to possible perforated urinary bladder with retroperitoneal air and UTI with associated ureteral stone, right ureteral stent placement S/P lithotripsy POD#4 CAD S/P PCI right ureteral stent placement because of obstructing ureteral stone 04/2017 HTN DM PVD history of depression Plan now that the renal function has normalized, will continue IV Vancomycin q12 ( and monitor renal function) and continue Merrem day 4; blood and urine cx are negative from 3 days ago - follow up repeat blood cx from yesterday reviewed repeatCT scan of the abdomen and pelvis, showing retroperitoneal air which is slightly decreased discussed with Dr. Bass previously - observe patient will continue to monitor clinically discussed with Dr. Bowman
[2017-09-05] MEDS: Vancomycin 1gm in NS 250ml 1 GM/250 ML BAG IVPB SCH ×2 (11:52→21:13)
[2017-09-05] MEDS ORDERED: Insulin Lispro 1 UNITS/0.01 ML SC ONE (12:30)
--- NOTE | 2017-09-05 13:52 | RAD ---
HISTORY: sob COMPARISON: 09/03/2017 FINDINGS: LUNGS: Pulmonary vascular congestion a progressive finding. PLEURA: No significant pleural effusion identified, no pneumothorax apparent. CARDIOVASCULAR: No significant interval change compared to the prior examination(s). PICC line in satisfactory position OSSEOUS STRUCTURES: No significant abnormalities. VISUALIZED UPPER ABDOMEN: Normal. OTHER FINDINGS: None. IMPRESSION: Acute CHF.
--- NOTE | 2017-09-05 14:26 | CP.PCM.PN ---
Subjective - Date & Time of Evaluation Date of Evaluation: 09/05/17 Time of Evaluation: 07:55 - Subjective Subjective: PGY1 General Surgery Progress Note for Dr. Chambers Patient seen and examined at bedside this morning. Patient had a tmax of 101 overnight, brought down to 99.8 with Tylenol. Patient's CBI was discontinued yesterday, arredondo output was 3000 over the past 12 hours with 600 over the last 4 hours. Patient is still lethargic but is more alert today compared to previous days. Objective - Vital Signs/Intake and Output Vital Signs (last 24 hours): Temp Pulse Resp BP Pulse Ox 99.6 F 106 H 27 H 144/83 100 09/05/17 12:00 09/05/17 09:30 09/05/17 09:30 09/05/17 09:00 09/05/17 09:30 Intake and Output: 09/05/17 09/05/17 06:59 18:59 Intake Total 1860 1580 Output Total 1000 2600 Balance 860 -1020 - Medications Medications: Current Medications Acetaminophen (Tylenol 325mg Tab) 650 mg PO Q6H PRN PRN Reason: Fever >100.4 F Last Admin: 09/05/17 13:42 Dose: 650 mg Alprazolam (Xanax) 0.5 mg PO TID PRN; Protocol PRN Reason: Anxiety Last Admin: 09/05/17 08:46 Dose: 0.5 mg Aspirin (Ecotrin) 81 mg PO DAILY [facility] Last Admin: 09/05/17 10:37 Dose: 81 mg Clopidogrel Bisulfate (Plavix) 75 mg PO DAILY [facility] Last Admin: 09/05/17 10:37 Dose: 75 mg Meropenem 1 gm/ Dextrose 100 mls @ 100 mls/hr IVPB Q12 JIMBO PRN Reason: Protocol Stop: 09/09/17 07:01 Last Admin: 09/05/17 10:38 Dose: 100 mls/hr Vancomycin HCl (Vancomycin 1gm) 1 gm in 250 mls @ 167 mls/hr IVPB Q12H JIMBO PRN Reason: Protocol Last Admin: 09/05/17 11:52 Dose: 167 mls/hr Insulin Human Lispro (Humalog High) 0 units SC ACHS JIMBO PRN Reason: Protocol Levalbuterol HCl (Xopenex) 0.63 mg IH [id number] PRN PRN Reason: Shortness of Breath Last Admin: 09/05/17 06:54 Dose: 0.63 mg Morphine Sulfate (Morphine) 1 mg IV Q4H PRN PRN Reason: Pain, severe (8-10) Last Admin: 09/05/17 06:45 Dose: 1 mg Oxycodone HCl (Oxycodone Immediate Release Tab) 5 mg PO Q6H PRN PRN Reason: Pain, moderate (4-7) Last Admin: 09/05/17 12:54 Dose: 5 mg Pantoprazole Sodium (Protonix Ec Tab) 40 mg PO 0600 JIMBO Last Admin: 09/05/17 05:42 Dose: 40 mg - Labs Labs: 09/05/17 06:00 09/05/17 06:00 PT 12.9 SECONDS (9.4-12.5) H 09/01/17 11:22 INR 1.17 (0.93-1.08) H 09/01/17 11:22 - Constitutional Appears: No Acute Distress - Head Exam Head Exam: ATRAUMATIC, NORMOCEPHALIC - Eye Exam Eye Exam: Normal appearance. absent: Scleral icterus - ENT Exam ENT Exam: Mucous Membranes Moist - Respiratory Exam Respiratory Exam: NORMAL BREATHING PATTERN. absent: Accessory Muscle Use, Respiratory Distress - GI/Abdominal Exam GI & Abdominal Exam: Guarding (suprapubic), Soft, Tenderness (predominatly suprapubic) - Neurological Exam Neurological Exam: Alert, Awake - Skin Skin Exam: Dry, Normal Color, Warm Assessment and Plan - Assessment and Plan (Free Text) Assessment: 66M s/p cysto on 09/01 with extraperitoneal bladder injury Plan: Patient's abdominal exam improved compared to yesterday. Urine output is adequate, will continue to monitor now that CBI has been discontinued. Continue pain control Strict I's & O's No plans for surgical intervention at this time - Urology and Surgical teams in communication Case discussed with Dr. Reyes Mcmullen Mila PGY1
[2017-09-05] MEDS: Insulin Lispro (HUMAlog) HIGH Coverage SC SCH ×2 (16:58→22:26)
--- NOTE | 2017-09-05 17:39 | PN ---
SUBJECTIVE: The patient remains in the ICU. Reportedly having intermittent fever. Last temperature 99.6 rectally at noon today. Cultures have been negative. Abdominal pain still present although appears to be improving. OBJECTIVE: No further radiologic exams have been done. The patient continues to make good urine. WBC count 8, hemoglobin 8.8 which is stable. His creatinine is now 1.1 with a GFR greater than 60. Sugars have been running high. IMPRESSION AND PLAN: Continue intravenous fluids and antibiotics with continued diet and advance as tolerated. I do not feel any surgical intervention is warranted at this point. Plan will be to repeat a CT scan on Friday. Still unclear how much of the patient's pain is chronic pain from his neuropathy versus the process going on in his retroperitoneum. Continue antibiotics as per Infectious Disease and re-culture as needed. We will continue to follow him with you. Troy Salas MD
--- NOTE | 2017-09-05 23:02 | CARD ---
APPROVED REPORT EKG Measurement Heart [id number] <Conclusion> Normal sinus rhythm Nonspecific ST and T wave abnormality Prolonged QT Abnormal ECG
[2017-09-06] MEDS: Pantoprazole 40 mg EC Tab PO SCH (05:29)
[2017-09-06 06:16] LABS: EOS % 0.2 % (1.5-5.0); GRAN # 5.15 (1.4-6.5); GRAN % 83.1 % (50.0-68.0); HEMATOCRIT 26.6 % (42.0-52.0); LYMPH # 0.7 (1.2-3.4); LYMPH % 11.1 % (22.0-35.0); MEAN CELL VOLUME 78.5 fl (80.0-105.0); MEAN CORPUSCULAR HEMOGLOBIN 23.9 pg (25.0-35.0); MEAN CORPUSCULAR HGB CONC 30.5 g/dl (31.0-37.0); MEAN PLATELET VOLUME 9.5 fl (7.0-11.0); MONO # 0.4 (0.1-0.6); MONO % 5.6 % (1.0-6.0); RED CELL DISTRIBUTION WIDTH 16.7 % (11.5-14.5); WHITE BLOOD COUNT 6.2 10^3/ul (4.5-11.0)
[2017-09-06 06:50] LABS: ALKALINE PHOSPHATASE 74 U/L (38-126); ALT/SGPT 33 U/L (7-56); AST/SGOT 30 U/L (17-59); BILIRUBIN,TOTAL 0.8 mg/dL (0.2-1.3); BLOOD UREA NITROGEN 23 mg/dL (7-21); CALCIUM 8.4 mg/dL (8.4-10.5); CARBON DIOXIDE 25 mmol/L (21-33); CHLORIDE 111 mmol/L (98-107); GFR AFRICAN-AMERICAN > 60; GLUCOSE,RANDOM 220 mg/dL (70-110); POTASSIUM 2.9 mmol/L (3.6-5.0); SODIUM 144 mmol/L (132-148); TOTAL PROTEIN 5.5 g/dL (5.8-8.3)
[2017-09-06] MEDS: Insulin Lispro (HUMAlog) HIGH Coverage SC SCH ×4 (08:50→21:32)
[2017-09-06] MEDS: Vancomycin 1gm in NS 250ml 1 GM/250 ML BAG IVPB SCH ×2 (09:07→20:53)
[2017-09-06] MEDS: Morphine 5 MG/ML SYRINGE IV PRN ×2 (09:07→14:11)
[2017-09-06] MEDS: Meropenem 1 GM in Dextrose 5% In Water 100 ML IVPB SCH ×2 (10:09→22:24)
--- NOTE | 2017-09-06 10:33 | CP.PCM.PN ---
Subjective - Date & Time of Evaluation Date of Evaluation: 09/06/17 Time of Evaluation: 10:00 - Subjective Subjective: Still complaining of abdominal pain, still with intermittent fevers overnight, still lethargic but a little more responsive today. Objective - Vital Signs/Intake and Output Vital Signs (last 24 hours): Temp Pulse Resp BP Pulse Ox 98.2 F 81 16 130/73 100 09/06/17 04:00 09/06/17 06:00 09/06/17 00:05 09/06/17 00:00 09/05/17 20:00 Intake and Output: 09/06/17 09/06/17 06:59 18:59 Intake Total 950 Output Total 1600 Balance -650 - Medications Medications: Current Medications Acetaminophen (Tylenol 325mg Tab) 650 mg PO Q6H PRN PRN Reason: Fever >100.4 F Last Admin: 09/05/17 19:27 Dose: 650 mg Alprazolam (Xanax) 0.5 mg PO TID PRN; Protocol PRN Reason: Anxiety Last Admin: 09/05/17 21:12 Dose: 0.5 mg Aspirin (Ecotrin) 81 mg PO DAILY [facility] Last Admin: 09/06/17 09:06 Dose: 81 mg Clopidogrel Bisulfate (Plavix) 75 mg PO DAILY [facility] Last Admin: 09/06/17 09:06 Dose: 75 mg Meropenem 1 gm/ Dextrose 100 mls @ 100 mls/hr IVPB Q12 JIMBO PRN Reason: Protocol Stop: 09/09/17 07:01 Last Admin: 09/05/17 22:43 Dose: 100 mls/hr Vancomycin HCl (Vancomycin 1gm) 1 gm in 250 mls @ 167 mls/hr IVPB Q12H JIMBO PRN Reason: Protocol Last Admin: 09/06/17 09:07 Dose: 167 mls/hr Potassium Chloride (Potassium Chloride 10 Meq/100 Ml) 10 meq in 100 mls @ 100 mls/hr IVPB Q2H JIMBO Stop: 09/06/17 19:29 Last Admin: 09/06/17 09:06 Dose: 100 mls/hr Insulin Human Lispro (Humalog High) 0 units SC ACHS JIMBO PRN Reason: Protocol Last Admin: 09/06/17 08:50 Dose: 2 units Levalbuterol HCl (Xopenex) 0.63 mg IH [id number] PRN PRN Reason: Shortness of Breath Last Admin: 09/05/17 06:54 Dose: 0.63 mg Morphine Sulfate (Morphine) 1 mg IV Q4H PRN PRN Reason: Pain, severe (8-10) Last Admin: 09/06/17 09:07 Dose: 1 mg Pantoprazole Sodium (Protonix Ec Tab) 40 mg PO 0600 JIMBO Last Admin: 09/06/17 05:29 Dose: 40 mg - Labs Labs: 09/06/17 05:00 09/06/17 05:00 PT 12.9 SECONDS (9.4-12.5) H 09/01/17 11:22 INR 1.17 (0.93-1.08) H 09/01/17 11:22 - Constitutional Appears: Other (slightly lethargic) - Head Exam Head Exam: NORMAL INSPECTION - ENT Exam ENT Exam: Mucous Membranes Moist - Neck Exam Neck Exam: absent: Meningismus - Respiratory Exam Respiratory Exam: Decreased Breath Sounds. absent: Rales - Cardiovascular Exam Cardiovascular Exam: +S1, +S2 - GI/Abdominal Exam GI & Abdominal Exam: Soft, Tenderness (mostly on the lower quadrants). absent: Distended, Firm, Guarding, Rigid, Rebound Assessment and Plan - Assessment and Plan (Free Text) Plan: Assessment Severe sepsis with acute on chronic renal failure (improved) and acute encephalopathy probably related to possible perforated urinary bladder with retroperitoneal air and UTI with associated ureteral stone, right ureteral stent placement S/P lithotripsy POD#5 CAD S/P PCI right ureteral stent placement because of obstructing ureteral stone 04/2017 HTN DM PVD history of depression Plan now that the renal function has normalized, will continue IV Vancomycin q12 ( and monitor renal function) and continue Merrem day 5; blood and urine cx are negative from 4 days ago - follow up repeat blood cx from 2 days ago continue to be negative reviewed repeatCT scan of the abdomen and pelvis, showing retroperitoneal air which is slightly decreased discussed with Dr. Bass previously - observe patient - plan is to repeat the CT A/P on Friday will continue to monitor clinically discussed with Dr. Bowman previously as well
--- NOTE | 2017-09-06 10:47 | CP.CCUPN ---
<Jaren Soliman - Last Filed: 09/06/17 18:22> CCU Subjective - Physician Review Subjective (Free Text): Patient seen and examined at bedside. Resting comfortably in bed. No acute overnight events. Patient states abdominal pain has mildly improved relative to baseline. Offers no new complaints at this time. Denies fever, chills, chest pain, shortness of breath, abdominal pain, nausea, vomiting, diarrhea, constipation, and urinary symptoms. 09/06/17 10:44 CCU Objective - Vital Signs / Intake & Output Intake and Output (Last 8hrs): Intake & Output 09/05/17 09/06/17 09/06/17 22:59 06:59 14:59 Intake Total 1350 950 Output Total 875 1600 Balance 475 -650 Intake: IV 600 Left Forearm 250 Right Upper arm 350 Oral 600 Other 750 350 Output: Urine 875 1600 3-way Urethral 875 1600 Other: # Bowel Movements 1 - Physical Exam Head: Positive for: Atraumatic, Normocephalic Pupils: Positive for: PERRL Extroacular Muscles: Positive for: EOMI Ears: Positive for: Normal Mouth: Positive for: Moist Mucous Membranes, Normal Tounge Nose (External): Positive for: Atraumatic Neck: Positive for: Normal Range of Motion, Trachea Midline. Negative for: MIDLINE TENDERNESS Respiratory/Chest: Positive for: Clear to Auscultation, Good Air Exchange. Negative for: Wheezes, Rales, Rhonchi Cardiovascular: Positive for: Regular Rate and Rhythm, Normal S1, S2. Negative for: Murmurs, Rub, Gallop Abdomen: Positive for: Tenderness (diffusely tender to palpation.), Normal Bowel Sounds. Negative for: Distention, Peritoneal Signs, Rebound, Guarding Genitourinary Male: Positive for: Other (arredondo in place w/ CBI) Upper Extremity: Positive for: Normal Inspection. Negative for: Cyanosis, Edema Lower Extremity: Positive for: Normal Inspection, Other (SCDs in place). Negative for: Edema Neurological: Positive for: Other (awake, alert, confused this morning. Follows commands, nonfocal) Skin: Positive for: Warm, Dry. Negative for: Rashes Psychiatric: Positive for: Alert, Anxious, Agitated - Medications Active Medications: Active Medications Generic Name Dose Route Start Last Admin Trade Name Freq PRN Reason Stop Dose Admin Acetaminophen 650 mg 09/04/17 21:51 09/05/17 19:27 Tylenol 325mg Tab PO 650 mg Q6H PRN Administration Fever >100.4 F Alprazolam 0.5 mg 09/05/17 08:38 09/06/17 10:08 Xanax PO 0.5 mg TID PRN Administration Anxiety Protocol Aspirin 81 mg 09/05/17 10:00 09/06/17 09:06 Ecotrin PO 81 mg DAILY JIMBO Administration Clopidogrel Bisulfate 75 mg 09/04/17 15:00 09/06/17 09:06 Plavix PO 75 mg DAILY JIMBO Administration Meropenem 1 gm/ Dextrose 100 mls @ 100 mls/hr 09/02/17 07:00 09/06/17 10:09 IVPB 09/09/17 07:01 100 mls/hr Q12 JIMBO Administration Protocol Vancomycin HCl 1 gm in 250 mls @ 167 mls/hr 09/04/17 09:15 09/06/17 09:07 Vancomycin 1gm IVPB 167 mls/hr Q12H JIMBO Administration Protocol Potassium Chloride 10 meq in 100 mls @ 100 mls/hr 09/06/17 08:30 09/06/17 09: 06 Potassium Chloride 10 Meq/100 Ml IVPB 09/06/17 19:29 100 mls/hr Q2H JIMBO Administration Insulin Human Lispro 0 units 09/05/17 16:30 09/06/17 08:50 Humalog High SC 2 units ACHS JIMBO Administration Protocol Levalbuterol HCl 0.63 mg 09/05/17 06:45 09/05/17 06:54 Xopenex IH 0.63 mg [id number] PRN Administration Shortness of Breath Morphine Sulfate 1 mg 09/04/17 20:01 09/06/17 09:07 Morphine IV 1 mg Q4H PRN Administration Pain, severe (8-10) Pantoprazole Sodium 40 mg 09/05/17 06:00 09/06/17 05:29 Protonix Ec Tab PO 40 mg 0600 JIMBO Administration - Patient Studies Lab Studies: Microbiology Studies 09/04/17 07:20 Blood Culture - Preliminary Blood-Venous NO GROWTH AFTER 48 HOURS 09/04/17 07:00 Blood Culture - Preliminary Blood-Venous NO GROWTH AFTER 48 HOURS 09/01/17 18:44 Blood Culture - Preliminary Blood-Venous NO GROWTH AFTER 4 DAYS 09/01/17 18:44 Blood Culture - Preliminary Blood-Venous NO GROWTH AFTER 4 DAYS Lab Studies 09/06/17 09/06/17 09/06/17 Range/Units 05:00 05:00 05:00 WBC 6.2 D (4.5-11.0) 10^3/ul RBC 3.39 L (3.5-6.1) 10^6/uL Hgb 8.1 L (14.0-18.0) g/dL Hct 26.6 L (42.0-52.0) % MCV 78.5 L (80.0-105.0) fl MCH 23.9 L (25.0-35.0) pg MCHC 30.5 L (31.0-37.0) g/dl RDW 16.7 H (11.5-14.5) % Plt Count 171 (120.0-450.0) 10^3/uL MPV 9.5 (7.0-11.0) fl Gran % 83.1 H (50.0-68.0) % Lymph % (Auto) 11.1 L (22.0-35.0) % [place] % (Auto) 5.6 (1.0-6.0) % Eos % (Auto) 0.2 L (1.5-5.0) % Baso % (Auto) 0.0 (0.0-3.0) % Gran # 5.15 (1.4-6.5) Lymph # 0.7 L (1.2-3.4) [place] # 0.4 (0.1-0.6) Eos # 0.0 (0.0-0.7) Baso # 0.00 (0.0-2.0) K/mm3 Sodium 144 (132-148) mmol/L Potassium 2.9 L* (3.6-5.0) mmol/L Chloride 111 H (98-107) mmol/L Carbon Dioxide 25 (21-33) mmol/L Anion Gap 11 (10-20) BUN 23 H (7-21) mg/dL Creatinine 1.1 (0.8-1.5) mg/dl Est GFR ( Amer) > 60 Est GFR (Non-Af Amer) > 60 POC Glucose (mg/dL) (65-110) mg/dL Random Glucose 220 H (70-110) mg/dL Calcium 8.4 (8.4-10.5) mg/dL Magnesium 1.7 (1.7-2.2) mg/dL Total Bilirubin 0.8 (0.2-1.3) mg/dL AST 30 (17-59) U/L ALT 33 (7-56) U/L Alkaline Phosphatase 74 (38-126) U/L Total Protein 5.5 L (5.8-8.3) g/dL Albumin 2.7 L (3.0-4.8) g/dL Globulin 2.7 gm/dL Albumin/Globulin Ratio 1.0 L (1.1-1.8) 09/05/17 09/05/17 09/05/17 Range/Units 22:13 16:52 11:16 WBC (4.5-11.0) 10^3/ul RBC (3.5-6.1) 10^6/uL Hgb (14.0-18.0) g/dL Hct (42.0-52.0) % MCV (80.0-105.0) fl MCH (25.0-35.0) pg MCHC (31.0-37.0) g/dl RDW (11.5-14.5) % Plt Count (120.0-450.0) 10^3/uL MPV (7.0-11.0) fl Gran % (50.0-68.0) % Lymph % (Auto) (22.0-35.0) % [place] % (Auto) (1.0-6.0) % Eos % (Auto) (1.5-5.0) % Baso % (Auto) (0.0-3.0) % Gran # (1.4-6.5) Lymph # (1.2-3.4) [place] # (0.1-0.6) Eos # (0.0-0.7) Baso # (0.0-2.0) K/mm3 Sodium (132-148) mmol/L Potassium (3.6-5.0) mmol/L Chloride (98-107) mmol/L Carbon Dioxide (21-33) mmol/L Anion Gap (10-20) BUN (7-21) mg/dL Creatinine (0.8-1.5) mg/dl Est GFR ( Amer) Est GFR (Non-Af Amer) POC Glucose (mg/dL) 196 H 354 H 409 H* (65-110) mg/dL Random Glucose (70-110) mg/dL Calcium (8.4-10.5) mg/dL Magnesium (1.7-2.2) mg/dL Total Bilirubin (0.2-1.3) mg/dL AST (17-59) U/L ALT (7-56) U/L Alkaline Phosphatase (38-126) U/L Total Protein (5.8-8.3) g/dL Albumin (3.0-4.8) g/dL Globulin gm/dL Albumin/Globulin Ratio (1.1-1.8) Laboratory Results - last 24 hr 09/05/17 09/05/17 09/05/17 11:16 16:52 22:13 WBC RBC Hgb Hct MCV MCH MCHC RDW Plt Count MPV Gran % Lymph % (Auto) [place] % (Auto) Eos % (Auto) Baso % (Auto) Gran # Lymph # [place] # Eos # Baso # Sodium Potassium Chloride Carbon Dioxide Anion Gap BUN Creatinine Est GFR ( Amer) Est GFR (Non-Af Amer) POC Glucose (mg/dL) 409 H* 354 H 196 H Random Glucose Calcium Magnesium Total Bilirubin AST ALT Alkaline Phosphatase Total Protein Albumin Globulin Albumin/Globulin Ratio 09/06/17 09/06/17 09/06/17 05:00 05:00 05:00 WBC 6.2 D RBC 3.39 L Hgb 8.1 L Hct 26.6 L MCV 78.5 L MCH 23.9 L MCHC 30.5 L RDW 16.7 H Plt Count 171 MPV 9.5 Gran % 83.1 H Lymph % (Auto) 11.1 L [place] % (Auto) 5.6 Eos % (Auto) 0.2 L Baso % (Auto) 0.0 Gran # 5.15 Lymph # 0.7 L [place] # 0.4 Eos # 0.0 Baso # 0.00 Sodium 144 Potassium 2.9 L* Chloride 111 H Carbon Dioxide 25 Anion Gap 11 BUN 23 H Creatinine 1.1 Est GFR ( Amer) > 60 Est GFR (Non-Af Amer) > 60 POC Glucose (mg/dL) Random Glucose 220 H Calcium 8.4 Magnesium 1.7 Total Bilirubin 0.8 AST 30 ALT 33 Alkaline Phosphatase 74 Total Protein 5.5 L Albumin 2.7 L Globulin 2.7 Albumin/Globulin Ratio 1.0 L EKG/Cardiology Studies: Cardiology / EKG Studies 09/05/17 11:50 EKG [ELECTROCARDIOGRAM] Stat Comment: Reason For Exam: chest pain Fingerstick Blood Sugar Results: 227 Review of Systems - Review of Systems Review of Systems: 12-point review of systems negative except as indicated in the [facility] Critical Care Progress Note - Nutrition Nutrition: Nutrition Category Date Time Status Dysphagia/Modified Consistency Diet [DIET] Diets 09/05/17 Dinner Ordered Assessment/Plan - Assessment and Plan (Free Text) Assessment: Patient is a 66 year old male with a PMHx of CAD w/ GINO to LAD and RCA, depression, IDDM2, and right utereteral stone who presented to [facility] for same day surgery for R utereteral stone lithotripsy and stent removal. Patient's clinical course complicated by sepsis and re-insertion of stent same day. CT A/ P with findings of possible bladder wall injury. Repeat CT with extraperitoneal air mildly improved. Plan: Neurological: - Patient is awake, alert, responds to verbal stimuli, answers questions appropriately, follows commands, and moves extremities past midline - Head CT was negative - Will continue to monitor clinically Cardiovascular: Hx of CAD with RCA and LAD GINO - HR trended, reviewed, and appreciated, will continue to monitor closely - BPs trended, reviewed, and appreciated, will continue to monitor closely - c/w ASA and plavix Pulmnologic: - Protecting airway - Satting well on NC - Maintain O2Sat >92% - continue xopenex GI: - Cont GI ppx Nephro/Electrolytes: JOYCE was likely combination obstructive and prerenal from sepsis - creatinine and BUN trended, reviewed, and appreciated, will continue to monitor closely - Strict IxOs Hypokalemia - repleted and mag ordered ID: Sepsis likely UTI versus seeding of the infection from the post ureteral stent removal - Tmax 100.8 overnight and no leukocytosis - BCxs NGTD, UCx negative - ID Dr. Marie following, appreciate recommendations - IV Abx: continue meropenem and vancomycin : POD #5 cystoscopy with stent removal, lithotripsy of the right renal calculi, and then s/p replacement of R ureteral stent - CT abd/pelvis showed findings suspicious for bladder rupture - Repeat CT A/P with mild improvement in extraperitoneal air - Urology seeing patients- appreciate recommendations - G.Surgery consulted, Dr. Chambers, appreciate recs- No acute plans for emergent surgery - Cont pain management Endo: Diabetic - cont RISS and accuchecks Heme: - Hgbs trended, reviewed, and appreciated, will continue to monitor closely - Normocytic anemia likely secondary to post operative bleeding - No signs of active bleeding - Will continue to monitor closely Dvt Prophylaxis - SCDs Critical care team will sign off at this time. Please reconsult if needed. Thank you for the opportunity to participate in the care of this patient. Patient seen, case discussed with, and plan approved by attending physician, Dr. Li. <Demetris Li - Last Filed: 09/06/17 18:26> CCU Objective - Vital Signs / Intake & Output Vital Signs (Last 4 hours): Vital Signs Pulse Resp 09/06/17 18:00 87 09/06/17 17:59 89 27 H 09/06/17 17:58 88 28 H 09/06/17 17:57 87 28 H 09/06/17 17:56 86 36 H 09/06/17 17:55 87 29 H 09/06/17 17:54 88 31 H 09/06/17 17:53 88 41 H 09/06/17 17:52 87 30 H 09/06/17 17:51 89 30 H 09/06/17 17:50 85 09/06/17 17:49 90 32 H 09/06/17 17:48 84 27 H 09/06/17 17:47 80 28 H 09/06/17 17:46 81 28 H 09/06/17 17:45 80 28 H 09/06/17 17:44 80 27 H 09/06/17 17:43 82 28 H 09/06/17 17:42 81 29 H 09/06/17 17:41 82 30 H 09/06/17 17:40 83 28 H 09/06/17 17:39 82 29 H 09/06/17 17:38 81 29 H 09/06/17 17:37 84 30 H 09/06/17 17:36 82 29 H 09/06/17 17:35 84 30 H 11/18/17 17:34 82 30 H 11/18/17 17:33 86 30 H 11/18/17 17:32 82 30 H 11/18/17 17:31 84 29 H 11/18/17 17:30 88 33 H 11/18/17 17:29 91 H 31 H 11/18/17 17:28 89 32 H 11/18/17 17:27 90 30 H 11/18/17 17:26 93 H 34 H 11/18/17 17:25 93 H 33 H 11/18/17 17:24 93 H 37 H 11/18/17 17:23 93 H 31 H 11/18/17 17:22 95 H 23 11/18/17 17:21 96 H 34 H 11/18/17 17:20 93 H 27 H 11/18/17 17:19 93 H 36 H 11/18/17 17:18 90 37 H 11/18/17 17:17 96 H 41 H 11/18/17 17:16 94 H 39 H 11/18/17 17:15 95 H 23 11/18/17 17:14 96 H 28 H 11/18/17 17:13 93 H 33 H 11/18/17 17:12 95 H 29 H 11/18/17 17:11 96 H 28 H 11/18/17 17:10 97 H 23 11/18/17 14:51 83 28 H 11/18/17 14:50 87 24 11/18/17 14:49 85 20 11/18/17 14:48 86 27 H 11/18/17 14:47 86 27 H 11/18/17 14:46 81 22 11/18/17 14:45 88 24 11/18/17 14:44 82 23 11/18/17 14:43 86 29 H 11/18/17 14:42 85 29 H 11/18/17 14:41 83 22 11/18/17 14:40 82 27 H 11/18/17 14:39 84 26 H 11/18/17 14:38 86 25 H 11/18/17 14:37 85 27 H 11/18/17 14:36 85 28 H 11/18/17 14:35 87 30 H 11/18/17 14:34 86 26 H 11/18/17 14:33 87 31 H 11/18/17 14:32 89 32 H 11/18/17 14:31 88 26 H 09/06/17 14:30 90 30 H 09/06/17 14:29 88 25 H 09/06/17 14:28 89 30 H 09/06/17 14:27 88 24 09/06/17 14:26 84 28 H 09/06/17 14:25 85 28 H 09/06/17 14:24 85 Intake and Output (Last 8hrs): Intake & Output 09/06/17 09/06/17 09/06/17 06:59 14:59 22:59 Intake Total 950 2850 Output Total 1600 3000 Balance -650 -150 Weight 215 lb Intake: IV 1050 Right Upper arm 1050 Oral 600 600 Other 350 1200 Output: Urine 1600 3000 3-way Urethral 1600 3000 Other: # Bowel Movements 1 1 - Medications Active Medications: Active Medications Generic Name Dose Route Start Last Admin Trade Name Freq PRN Reason Stop Dose Admin Acetaminophen 650 mg 09/04/17 21:51 09/05/17 19:27 Tylenol 325mg Tab PO 650 mg Q6H PRN Administration Fever >100.4 F Alprazolam 0.5 mg 09/05/17 08:38 09/06/17 10:08 Xanax PO 0.5 mg TID PRN Administration Anxiety Protocol Aspirin 81 mg 09/05/17 10:00 09/06/17 09:06 Ecotrin PO 81 mg DAILY JIMBO Administration Clopidogrel Bisulfate 75 mg 09/04/17 15:00 09/06/17 09:06 Plavix PO 75 mg DAILY JIMBO Administration Meropenem 1 gm/ Dextrose 100 mls @ 100 mls/hr 09/02/17 07:00 09/06/17 10:09 IVPB 09/09/17 07:01 100 mls/hr Q12 JIMBO Administration Protocol Vancomycin HCl 1 gm in 250 mls @ 167 mls/hr 09/04/17 09:15 09/06/17 09:07 Vancomycin 1gm IVPB 167 mls/hr Q12H JIMBO Administration Protocol Potassium Chloride 10 meq in 100 mls @ 100 mls/hr 09/06/17 08:30 09/06/17 18: 19 Potassium Chloride 10 Meq/100 Ml IVPB 09/06/17 19:29 100 mls/hr Q2H JIMBO Administration Insulin Human Lispro 0 units 09/05/17 16:30 09/06/17 16:12 Humalog High SC 2 units ACHS JIMBO Administration Protocol Levalbuterol HCl 0.63 mg 09/05/17 06:45 09/05/17 06:54 Xopenex IH 0.63 mg [id number] PRN Administration Shortness of Breath Morphine Sulfate 1 mg 09/04/17 20:01 09/06/17 14:11 Morphine IV 1 mg Q4H PRN Administration Pain, severe (8-10) Pantoprazole Sodium 40 mg 09/05/17 06:00 09/06/17 05:29 Protonix Ec Tab PO 40 mg 0600 JIMBO Administration - Patient Studies Lab Studies: Microbiology Studies 09/04/17 07:20 Blood Culture - Preliminary Blood-Venous NO GROWTH AFTER 48 HOURS 09/04/17 07:00 Blood Culture - Preliminary Blood-Venous NO GROWTH AFTER 48 HOURS 09/01/17 18:44 Blood Culture - Preliminary Blood-Venous NO GROWTH AFTER 4 DAYS 09/01/17 18:44 Blood Culture - Preliminary Blood-Venous NO GROWTH AFTER 4 DAYS Lab Studies 09/06/17 09/06/17 09/06/17 Range/Units 05:00 05:00 05:00 WBC 6.2 D (4.5-11.0) 10^3/ul RBC 3.39 L (3.5-6.1) 10^6/uL Hgb 8.1 L (14.0-18.0) g/dL Hct 26.6 L (42.0-52.0) % MCV 78.5 L (80.0-105.0) fl MCH 23.9 L (25.0-35.0) pg MCHC 30.5 L (31.0-37.0) g/dl RDW 16.7 H (11.5-14.5) % Plt Count 171 (120.0-450.0) 10^3/uL MPV 9.5 (7.0-11.0) fl Gran % 83.1 H (50.0-68.0) % Lymph % (Auto) 11.1 L (22.0-35.0) % [place] % (Auto) 5.6 (1.0-6.0) % Eos % (Auto) 0.2 L (1.5-5.0) % Baso % (Auto) 0.0 (0.0-3.0) % Gran # 5.15 (1.4-6.5) Lymph # 0.7 L (1.2-3.4) [place] # 0.4 (0.1-0.6) Eos # 0.0 (0.0-0.7) Baso # 0.00 (0.0-2.0) K/mm3 Sodium 144 (132-148) mmol/L Potassium 2.9 L* (3.6-5.0) mmol/L Chloride 111 H (98-107) mmol/L Carbon Dioxide 25 (21-33) mmol/L Anion Gap 11 (10-20) BUN 23 H (7-21) mg/dL Creatinine 1.1 (0.8-1.5) mg/dl Est GFR ( Amer) > 60 Est GFR (Non-Af Amer) > 60 POC Glucose (mg/dL) (65-110) mg/dL Random Glucose 220 H (70-110) mg/dL Calcium 8.4 (8.4-10.5) mg/dL Magnesium 1.7 (1.7-2.2) mg/dL Total Bilirubin 0.8 (0.2-1.3) mg/dL AST 30 (17-59) U/L ALT 33 (7-56) U/L Alkaline Phosphatase 74 (38-126) U/L Total Protein 5.5 L (5.8-8.3) g/dL Albumin 2.7 L (3.0-4.8) g/dL Globulin 2.7 gm/dL Albumin/Globulin Ratio 1.0 L (1.1-1.8) 09/05/ Range/Units 22:13 WBC (4.5-11.0) 10^3/ul RBC (3.5-6.1) 10^6/uL Hgb (14.0-18.0) g/dL Hct (42.0-52.0) % MCV (80.0-105.0) fl MCH (25.0-35.0) pg MCHC (31.0-37.0) g/dl RDW (11.5-14.5) % Plt Count (120.0-450.0) 10^3/uL MPV (7.0-11.0) fl Gran % (50.0-68.0) % Lymph % (Auto) (22.0-35.0) % [place] % (Auto) (1.0-6.0) % Eos % (Auto) (1.5-5.0) % Baso % (Auto) (0.0-3.0) % Gran # (1.4-6.5) Lymph # (1.2-3.4) [place] # (0.1-0.6) Eos # (0.0-0.7) Baso # (0.0-2.0) K/mm3 Sodium (132-148) mmol/L Potassium (3.6-5.0) mmol/L Chloride (98-107) mmol/L Carbon Dioxide (21-33) mmol/L Anion Gap (10-20) BUN (7-21) mg/dL Creatinine (0.8-1.5) mg/dl Est GFR ( Amer) Est GFR (Non-Af Amer) POC Glucose (mg/dL) 196 H (65-110) mg/dL Random Glucose (70-110) mg/dL Calcium (8.4-10.5) mg/dL Magnesium (1.7-2.2) mg/dL Total Bilirubin (0.2-1.3) mg/dL AST (17-59) U/L ALT (7-56) U/L Alkaline Phosphatase (38-126) U/L Total Protein (5.8-8.3) g/dL Albumin (3.0-4.8) g/dL Globulin gm/dL Albumin/Globulin Ratio (1.1-1.8) Laboratory Results - last 24 hr 09/05/17 09/06/17 09/06/17 22:13 05:00 05:00 WBC 6.2 D RBC 3.39 L Hgb 8.1 L Hct 26.6 L MCV 78.5 L MCH 23.9 L MCHC 30.5 L RDW 16.7 H Plt Count 171 MPV 9.5 Gran % 83.1 H Lymph % (Auto) 11.1 L [place] % (Auto) 5.6 Eos % (Auto) 0.2 L Baso % (Auto) 0.0 Gran # 5.15 Lymph # 0.7 L [place] # 0.4 Eos # 0.0 Baso # 0.00 Sodium 144 Potassium 2.9 L* Chloride 111 H Carbon Dioxide 25 Anion Gap 11 BUN 23 H Creatinine 1.1 Est GFR ( Amer) > 60 Est GFR (Non-Af Amer) > 60 POC Glucose (mg/dL) 196 H Random Glucose 220 H Calcium 8.4 Magnesium Total Bilirubin 0.8 AST 30 ALT 33 Alkaline Phosphatase 74 Total Protein 5.5 L Albumin 2.7 L Globulin 2.7 Albumin/Globulin Ratio 1.0 L 09/06/17 05:00 WBC RBC Hgb Hct MCV MCH MCHC RDW Plt Count MPV Gran % Lymph % (Auto) [place] % (Auto) Eos % (Auto) Baso % (Auto) Gran # Lymph # [place] # Eos # Baso # Sodium Potassium Chloride Carbon Dioxide Anion Gap BUN Creatinine Est GFR ( Amer) Est GFR (Non-Af Amer) POC Glucose (mg/dL) Random Glucose Calcium Magnesium 1.7 Total Bilirubin AST ALT Alkaline Phosphatase Total Protein Albumin Globulin Albumin/Globulin Ratio Critical Care Progress Note - Nutrition Nutrition: Nutrition Category Date Time Status Dysphagia/Modified Consistency Diet [DIET] Diets 09/05/17 Dinner Ordered Attending/Attestation - Attestation I have personally seen and examined this patient.: Yes I have fully participated in the care of the patient.: Yes I have reviewed all pertinent clinical information: Yes Notes (Text): 09/06/17 18:24 66 yo male with UTI, hydronephrosis, s/p cystoscopy with urethral stent palcement, complicated by bladder tear vs perforation--extraperitoneal air on CT abdomen. Nevertheless, patient is doing very well clinically, tolerates oral nutrition, hemodynamically and respiratory berman stable. Mental status is at baseline (dementia with some sundowning). Ok to downgrade to telemetry ccm time 40 min
--- NOTE | 2017-09-06 12:59 | CP.PCM.PN ---
Subjective - Date & Time of Evaluation Date of Evaluation: 09/06/17 Time of Evaluation: 11:50 - Subjective Subjective: General Surgery Progress note. Dr. Chambers Pt seen and examined at bedside. No acute events overnight. Patient reports that his abdominal pain is slightly improved. Denies any new complaints. Tmax 101F overnight. No N/V/D. No acute distress. Objective - Vital Signs/Intake and Output Vital Signs (last 24 hours): Temp Pulse Resp BP Pulse Ox 98.2 F 90 16 130/73 100 09/06/17 04:00 09/06/17 10:00 09/06/17 00:05 09/06/17 00:00 09/05/17 20:00 Intake and Output: 09/06/17 09/06/17 06:59 18:59 Intake Total 950 Output Total 1600 Balance -650 - Medications Medications: Current Medications Acetaminophen (Tylenol 325mg Tab) 650 mg PO Q6H PRN PRN Reason: Fever >100.4 F Last Admin: 09/05/17 19:27 Dose: 650 mg Alprazolam (Xanax) 0.5 mg PO TID PRN; Protocol PRN Reason: Anxiety Last Admin: 09/06/17 10:08 Dose: 0.5 mg Aspirin (Ecotrin) 81 mg PO DAILY [facility] Last Admin: 09/06/17 09:06 Dose: 81 mg Clopidogrel Bisulfate (Plavix) 75 mg PO DAILY [facility] Last Admin: 09/06/17 09:06 Dose: 75 mg Meropenem 1 gm/ Dextrose 100 mls @ 100 mls/hr IVPB Q12 JIMBO PRN Reason: Protocol Stop: 09/09/17 07:01 Last Admin: 09/06/17 10:09 Dose: 100 mls/hr Vancomycin HCl (Vancomycin 1gm) 1 gm in 250 mls @ 167 mls/hr IVPB Q12H JIMBO PRN Reason: Protocol Last Admin: 09/06/17 09:07 Dose: 167 mls/hr Potassium Chloride (Potassium Chloride 10 Meq/100 Ml) 10 meq in 100 mls @ 100 mls/hr IVPB Q2H JIMBO Stop: 09/06/17 19:29 Last Admin: 09/06/17 11:51 Dose: 100 mls/hr Insulin Human Lispro (Humalog High) 0 units SC ACHS JIMBO PRN Reason: Protocol Last Admin: 09/06/17 11:50 Dose: 10 units Levalbuterol HCl (Xopenex) 0.63 mg IH [id number] PRN PRN Reason: Shortness of Breath Last Admin: 09/05/17 06:54 Dose: 0.63 mg Morphine Sulfate (Morphine) 1 mg IV Q4H PRN PRN Reason: Pain, severe (8-10) Last Admin: 09/06/17 09:07 Dose: 1 mg Pantoprazole Sodium (Protonix Ec Tab) 40 mg PO 0600 JIMBO Last Admin: 09/06/17 05:29 Dose: 40 mg - Labs Labs: 09/06/17 05:00 09/06/17 05:00 PT 12.9 SECONDS (9.4-12.5) H 09/01/17 11:22 INR 1.17 (0.93-1.08) H 09/01/17 11:22 - Constitutional Appears: Non-toxic, No Acute Distress - Head Exam Head Exam: ATRAUMATIC, NORMAL INSPECTION, NORMOCEPHALIC - Eye Exam Eye Exam: EOMI, Normal appearance - ENT Exam ENT Exam: Mucous Membranes Moist - Respiratory Exam Respiratory Exam: Clear to Ausculation Bilateral, NORMAL BREATHING PATTERN. absent: Rhonchi, Wheezes - Cardiovascular Exam Cardiovascular Exam: RRR. absent: JVD - GI/Abdominal Exam GI & Abdominal Exam: Soft. absent: Distended, Firm, Guarding, Rebound Additional comments: tenderness to palpation lower abdomen. - Extremities Exam Extremities Exam: Normal Inspection. absent: Calf Tenderness - Neurological Exam Neurological Exam: Alert, Awake - Skin Skin Exam: Dry, Intact, Normal Color, Warm Assessment and Plan - Assessment and Plan (Free Text) Assessment: 66yo M s/p cysto w/ R ureteral stent placement on 09/01 with extraperitoneal bladder injury. - Adequate UOP, yellow urine noted. No evidence of blood - Strict I&O - Pain control - Continue IV Abx as per ID - Continue with Urology Plan - No plans for acute general surgery intervention. Surgical team will sign-off. Please re-consult with change in patient's clinical status. Further recs as per Dr. Reyes Varghese PGY1 surgery pager: [phone]
[2017-09-06] MEDS ORDERED: Magnesium Sulfate 1 gm in D5W 1 GM/100 ML BAG IVPB ONE (14:59)
[2017-09-06 21:11] LABS: POTASSIUM 2.9 mmol/L (3.6-5.0)
[2017-09-06 21:13] LABS: BLOOD UREA NITROGEN 22 mg/dL (7-21); CALCIUM 8.3 mg/dL (8.4-10.5); CARBON DIOXIDE 24 mmol/L (21-33); CHLORIDE 106 mmol/L (98-107); GFR AFRICAN-AMERICAN > 60; GLUCOSE,RANDOM 180 mg/dL (70-110); SODIUM 136 mmol/L (132-148)
[2017-09-06] MEDS ORDERED: Potassium Chloride 20 mEq ER Tab PO STA (21:37)
--- NOTE | 2017-09-07 00:55 | PN ---
DATE: 09/06/2017 SUBJECTIVE: The patient was seen this Friday morning in the Intensive Care, Coronary Care, bed 6. Case was discussed at length with Certified Control Systems Technician, Dr. Li, who understands my worries for this patient. A 66-year-old man with history of difficult to treat diabetes mostly due to dietary and medication compliance issue due to social and economic factors in spite of the help we have given in the office in the form of medications, food, and meals, etc. I have known García for many years. He is very fond to the staff in the practice and has been stricken with an unfortunate plight of health issues after turning 66. Evaluation in the intensive care with multitude of problems. He is hemodynamically stable, although there is a drop in his hemoglobin supplemented. He is slowly and clinically improving, a bit more awake, alert, and talkative than yesterday and certainly than two days before. PHYSICAL EXAMINATION: LUNGS: Has fair aeration, right and left. HEART: Regular, but not tachycardic. LABORATORY AND DIAGNOSTIC DATA: Shows white count remains normal, hemoglobin of 8.1. Potassium was 2.9 as noted above with BUN of 23. Sugars 220, this morning. Most recent chest x-ray on 09/05/2017, yesterday, showed CHF and his fluids have been adjusted since and most recent CAT scan on 09/04/2017 showed free air on the diaphragm around the bladder and a thick wall urinary bladder and Norris in place. ASSESSMENT AND PLAN: Case was discussed with Dr. Marie, the Infectious Disease hr consultant, at great length yesterday. We will continue IV antibiotics. I explained yesterday because of his multiple other comorbidities the patient out of ICU. He is also requiring a great deal of nursing care in his current debilitative state. We will watch his H&H closely and consider transfusion because of his underlying coronary artery disease, generalized weakness, and severity of infection. Alex Bowman MD [facility]
[2017-09-07 03:14] LABS: EOS # 0.1 (0.0-0.7); EOS % 2.1 % (1.5-5.0); GRAN # 4.71 (1.4-6.5); GRAN % 74.4 % (50.0-68.0); LYMPH % 16.4 % (22.0-35.0); MEAN CORPUSCULAR HEMOGLOBIN 24.8 pg (25.0-35.0); MEAN CORPUSCULAR HGB CONC 31.8 g/dl (31.0-37.0); MEAN PLATELET VOLUME 9.2 fl (7.0-11.0); MONO # 0.5 (0.1-0.6); MONO % 7.1 % (1.0-6.0); WHITE BLOOD COUNT 6.3 10^3/ul (4.5-11.0)
[2017-09-07 03:29] LABS: ALB/GLOB RATIO 0.9 (1.1-1.8); ALKALINE PHOSPHATASE 75 U/L (38-126); ALT/SGPT 44 U/L (7-56); AST/SGOT 34 U/L (17-59); BILIRUBIN,TOTAL 0.8 mg/dL (0.2-1.3); BLOOD UREA NITROGEN 21 mg/dL (7-21); CALCIUM 8.1 mg/dL (8.4-10.5); CARBON DIOXIDE 24 mmol/L (21-33); CHLORIDE 106 mmol/L (98-107); GFR AFRICAN-AMERICAN > 60; GLUCOSE,RANDOM 169 mg/dL (70-110); POTASSIUM 3.2 mmol/L (3.6-5.0); SODIUM 136 mmol/L (132-148); TOTAL PROTEIN 5.4 g/dL (5.8-8.3)
[2017-09-07] MEDS ORDERED: Potassium Chloride 20 mEq ER Tab PO STA (04:36)
[2017-09-07] MEDS: Pantoprazole 40 mg EC Tab PO SCH (05:21)
[2017-09-07] MEDS: Insulin Lispro (HUMAlog) HIGH Coverage SC SCH ×4 (08:35→22:46)
[2017-09-07] MEDS: Vancomycin 1gm in NS 250ml 1 GM/250 ML BAG IVPB SCH ×2 (08:37→20:47)
[2017-09-07] MEDS: Meropenem 1 GM in Dextrose 5% In Water 100 ML IVPB SCH ×2 (09:14→22:42)
[2017-09-07] MEDS ORDERED: Potassium Chloride 20 mEq ER Tab PO ONE ×2 (14:30→18:00)
--- NOTE | 2017-09-07 14:47 | CP.PCM.PN ---
Subjective - Date & Time of Evaluation Date of Evaluation: 09/07/17 Time of Evaluation: 14:10 - Subjective Subjective: Still with abdominal pain, a little less compared to previous days as per patient, a little more awake and coherent today, fevers have subsided overnight. Objective - Vital Signs/Intake and Output Vital Signs (last 24 hours): Temp Pulse Resp BP Pulse Ox 99.6 F 86 28 H 131/70 100 09/07/17 04:00 09/07/17 06:00 09/06/17 21:42 09/06/17 21:00 09/05/17 20:00 Intake and Output: 09/07/17 09/07/17 06:59 18:59 Intake Total 1350 Output Total 2800 Balance -1450 - Medications Medications: Current Medications Acetaminophen (Tylenol 325mg Tab) 650 mg PO Q6H PRN PRN Reason: Fever >100.4 F Last Admin: 09/05/17 19:27 Dose: 650 mg Alprazolam (Xanax) 0.5 mg PO TID PRN; Protocol PRN Reason: Anxiety Last Admin: 09/06/17 21:26 Dose: 0.5 mg Aspirin (Ecotrin) 81 mg PO DAILY [facility] Last Admin: 09/06/17 09:06 Dose: 81 mg Clopidogrel Bisulfate (Plavix) 75 mg PO DAILY [facility] Last Admin: 09/06/17 09:06 Dose: 75 mg Meropenem 1 gm/ Dextrose 100 mls @ 100 mls/hr IVPB Q12 JIMBO PRN Reason: Protocol Stop: 09/09/17 07:01 Last Admin: 09/06/17 22:24 Dose: 100 mls/hr Vancomycin HCl (Vancomycin 1gm) 1 gm in 250 mls @ 167 mls/hr IVPB Q12H JIMBO PRN Reason: Protocol Last Admin: 09/06/17 20:53 Dose: 167 mls/hr Insulin Human Lispro (Humalog High) 0 units SC ACHS JIMBO PRN Reason: Protocol Last Admin: 09/06/17 21:32 Dose: Not Given Levalbuterol HCl (Xopenex) 0.63 mg IH [id number] PRN PRN Reason: Shortness of Breath Last Admin: 09/05/17 06:54 Dose: 0.63 mg Morphine Sulfate (Morphine) 1 mg IV Q4H PRN PRN Reason: Pain, severe (8-10) Last Admin: 09/06/17 14:11 Dose: 1 mg Pantoprazole Sodium (Protonix Ec Tab) 40 mg PO 0600 JIMBO Last Admin: 09/07/17 05:21 Dose: 40 mg - Labs Labs: 09/07/17 03:05 09/07/17 03:05 PT 12.9 SECONDS (9.4-12.5) H 09/01/17 11:22 INR 1.17 (0.93-1.08) H 09/01/17 11:22 - Constitutional Appears: Chronically Ill - Head Exam Head Exam: NORMAL INSPECTION - ENT Exam ENT Exam: Mucous Membranes Moist - Neck Exam Neck Exam: absent: Lymphadenopathy, Meningismus - Respiratory Exam Respiratory Exam: Decreased Breath Sounds. absent: Rales - Cardiovascular Exam Cardiovascular Exam: +S1, +S2 - GI/Abdominal Exam GI & Abdominal Exam: Soft, Tenderness (lower quadrants, less compared to previous days). absent: Distended, Firm, Guarding, Rigid, Rebound Assessment and Plan - Assessment and Plan (Free Text) Plan: Assessment Severe sepsis with acute on chronic renal failure (improved) and acute encephalopathy probably related to possible perforated urinary bladder with retroperitoneal air and UTI with associated ureteral stone, right ureteral stent placement S/P lithotripsy POD#6 CAD S/P PCI right ureteral stent placement because of obstructing ureteral stone 04/2017 HTN DM PVD history of depression Plan continue IV Vancomycin q12 (and monitor renal function) and continue Merrem day 6; blood and urine cx are negative from 5 days ago - follow up repeat blood cx from 3 days ago continue to be negative reviewed repeat CT scan of the abdomen and pelvis, showing retroperitoneal air which is slightly decreased discussed with Dr. Bass previously - observe patient - plan is to repeat the CT A/P tomorrow will continue to follow clinically discussed with Dr. Bowman previously as well
--- NOTE | 2017-09-07 22:44 | PN ---
DATE: 09/07/2017 SUBJECTIVE: Patient seen this Friday morning in Intensive Care, ICU bed 6. He is clinically improving. His blood count came up at 8.9. He is more awake, looks better, hemodynamically stable, but still extremely weak and lethargic. PHYSICAL EXAMINATION: GENERAL: He answers appropriately, but weak in voice, slightly slow in mentation and movement. HEENT: Head and neck are unremarkable. Conjunctivae are pink. Mucous membranes are moist. LUNGS: Show aeration to be good on both right and left sides. HEART: Regular, not tachycardiac. EXTREMITIES: Show no edema. SCD compression leggings are in place. PLAN: Out of bed again today. May leave Intensive Care Unit to a monitored bed. Aggressive physical therapy. Continue antibiotics. Close followup by Infectious Diseases as well as Surgery and Neurology. Alex Bowman MD
[2017-09-08] MEDS: Pantoprazole 40 mg EC Tab PO SCH (06:15)
[2017-09-08 07:19] LABS: ALKALINE PHOSPHATASE 93 U/L (38-126); ALT/SGPT 62 U/L (7-56); AST/SGOT 51 U/L (17-59); BILIRUBIN,TOTAL 0.9 mg/dL (0.2-1.3); BLOOD UREA NITROGEN 21 mg/dL (7-21); CALCIUM 8.1 mg/dL (8.4-10.5); CARBON DIOXIDE 24 mmol/L (21-33); CHLORIDE 108 mmol/L (98-107); GFR AFRICAN-AMERICAN > 60; GLUCOSE,RANDOM 192 mg/dL (70-110); POTASSIUM 3.7 mmol/L (3.6-5.0); SODIUM 139 mmol/L (132-148); TOTAL PROTEIN 5.2 g/dL (5.8-8.3)
[2017-09-08] MEDS: Insulin Lispro (HUMAlog) HIGH Coverage SC SCH ×4 (08:08→22:29)
[2017-09-08] MEDS: Vancomycin 1gm in NS 250ml 1 GM/250 ML BAG IVPB SCH ×2 (08:28→20:30)
--- NOTE | 2017-09-08 08:52 | PN ---
DATE: 09/07/2017 UROLOGY PROGRESS NOTE SUBJECTIVE: The patient is seen still in the ICU. He is awake and somewhat improved, answering questions coherently. He is in no acute distress. Reports his abdominal pain has improved, although still present. He has been afebrile, pulse 86 and blood pressure 138/90 currently. Abdomen is soft. There is mild pelvic tenderness. There is no rebound. There is no guarding. There is no CVA tenderness. Phallus is normal. Norris catheter in place draining clear colored urine with some sediment on very slow CBI. LABORATORY EXAM: WBC count 6.3, hemoglobin stable at 8.9, and creatinine 1.1 with a GFR of greater than 60. Sugars remain elevated. IMPRESSION AND PLAN. The patient is improving, although slowly. Urologically, I would continue the Norris on slow continuous bladder irrigation for now. I will discuss restarting Flomax and removing the Norris in the next day or two with Dr. Bowman. We would also discuss repeat CT scan to check on the retroperitoneal air. The patient appears to be back to his baseline condition and some of this appears to be from his poorly controlled diabetes and diabetic neuropathy, which is likely contributing to his pain and his other comorbidities. He has been restarted on his Plavix and there is no evidence of bleeding. The patient has been set for transfer out of the intensive care unit and I agree with this plan. We will continue to follow the patient. Troy Salas MD
--- NOTE | 2017-09-08 10:25 | CP.PCM.PN ---
Subjective - Date & Time of Evaluation Date of Evaluation: 09/08/17 Time of Evaluation: 09:50 - Subjective Subjective: Continues to complain of abdominal pain, no nausea or vomiting, now no fevers overnight, no diarrhea. Objective - Vital Signs/Intake and Output Vital Signs (last 24 hours): Temp Pulse Resp BP Pulse Ox 98.8 F 91 H 10 L 170/79 H 77 L 09/08/17 06:00 09/08/17 06:36 09/08/17 06:36 09/08/17 06:00 09/08/17 06:00 Intake and Output: 09/07/17 09/08/17 18:59 06:59 Intake Total 2700 480 Output Total 3600 1800 Balance -900 -1320 - Medications Medications: Current Medications Acetaminophen (Tylenol 325mg Tab) 650 mg PO Q6H PRN PRN Reason: Fever >100.4 F Last Admin: 09/07/17 19:44 Dose: 650 mg Alprazolam (Xanax) 0.5 mg PO TID PRN; Protocol PRN Reason: Anxiety Last Admin: 09/07/17 19:44 Dose: 0.5 mg Aspirin (Ecotrin) 81 mg PO DAILY [facility] Last Admin: 09/07/17 09:14 Dose: 81 mg Clopidogrel Bisulfate (Plavix) 75 mg PO DAILY [facility] Last Admin: 09/07/17 09:14 Dose: 75 mg Meropenem 1 gm/ Dextrose 100 mls @ 100 mls/hr IVPB Q12 JIMBO PRN Reason: Protocol Stop: 09/09/17 07:01 Last Admin: 09/07/17 22:42 Dose: 100 mls/hr Vancomycin HCl (Vancomycin 1gm) 1 gm in 250 mls @ 167 mls/hr IVPB Q12H JIMBO PRN Reason: Protocol Last Admin: 09/07/17 20:47 Dose: 167 mls/hr Insulin Human Lispro (Humalog High) 0 units SC ACHS JIMBO PRN Reason: Protocol Last Admin: 09/07/17 22:46 Dose: Not Given Levalbuterol HCl (Xopenex) 0.63 mg IH [id number] PRN PRN Reason: Shortness of Breath Last Admin: 09/05/17 06:54 Dose: 0.63 mg Morphine Sulfate (Morphine) 1 mg IV Q4H PRN PRN Reason: Pain, severe (8-10) Last Admin: 09/06/17 14:11 Dose: 1 mg Pantoprazole Sodium (Protonix Ec Tab) 40 mg PO 0600 JIMBO Last Admin: 09/08/17 06:15 Dose: 40 mg - Labs Labs: 09/07/17 03:05 09/07/17 03:05 PT 12.9 SECONDS (9.4-12.5) H 09/01/17 11:22 INR 1.17 (0.93-1.08) H 09/01/17 11:22 - Constitutional Appears: Other (still in pain but less lethargic, more awake today) - Head Exam Head Exam: NORMAL INSPECTION - ENT Exam ENT Exam: Mucous Membranes Moist - Neck Exam Neck Exam: absent: Lymphadenopathy, Meningismus - Respiratory Exam Respiratory Exam: Decreased Breath Sounds. absent: Rales - Cardiovascular Exam Cardiovascular Exam: +S1, +S2 - GI/Abdominal Exam GI & Abdominal Exam: Soft, Tenderness (on the lower quadrants, less compared to previous days). absent: Distended, Firm, Guarding, Rigid, Rebound Assessment and Plan - Assessment and Plan (Free Text) Plan: Assessment Severe sepsis with acute on chronic renal failure (improved) and acute encephalopathy probably related to possible perforated urinary bladder with retroperitoneal air and UTI with associated ureteral stone, right ureteral stent placement S/P lithotripsy POD#7 CAD S/P PCI right ureteral stent placement because of obstructing ureteral stone 04/2017 HTN DM PVD history of depression Plan continue IV Vancomycin q12 (and monitor renal function) and continue Merrem day 7; blood and urine cx are negative - repeat blood cx from 4 days ago continue to be negative as well reviewed repeat CT scan of the abdomen and pelvis, showing retroperitoneal air which is slightly decreased plan is to repeat the CT A/P today will continue to follow clinically
--- NOTE | 2017-09-08 13:07 | PN ---
DATE: DAILY PROGRESS NOTE SUBJECTIVE: The patient is a 66-year-old male who was admitted to [facility] on 09/01/2017 with a diagnosis of right ureteral calculus. He has a history of severe depression, insulin dependent diabetes mellitus with diabetic neuropathy, which had been difficult to manage because of dietary and medications indiscretions. He has also had multiple falls in the past. He is status post PTCA, last performed in 04/2017. On admission, he was evaluated by Dr. Salas, taken to the operating room and an old right ureteral stent was removed. After the procedure, the patient suffered mental status changes, increasing abdominal pain. Followup CAT scan was performed and the findings were consistent with extraperitoneal bladder rupture with bladder decompression by a Norris catheter. The patient had been in the Intensive Care Unit since admission. He is being treated with vancomycin and Merrem. He received 2 units of O positive blood in transfusion. He is being followed by Dr. Salas and Dr. Bass, the Urologist as well as Dr. Chambers, the general surgeon and Dr. Marie, the Infectious Diseases specialist. When seen today, he is in CCU, room number 128, bed 6. He looks better since the last time I saw the patient 5 days ago. PHYSICAL EXAMINATION: GENERAL: He is awake, alert and oriented. VITAL SIGNS: His vital signs are stable. ABDOMEN: However, he still complains of diffuse abdominal pain specially in the suprapubic area. LUNGS: His lungs are clear anteriorly. CARDIOVASCULAR: His heart is regular. EXTREMITIES: Free of cyanosis, clubbing or edema. LABORATORY DATA: To date, cultures and sensitivities of blood in urine have been negative. Yesterday, his laboratory studies shows white blood cells count to be 6.34. IMPRESSION AND PLAN: So at this point, we will be transferring the patient to the Medical Floor. We are continuing with his antibiotics as per Infectious Disease. We are discussing the case with Urology and continuing to follow the patient closely. Fransisco Bowman MD [facility]
[2017-09-09] MEDS: Morphine 2 mg/ml ISec IVP PRN (00:09)
[2017-09-09] MEDS: Pantoprazole 40 mg EC Tab PO SCH (05:04)
[2017-09-09] MEDS: Insulin Lispro (HUMAlog) HIGH Coverage SC SCH ×4 (08:09→22:10)
[2017-09-09] MEDS: Vancomycin 25 MG/ML PO SCH ×4 (09:30→22:10)
[2017-09-09] MEDS: Vancomycin 1gm in NS 250ml 1 GM/250 ML BAG IVPB SCH (09:38)
--- NOTE | 2017-09-09 10:57 | PN ---
DATE: 09/09/2017 SUBJECTIVE: The patient is in bed, was seen earlier this morning in 128, bed 6, and the patient was seen early this morning the patient with low-grade fever of 100.1, no chills. No chest pain or shortness of breath. PHYSICAL EXAMINATION: VITAL SIGNS: Temperature was 100.1, T-max is 100.8 this morning, blood pressure is 139/60, respiratory rate of 23, and heart rate of 84. HEENT: Unremarkable. NECK: Supple. LUNGS: Decreased breath sounds. HEART: Normal S1 and S2. ABDOMEN: Soft and nontender. LABORATORY DATA: Reveals white count of 6.3, hemoglobin of 8, and platelets of 156. The chemistries reveals a BUN of 21 and creatinine of 1.0. Procalcitonin is 25. Urinalysis is noted. Serology is noted. Microbiology reveals stool C. diff is positive, antigen positive toxin and blood cultures are negative. Review of orders reveals the patient to be on IV vancomycin and Dr. Fransisco Bowman's note is reviewed from yesterday. ASSESSMENT AND PLAN: This is a 66-year-old male who was seen early this morning in the ICU 128, bed 6 doing well with severe sepsis and [id number] renal failure is improved with acute encephalopathy with probably possible perforated urinary bladder and retroperitoneal area and urinary tract infection associated with ureteral stone and right ureteral stent placement and lithotripsy postprocedure day #7, and right ureteral stent placement because of obstructive ureteral stone in a patient with diabetes, hypertension, peripheral vascular disease, and history of depression, on IV vancomycin, meropenem day #8. Blood and urine cultures are negative. Currently, the patient's meropenem has been discontinued. The patient is on IV vancomycin and the patient does have a stool C. diff positive from , which is positive antigen and positive toxin. The patient's CAT scan of the abdomen and pelvis is from the and we will discontinue the IV vancomycin, start empiric p.o. vancomycin for the positive C. diff antigen and toxin and place the patient on C. diff precautions. Dr. Alex Bowman's note is also reviewed and Dr. Troy Salas's note from the is reviewed. We will recommend repeating the CAT scan to check on retroperitoneal area. We will restart the meropenem pending repeat CAT scan findings. We will follow closely with you and place the patient on contact isolation. Tigre Ordoñez MD
[2017-09-09] MEDS: Meropenem 1 GM in Dextrose 5% In Water 100 ML IVPB SCH ×2 (14:22→21:36)
[2017-09-10] MEDS: Meropenem 1 GM in Dextrose 5% In Water 100 ML IVPB SCH ×3 (05:58→22:23)
[2017-09-10] MEDS: Pantoprazole 40 mg EC Tab PO SCH (06:01)
[2017-09-10] MEDS: Insulin Lispro (HUMAlog) HIGH Coverage SC SCH ×5 (07:30→22:18)
--- NOTE | 2017-09-10 08:17 | PN ---
DATE: 09/09/2017 SUBJECTIVE: The patient remains in the ICU. He has low-grade temperature. PHYSICAL EXAMINATION: VITAL SIGNS: Otherwise stable. ABDOMEN: Soft, nontender, no rebound or guarding. No CVA tenderness. : Norris catheter remains in place draining clear colored urine on slow CBI. LABORATORY DATA: WBC count 6.3 from 09/07. The patient did test positive for C diff and is now on p.o. vancomycin. PLAN: To start the patient on tamsulosin 0.4 mg daily. We will continue Norris drainage for now and plan on a voiding trial in a few days, while on antibiotics. I would also plan on a repeat CT scan of the abdomen and pelvis in few days to make sure any extraperitoneal air has resolved. Troy Salas MD
[2017-09-10] MEDS: Vancomycin 25 MG/ML PO SCH ×5 (09:18→22:24)
--- NOTE | 2017-09-10 11:30 | CP.PCM.PN ---
Subjective - Date & Time of Evaluation Date of Evaluation: 09/10/17 Time of Evaluation: 10:30 - Subjective Subjective: Still complaining of abdominal pain, no fevers overnight, has loose stools but not watery. Objective - Vital Signs/Intake and Output Vital Signs (last 24 hours): Temp Pulse Resp BP Pulse Ox 99.3 F 80 20 127/64 97 09/10/17 08:00 09/10/17 08:00 09/10/17 08:00 09/10/17 08:00 09/10/17 08:00 Intake and Output: 09/10/17 09/10/17 06:59 18:59 Intake Total 250 800 Output Total 1100 1735 Balance -850 -935 - Medications Medications: Current Medications Acetaminophen (Tylenol 325mg Tab) 650 mg PO Q6H PRN PRN Reason: Fever >100.4 F Last Admin: 09/08/17 11:47 Dose: 650 mg Alprazolam (Xanax) 0.5 mg PO TID PRN; Protocol PRN Reason: Anxiety Last Admin: 09/09/17 22:46 Dose: 0.5 mg Aspirin (Ecotrin) 81 mg PO DAILY [facility] Last Admin: 09/10/17 09:32 Dose: Not Given Clopidogrel Bisulfate (Plavix) 75 mg PO DAILY [facility] Last Admin: 09/10/17 09:32 Dose: Not Given Meropenem 1 gm/ Dextrose 100 mls @ 100 mls/hr IVPB Q8 JIMBO PRN Reason: Protocol Stop: 09/19/17 14:01 Last Admin: 09/10/17 05:58 Dose: 100 mls/hr Insulin Human Lispro (Humalog High) 0 units SC ACHS JIMBO PRN Reason: Protocol Last Admin: 09/10/17 09:31 Dose: Not Given Levalbuterol HCl (Xopenex) 0.63 mg IH [id number] PRN PRN Reason: Shortness of Breath Last Admin: 09/05/17 06:54 Dose: 0.63 mg Morphine Sulfate (Morphine) 1 mg IVP Q4H PRN PRN Reason: Pain, severe (8-10) Last Admin: 09/09/17 00:09 Dose: 1 mg Pantoprazole Sodium (Protonix Ec Tab) 40 mg PO 0600 [facility] Last Admin: 09/10/17 06:01 Dose: 40 mg Tamsulosin HCl (Flomax) 0.4 mg PO DAILY [facility] Last Admin: 09/10/17 09:32 Dose: Not Given Vancomycin HCl (Vancocin 25 Mg/Ml (Oral Use)) 250 mg PO QID JIMBO PRN Reason: Protocol Stop: 09/23/17 10:01 Last Admin: 09/10/17 09:32 Dose: Not Given - Labs Labs: 09/07/17 03:05 09/08/17 06:00 PT 12.9 SECONDS (9.4-12.5) H 09/01/17 11:22 INR 1.17 (0.93-1.08) H 09/01/17 11:22 - Constitutional Appears: Chronically Ill - Head Exam Head Exam: NORMAL INSPECTION - ENT Exam ENT Exam: Mucous Membranes Moist - Neck Exam Neck Exam: absent: Lymphadenopathy, Meningismus - Respiratory Exam Respiratory Exam: Decreased Breath Sounds - Cardiovascular Exam Cardiovascular Exam: +S1, +S2 - GI/Abdominal Exam GI & Abdominal Exam: Soft, Tenderness (mild). absent: Distended, Firm, Guarding , Rigid, Rebound Assessment and Plan - Assessment and Plan (Free Text) Plan: Assessment Severe sepsis with acute on chronic renal failure (improved) and acute encephalopathy probably related to possible perforated urinary bladder with retroperitoneal air and UTI with associated ureteral stone, right ureteral stent placement S/P lithotripsy POD#9 C. diff. associated diarrhea CAD S/P PCI right ureteral stent placement because of obstructing ureteral stone 04/2017 HTN DM PVD history of depression Plan continuePO Vancomycin (Day 2) and continue Merrem day 9; blood and urine cx are negative reviewed repeat CT scan of the abdomen and pelvis, showing retroperitoneal air which is slightly decreased - awaiting another repeat CT A/P to see if we can d/ c Merrem will continue to follow clinically
--- NOTE | 2017-09-10 18:49 | PN ---
DATE: 09/10/2017 The patient is seen in the ICU. He is still on precautions for C. difficile. PHYSICAL EXAMINATION: VITAL SIGNS: He is afebrile, he has temperature of 99.3. ABDOMEN: Soft, nontender, and nondistended. He has no rebound or guarding. : Phallus is normal. Norris catheter in place draining clear on very slow CBI. IMPRESSION AND PLAN: The patient is being treated for Clostridium difficile. Urologically, he appears to be stable at this point with the stent back in place. Plan will be to repeat a CT scan of abdomen and pelvis on Friday to see if there is resolution of the retroperitoneal air and there are no collections. After the CT scan, if it is improved, we will plan on removing the Norris catheter for a voiding trial; need to begin discharge planning for the patient to return to the rehabilitation facility. I will discuss these plans with Dr. Bowman. Troy Salas MD
--- NOTE | 2017-09-10 21:38 | CT ---
EXAM: CT Abdomen and Pelvis Without Intravenous Contrast EXAM DATE/TIME: 09/10/2017 1:30 PM CLINICAL HISTORY: 66 years old, male; Screening exam; Other: F/u bladder rupture; Additional info: Follow up bladder rupture TECHNIQUE: Axial computed tomography images of the abdomen and pelvis without intravenous contrast. All CT scans at this facility use one or more dose reduction techniques, viz.: automated exposure control; ma/kV adjustment per patient size (including targeted exams where dose is matched to indication; i.e. head); or iterative reconstruction technique. Coronal and sagittal reformatted images were created and reviewed. COMPARISON: Prior CT abdomen and pelvis of 2017-09-04 FINDINGS: LIMITATIONS: Moderate streak/motion artifact. Streak artifact from the patient's arms. LOWER THORAX: Bilateral pleural effusions, moderate in size, increased compared to the prior CT. Small pericardial effusion. ABDOMEN: LIVER: No acute abnormality of the liver identified. GALLBLADDER AND BILE DUCTS: No CT evidence of acute cholecystitis. No evidence of significant biliary ductal dilatation. PANCREAS: No CT evidence of acute pancreatitis. SPLEEN: Stable mild splenomegaly, with the spleen measuring 16 cm in length. ADRENALS: No acute abnormality of the adrenal glands identified. KIDNEYS AND URETERS: Right ureteral stent remains in place. This does not appear to be malpositioned. Stable appearance of a 5 x 3 mm calcification in the right distal ureter, image 177 of series 2, suspicious for a stone in the right distal ureter. Bilateral perinephric stranding and mild renal enlargement again seen, not significantly changed in appearance. Low density lesion in the left kidney, most likely a cyst. This measures 3 cm. No evidence of significant hydroureteronephrosis. STOMACH AND BOWEL: Retained stool noted throughout the colon. Otherwise, no significant abnormality of the bowel is identified. No evidence of bowel obstruction. APPENDIX: Normal appendix is not seen, however, there are no significant inflammatory changes visualized in the expected location of the appendix to suggest appendicitis. Recommend clinical correlation. PELVIS: BLADDER: Bladder catheter remains in place. Small amount of air in the bladder lumen. Stable appearance of diffuse bladder wall thickening. Again seen is diffuse extraperitoneal and subperitoneal air, located anteriorly, greatest in the extraperitoneal space abutting the bladder anteriorly. Compared to the prior CT, the amount of air is decreased. A moderate amount of air is still present, however. No evidence of abscess formation. REPRODUCTIVE: No acute abnormality of the reproductive organs is seen. ABDOMEN and PELVIS: INTRAPERITONEAL SPACE: No evidence of free intraperitoneal air or fluid. RETROPERITONEAL SPACE: See above. Again seen is retroperitoneal fluid, in the pre-sacral space and bilateral pelvic retroperitoneal spaces, overall small to moderate in amount, and mildly decreased in amount compared to the prior exam. No evidence of retroperitoneal hemorrhage. BONES/JOINTS: No acute fractures or other acute bony abnormality noted. SOFT TISSUES: Small amount of air in the right inguinal canal. Compared to the prior study, the overall amount of air in the neural canals is decreased. VASCULATURE: Atherosclerotic calcification. No evidence of abdominal aortic aneurysm. LYMPH NODES: No evidence of diffuse lymphadenopathy. IMPRESSION: - Compared to a CT done 6 days prior, mild interval decrease in the amount of extraperitoneal/subperitoneal air and bilateral retroperitoneal fluid, which are presumably secondary to a healing bladder rupture. A persistent moderate amount of air and fluid remain, however. - Bilateral pleural effusions, mildly increased in size. - Otherwise, no significant change is seen. - Right ureteral stent and bladder catheter remain in place. - 5 x 3 mm stone in the right distal ureter. - See above for remaining findings.
[2017-09-11] MEDS: Meropenem 1 GM in Dextrose 5% In Water 100 ML IVPB SCH ×3 (05:43→21:32)
[2017-09-11] MEDS: Pantoprazole 40 mg EC Tab PO SCH (05:44)
[2017-09-11] MEDS: Insulin Lispro (HUMAlog) HIGH Coverage SC SCH ×3 (08:07→16:40)
--- NOTE | 2017-09-11 09:13 | PN ---
DATE: 09/11/2017 SUBJECTIVE: The patient is in room 561, bed 1. PHYSICAL EXAMINATION: GENERAL: The patient is in bed, no acute distress, nontoxic, answering questions. He feels he is very hot and he wants air conditioning on. VITAL SIGNS: Temperature of 98, blood pressure is 120/70, respiratory rate of 18, and heart rate of 76. HEENT: Unremarkable. NECK: Supple. LUNGS: Decreased breath sounds. HEART: Normal S1 and S2. ABDOMEN: Soft and nontender. LABORATORY DATA: Reveals the patient has white count of 6.3, hemoglobin of 8, and platelets of 156. BUN of 21 and creatinine of 1.0. Procalcitonin is 25. Urinalysis is noted. Influenza is negative. Microbiology reveals the blood cultures are negative. Urine cultures are negative. Stool C. diff antigen and toxin are both positive. The patient had a CAT scan of the abdomen and pelvis saw peritoneal air and decrease in bilateral retroperitoneal fluid. Dr. Troy Salas's progress note from yesterday is reviewed and states that urologically, the patient is stable with a stent back in place. He is planning to repeat the CAT scan and possibly removal of the Norris catheter. The patient did have a CAT scan of the abdomen yesterday. Review of orders reveals the patient to be on meropenem and p.o. vancomycin. ASSESSMENT AND PLAN: He is a 66-year-old male with severe sepsis, [id number] renal failure improving, acute encephalopathy related to possible perforated urinary bladder, retroperitoneal air, urinary tract infection with associated ureteral stone and right ureteral stent placement, status post lithotripsy postprocedure day #9, now with pseudomembranous colitis and history of coronary artery disease status post percutaneous coronary intervention and right ureteral stent placed because of obstructive ureteral stone in 04/2017 and the patient with hypertension, diabetes, peripheral vascular disease, history of depression, currently day #3 of p.o. vancomycin, also day #10 of meropenem with blood and urine cultures negative, with repeat CAT scan improving and we will follow closely with you. Tigre Ordoñez MD
[2017-09-11] MEDS: Vancomycin 25 MG/ML PO SCH ×4 (11:54→21:40)
--- NOTE | 2017-09-11 19:49 | CON ---
HISTORY OF PRESENT ILLNESS: Shortly, the patient is a 66-year-old male, multiple medical issues. The patient was admitted initially to ICU because the patient suffered from change in mental status. The patient was status post right ureteral stent removed. The patient also had extraperitoneal bladder rupture decompression by Norris catheter. The patient was in Intensive Care Unit since the day of admission which is 09/01. The patient was downgraded to the fifth floor. Psych consult was called for evaluation of mood symptoms as well as at times the patient is refusing to have a treatment. The patient is very well known to this movie writer from the previous admission to the Psychiatric Inpatient Unit which took place here in [place] in 04/2017. The patient was seen and examined today. The patient presented to be in a good mood but at the same time, the patient thought process is very circumstantial and tangential. At times, the patient presented to be disorganized. For example, the patient made a statement "I would like you to be between me and medical team because I would like to have someone on my side, I wanted to have certain answers and I do not want medical team to give me a possible diagnosis, I want them to give me definite diagnosis and treatment plan." At the same time, the patient was making the statement "I do not want to be judged, I can trust you, I would like to extend our relationship." There are no obvious signs of psychosis or hallucinations, but as this movie writer mentioned above, the patient has thought process to be disorganized. Based on the previous history, the patient does not have history of psychosis in the past. The patient has mood disorder due to general medical condition in the past. The patient was discharged from the Psychiatric Inpatient Unit on Ambien as needed for insomnia which the patient reported tolerating well. The patient also was on Prozac 40 mg daily as well as Neurontin 300 mg 3 times a day. The patient has impression that he still takes those medications, but based on the record, the patient was not. MEDICATIONS: Reviewed, the patient is on Tylenol, Xanax, aspirin, Plavix, insulin, levalbuterol, meropenem, morphine, Protonix, Flomax, vancomycin. Ambien will be resumed by this movie writer. LABORATORY DATA: Reviewed. PHYSICAL EXAMINATION: VITAL SIGNS: Reviewed, temperature 98.0, pulse is 76, blood pressure 125/75, respirations 18, oxygen saturation is 97. MENTAL STATUS: The patient presented to be alert, at times presented to be confused, intermittent eye contact. Speech was overproductive but not pressured. Thought process was over-inclusive, circumstantial, at times tangential. Thought content, there is no obvious symptoms of hallucinations or paranoia, but the patient has very circumstantial and tangential thought process. The patient denied thoughts of harming himself or others. Denies intent or plan. Insight and judgment limited. Impulses are well controlled. IMPRESSION: Most likely, the patient has some residual symptoms of delirium. The patient has history of mood disorder due to general medical condition, multiple medical issues. PLAN: Continue current management. Ambien was resumed. This movie writer needs to have more time with the patient in order to diagnose the patient correctly but based on presentation, most likely, the patient is having residual symptoms of delirium. I hope, the patient will start feeling better soon. At the same time, as per medical team, the patient was not taking medication at the morning time, but based on the record, the patient was compliant with the medication later on. This movie writer will continue seeing the patient and advise accordingly. Should you have any questions, give me a call back. Thank you very much for letting me participate in the care of your patient. Callie Serrano MD
[2017-09-11] MEDS: Morphine 2 mg/ml ISec IVP PRN (21:40)
[2017-09-12 01:59] VITALS: RESP 20
[2017-09-12] MEDS: Meropenem 1 GM in Dextrose 5% In Water 100 ML IVPB SCH ×2 (06:09→16:24)
[2017-09-12] MEDS: Pantoprazole 40 mg EC Tab PO SCH (06:10)
[2017-09-12 07:51] VITALS: BP 133/67; PULSE 81; TEMP 98; O2SAT 96
[2017-09-12] MEDS: Insulin Lispro (HUMAlog) HIGH Coverage SC SCH ×3 (09:01→17:36)
[2017-09-12] MEDS ORDERED: Insulin Reg-MEDIUM-Coverage SC PRN (09:56)
[2017-09-12] MEDS ORDERED: BUSPIRONE 10 MG PO SCH (10:00)
[2017-09-12] MEDS ORDERED: Non Formulary Medication (Multivitamin [Daily Vite] 1 TAB) PO SCH (10:00)
[2017-09-12] MEDS ORDERED: Non Formulary Medication (Ferrous Sulfate [Feosol] 325 MG) PO SCH (10:00)
[2017-09-12] MEDS ORDERED: OXYBUTYNIN CHLORIDE PO SCH ×2 (10:00→18:00)
[2017-09-12] MEDS: Vancomycin 25 MG/ML PO SCH ×4 (10:18→18:27)
[2017-09-12] MEDS ORDERED: Multivitamin Therapeutic Tab PO SCH (10:30)
--- NOTE | 2017-09-12 12:22 | PN ---
DATE: 09/12/2017 SUBJECTIVE: The patient was seen early this morning in [facility], bed 1. No fevers. No chills. The patient had uneventful night. No chest pain. No cough. PHYSICAL EXAMINATION: VITAL SIGNS: Temperature is 98, blood pressure is 140/60, respiratory rate 20. HEENT: Unremarkable. NECK: Supple. LUNGS: Decreased breath sounds bilaterally. HEART: Normal S1 and S2. ABDOMEN: Soft and nontender. LABORATORY DATA: Examination reveals a white count of 6.3, hemoglobin of 8, and platelets are 156. Chemistry reveals the patient's creatinine is 1.0. Urinalysis is noted and serology is noted. Microbiology reveals the C. diff antigen and toxin are both positive. Review of orders reveals the patient to be on meropenem and p.o. vancomycin. ASSESSMENT AND PLAN: He is a 66-year-old male seen earlier today in [facility], bed 1 with severe sepsis, [id number] renal failure improving, acute encephalopathy related to possible perforated urinary bladder, retroperitoneal air, urinary tract infection with associated ureteral stone and right ureteral stent placement, status post lithotripsy postprocedure day #10, now with pseudomembranous colitis, history of coronary artery disease, status post percutaneous coronary intervention and right ureteral stent placed because of obstructive ureteral stone in 04/2017 and currently on day #4 of p.o. vancomycin and day #11 of meropenem 14 days of meropenem and 10 to 14 days of p.o vancomycin. Tigre Ordoñez MD
--- NOTE | 2017-09-12 14:43 | PN ---
DATE: 09/12/2017 SUBJECTIVE: The patient's CBI was discontinued. He is refusing to have a followup CAT scan. Because of this, I would leave the Norris in until Friday, at which point the nurse practitioner and his nurse were both instructed to have the Norris removed on Friday, whether he is here or if he is in the rehab facility. The bladder had a catheter drainage for enough period of time with any small perforation would have healed, but I want to leave it in three days more. He also was told that he has a stent in placed and he should make a followup appointment to see Dr. Salas in approximately [address] Salas will arrange to remove the pigtail stent. The patient is aware of all these instructions and the nurse practitioner also was present while he was given these instructions. Serge Bass MD
== END 2017-09-12 23:00 | DRG 853 ==
LOC: SDS 10:27 → CCU 20:18 → 5RNO 09-11 00:21
PROVIDERS: ADMIT Internal Medicine; ATTEND Internal Medicine
PROC: 0TCB8ZZ Extirpation of Matter from Bladder, Via Natural or Artificial Opening Endoscopic (ICD-10-PCS; 2017-09-01)
PROC: 0T768DZ Dilation of Right Ureter with Intraluminal Device, Via Natural or Artificial Opening Endoscopic (ICD-10-PCS; 2017-09-01)
PROC: 0TC68ZZ Extirpation of Matter from Right Ureter, Via Natural or Artificial Opening Endoscopic (ICD-10-PCS; principal; 2017-09-01 11:45)
PROC: 30233N1 Transfusion of Nonautologous Red Blood Cells into Peripheral Vein, Percutaneous Approach (ICD-10-PCS; 2017-09-02)
PROC: 02HV33Z Insertion of Infusion Device into Superior Vena Cava, Percutaneous Approach (ICD-10-PCS; 2017-09-03)
DX: A41.9 Sepsis, unspecified organism (principal); N13.2 Hydronephrosis with renal and ureteral calculous obstruction; G93.40 Encephalopathy, unspecified; N17.9 Acute kidney failure, unspecified; N99.820 Postprocedural hemorrhage of a genitourinary system organ or structure following a genitourinary system procedure; A04.72 Enterocolitis due to Clostridium difficile, not specified as recurrent; N30.20 Other chronic cystitis without hematuria; R65.20 Severe sepsis without septic shock; E86.0 Dehydration; E11.51 Type 2 diabetes mellitus with diabetic peripheral angiopathy without gangrene; E11.40 Type 2 diabetes mellitus with diabetic neuropathy, unspecified; I25.10 Atherosclerotic heart disease of native coronary artery without angina pectoris; N18.9 Chronic kidney disease, unspecified; I12.9 Hypertensive chronic kidney disease with stage 1 through stage 4 chronic kidney disease, or unspecified chronic kidney disease; N32.89 Other specified disorders of bladder; F06.30 Mood disorder due to known physiological condition, unspecified; D50.0 Iron deficiency anemia secondary to blood loss (chronic); E11.65 Type 2 diabetes mellitus with hyperglycemia; G89.29 Other chronic pain; E87.6 Hypokalemia; Y83.8 Other surgical procedures as the cause of abnormal reaction of the patient, or of later complication, without mention of misadventure at the time of the procedure; Z87.891 Personal history of nicotine dependence; Z79.4 Long term (current) use of insulin; Z95.5 Presence of coronary angioplasty implant and graft

== ENCOUNTER 2017-11-06 09:45 | Inpatient (IN) | payer MEDICARE, OTHER ==
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
[2017-11-06] MEDS ORDERED: Morphine 4 mg/ml ISec IVP STA (10:46)
[2017-11-06 11:51] LABS: ALBUMIN 3.6 g/dL (3.0-4.8); BASO # 0.01 K/mm3 (0.0-2.0); BASO % 0.2 % (0.0-3.0); CALCIUM 9.4 mg/dL (8.4-10.5); EOS # 0.4 (0.0-0.7); GRAN # 3.12 (1.4-6.5); GRAN % 62.2 % (50.0-68.0); INR 1.11 (0.93-1.08); LYMPH # 1.2 (1.2-3.4); LYMPH % 23.2 % (22.0-35.0); MEAN CELL VOLUME 79.2 fl (80.0-105.0); MEAN CORPUSCULAR HEMOGLOBIN 22.9 pg (25.0-35.0); MEAN PLATELET VOLUME 8.4 fl (7.0-11.0); MONO # 0.4 (0.1-0.6); MONO % 7.4 % (1.0-6.0); PARTIAL THROMBOPLASTIN TIME 30.1 Seconds (25.1-36.5); PROTHROMBIN TIME 12.7 SECONDS (9.4-12.5); RBC 3.27 10^6/uL (3.5-6.1); RED CELL DISTRIBUTION WIDTH 17.4 % (11.5-14.5)
[2017-11-06 12:07] LABS: HEMOGLOBIN 7.5 g/dL (14.0-18.0)
[2017-11-06 13:09] LABS: PH,URINE 6.5 (4.7-8.0); URINE APPEARANCE CLOUDY (CLEAR); URINE BILIRUBIN NEGATIVE (NEGATIVE); URINE BLOOD MODERATE (NEGATIVE); URINE COLOR YELLOW (YELLOW); URINE GLUCOSE (UA) NEGATIVE (NEGATIVE); URINE LEUKOCYTE ESTERASE LARGE Leu/uL (NEGATIVE); URINE NITRATE POSITIVE (NEGATIVE); URINE PROTEIN 100 mg/dL (<30 mg/dL)
[2017-11-06 13:14] LABS: URINE WBC TNTC /hpf (0-6)
[2017-11-06 13:15] LABS: URINE BACTERIA MANY (NEG); URINE RBC 25 - 30 /hpf (0-2)
--- NOTE | 2017-11-06 13:16 | RAD ---
HISTORY: admission COMPARISON: 09/05/2017. FINDINGS: LUNGS: The lungs are clear. PLEURA: No significant pleural effusion identified, no pneumothorax apparent. CARDIOVASCULAR: Normal. OSSEOUS STRUCTURES: No significant abnormalities. VISUALIZED UPPER ABDOMEN: Normal. OTHER FINDINGS: None. IMPRESSION: No active pulmonary disease.
[2017-11-06] MEDS ORDERED: cefTRIAXone 1 gm 1 GM/100 ML BAG IVPB STA (13:47)
[2017-11-06] MEDS: Insulin Reg-HIGH-Coverage SC SCH ×2 (16:43→22:59)
[2017-11-06] MEDS: Oxycodone/Acetaminophen 5/325 mg Tab PO PRN ×2 (17:55→21:57)
[2017-11-06 18:39] VITALS: BMI 23.7
[2017-11-06] MEDS ORDERED: Influenza Vaccine 60 mcg/0.5 mL SYR (4YR UP) IM ONE (18:39)
[2017-11-06] MEDS ORDERED: Pneumococcal 23-Valent Vaccine IM ONE (18:39)
[2017-11-06] MEDS: Insulin Detemir 100 units/ml Vial (Levemir) SC SCH (21:57)
[2017-11-06] MEDS: Meropenem IV 1 gm in NS 50 ML IVPB SCH (22:53)
[2017-11-07] MEDS ORDERED: Barium Sulfate Susp 2.1% w/v, 2.0% w/w 450 mL Bottle PO ONE (06:29)
[2017-11-07 07:07] LABS: BASO # 0.02 K/mm3 (0.0-2.0); BASO % 0.5 % (0.0-3.0); EOS # 0.5 (0.0-0.7); EOS % 10.3 % (1.5-5.0); GRAN # 2.46 (1.4-6.5); GRAN % 56.6 % (50.0-68.0); HEMOGLOBIN 8.8 g/dL (14.0-18.0); LYMPH # 1.1 (1.2-3.4); LYMPH % 24.8 % (22.0-35.0); MEAN CELL VOLUME 79.8 fl (80.0-105.0); MEAN CORPUSCULAR HGB CONC 30.1 g/dl (31.0-37.0); MEAN PLATELET VOLUME 8.7 fl (7.0-11.0); MONO # 0.3 (0.1-0.6); MONO % 7.8 % (1.0-6.0); PLATELET COUNT 197 10^3/uL (120.0-450.0); RBC 3.66 10^6/uL (3.5-6.1); RED CELL DISTRIBUTION WIDTH 16.8 % (11.5-14.5); WHITE BLOOD COUNT 4.4 10^3/ul (4.5-11.0)
[2017-11-07 07:26] LABS: IRON 28 ug/dL (45-180)
[2017-11-07 07:32] LABS: FREE T4 1.14 ng/dL (0.78-2.19)
[2017-11-07 07:36] LABS: TOTAL IRON BINDING CAPACITY 208 ug/dL (261-462)
[2017-11-07 07:38] LABS: ALBUMIN 3.4 g/dL (3.0-4.8); CALCIUM 9.4 mg/dL (8.4-10.5)
[2017-11-07 07:46] LABS: % IRON SATURATION 14 % (20-55)
[2017-11-07] MEDS: Insulin Reg-HIGH-Coverage SC SCH ×4 (08:02→22:14)
--- NOTE | 2017-11-07 08:56 | CP.PCM.PCO ---
Physician Communication Note - Physician Communication Note Physician Communication Note: addendum to note: c/w home sinemet cr dose 25/ 100mg and orthostatics.
--- NOTE | 2017-11-07 10:05 | CARD ---
APPROVED REPORT EKG Measurement Heart [id number] <Conclusion> Normal sinus rhythm Prolonged QTc
--- NOTE | 2017-11-07 10:38 | CON ---
DATE: 11/07/2017 NEUROLOGY CONSULTATION CHIEF COMPLAINT: Difficulty with ambulation and dizziness. HISTORY OF PRESENT ILLNESS: This is a 66-year-old man who is well known to me from the past with history of type 2 diabetes, hypertension, peripheral vascular disease, history of right ureteral stent, smoker, parkinsonism, was on carbidopa and levodopa one tablet p.o. at bedtime in the past, at home, insomnia, depression, and anxiety, who presented to the hospital for right flank pain, was found to have [id number] renal insufficiency in addition to urinary tract infection and has been evaluated by urologist for possible ureteral stent intervention. I was consulted for his dizziness. He mentions that he gets lightheaded from, get up from sitting to standing position and upon movement. He does have features of parkinsonism in terms of slow movement where he bradykinetic and mild cogwheel rigidity of the wrist, also he does have features of diabetic peripheral neuropathy on examination. PAST MEDICAL HISTORY: Type 2 diabetic mellitus, hypertension, dyslipidemia, ureteral stent, insomnia, anxiety, depression, history of parkinsonism. SOCIAL HISTORY: Formal smoker. No illicit drug use, smoking, or EtOH abuse at this time. ALLERGIES: NO KNOWN DRUG ALLERGIES. MEDICATIONS AT HOME: Neurontin, Novolin, , Percocet, Sinemet CR, Plavix, Ativan, Risperdal, midodrine. REVIEW OF SYSTEMS: A 14-point review of systems is negative except per the HPI. PHYSICAL EXAMINATION: GENERAL: The patient is sitting up in the bed, in no acute distress. VITAL SIGNS: Temperature 97.8, pulse rate of 70, blood pressure of 137/77, respiratory rate of 18, and oxygen saturation of 97% on room air. HEENT: Head is atraumatic and normocephalic. PERRLA. Extraocular muscles intact. NECK: Supple. No JVD. No adenopathy noted. LUNGS: Clear to auscultation. No adventitious sounds. HEART: S1, S2. Normal rate and rhythm. No murmurs, rubs, or gallops. ABDOMEN: Soft, nontender, and nondistended. Bowel sounds present. EXTREMITIES: No clubbing. No cyanosis. Peripheral pulses 2+ felt bilaterally. NEURO: The patient is alert and oriented to person, place and year. Recall in five minutes is 2/3. Poor attention span. Flat affect. Tangential speech. Cranial nerves II through XII are intact. Speech is fluent without any errors. Motor exam: Slight increased tone throughout. Mild cogwheel rigidity at the wrist. Otherwise, moves all extremities equally. No pronator drift seen. Sensory exam: Decreased light touch and pinprick up to the calves bilaterally. Decreased vibration of the toes. DTRs are 2+ throughout and 1 at the both knees and ankles. Coordination: Orxnlh-[id number]-[id number] is intact. Gait is deferred for now. LABORATORY DATA: Sodium is 142, potassium 4.5, chloride 105, carbon dioxide 27, BUN of 31, and creatinine , glucose of 109. ASSESSMENT AND PLAN: This is a 66-year-old man with past medical history of type 2 diabetes mellitus, hypertension, dyslipidemia, coronary artery disease status post stent, history of deconditioned state, former smoker, history of depression, anxiety and insomnia, history of ureteral stent, came in complaining of right flank pain and has underlying urinary tract infection and [id number]-[id number] renal insufficiency, for which he is being managed, was consulted for his dizziness. I think this seems more of like an orthostatic change and more positional rather than a vertigo. He does mention that he gets lightheaded from sitting to a standing position. He does have mild effects of parkinsonism, but not full Parkinson's disease. He also has features of diabetic peripheral neuropathy, which can interfere with his poor ambulation. At this time, I recommended; 1. Carotid Doppler. 2. CAT scan of the head to assess for any intracranial abnormalities. 3. Orthostatic vital signs. 4. PT/OT assessment and will need physical therapy likely subacute rehab to get gait balance and muscle strengthening. 5. Continue to work up for his right flank pain. 6. Monitor his electrolytes and correct accordingly. 7. Avoid sudden movements and continue on current present medical management. Thank you for this consult. Shun Kan MD
--- NOTE | 2017-11-07 10:58 | CT ---
PROCEDURE: CT HEAD WITHOUT CONTRAST. HISTORY: Dizziness COMPARISON: 09/02/2017. TECHNIQUE: Axial computed tomography images were obtained through the head/brain without intravenous contrast. Radiation dose: Total exam DLP = 841.54 mGy-cm. This CT exam was performed using one or more of the following dose reduction techniques: Automated exposure control, adjustment of the mA and/or kV according to patient size, and/or use of iterative reconstruction technique. FINDINGS: HEMORRHAGE: No intracranial hemorrhage. BRAIN: There are mild chronic microangiopathic changes. There is no mass, mass effect or abnormal extra-axial fluid collection. There are coarse atherosclerotic calcifications in the cavernous carotid arteries. VENTRICLES: There is moderate global parenchymal volume loss and proportionate enlargement of the ventricles and cortical sulci. CALVARIUM: The skull base and calvarium are normal. PARANASAL SINUSES: There is moderate scattered mucoperiosteal thickening in the ethmoid air cells and left maxillary sinus. MASTOID AIR CELLS: Predominantly clear. OTHER FINDINGS: None. IMPRESSION: No acute intracranial abnormality. Mild chronic microangiopathic changes. Moderate age-related global parenchymal volume loss.
--- NOTE | 2017-11-07 11:09 | CT ---
PROCEDURE: CT Abdomen and Pelvis without intravenous contrast HISTORY: ABD PAIN, RLQ , URETERAL STENT COMPARISON: 09/10/2017 TECHNIQUE: Without contrast.. Contrast Dose: Radiation dose: Total exam DLP = 1112 mGy-cm. This CT exam was performed using one or more of the following dose reduction techniques: Automated exposure control, adjustment of the mA and/or kV according to patient size, and/or use of iterative reconstruction technique. FINDINGS: LOWER THORAX: Unremarkable. LIVER: Unremarkable. No gross lesion or ductal dilatation. GALLBLADDER AND BILE DUCTS: Unremarkable. PANCREAS: Unremarkable. No gross lesion or ductal dilatation. SPLEEN: Unremarkable. ADRENALS: Unremarkable. No mass. KIDNEYS AND URETERS: There is a right-sided ureteral stent. There is mild dilatation of the right ureter and renal collecting system. There is new left-sided hydronephrosis and hydroureter. There is no evidence of a ureteral stone. VASCULATURE: Unremarkable. No aortic aneurysm. BOWEL: Unremarkable. No obstruction. No gross mural thickening. APPENDIX: Unremarkable. Normal appendix. PERITONEUM: Unremarkable. No free fluid. No free air. LYMPH NODES: Unremarkable. No enlarged lymph nodes. BLADDER: There is persistent mural thickening of the urinary bladder. There is a past history of bladder rupture REPRODUCTIVE: Unremarkable. BONES: No acute fracture. OTHER FINDINGS: None. IMPRESSION: New left-sided hydronephrosis and hydroureter without evidence of a distal stone. Persistent mural thickening in the bladder
[2017-11-07] MEDS: Meropenem IV 1 gm in NS 50 ML IVPB SCH ×2 (11:34→21:47)
--- NOTE | 2017-11-07 18:08 | US ---
PROCEDURE: Bilateral carotid artery duplex ultrasound HISTORY: Carotid stenosis dizziness PHYSICIAN(S): Idris Arenas MD. TECHNIQUE: Duplex sonography and color-flow Doppler were used to evaluate the carotid bifurcations and limited segments of the vertebral arteries bilaterally. The exam is somewhat limited by tortuous vessels. FINDINGS: There is mild smooth heterogeneous plaque noted at the carotid bifurcations bilaterally. The peak systolic velocity in the proximal right internal carotid artery is 92 cm/sec. This corresponds to a 20 to 39% proximal right ICA stenosis. Normal systolic velocities are noted in the proximal right external carotid artery. There is antegrade flow in the right vertebral artery. The peak systolic velocity in the proximal left internal carotid artery is 98 cm/sec. This corresponds to a 20 to 39% proximal left ICA stenosis. Normal systolic velocities are noted in the proximal left external carotid artery. There is antegrade flow in the left vertebral artery. IMPRESSION: 1. Bilateral 20-39% proximal ICA stenoses. 2. Antegrade flow in both vertebral arteries.
--- NOTE | 2017-11-07 18:39 | CP.PCM.CON ---
History of Present Illness - History of Present Illness History of Present Illness: 66 year old male with PMH of CAD S/P PCI, right ureteral stent placement because of obstructing ureteral stone 04/2017, HTN, DM, PVD, history of depression came in to [facility] complaining of right flank pain. He denies fever or chills, no nausea or vomiting, no chest pain, no SOB, no headache or dizziness, no abdominal pain, no cough or colds, no sore sore throat, no dysuria,. no diarrhea. In the ED, urinalysis shows pyuria and CT A/P is showing new left sided hydronephrosis. Infectious Diseases consult is requested to further evaluate and manage. Review of Systems - Review of Systems All systems: reviewed and no additional remarkable complaints except (as per HPI ) Past Patient History - Infectious Disease Hx of Infectious Diseases: None - Past Medical History & Family History Past Medical History?: Yes - Past Social History Smoking Status: Former Smoker - CARDIAC Hx Hypercholesterolemia: Yes Hx Hypertension: Yes Hx Pacemaker: No Other/Comment: vascular sx - PULMONARY Hx Respiratory Disorders: Yes (SMOKED CIGARETTES SINCE HE WAS 17 YRS OLD. QUIT.) - NEUROLOGICAL Hx Neurological Disorder: Yes Hx Dizziness: Yes (vertigo) - HEENT Hx HEENT Problems: No - RENAL Hx Chronic Kidney Disease: Yes Hx Kidney Stones: Yes Other/Comment: Hematuria, r ureteral stone - ENDOCRINE/METABOLIC Hx Diabetes Mellitus Type 2: Yes - HEMATOLOGICAL/ONCOLOGICAL Hx Blood Disorders: No - INTEGUMENTARY Hx Dermatological Problems: No - MUSCULOSKELETAL/RHEUMATOLOGICAL Hx Falls: Yes (past) - GASTROINTESTINAL Hx Gastrointestinal Disorders: Yes (c dif 09/07/17) Other/Comment: constipation, appetitre changes - GENITOURINARY/GYNECOLOGICAL Hx Hematuria: Yes Hx Prostate Problems: Yes Other/Comment: retention, difficulty initiating strream - PSYCHIATRIC Hx Substance Use: No - SURGICAL HISTORY Hx Surgeries: Yes Hx Appendectomy: Yes Hx Cardiac Catheterization: Yes Hx Coronary Stent: Yes - ANESTHESIA Hx Anesthesia: Yes Hx Anesthesia Reactions: No Hx Malignant Hyperthermia: No Meds Allergies/Adverse Reactions: Allergies Allergy/AdvReac Type Severity Reaction Status Date / Time No Known Allergies Allergy Verified 11/06/17 10:15 - Medications Medications: Current Medications Alprazolam (Xanax) 0.25 mg PO Q4H PRN PRN Reason: Anxiety Stop: 11/13/17 16:29 Aspirin (Ecotrin) 81 mg PO DAILY [facility] Last Admin: 11/06/17 17:50 Dose: Not Given Atorvastatin Calcium (Lipitor) 10 mg PO DIN [facility] Last Admin: 11/06/17 17:51 Dose: Not Given Clopidogrel Bisulfate (Plavix) 75 mg PO DAILY [facility] Last Admin: 11/06/17 17:51 Dose: Not Given Diazepam (Valium) 5 mg PO DAILY [facility] PRN Reason: Protocol Fluoxetine HCl (Prozac) 20 mg PO DAILY [facility] Last Admin: 11/06/17 17:51 Dose: Not Given Gabapentin (Neurontin) 300 mg PO TID [facility] PRN Reason: Protocol Last Admin: 11/06/17 17:55 Dose: 300 mg Meropenem (Merrem Iv 1 Gm Premix) 50 mls @ 100 mls/hr IVPB Q12 [facility] PRN Reason: Protocol Stop: 11/15/17 22:46 Insulin Detemir (Levemir) 10 unit SC HS [facility] Last Admin: 11/06/17 21:57 Dose: 10 unit Insulin Human Regular (Humulin R High) 0 units SC ACHS [facility] PRN Reason: Protocol Last Admin: 11/06/17 16:43 Dose: Not Given Oxybutynin Chloride (Ditropan Tab) 5 mg PO TID [facility] Last Admin: 11/06/17 17:55 Dose: 5 mg Oxycodone/Acetaminophen (Percocet 5/325 Mg Tab) 1 tab PO Q4H PRN PRN Reason: Pain, moderate (4-7) Stop: 11/09/17 16:29 Last Admin: 11/06/17 21:57 Dose: 1 tab Pantoprazole Sodium (Protonix Inj) 40 mg IVP DAILY [facility] Last Admin: 11/06/17 17:34 Dose: Not Given Tamsulosin HCl (Flomax) 0.4 mg PO DAILY [facility] Zolpidem Tartrate (Ambien) 5 mg PO HS PRN PRN Reason: Insomnia Last Admin: 11/06/17 21:56 Dose: 5 mg Physical Exam - Constitutional Appears: Non-toxic, No Acute Distress - Head Exam Head Exam: NORMAL INSPECTION - ENT Exam ENT Exam: Mucous Membranes Moist - Neck Exam Neck exam: Negative for: Meningismus - Respiratory Exam Respiratory Exam: Decreased Breath Sounds - Cardiovascular Exam Cardiovascular Exam: +S1, +S2 - GI/Abdominal Exam GI & Abdominal Exam: Soft. absent: Tenderness Results - Vital Signs Recent Vital Signs: Last Vital Signs Temp 98.7 F 11/06/17 22:47 Pulse 62 11/06/17 22:47 Resp 18 11/06/17 22:47 BP 123/66 11/06/17 22:47 Pulse Ox 98 11/06/17 10:15 - Labs Result Diagrams: 11/07/17 06:30 11/07/17 06:30 Labs: Laboratory Results - last 24 hr 11/06/17 11/06/17 11/06/17 12:51 13:18 16:36 POC Glucose (mg/dL) 90 Urine Color Yellow Urine Appearance Cloudy Urine pH 6.5 Ur Specific [place] 1.010 Urine Protein 100 H Urine Glucose (UA) Negative Urine Ketones Negative Urine Blood Moderate H Urine Nitrate Positive H Urine Bilirubin Negative Urine Urobilinogen 1.0 H Ur Leukocyte Esterase Large H Urine RBC 25 - 30 Urine WBC Tntc Urine Bacteria Many Blood Type O POSITIVE Antibody Screen Negative Crossmatch See Detail BBK History Checked Patient has bt 11/06/17 20:45 POC Glucose (mg/dL) 157 H Urine Color Urine Appearance Urine pH Ur Specific [place] Urine Protein Urine Glucose (UA) Urine Ketones Urine Blood Urine Nitrate Urine Bilirubin Urine Urobilinogen Ur Leukocyte Esterase Urine RBC Urine WBC Urine Bacteria Blood Type Antibody Screen Crossmatch BBK History Checked Assessment & Plan - Assessment and Plan (Free Text) Plan: Assessment consider right sided pyelonephritis in this patient with right sided ureteral stent and history of nephrolithiasis history of severe sepsis with acute on chronic renal failure probably related to possible perforated urinary bladder with retroperitoneal air and UTI with associated ureteral stone, right ureteral stent placement S/P lithotripsy history of C. diff. associated diarrhea CAD S/P PCI right ureteral stent placement because of obstructing ureteral stone 04/2017 HTN DM PVD history of depression Plan started patient on Merrem pending blood and urine cx; reviewed CT A/P; follow up Urology evaluation and recommendations will follow clinically
--- NOTE | 2017-11-07 19:30 | CON ---
DATE: 11/07/2017 LOCATION: The patient in room 565, bed 1. REASON FOR CONSULTATION: Coronary artery disease, history of angioplasty and stent insertion, hypertension, diabetes mellitus, history of ureteral stent on the right side, admitted with abdominal pain. HISTORY OF PRESENT ILLNESS: The patient is a known case of coronary artery disease, history of angioplasty and stent insertion, hypertension, diabetes, ureteral stone, admitted with right lower quadrant pain in the side which he has a ureteral stent insertion in the past. Denies any chest pain, tightness, pressure in the chest on palpitation, or shortness of breath associated with this pain. The patient had abnormal stress on 04/07/2017 followed by cath, and drug-eluted stent was put in RCA and plain balloon angioplasty of RPD was done, and later on, drug-eluted stent was put in LAD on 05/08/2017. The patient with ejection fraction at that time by cath was 65% to 60%. The patient also complains symptoms of dizziness off and on. PAST MEDICAL HISTORY: Positive for coronary artery disease as mentioned above, hypertension, diabetes, hyperlipidemia, right-sided ureteral stent insertion. PERSONAL HISTORY: Used to smoke 3 packs a day until 03/2017, since then he had stopped. Drinks socially. FAMILY HISTORY: Not significant. ALLERGIES: THE PATIENT DENIES ANY ALLERGIES. LIST OF HOME MEDICATIONS: The patient was on Plavix 75 mg daily, insulin as mentioned, Neurontin 300 mg t.i.d., Florinef 0.1 mg p.o. daily, ferrous sulphate 325 mg daily, Pepcid 40 mg daily, Prozac 40 mg daily, carbidopa/levodopa, Sinemet CR 25 to 100 tablet daily, Lipitor 10 daily, aspirin 81 daily, Flomax 0.4 daily, Risperdal 1 tablet at bedtime. PHYSICAL EXAMINATION: VITAL SIGNS: Blood pressure 137/77, respirations 18, pulse 70, temperature 97.9. HEENT: Head is normocephalic. Eyes, pupils are normal, conjunctivae slightly pale. NECK: JVP low. Carotids equal. THORAX: AP diameter normal. LUNGS: Clear. CARDIOVASCULAR: S1 and S2. ABDOMEN: Soft. Bowel sounds normal. EXTREMITIES: No clubbing. No cyanosis. LABORATORY DATA: WBC 4.4, hemoglobin 8.8, hematocrit 29.2, and platelets 197. The patient's MCV, MCH, and MCHC also low. Sodium 142, potassium 4.5, BUN 31, creatinine 1.7, sugar 147. AST and ALT normal. TSH normal. EKG showed normal sinus rhythm. Chest x-ray showed clear lungs. CAT scan of the abdomen and pelvis showed ureteral stent on the right side, and on left side, there is a new hydronephrosis and hydroureter. DIAGNOSES: Abdominal pain, new hydronephrosis and hydroureter on the left side, history of ureteral stent on the right side, hypertension, diabetes, hyperlipidemia, anemia, renal dysfunction, history of Parkinsonism, dizziness off and on, rule out postural hypertension. PLAN: Clinically, the patient's cardiac status is stable. The patient does not have any anginal symptoms. If needed any urological procedure from cardiac point of view, the patient can go for that at moderate risk. In the meantime, the patient is on aspirin 81 daily, Flomax 0.4 daily, Venofer IV has been ordered for once, Lipitor 10 daily, Merrem IV 1 gm q.12 hour, gabapentin 300 mg t.i.d., Plavix 75 daily, Protonix 40 IV daily, Prozac 20 mg p.o. daily, Valium 5 mg daily. We will check chemistry labs in the morning again. We will also add lipid profile and TSH to her blood work for tomorrow, and we will continue to follow with you. Joey Mendosa MD
[2017-11-07] MEDS: Insulin Detemir 100 units/ml Vial (Levemir) SC SCH (21:46)
[2017-11-07] MEDS: Oxycodone/Acetaminophen 5/325 mg Tab PO PRN (22:01)
[2017-11-08 06:54] LABS: HEMOGLOBIN 9.2 g/dL (14.0-18.0); MEAN CELL VOLUME 79.5 fl (80.0-105.0); MEAN CORPUSCULAR HEMOGLOBIN 24.5 pg (25.0-35.0); MEAN CORPUSCULAR HGB CONC 30.8 g/dl (31.0-37.0); MEAN PLATELET VOLUME 8.6 fl (7.0-11.0); RBC 3.76 10^6/uL (3.5-6.1); RED CELL DISTRIBUTION WIDTH 16.9 % (11.5-14.5); WHITE BLOOD COUNT 4.4 10^3/ul (4.5-11.0)
[2017-11-08 07:06] LABS: HDL CHOLESTEROL 32 mg/dL (29-60)
[2017-11-08 07:17] LABS: LDL CHOLESTEROL 53 mg/dL (0-129)
[2017-11-08] MEDS: Pantoprazole 40 mg EC Tab PO SCH (08:29)
[2017-11-08] MEDS: Insulin Reg-HIGH-Coverage SC SCH ×4 (08:29→21:35)
[2017-11-08] MEDS: Oxycodone/Acetaminophen 5/325 mg Tab PO PRN ×2 (08:44→21:52)
[2017-11-08] MEDS: Meropenem IV 1 gm in NS 50 ML IVPB SCH ×2 (12:07→21:37)
[2017-11-08] MEDS: Insulin Detemir 100 units/ml Vial (Levemir) SC SCH (21:44)
--- NOTE | 2017-11-09 01:51 | PN ---
DATE: 11/08/2017 SUBJECTIVE: The patient is in bed, in no acute distress. Nontoxic. PHYSICAL EXAMINATION VITAL SIGNS: Temperature is 98, blood pressure is 130/80 and respiratory rate of 18. HEENT: Unremarkable. NECK: Supple. HEART: Normal S1 and S2. ABDOMEN: Soft and nontender. LABORATORY DATA: Reveals a white count of 4.4 and hemoglobin is 9. Chemistries are noted. Creatinine is 1.7. Microbiology reveals the blood cultures are negative. ASSESSMENT AND PLAN: A 66-year-old male with coronary artery disease status post percutaneous coronary intervention, right ureteral stent placement, obstructing ureteral stone, hypertension, diabetes, history of depression, admitted with right flank pain and right-sided pyelonephritis and the patient with right-sided ureteral stent. The patient was seen early this morning. Currently, on meropenem and awaiting for Urology input with negative blood cultures and mixed organisms in the urine. We will request a repeat urinalysis and urine culture. Review of the orders reveals the meropenem to be active. We will follow with you. Tigre Ordoñez MD
[2017-11-09 02:02] LABS: PH,URINE 6.5 (4.7-8.0); URINE BILIRUBIN NEGATIVE (NEGATIVE); URINE BLOOD MODERATE (NEGATIVE); URINE GLUCOSE (UA) NEGATIVE (NEGATIVE); URINE LEUKOCYTE ESTERASE LARGE Leu/uL (NEGATIVE); URINE NITRATE NEGATIVE (NEGATIVE); URINE PROTEIN 30 mg/dL (<30 mg/dL); URINE UROBILINOGEN 0.2 E.U./dL (<1 E.U./dL)
[2017-11-09 02:09] LABS: URINE APPEARANCE CLOUDY (CLEAR); URINE COLOR YELLOW (YELLOW)
[2017-11-09 02:33] LABS: URINE RBC TNTC /hpf (0-2); URINE WBC TNTC /hpf (0-6)
[2017-11-09 02:34] LABS: URINE BACTERIA TRACE (NEG)
[2017-11-09] MEDS: Pantoprazole 40 mg EC Tab PO SCH (08:26)
[2017-11-09] MEDS: Insulin Reg-HIGH-Coverage SC SCH ×4 (08:27→22:11)
[2017-11-09] MEDS: Meropenem IV 1 gm in NS 50 ML IVPB SCH ×2 (11:21→22:21)
[2017-11-09] MEDS: Oxycodone/Acetaminophen 5/325 mg Tab PO PRN ×2 (18:05→22:35)
[2017-11-09] MEDS: Insulin Detemir 100 units/ml Vial (Levemir) SC SCH (22:21)
--- NOTE | 2017-11-10 02:23 | PN ---
DATE: 11/09/2017 SUBJECTIVE: The patient is in bed, in no acute distress, nontoxic. PHYSICAL EXAMINATION: VITAL SIGNS: On exam; temperature is 98, blood pressure was 120/60 and respiratory rate of 20. HEENT: Unremarkable. NECK: Supple. LUNGS: Have decreased breath sounds. HEART: Normal S1 and S2. ABDOMEN: Soft. LABORATORY DATA: Reveals a white count of 4.4, hemoglobin of 9 and platelets of 173. Chemistry reveals a creatinine of 1.7. Urinalysis is noted. Microbiology reveals the urine culture has multiple species, probable contamination. The blood cultures are negative. Second urine culture has been sent. Review of orders reveal the patient to be on meropenem. ASSESSMENT AND PLAN: A 66-year-old male with coronary artery disease, status post percutaneous coronary intervention per history and right ureteral stent placement, obstructive ureteral stones, hypertension, diabetes, history of depression admitted with right flank pain, right hydronephrosis, right-sided ureteral stent. The patient is for stent removal tomorrow and will check on repeat urine culture, currently on meropenem. Tigre Ordoñez MD
[2017-11-10 07:20] LABS: BASO # 0.01 K/mm3 (0.0-2.0); BASO % 0.2 % (0.0-3.0); EOS # 0.4 (0.0-0.7); EOS % 6.5 % (1.5-5.0); GRAN # 4.07 (1.4-6.5); GRAN % 63.1 % (50.0-68.0); HEMOGLOBIN 9.5 g/dL (14.0-18.0); LYMPH # 1.3 (1.2-3.4); LYMPH % 20.6 % (22.0-35.0); MEAN CELL VOLUME 79.4 fl (80.0-105.0); MEAN CORPUSCULAR HEMOGLOBIN 24.5 pg (25.0-35.0); MEAN CORPUSCULAR HGB CONC 30.8 g/dl (31.0-37.0); MONO # 0.6 (0.1-0.6); MONO % 9.6 % (1.0-6.0); RBC 3.88 10^6/uL (3.5-6.1); RED CELL DISTRIBUTION WIDTH 17.4 % (11.5-14.5); WHITE BLOOD COUNT 6.5 10^3/ul (4.5-11.0)
[2017-11-10 07:49] LABS: ALBUMIN 3.5 g/dL (3.0-4.8); CALCIUM 9.6 mg/dL (8.4-10.5)
--- NOTE | 2017-11-10 08:51 | CON ---
DATE: 11/07/2017 HISTORY OF PRESENT ILLNESS: The patient is well known to me. He has an extensive medical history including poorly controlled diabetes, chronic abdominal pain, lower extremity pain from neuropathy, weakness and lethargy. He has been in a rehab facility apparently due to arthritis and difficulty ambulating. The patient was seen previously with an obstructing stone. He had a ureteral stent placed. The patient was not tolerating the stent well. He had been discharged and came back with recurrent infections. The patient had a ureteroscopy and removal of the stent. He then apparently had an episode of sepsis and the stent was put back in. During the prior cystoscopy, the patient's bladder was extremely friable. There was a large amount of clot noted stuck onto the posterior wall. There was some apparent extravasation of fluid whether this was transluminal or from some other perforation, it is unclear. However, it appears to have now resolved as it is not seen on the current CT scan. CT scan now does show a markedly thickened bladder with the new onset of some mild hydronephrosis. The patient was brought in for recurrent pain. He is receiving cultures and being started on IV antibiotics as per ID recommendation. The plan for now will be to address the patient's other medical issues. If he is cleared, I will plan on taking him to the operating room next week to remove the stent, possible ureteroscopy. We will plan on a left retrograde at that time. My opinion is that the patient has a severe cystitis, this would likely be improved with removing the stent and not having a Norris catheter in place. I would plan on holding his Plavix as well and I will speak to Dr. Bowman regarding that. The patient is receiving workup for his other medical issues at this time. The patient has received a transfusion as well as he was anemic. Cultures have been sent and we are awaiting those results. I will continue to follow the patient with the other physicians and consultants. Troy Salas MD
--- NOTE | 2017-11-10 08:54 | PN ---
DATE: 11/08/2017 SUBJECTIVE: The patient is seen in his room. He was sleeping comfortably, easily arousable. He is afebrile. Temperature of 98.1, pulse 76, and BP 131/82. Respirations 18. His abdomen is soft. The patient does complain of mild diffuse tenderness. There is no rebound or guarding noted. The patient has some cloudy urine in his tubing and bag from his Quantum catheter. A CT scan was reviewed. The prior collection appears to have resolved. No large stones were noted alongside his stent. There is some mild dilatation of the right ureter and right collecting system. There is some new left-sided hydronephrosis with no evidence of ureteral stone. There is persisted mural thickening in the bladder. IMPRESSION AND PLAN: I will discuss with nursing to hold the patient's Plavix. The patient should be kept n.p.o. after midnight tomorrow as we will plan for a cystoscopy with removal of stent, retrograde pyelogram, and possible ureteroscopy. I think that most of the patient's urologic issues at this point are due to a severe cystitis, which is being worsened by the indwelling stent. The plan would be to take out the stent. If ureteroscopy shows no remaining ureteral calculi, I would like to leave the stent out while he is on appropriate antibiotic coverage. If his cystitis can be resolved by removing the stent, followup studies would likely show resolution of hydronephrosis from the left as well as the right. Alternatively, the plan could be to place one to two nephrostomy tubes if needed to divert the urine temporarily from his bladder. However, we will need to keep him off the Plavix for nephrostomy tube placement. We will discuss this plan further after the surgical procedure on Friday to determine what the actual cause of his thickened bladder and cystitis is from. Troy Salas MD
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
[2017-11-10] MEDS: Meropenem IV 1 gm in NS 50 ML IVPB SCH ×2 (11:05→22:28)
[2017-11-10] MEDS: Insulin Reg-HIGH-Coverage SC SCH ×4 (11:05→22:13)
[2017-11-10] MEDS: Pantoprazole 40 mg EC Tab PO SCH (11:06)
[2017-11-10] MEDS ORDERED: Propofol 10 mg/ml Inj (20 ML) ONE (13:33)
--- NOTE | 2017-11-10 13:43 | CP.PCM.PN ---
<Ashlyn Briones - Last Filed: 11/10/17 13:46> Subjective - Date & Time of Evaluation Date of Evaluation: 11/10/17 Time of Evaluation: 09:00 - Subjective Subjective: Neurology PGY-[address] Kan Pt is sitting by bed waiting transport to OR. No acute complaint. Objective - Vital Signs/Intake and Output Vital Signs (last 24 hours): Temp Pulse Resp BP Pulse Ox 98.4 F 80 20 101/63 97 11/10/17 11:45 11/10/17 11:45 11/10/17 11:45 11/10/17 11:45 11/10/17 11:45 Intake and Output: 11/10/17 11/10/17 06:59 18:59 Intake Total 360 Output Total 2600 Balance -2240 - Medications Medications: Current Medications Alprazolam (Xanax) 0.25 mg PO Q4H PRN PRN Reason: Anxiety Stop: 11/13/17 16:29 Last Admin: 11/09/17 22:35 Dose: 0.25 mg Aspirin (Ecotrin) 81 mg PO DAILY [facility] Last Admin: 11/10/17 11:05 Dose: Not Given Atorvastatin Calcium (Lipitor) 10 mg PO DIN [facility] Last Admin: 11/09/17 17:36 Dose: 10 mg Carbidopa/Levodopa (Sinemet Cr) 1 tab PO HS [facility] Clopidogrel Bisulfate (Plavix) 75 mg PO DAILY [facility] Last Admin: 11/08/17 12:10 Dose: 75 mg Diazepam (Valium) 5 mg PO DAILY [facility] PRN Reason: Protocol Last Admin: 11/10/17 11:04 Dose: 5 mg Fluoxetine HCl (Prozac) 20 mg PO DAILY [facility] Last Admin: 11/10/17 11:04 Dose: 20 mg Gabapentin (Neurontin) 300 mg PO TID [facility] PRN Reason: Protocol Last Admin: 11/10/17 11:06 Dose: Not Given Meropenem (Merrem Iv 1 Gm Premix) 50 mls @ 100 mls/hr IVPB Q12 [facility] PRN Reason: Protocol Stop: 11/15/17 22:46 Last Admin: 11/10/17 11:05 Dose: 100 mls/hr Insulin Detemir (Levemir) 10 unit SC HS [facility] Last Admin: 11/09/17 22:21 Dose: 10 unit Insulin Human Regular (Humulin R High) 0 units SC ACHS [facility] PRN Reason: Protocol Last Admin: 11/10/17 11:05 Dose: Not Given Oxybutynin Chloride (Ditropan Tab) 5 mg PO TID [facility] Last Admin: 11/10/17 11:04 Dose: Not Given Oxycodone/Acetaminophen (Percocet 5/325 Mg Tab) 1 tab PO Q4H PRN PRN Reason: Pain, moderate (4-7) Stop: 11/12/17 17:45 Last Admin: 11/09/17 22:35 Dose: 1 tab Pantoprazole Sodium (Protonix Ec Tab) 40 mg PO ACB [facility] Last Admin: 11/10/17 11:06 Dose: Not Given Tamsulosin HCl (Flomax) 0.4 mg PO DAILY [facility] Last Admin: 11/10/17 11:05 Dose: Not Given Zolpidem Tartrate (Ambien) 5 mg PO HS PRN PRN Reason: Insomnia Last Admin: 11/07/17 21:47 Dose: 5 mg - Labs Labs: 11/10/17 06:30 11/10/17 06:30 PT 12.7 SECONDS (9.4-12.5) H 11/06/17 11:17 INR 1.11 (0.93-1.08) H 11/06/17 11:17 APTT 30.1 Seconds (25.1-36.5) 11/06/17 11:17 - Constitutional Appears: No Acute Distress - Head Exam Head Exam: ATRAUMATIC, NORMAL INSPECTION, NORMOCEPHALIC - Eye Exam Eye Exam: EOMI, Normal appearance, PERRL Pupil Exam: NORMAL ACCOMODATION, PERRL - ENT Exam ENT Exam: Mucous Membranes Moist - Neck Exam Additional comments: supple - Respiratory Exam Respiratory Exam: Clear to Ausculation Bilateral. absent: Rales, Rhonchi, Wheezes - Cardiovascular Exam Cardiovascular Exam: REGULAR RHYTHM, +S1, +S2 - GI/Abdominal Exam GI & Abdominal Exam: Soft, Normal Bowel Sounds. 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 He had a ureteral stent in the past due to obstructing nephrolithiasis. He was found to have severe cystitis in the setting of indwelling ureteral stent. Pt get lightheaded when changing from sitting to standing. He has mild effect of parkinsonionism, not full Parkinson's disease. He also has poor ambulation which interefere with his ambulation. Pt will have cystoscopy and ureter stent removal today. Dizziness likely from deconditioning from active medical conditions Parkinsonionism Gait dysfunction - Continue sinemet - ___Pending Orthostatic VS - Carotid doppler - 20-39% proximal ICA stenosis with antegrade flow in both vertebral aa. - CT head - mild chronic microangiopathic changes - PT/OT and recommend rehab for gait balance and muscle strengthening - avoid sudden movement - continue on current present medical management s/r/d/w Dr. Kan <Shun Kan - Last Filed: 11/10/17 16:36> Objective - Vital Signs/Intake and Output Vital Signs (last 24 hours): Temp Pulse Resp BP Pulse Ox 98.1 F 77 18 127/62 98 11/10/17 15:48 11/10/17 15:48 11/10/17 15:48 11/10/17 15:48 11/10/17 15:48 Intake and Output: 11/10/17 11/10/17 06:59 18:59 Intake Total 360 0 Output Total 2600 700 Balance -2240 -700 - Medications Medications: Current Medications Alprazolam (Xanax) 0.25 mg PO Q4H PRN PRN Reason: Anxiety Stop: 11/13/17 16:29 Last Admin: 11/09/17 22:35 Dose: 0.25 mg Aspirin (Ecotrin) 81 mg PO DAILY [facility] Last Admin: 11/10/17 11:05 Dose: Not Given Atorvastatin Calcium (Lipitor) 10 mg PO DIN [facility] Last Admin: 11/09/17 17:36 Dose: 10 mg Carbidopa/Levodopa (Sinemet Cr) 1 tab PO [facility] Clopidogrel Bisulfate (Plavix) 75 mg PO DAILY [facility] Last Admin: 11/08/17 12:10 Dose: 75 mg Diazepam (Valium) 5 mg PO DAILY [facility] PRN Reason: Protocol Last Admin: 11/10/17 11:04 Dose: 5 mg Fluoxetine HCl (Prozac) 20 mg PO DAILY [facility] Last Admin: 11/10/17 11:04 Dose: 20 mg Gabapentin (Neurontin) 300 mg PO TID [facility] PRN Reason: Protocol Last Admin: 11/10/17 11:06 Dose: Not Given Hydromorphone HCl (Dilaudid) 0.5 mg IVP Q15M PRN PRN Reason: Pain, moderate (4-7) Stop: 11/10/17 16:41 Meropenem (Merrem Iv 1 Gm Premix) 50 mls @ 100 mls/hr IVPB Q12 [facility] PRN Reason: Protocol Stop: 11/15/17 22:46 Last Admin: 11/10/17 11:05 Dose: 100 mls/hr Lactated Ringer's (Lactated Ringer's) 1,000 mls @ 75 mls/hr IV .[id number] [facility] Stop: 11/10/17 16:46 Insulin Detemir (Levemir) 10 unit SC HS [facility] Last Admin: 11/09/17 22:21 Dose: 10 unit Insulin Human Regular (Humulin R High) 0 units SC ACHS [facility] PRN Reason: Protocol Last Admin: 11/10/17 14:04 Dose: Not Given Oxybutynin Chloride (Ditropan Tab) 5 mg PO TID [facility] Last Admin: 11/10/17 14:04 Dose: Not Given Oxycodone/Acetaminophen (Percocet 5/325 Mg Tab) 1 tab PO Q4H PRN PRN Reason: Pain, moderate (4-7) Stop: 11/12/17 17:45 Last Admin: 11/09/17 22:35 Dose: 1 tab Pantoprazole Sodium (Protonix Ec Tab) 40 mg PO ACB [facility] Last Admin: 11/10/17 11:06 Dose: Not Given Tamsulosin HCl (Flomax) 0.4 mg PO DAILY [facility] Last Admin: 11/10/17 11:05 Dose: Not Given Zolpidem Tartrate (Ambien) 5 mg PO HS PRN PRN Reason: Insomnia Last Admin: 11/07/17 21:47 Dose: 5 mg - Labs Labs: 11/10/17 06:30 11/10/17 06:30 PT 12.7 SECONDS (9.4-12.5) H 11/06/17 11:17 INR 1.11 (0.93-1.08) H 11/06/17 11:17 APTT 30.1 Seconds (25.1-36.5) 11/06/17 11:17 Attending/Attestation - Attestation I have personally seen and examined this patient.: Yes I have fully participated in the care of the patient.: Yes I have reviewed all pertinent clinical information, including history, physical exam and plan: Yes
[2017-11-10] MEDS ORDERED: Iohexol 240 (50 ml) ONE (13:52)
[2017-11-10] MEDS ORDERED: HYDROmorphone 0.5 mg/0.5 ml ISec IVP PRN (14:41)
[2017-11-10] MEDS ORDERED: Lactated Ringer's 1,000 ML IV SCH (14:45)
--- NOTE | 2017-11-10 16:21 | CP.PCM.PN ---
Subjective - Date & Time of Evaluation Date of Evaluation: 11/10/17 Time of Evaluation: 09:00 - Subjective Subjective: Comfortable in bed, for nephrostomy tube placement today. No fevers overnight. Objective - Vital Signs/Intake and Output Vital Signs (last 24 hours): Temp Pulse Resp BP Pulse Ox 98.4 F 76 20 112/67 97 11/10/17 07:30 11/10/17 07:30 11/10/17 07:30 11/10/17 07:30 11/10/17 07:30 Intake and Output: 11/10/17 11/10/17 06:59 18:59 Intake Total 360 Output Total 2600 Balance -2240 - Medications Medications: Current Medications Alprazolam (Xanax) 0.25 mg PO Q4H PRN PRN Reason: Anxiety Stop: 11/13/17 16:29 Last Admin: 11/09/17 22:35 Dose: 0.25 mg Aspirin (Ecotrin) 81 mg PO DAILY [facility] Last Admin: 11/10/17 11:05 Dose: Not Given Atorvastatin Calcium (Lipitor) 10 mg PO DIN [facility] Last Admin: 11/09/17 17:36 Dose: 10 mg Carbidopa/Levodopa (Sinemet Cr) 1 tab PO HS [facility] Clopidogrel Bisulfate (Plavix) 75 mg PO DAILY [facility] Last Admin: 11/08/17 12:10 Dose: 75 mg Diazepam (Valium) 5 mg PO DAILY [facility] PRN Reason: Protocol Last Admin: 11/10/17 11:04 Dose: 5 mg Fluoxetine HCl (Prozac) 20 mg PO DAILY [facility] Last Admin: 11/10/17 11:04 Dose: 20 mg Gabapentin (Neurontin) 300 mg PO TID [facility] PRN Reason: Protocol Last Admin: 11/10/17 11:06 Dose: Not Given Meropenem (Merrem Iv 1 Gm Premix) 50 mls @ 100 mls/hr IVPB Q12 [facility] PRN Reason: Protocol Stop: 11/15/17 22:46 Last Admin: 11/10/17 11:05 Dose: 100 mls/hr Insulin Detemir (Levemir) 10 unit SC HS [facility] Last Admin: 11/09/17 22:21 Dose: 10 unit Insulin Human Regular (Humulin R High) 0 units SC ACHS [facility] PRN Reason: Protocol Last Admin: 11/10/17 11:05 Dose: Not Given Oxybutynin Chloride (Ditropan Tab) 5 mg PO TID [facility] Last Admin: 11/10/17 11:04 Dose: Not Given Oxycodone/Acetaminophen (Percocet 5/325 Mg Tab) 1 tab PO Q4H PRN PRN Reason: Pain, moderate (4-7) Stop: 11/12/17 17:45 Last Admin: 11/09/17 22:35 Dose: 1 tab Pantoprazole Sodium (Protonix Ec Tab) 40 mg PO ACB [facility] Last Admin: 11/10/17 11:06 Dose: Not Given Tamsulosin HCl (Flomax) 0.4 mg PO DAILY [facility] Last Admin: 11/10/17 11:05 Dose: Not Given Zolpidem Tartrate (Ambien) 5 mg PO HS PRN PRN Reason: Insomnia Last Admin: 11/07/17 21:47 Dose: 5 mg - Labs Labs: 11/10/17 06:30 11/10/17 06:30 PT 12.7 SECONDS (9.4-12.5) H 11/06/17 11:17 INR 1.11 (0.93-1.08) H 11/06/17 11:17 APTT 30.1 Seconds (25.1-36.5) 11/06/17 11:17 - Constitutional Appears: Chronically Ill - Head Exam Head Exam: NORMAL INSPECTION - ENT Exam ENT Exam: Mucous Membranes Moist - Neck Exam Neck Exam: absent: Meningismus - Respiratory Exam Respiratory Exam: Decreased Breath Sounds - Cardiovascular Exam Cardiovascular Exam: +S1, +S2 - GI/Abdominal Exam GI & Abdominal Exam: Soft. absent: Tenderness Assessment and Plan - Assessment and Plan (Free Text) Plan: Assessment consider right sided pyelonephritis in this patient with right sided ureteral stent and history of nephrolithiasis history of severe sepsis with acute on chronic renal failure probably related to possible perforated urinary bladder with retroperitoneal air and UTI with associated ureteral stone, right ureteral stent placement S/P lithotripsy history of C. diff. associated diarrhea CAD S/P PCI right ureteral stent placement because of obstructing ureteral stone 04/2017 HTN DM PVD history of depression Plan continue patient on Merrem day 4 and patient is for nephrostomy tube placement today; blood and urine cx have been negative; reviewed CT A/P will continue to follow clinically
--- NOTE | 2017-11-10 16:30 | PN ---
DATE: 11/10/2017 The patient is in room 565, bed 1. REASON FOR CONSULTATION AND FOLLOWUP: Coronary artery disease, history of angioplasty, stent insertion, hypertension, diabetes mellitus, history of ureteral stent on the right side, admitted with abdominal pain. SUBJECTIVE: The patient still complained of abdominal pain. Denied any chest pain, shortness of breath or palpitations. The patient is lying flat in bed without any cardiac symptoms. PHYSICAL EXAMINATION: VITAL SIGNS: Blood pressure 101/63, respirations 20, pulse 80, temperature 98.4. HEENT: Head is normocephalic. Eyes, pupils normal. Conjunctivae slightly pale. NECK: JVP low, carotids equal. THORAX: AP diameter normal. LUNGS: Clear. CARDIOVASCULAR: S1 and S2. ABDOMEN: No masses. Bowel sounds heard. EXTREMITIES: No clubbing. No cyanosis. LABORATORY DATA: WBC 6.5, hemoglobin 9.5, hematocrit 30.8, platelet 200. Sodium 140, potassium 4.4, BUN 45, creatinine 1.9, random sugar 144. AST 34, ALT 20, total protein 7.1, albumin 3.5. CT abdomen showed stent in the right ureter and the left side showed hydronephrosis and hydroureter. The patient had abnormal stress test on 04/07/2017 followed by cath and drug-eluting stent was put in RCA and plain balloon angioplasty of RPD was done and later on, drug eluting stent was put in LAD on 05/08/2017. At that time, the patient's ejection fraction was 55% to 60%. The patient was diagnosed with abdominal pain, new hydronephrosis, hydroureter on the left side, history of ureteral stent on the right side, hypertension, diabetes, hyperlipidemia, anemia, renal dysfunction, history of parkinsonism, dizziness off and on, postural hypotension from history and also coronary artery disease, history of angioplasty and stent insertion. Clinically, the patient's cardiac status is stable. The patient can go for any urological procedure at a moderate risk from cardiac point of view. The patient on aspirin 81 mg daily, Flomax 0.4 daily, insulin as ordered, Lipitor 10 mg daily, Merrem 1 gm q.12 hour, Neurontin 300 mg p.o. t.i.d., Plavix 75 mg daily, carbidopa/levodopa 25/100 CR 1 tablet p.o. at bedtime. We will continue present therapy. We will follow. Joey Mendosa MD
[2017-11-10] MEDS: Oxycodone/Acetaminophen 5/325 mg Tab PO PRN ×2 (17:20→20:50)
[2017-11-10] MEDS: HYDROmorphone 0.5 mg/0.5 ml ISec IVP PRN ×2 (17:57→22:27)
[2017-11-10] MEDS: Carbidopa/Levodopa 25/100 CR PO SCH (22:27)
[2017-11-10] MEDS: Insulin Detemir 100 units/ml Vial (Levemir) SC SCH (22:28)
[2017-11-11 01:08] LABS: URINE BILIRUBIN LARGE (NEGATIVE); URINE BLOOD LARGE (NEGATIVE); URINE GLUCOSE (UA) 100 mg/dL (NEGATIVE); URINE LEUKOCYTE ESTERASE LARGE Leu/uL (NEGATIVE); URINE NITRATE POSITIVE (NEGATIVE); URINE PROTEIN >=300 mg/dL (<30 mg/dL)
[2017-11-11 01:09] LABS: URINE APPEARANCE CLOUDY (CLEAR); URINE COLOR RED (YELLOW)
[2017-11-11 01:10] LABS: URINE EPITHELIAL CELLS 0 - 2 /hpf (0-5); URINE RBC TNTC /hpf (0-2)
[2017-11-11 01:11] LABS: URINE BACTERIA SMALL (NEG)
[2017-11-11 01:35] LABS: BASO # 0.01 K/mm3 (0.0-2.0); BASO % 0.1 % (0.0-3.0); EOS % 0.4 % (1.5-5.0); GRAN # 6.39 (1.4-6.5); GRAN % 85.3 % (50.0-68.0); HEMOGLOBIN 9.5 g/dL (14.0-18.0); LYMPH # 0.7 (1.2-3.4); LYMPH % 9.5 % (22.0-35.0); MEAN CELL VOLUME 78.1 fl (80.0-105.0); MEAN CORPUSCULAR HEMOGLOBIN 24.8 pg (25.0-35.0); MEAN CORPUSCULAR HGB CONC 31.8 g/dl (31.0-37.0); MEAN PLATELET VOLUME 8.8 fl (7.0-11.0); MONO # 0.4 (0.1-0.6); MONO % 4.7 % (1.0-6.0); RBC 3.83 10^6/uL (3.5-6.1); RED CELL DISTRIBUTION WIDTH 16.8 % (11.5-14.5); WHITE BLOOD COUNT 7.5 10^3/ul (4.5-11.0)
[2017-11-11] MEDS: HYDROmorphone 0.5 mg/0.5 ml ISec IVP PRN (05:59)
--- NOTE | 2017-11-11 08:23 | OP ---
PROCEDURE DATE: 11/10/2017 PREOPERATIVE DIAGNOSIS: Right hydronephrosis and history of ureteral calculi. POSTOPERATIVE DIAGNOSIS: Right hydronephrosis, possible pyelonephrosis. PROCEDURES: Cystoscopy, removal of right ureteral stent, right retrograde pyelogram. SPECIMENS: Urine from right renal pelvis sent for culture and sensitivity. DRAINS: There were none. COMPLICATIONS: There were none. OPERATIVE FINDINGS: After informed consent was obtained, the patient was taken to operative placed in the operating table. Anesthesia was administered. The patient was placed in dorsolithotomy position and prepped and draped in usual sterile fashion. A 21-Macedonian cystoscope was placed in the patient's urethra and advanced proximally under direct vision until the bladder was entered. A full survey inspection bladder was then performed. There was grossly purulent urine noted in the bladder with severe cystitis. The bladder was irrigated out multiple times in order to even be able to identify the stent. Stent was seen exiting from the right ureteral orifice which is markedly dilated. The left ureteral orifice was difficult to visualize, but it also appears markedly dilated. At this point on fluoroscopy, no stones were noted alongside the stent. The stent was grasped and withdrawn to the urethral meatus. A wire was then passed through the stent and advanced up the ureter until it coiled in the upper collecting system. The stent was then removed in its entirety. The cystoscope was then repassed while back loading the guidewire. An open-ended ureteral catheter was then passed into the ureter. The wire was removed and contrast was instilled. The ureter was markedly dilated throughout its length. There was a question of some mobile filling defects. The renal pelvis was dilated. The open-ended ureteral catheter was then advanced up the ureter into the renal pelvis. A large amount of purulent urine was then drained. The sample of his urine was drained and sent for culture and sensitivity. At this point, the ureteral catheter was withdrawn back into the distal ureter. Oral contrast was instilled into the system. On delayed views, contrast was noted to be draining without any evidence of obstruction down the ureter and into the bladder. At this point, the decision was made given the apparently purulent urine even though cultures have been negative, not to attempt further manipulation of the system. The stent was left out. Bladder was drained and the cystoscope was removed. The plan at this point will be to observe the patient while on antibiotics. We will repeat a CT scan and if the patient appears to be obstructed, I would recommend placement of nephrostomy tube as it appears he has a pyelonephrosis. The stent has not been successful in adequately draining him and is causing severe bladder reaction with cystitis. The patient should be continued on intravenous antibiotics and will be observed for now. Troy Salas MD
[2017-11-11] MEDS ORDERED: Sodium Chloride 0.9% 1,000 ML IV SCH (08:30)
[2017-11-11] MEDS: Meropenem IV 1 gm in NS 50 ML IVPB SCH ×2 (09:04→21:59)
[2017-11-11] MEDS: Insulin Reg-HIGH-Coverage SC SCH ×4 (09:06→21:50)
[2017-11-11] MEDS: Pantoprazole 40 mg EC Tab PO SCH (09:09)
[2017-11-11] MEDS: Oxycodone/Acetaminophen 5/325 mg Tab PO PRN (09:10)
--- NOTE | 2017-11-11 09:15 | RAD ---
HISTORY: Possible pneumonia COMPARISON: 11/06/2017 FINDINGS: LUNGS: No active pulmonary disease. PLEURA: No significant pleural effusion identified, no pneumothorax apparent. CARDIOVASCULAR: Normal. OSSEOUS STRUCTURES: No significant abnormalities. VISUALIZED UPPER ABDOMEN: Normal. OTHER FINDINGS: None. IMPRESSION: No active disease.
[2017-11-11] MEDS: Sodium Chloride 0.9% 1,000 ML IV SCH ×2 (09:50→22:01)
[2017-11-11 09:55] LABS: ALB/GLOB RATIO 1.1 (1.1-1.8); ALBUMIN 3.5 g/dL (3.0-4.8); CALCIUM 9.5 mg/dL (8.4-10.5)
[2017-11-11] MEDS ORDERED: Vancomycin 1gm in NS 250ml 1 GM/250 ML BAG IVPB STA (11:33)
[2017-11-11] MEDS ORDERED: Barium Sulfate Susp 2.1% w/v, 2.0% w/w 450 mL Bottle PO ONE (11:43)
--- NOTE | 2017-11-11 12:25 | PN ---
DATE: 11/10/2017 DAILY PROGRESS NOTE I would like the yesterday's progress note to be written as follows, if you would be so kind. SUBJECTIVE: The patient is a 66-year-old male who presented to the Emergency Room complaining of right flank pain. He is known to have a history of hypertension, diabetes, vascular disease. He had ureter stent placed about one month ago and it needs to be changed. The patient developed pain and discomfort, therefore presented to the Emergency Room. He was evaluated and admitted. The patient is also known to have a history of peripheral vascular disease, small vessel disease, neuropathy of the legs with his ambulation and parkinsonism. During the hospital stay, his workup showed carotid arteries to be occluded 20% to 40% bilaterally. There is a new left hydronephrosis on CAT scan. His EKG showed regular sinus rhythm with prolonged QT interval. Chest x-ray showed no acute disease. He is known to have a history of smoking, but not currently smoking. Nonalcoholic drinker and NO KNOWN MEDICAL ALLERGIES. Blood cultures and urine cultures were negative today. He was evaluated by Dr. Salas the photography intern since ureteral stent was removed and replaced with a urostomy tube. He is being treated with Merrem. He is being followed by Infectious Disease. When visited today, the patient was complaining of lower abdominal pain, which seems to be coming though during the day. PHYSICAL EXAMINATION: LUNGS: Clear anteriorly. HEART: Regular. ABDOMEN: Soft. Bowel sounds are normal. VITAL SIGNS: Stable. LABORATORY DATA: His white blood cell count this morning is 6.5, hemoglobin and hematocrit are 9.5 and 30.8 respectively. Sodium is 140, potassium 4.4, blood urea nitrogen is 45 and creatinine is 1.9. PLAN: At this point, we are continuing with antibiotics and encouraging the patient to increase ambulation. Fransisco Bowman MD
--- NOTE | 2017-11-11 17:57 | NM ---
COMPARISON: [id number]. Single-view chest TECHNIQUE: 30.9 mCi technetium 99-m DTPA aerosol. 4.3 mCI technetium 99-m MAA administered intravenously. FINDINGS: VENTILATION COMPONENT: Normal. PERFUSION COMPONENT: Heterogeneous distribution of radionuclide. No geographic, segmental, lobar abnormalities apparent on the present examination. IMPRESSION: Low probability ventilation perfusion scan for pulmonary embolism.
--- NOTE | 2017-11-11 18:04 | US ---
HISTORY: Leg pain and swelling. Evaluate for DVT PHYSICIAN(S): Idris Arenas MD. TECHNIQUE: Duplex sonography and color-flow Doppler with graded compression were used to evaluate the deep venous systems of both lower extremities. FINDINGS: The visualized deep venous systems of both lower extremities are sonographically normal and compressible. Normal wave forms and augmentation are seen. There is no sonographic evidence for deep venous thrombosis in the visualized segments of both lower extremities. IMPRESSION: No sonographic evidence for deep venous thrombosis in the visualized segments of both lower extremities.
--- NOTE | 2017-11-11 21:40 | PN ---
DATE: 11/11/2017 The patient is in room 565, bed 1. REASON FOR CONSULTATION AND FOLLOWUP: Coronary artery disease, history of angioplasty, stent insertion, hypertension, diabetes mellitus, history of ureteral stent on the right side, admitted with abdominal pain, and now is post removal of the ureteral stent with cystoscopy and right retrograde pyelogram. SUBJECTIVE: The patient is lying flat in bed without any chest pain, shortness of breath or palpitation. PHYSICAL EXAMINATION: VITAL SIGNS: Blood pressure 154/86, yesterday blood pressure was 127/62, respirations 20, pulse 99, temperature 102.6. HEENT: Head is normocephalic. Eyes: Pupils normal. Conjunctivae slightly pale. NECK: JVP low, carotids equal. THORAX: AP diameter normal. LUNGS: Clear. CARDIOPULMONARY: S1 and S2. ABDOMEN: Bowels are normal. No organomegaly. EXTREMITIES: No clubbing. No cyanosis. LABORATORY DATA: WBC 7.5, hemoglobin 9.5, hematocrit 29.9, platelet 176. Sodium 135, potassium 5.3, BUN 49, creatinine 2.2, random sugar 232. AST and ALT, normal. DIAGNOSES: Abdominal pain, hydronephrosis, hydroureter, status post cystoscopy, status post removal of ureteral stent and right retrograde pyelogram, coronary artery disease, history of angioplasty and stent insertion, stress test on 04/07/2017 and followed by catheterization, and drug-eluting stent was inserted in RCA and plain balloon angioplasty of right posterior diagonal was done, and later on drug-eluted stent was put in left anterior descending on 05/10/2017. At that time, ejection fraction was 55% to 60%. The patient previously had a stent in the right ureter. On this admission, the patient was also found to have new hydronephrosis and hydroureter on the left side, hypertension, diabetes, hyperlipidemia, anemia, renal dysfunction, fever, probably urinary tract infection, parkinsonism, dizziness off and on, postural hypotension from history, coronary artery disease, history of angioplasty and stent insertion. MEDICATIONS: The patient is on aspirin 81 mg daily, Flomax 0.4 daily, heparin 5000 units subcutaneously q.12 hour, insulin as ordered, Lipitor 10 mg daily, meropenem 1 gm IV q.12 hour, Neurontin 300 mg p.o. t.i.d., Plavix 75 mg daily, Protonix 40 daily, carbidopa/levodopa 25/100 one tablet p.o. nightly, IV fluid normal saline 100 mL/hour. PLAN: We will repeat blood work, chemistry and CBC in the morning. We will follow with you. Joey Mendosa MD
[2017-11-11] MEDS: Carbidopa/Levodopa 25/100 CR PO SCH (21:58)
[2017-11-11] MEDS: Insulin Detemir 100 units/ml Vial (Levemir) SC SCH (21:59)
--- NOTE | 2017-11-11 22:01 | CT ---
EXAM: CT Abdomen and Pelvis Without Intravenous Contrast EXAM DATE/TIME: 11/11/2017 11:32 AM CLINICAL HISTORY: 66 years old, male; Pain; Abdominal pain; Acute; Additional info: Fever post cysto TECHNIQUE: Axial computed tomography images of the abdomen and pelvis without intravenous contrast. All CT scans at this facility use one or more dose reduction techniques, viz.: automated exposure control; ma/kV adjustment per patient size (including targeted exams where dose is matched to indication; i.e. head); or iterative reconstruction technique. Coronal and sagittal reformatted images were created and reviewed. COMPARISON: CT - ABD PELVIS PO CONTRAST ONLY 2017-11-07 10:32 FINDINGS: Lower thorax: Heart size is normal. There are coronary artery calcifications. There are small bilateral pleural effusions. There is dependent airspace disease at the lung bases There is a small hiatal hernia. ABDOMEN: Liver: The liver is mildly enlarged. Gallbladder and bile ducts: unremarkable Pancreas: Pancreas is mildly atrophic. Spleen: The spleen is enlarged, 17 cm in length.. There are multiple granulomas in the spleen. Adrenals: unremarkable Kidneys and ureters: There is a left renal cyst, unchanged. There has been interval removal of the right ureteral stent. There is continued right pelvocaliectasis and ureterectasis. There is a small amount of air in the right ureter most likely iatrogenic. There is left pelvocaliectasis and ureterectasis, unchanged. Stomach and bowel: Stomach is partially distended. Rotation is normal. There is air and fluid throughout the small bowel. There is no obstruction. Terminal ileum is unremarkable. Appendix is not visualized. There is no pericecal inflammation. There is contrast, stool and air throughout the colon. There is a fecal bolus in the rectum. Appendix: See stomach and bowel PELVIS: Bladder: Bladder is partially distended. There is air in the bladder. There are multiple bladder diverticula. There is continued perivesical inflammation and edema. Reproductive: Prostate is mildly enlarged. Seminal vesicles are unremarkable. ABDOMEN and PELVIS: Intraperitoneal space: There is no free air. Bones/joints: There are degenerative changes in the osseus structures. Soft tissues: There is no significant fluid.There is a fat-containing umbilical hernia. Vasculature: There are vascular calcifications. Lymph nodes: There is shotty adenopathy. IMPRESSION: Persistent bilateral pelvocaliectasis and ureterectasis possibly due to bladder wall thickening; continued bladder wall thickening with multiple diverticula and perivesical inflammation/edema; air in the bladder and right ureter most likely iatrogenic; small pleural effusions with basilar airspace disease; persistent splenomegaly; fecal impaction Additional nonemergent findings as described above.
--- NOTE | 2017-11-12 02:34 | PN ---
DATE: 11/11/2017 SUBJECTIVE: Patient is in bed in no acute distress. PHYSICAL EXAMINATION: VITAL SIGNS: The patient was seen earlier today, when he had a temperature of 102.6. Temperature is down now at 98, blood pressure is 150/80, respiratory rate of 20, heart rate of 99. HEENT: Unremarkable. NECK: Supple. LUNGS: Decreased breath sounds. HEART: Normal S1, S2. ABDOMEN: Soft, nontender. LABORATORY DATA: Reveals a white count of 7.5, hemoglobin 9, platelets of 176. BUN of 49, creatinine of 2.2, and procalcitonin is 3.4. Urinalysis is noted. Microbiology revealed urine culture is negative. Patient also had Dopplers of lower extremities, no evidence of DVT. A lung scan, no probability of PE. Patient had a CAT scan, the results are not available. ASSESSMENT AND PLAN: This is a 66-year-old, consider right-sided pyelonephritis in this patient with a right-sided ureteral stent and a history of nephrolithiasis, has a history of severe sepsis and status post nephrostomy tube placement and removal of the stent actually, day number 5 of meropenem. We will give a dose of vancomycin. Repeat the pancultures. Check on the CAT scan. Follow the fever curve. We will follow closely with you. Tigre Ordoñez MD
[2017-11-12 07:17] LABS: MEAN CELL VOLUME 76.8 fl (80.0-105.0); MEAN CORPUSCULAR HEMOGLOBIN 24.1 pg (25.0-35.0); MEAN CORPUSCULAR HGB CONC 31.4 g/dl (31.0-37.0); MEAN PLATELET VOLUME 8.7 fl (7.0-11.0); RBC 3.19 10^6/uL (3.5-6.1); RED CELL DISTRIBUTION WIDTH 16.7 % (11.5-14.5); WHITE BLOOD COUNT 5.8 10^3/ul (4.5-11.0)
[2017-11-12 07:30] LABS: ALB/GLOB RATIO 0.9 (1.1-1.8); CALCIUM 8.9 mg/dL (8.4-10.5)
[2017-11-12 07:35] LABS: HEMOGLOBIN 7.7 g/dL (14.0-18.0)
[2017-11-12] MEDS: Insulin Reg-HIGH-Coverage SC SCH ×5 (08:00→21:43)
--- NOTE | 2017-11-12 08:48 | PN ---
DATE: 11/11/2017 POSTOPERATIVE PROGRESS NOTE SUBJECTIVE: The patient had a spike in his temperature; however, this has now resolved. He is complaining of some mild abdominal pain, which is relieved with analgesics. He had a ventilation-perfusion scan, which showed low probability for pulmonary embolus. WBC count went to 7.5 this morning from 6.5 yesterday. Creatinine remains mildly elevated. Sugars have been running high with a random glucose of 326. Abdomen is soft. Mild diffuse tenderness. There is no rebound or guarding. The patient is voiding lightly blood-tinged urine. IMPRESSION AND PLAN: The patient's antibiotic coverage has been increased, received vancomycin. Urine culture was sent yesterday of the fluid from his renal pelvis, which appeared purulent, although preoperative cultures were negative and the patient was on meropenem. Plan will be to repeat a CT scan to see if there are any obstructing stones. It appears that the patient has significant bilateral vesicoureteral reflux, which is likely causing the bilateral hydronephrosis. I discussed the case with Dr. Idris Arenas. The patient's bladder is severely spastic and I believe the stent is worsening it and worsening the reflux. If it appears that there is an obstruction with infection, plan will be to place a nephrostomy tube. We can then consider antegrade nephrostograms. The patient appears to be improving with the increased antibiotic coverage. The prior indwelling stent appears to not have been working and he likely had a pyelonephrosis. I think he would be better drained with a nephrostomy tube and hopefully that will improve with antibiotics. Condition remains guarded and we will continue to follow him closely. Troy Salas MD
--- NOTE | 2017-11-12 09:10 | CT ---
PROCEDURE: CT HEAD WITHOUT CONTRAST. HISTORY: ams COMPARISON: Comparison made with CT scan brain 11/07/2017 TECHNIQUE: Axial computed tomography images were obtained through the head/brain without intravenous contrast. Radiation dose: Total exam DLP = 964.46 mGy-cm. This CT exam was performed using one or more of the following dose reduction techniques: Automated exposure control, adjustment of the mA and/or kV according to patient size, and/or use of iterative reconstruction technique. FINDINGS: HEMORRHAGE: No acute parenchymal, subarachnoid or extra-axial hemorrhage. BRAIN: Mild diffuse/confluent chronic periventricular white matter ischemic changes seen extending peripherally into the deep and subcortical white matter both cerebral hemispheres. . Suspected tiny chronic appearing left pontine lacunar type infarct less well seen on this study as compared prior exam Moderate somewhat more central volume loss evidenced by disproportionate enlargement of the ventricles as compared to sulci. Mild vascular calcifications both carotid siphons. . VENTRICLES: No obstructive hydrocephalus. CALVARIUM: No acute calvarial fractures PARANASAL SINUSES: Mild mucoperiosteal inflammatory changes left maxillary antrum again noted there is also mild mucosal thickening within the ethmoid air complex extending superiorly into the frontal sinus. . MASTOID AIR CELLS: Unremarkable as visualized. No inflammatory changes. OTHER FINDINGS: None. IMPRESSION: No acute intracranial hemorrhage. Mild chronic white matter ischemic changes. Moderate central volume loss.
--- NOTE | 2017-11-12 09:25 | PN ---
DATE: 11/11/2017 SUBJECTIVE: The patient was seen this Friday in room 565, bed 1. He is in bed comfortable having undergone cystoscopy yesterday. He appears rather ill somewhat pale perhaps from infection and recent fever. He received a dose of antibiotic, infectious disease consultants are aware. The patient underwent cystoscopy and purulent pussy drainage was reportedly drained from the kidney via the ureter after the stent was removed. It was sent for culture. The patient reports some pain in the lower abdomen. PHYSICAL EXAMINATION: GENERAL: He is awake, but ill appearing, but answers questions appropriately. VITAL SIGNS: Stable. HEAD AND NECK: Unremarkable. LUNGS: Good aeration right and left. HEART: Regular, but not tachycardiac. ABDOMEN: Soft but tender in the lower abdomen. IMPRESSION: 1. Anemia. 2. Renal insufficiency. 3. Status post replacement of ureterocystoscopy and removal of ureteral stent with purulent drainage via the ureter. 4. Diabetes. 5. Hypertension. 6. Chronic low back syndrome. PLAN: Case was discussed with urologist Dr. Salas at great length. At this point in time, we will use antibiotics, there is no urologic hardwares or stents in the ureters or bladder at this time. We will repeat a CAT scan in a day or two to look for any evidence of worsening hydronephrosis, follow BUN, which may warrant percutaneous nephrostomy drainage to allow the bladder and ureter and quite down, hopefully this will not be necessary, but we will need to watch and see. Alex Bowman MD
[2017-11-12 09:52] LABS: HEMOGLOBIN 7.8 g/dL (14.0-18.0)
[2017-11-12] MEDS: Meropenem IV 1 gm in NS 50 ML IVPB SCH ×2 (11:07→21:48)
[2017-11-12] MEDS: Oxycodone/Acetaminophen 5/325 mg Tab PO PRN (11:07)
[2017-11-12] MEDS ORDERED: Vancomycin 1gm in NS 250ml 1 GM/250 ML BAG IVPB STA (12:11)
--- NOTE | 2017-11-12 13:47 | PN ---
DATE: 11/12/2017 SUBJECTIVE: The patient is in bed, in no acute distress, nontoxic. PHYSICAL EXAMINATION: VITAL SIGNS: Temperature of 98, blood pressure is 120/60, respiratory rate of 20. HEENT: Unremarkable. NECK: Supple. LUNGS: Have decreased breath sounds. HEART: Normal S1 and S2. ABDOMEN: Soft and nontender. LABORATORY DATA: Reveals a white count of 5.8, hemoglobin of 7, platelets of 159. Chemistries reveals a BUN of 49, creatinine of 1.7. Procalcitonin is noted to be 3.4. The patient's temperature has been down all last night and this morning. The patient is on meropenem and he received a dose of vancomycin. He had a chest x-ray yesterday, which was no active disease. He had a CAT scan of the head, which was no acute findings and a CAT scan of the abdomen and pelvis, which is reviewed. There is airspace disease seen on the CAT scan of the abdomen and in the lower thorax, airspace disease at the lung base. Yesterday, his procalcitonin was elevated. Dr. Troy Salas's progress note is reviewed. ASSESSMENT AND PLAN: This is a 66-year-old male who was admitted with possible right-sided pyelonephritis, right-sided ureteral stent with history of nephrolithiasis, now with severe sepsis, status post nephrostomy tube, removal of stent and #6 vancomycin was given now with positive infiltrate and now procalcitonin consistent with sepsis with the healthcare-associated pneumonia, on intermittent vancomycin and meropenem, appears to be improving. Dr. Alex Bowman's note is also reviewed. We will give another dose of vancomycin today. The cultures are negative. Will need 47 days of treatment for the healthcare-associated pneumonia and sepsis. Tigre Ordoñez MD
--- NOTE | 2017-11-12 14:35 | CP.PCM.PN ---
<Ashlyn Briones - Last Filed: 11/12/17 15:14> Subjective - Date & Time of Evaluation Date of Evaluation: 11/12/17 Time of Evaluation: 14:34 - Subjective Subjective: Neurology PGY-[address] Kan Pt is laying in bed with [place] catheter, draining clear red urine. Pt states that he has not have any bowel movement for 7 days already and felt suprapubic abdominal pain radiating to L lateral abdominal wall. (+) fever/chills. Objective - Vital Signs/Intake and Output Vital Signs (last 24 hours): Temp Pulse Resp BP Pulse Ox 98 F 78 18 103/67 98 11/12/17 13:11 11/12/17 13:11 11/12/17 13:11 11/12/17 13:11 11/12/17 08:08 Intake and Output: 11/12/17 11/12/17 06:59 18:59 Intake Total 600 25 Output Total 1250 Balance -650 25 - Medications Medications: Current Medications Acetaminophen (Tylenol 325mg Tab) 650 mg PO Q4H PRN PRN Reason: Temperature Last Admin: 11/11/17 05:58 Dose: 650 mg Alprazolam (Xanax) 0.25 mg PO Q4H PRN PRN Reason: Anxiety Stop: 11/13/17 16:29 Last Admin: 11/11/17 21:58 Dose: 0.25 mg Aspirin (Ecotrin) 81 mg PO DAILY [facility] Last Admin: 11/12/17 11:07 Dose: 81 mg Atorvastatin Calcium (Lipitor) 10 mg PO DIN [facility] Last Admin: 11/11/17 19:24 Dose: 10 mg Carbidopa/Levodopa (Sinemet Cr) 1 tab PO HS [facility] Last Admin: 11/11/17 21:58 Dose: 1 tab Clopidogrel Bisulfate (Plavix) 75 mg PO DAILY [facility] Last Admin: 11/12/17 11:07 Dose: 75 mg Diazepam (Valium) 5 mg PO DAILY [facility] PRN Reason: Protocol Last Admin: 11/11/17 09:06 Dose: 5 mg Fluoxetine HCl (Prozac) 20 mg PO DAILY [facility] Last Admin: 11/12/17 11:06 Dose: 20 mg Gabapentin (Neurontin) 300 mg PO TID [facility] PRN Reason: Protocol Last Admin: 11/12/17 11:06 Dose: 300 mg Heparin Sodium (Porcine) (Heparin) 5,000 units SC Q12 JIMBO PRN Reason: Protocol Last Admin: 11/11/17 21:58 Dose: 5,000 units Meropenem (Merrem Iv 1 Gm Premix) 50 mls @ 100 mls/hr IVPB Q12 JIMBO PRN Reason: Protocol Stop: 11/15/17 22:46 Last Admin: 11/12/17 11:07 Dose: 100 mls/hr Sodium Chloride (Sodium Chloride 0.9%) 1,000 mls @ 100 mls/hr IV .Q10H [facility] Last Admin: 11/11/17 22:01 Dose: 100 mls/hr Insulin Detemir (Levemir) 10 unit SC HS [facility] Last Admin: 11/11/17 21:59 Dose: 10 unit Insulin Human Regular (Humulin R High) 0 units SC ACHS [facility] PRN Reason: Protocol Last Admin: 11/12/17 12:49 Dose: 2 units Oxycodone/Acetaminophen (Percocet 5/325 Mg Tab) 1 tab PO Q4H PRN PRN Reason: Pain, moderate (4-7) Stop: 11/12/17 17:45 Last Admin: 11/12/17 11:07 Dose: 1 tab Pantoprazole Sodium (Protonix Ec Tab) 40 mg PO ACB [facility] Last Admin: 11/11/17 09:09 Dose: 40 mg Tamsulosin HCl (Flomax) 0.4 mg PO BID [facility] Last Admin: 11/12/17 11:07 Dose: 0.4 mg Zolpidem Tartrate (Ambien) 5 mg PO HS PRN PRN Reason: Insomnia Last Admin: 11/11/17 21:58 Dose: 5 mg - Labs Labs: 11/12/17 09:35 11/12/17 06:35 PT 12.7 SECONDS (9.4-12.5) H 11/06/17 11:17 INR 1.11 (0.93-1.08) H 11/06/17 11:17 APTT 30.1 Seconds (25.1-36.5) 11/06/17 11:17 - Constitutional Appears: No Acute Distress - Head Exam Head Exam: ATRAUMATIC, NORMAL INSPECTION, NORMOCEPHALIC - Eye Exam Eye Exam: EOMI, Normal appearance, PERRL Pupil Exam: NORMAL ACCOMODATION - ENT Exam ENT Exam: Mucous Membranes Moist - Neck Exam Additional comments: supple - Respiratory Exam Respiratory Exam: Decreased Breath Sounds, Clear to Ausculation Bilateral, NORMAL BREATHING PATTERN - Cardiovascular Exam Cardiovascular Exam: REGULAR RHYTHM, +S1, +S2. absent: Murmur - GI/Abdominal Exam GI & Abdominal Exam: Distended, Soft, Tenderness (suprapubic pain and tenderness of LLQ upon palpation), Normal Bowel Sounds - Exam Additional comments: tex[place] cath in place, draining clear red urine. - Extremities Exam Extremities Exam: Normal Capillary Refill. 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 He had a ureteral stent in the past due to obstructing nephrolithiasis. He was found to have severe cystitis with possible R sided pyelonephritis, in the setting of indwelling ureteral stent. Pt get lightheaded when changing from sitting to standing. He has mild effect of parkinsonionism, not full Parkinson' s disease. He also has poor ambulation which interefere with his ambulation. Pt had a cystoscopy and ureter stent removal on 11/10/17. Pt spiked a fever of 102.8 on 11/11/17. Pt states that he had no bowel movement for 1 week Delirium likely from severe sepsis, s/p nephrostomy tune, removal of stent, POD #2 Sepsis likely from healthcare associated pneumonia - CT head (11/12) - No acute intracranial hemorrahage. Mild chronic white matter ischemic changes. Moderate central volume loss. (+) mild mucosal thickening extends from ethmoid to frontal sinuses. - Per ID: will need 47 more days of treatment - Delirium precautions - day time interaction and reduce nap time; night darkened envirornment - continue medical management on current medical illness - maintain SBP 120-130 - maintain normothermia - maintain blood glucose 140-180 Dizziness likely from deconditioning from active medical conditions Parkinsonionism Gait dysfunction - Continue sinemet - ___Pending Orthostatic VS - Carotid doppler - 20-39% proximal ICA stenosis with antegrade flow in both vertebral aa. - CT head - mild chronic microangiopathic changes - continue physical therapy and occupational therapy - Recommend subacute rehabilitation for gait balance and muscle strengthening - avoid sudden movement - continue on current present medical management Constipation - Consider laxative, management per primary team s/r/d/w Dr. Kan <Shun Kan - Last Filed: 11/13/17 14:31> Objective - Vital Signs/Intake and Output Vital Signs (last 24 hours): Temp Pulse Resp BP Pulse Ox 98.7 F 77 18 111/69 99 11/13/17 14:04 11/13/17 14:04 11/13/17 14:04 11/13/17 14:04 11/13/17 07:30 Intake and Output: 11/13/17 11/13/17 06:59 18:59 Intake Total 840 50 Output Total 1500 Balance -660 50 - Medications Medications: Current Medications Acetaminophen (Tylenol 325mg Tab) 650 mg PO Q4H PRN PRN Reason: Temperature Last Admin: 11/12/17 21:04 Dose: 650 mg Alprazolam (Xanax) 0.25 mg PO Q4H PRN PRN Reason: Anxiety Stop: 11/13/17 16:29 Last Admin: 11/12/17 21:47 Dose: 0.25 mg Aspirin (Ecotrin) 81 mg PO DAILY [facility] Last Admin: 11/13/17 10:42 Dose: 81 mg Atorvastatin Calcium (Lipitor) 10 mg PO DIN [facility] Last Admin: 11/12/17 17:25 Dose: 10 mg Clopidogrel Bisulfate (Plavix) 75 mg PO DAILY [facility] Last Admin: 11/13/17 10:42 Dose: 75 mg Diazepam (Valium) 5 mg PO DAILY [facility] PRN Reason: Protocol Last Admin: 11/11/17 09:06 Dose: 5 mg Docusate Sodium (Colace) 100 mg PO BID [facility] Last Admin: 11/13/17 10:42 Dose: 100 mg Fluoxetine HCl (Prozac) 20 mg PO DAILY [facility] Last Admin: 11/13/17 10:42 Dose: 20 mg Gabapentin (Neurontin) 300 mg PO TID [facility] PRN Reason: Protocol Last Admin: 11/13/17 13:35 Dose: 300 mg Heparin Sodium (Porcine) (Heparin) 5,000 units SC Q12 JIMBO PRN Reason: Protocol Last Admin: 11/11/17 21:58 Dose: 5,000 units Meropenem (Merrem Iv 1 Gm Premix) 50 mls @ 100 mls/hr IVPB Q12 JIMBO PRN Reason: Protocol Stop: 11/15/17 22:46 Last Admin: 11/13/17 10:42 Dose: 100 mls/hr Sodium Chloride (Sodium Chloride 0.9%) 1,000 mls @ 100 mls/hr IV .Q10H JIMBO Last Admin: 11/13/17 02:47 Dose: 100 mls/hr Insulin Detemir (Levemir) 10 unit SC HS JIMBO Last Admin: 11/12/17 21:48 Dose: 10 unit Insulin Human Regular (Humulin R High) 0 units SC ACHS JIMBO PRN Reason: Protocol Last Admin: 11/13/17 12:39 Dose: 1 units Pantoprazole Sodium (Protonix Ec Tab) 40 mg PO ACB JIMBO Last Admin: 11/13/17 08:00 Dose: 40 mg Polyethylene Glycol (Miralax) 17 gm PO DAILY JIMBO Last Admin: 11/13/17 10:42 Dose: 17 gm Tamsulosin HCl (Flomax) 0.4 mg PO BID JIMBO Last Admin: 11/13/17 10:42 Dose: 0.4 mg Zolpidem Tartrate (Ambien) 5 mg PO HS PRN PRN Reason: Insomnia Last Admin: 11/11/17 21:58 Dose: 5 mg - Labs Labs: 11/13/17 06:00 11/13/17 06:00 PT 12.7 SECONDS (9.4-12.5) H 11/06/17 11:17 INR 1.11 (0.93-1.08) H 11/06/17 11:17 APTT 30.1 Seconds (25.1-36.5) 11/06/17 11:17 Attending/Attestation - Attestation I have personally seen and examined this patient.: Yes I have fully participated in the care of the patient.: Yes I have reviewed all pertinent clinical information, including history, physical exam and plan: Yes
[2017-11-12] MEDS: Pantoprazole 40 mg EC Tab PO SCH (15:13)
--- NOTE | 2017-11-12 16:19 | PN ---
DATE: 11/12/2017 LOCATION: Patient in room 565, bed 1. REASON FOR CONSULTATION: Followup for coronary artery disease, history of angioplasty, stent insertion, hypertension, diabetes, fever, history of removal of stents from the right ureter with cystoscopy and right retrograde pyelogram. SUBJECTIVE: The patient is lying flat in bed without any respiratory distress. The patient seemed to be drowsy, answers on calling. Denies chest pain, shortness of breath. Sometimes he shakes his hand. PHYSICAL EXAMINATION: VITAL SIGNS: Blood pressure 123/66, respirations 20, pulse 72, temperature 98.8. HEENT: Head is normocephalic. Eyes, pupils normal. Conjunctivae slightly pale. NECK: JVP low. Carotids equal. THORAX: AP diameter normal. LUNGS: Clear. CARDIOVASCULAR: S1 and S2. ABDOMEN: Soft, nontender, no organomegaly. Bowels sounds are normal. EXTREMITIES: No clubbing. No cyanosis. LABORATORY DATA: WBC 5.8, hemoglobin 7.7, hematocrit 24.5, platelet 159. Sodium 135, potassium 4.1, BUN 49, creatinine 1.7, random sugar 154. AST 21, ALT 15, total protein and albumin normal. DIAGNOSES: Probably metabolic encephalopathy with infection and BUN elevated, hydronephrosis, hydroureter, urinary tract infection, status post removal of stent from the ureter with cystoscopy and right retrograde pyelogram, coronary artery disease, history of angioplasty and stent insertion. On 04/07/2017, the patient had a drug-eluting stent inserted in right coronary artery and plain balloon angioplasty of right posterior diagonal, and later on drug-eluted stent was inserted in left anterior descending on 05/10/2017. Ejection fraction with that catheterization was found to be 55% to 60%. Removal of stents from the right ureter with pus-like discharge from kidney suggestive of infected bursa. The patient also found to have new hydronephrosis and hydroureter on the left side, hypertension, diabetes, hyperlipidemia, anemia, renal dysfunction, fever, urinary tract infection, parkinsonism, dizziness off and on. PLAN: The patient is going for CAT scan, in the meantime will continue aspirin 81 mg daily, Flomax 0.4 b.i.d., subcu heparin 5000 units, insulin 10 units subcutaneous at bedtime, Lipitor 10 mg daily, meropenem 1 gm IV q.12 hour, Neurontin 300 mg p.o. t.i.d., Plavix 75 mg daily, Protonix 40 p.o. daily. He will continue to have sodium chloride, IV fluids . We will follow the CAT scan, we will follow with you. Joey Mendosa MD
[2017-11-12] MEDS: Carbidopa/Levodopa 25/100 CR PO SCH (21:47)
[2017-11-12] MEDS: Insulin Detemir 100 units/ml Vial (Levemir) SC SCH (21:48)
[2017-11-13] MEDS: Sodium Chloride 0.9% 1,000 ML IV SCH ×3 (02:47→21:55)
[2017-11-13 06:51] LABS: HEMOGLOBIN 8.9 g/dL (14.0-18.0); MEAN CELL VOLUME 79.3 fl (80.0-105.0); MEAN CORPUSCULAR HEMOGLOBIN 24.9 pg (25.0-35.0); MEAN CORPUSCULAR HGB CONC 31.3 g/dl (31.0-37.0); MEAN PLATELET VOLUME 9.4 fl (7.0-11.0); RBC 3.58 10^6/uL (3.5-6.1); RED CELL DISTRIBUTION WIDTH 16.4 % (11.5-14.5); WHITE BLOOD COUNT 5.7 10^3/ul (4.5-11.0)
[2017-11-13 07:39] LABS: ALBUMIN 3.2 g/dL (3.0-4.8); CALCIUM 9.3 mg/dL (8.4-10.5)
[2017-11-13] MEDS: Insulin Reg-HIGH-Coverage SC SCH ×4 (08:00→21:55)
[2017-11-13] MEDS: Pantoprazole 40 mg EC Tab PO SCH (08:00)
--- NOTE | 2017-11-13 08:45 | PN ---
DATE: 11/12/2017 SUBJECTIVE: Patient is seen in his room. He is awake, alert, in no acute distress. The patient says he feels better with the stent out. He is complaining of constipation and some pelvic pressure. Patient is voiding with a condom catheter in place as he is bed-bound. Urine is lightly blood-tinged in the tube. The patient had been restarted on Plavix and I have requested that this be held again. Patient had low hemoglobin and has received further transfusion. PHYSICAL EXAMINATION: VITAL SIGNS: Temperature of 98.5, pulse 86, BP 151/79, respirations 20. ABDOMEN: Soft, nontender, nondistended. There is no hepatosplenomegaly. There is no suprapubic tenderness. LABORATORY EXAMINATION: WBC count 5.8, hemoglobin was 7.8, platelets 159. IMPRESSION AND PLAN: Patient appears stable with improving pain after stent removal. Patient does have apparent bilateral hydronephrosis, which appears to be from bladder edema and likely vesicoureteral reflux. Patient's bladder was extremely spastic and appears to be improving now that the stent has been removed. If there is a question of renal obstruction or worsening hydronephrosis. We can consider placement of nephrostomy tube and/or tubes. Patient appeared to have a pyelonephrosis and the stent was not adequately draining his right kidney anyway. Given the marked ureteral dilation, I do not think patient would be obstructed by any stones. On the last ureteroscopy, he had marked ureteritis from the stent. Patient still is bed bound from neuropathy and Neurology input is appreciated. Plan for now is to continue intravenous fluids and antibiotics. Treatment of constipation. Patient is feeling well after relief of constipation and his urine has cleared with stable hemoglobin. We can begin discharge planning back to nursing facility where patient was prior to admission. Troy Salas MD
[2017-11-13] MEDS: POLYETHYLENE GLYCOL 3350 17 GM/Dose PACKET PO SCH (10:42)
[2017-11-13] MEDS: Meropenem IV 1 gm in NS 50 ML IVPB SCH ×2 (10:42→21:58)
--- NOTE | 2017-11-13 11:20 | PN ---
DATE: 11/12/2017 DAILY PROGRESS NOTE SUBJECTIVE: The patient is a 66-year-old male with a history of hydronephrosis and ureteral calculi, status post stent placement about one month ago. He also has a history of hypertension, diabetes, peripheral vascular disease, peripheral neuropathy and possible Parkinson's disease. He had been complaining of flank pain at the long-term facility where he was staying, therefore, was brought to the Emergency Room. He was evaluated and admitted. His hospital stay showed his carotid arteries to be 20% to 40% occluded bilaterally on carotid Doppler studies. He had a new left hydronephrosis on CAT scan. His EKG shows sinus rhythm with a prolonged QT interval. So, the patient was evaluated by Dr. Salas. He was brought to the operating room where the ureteral stent was removed. There was talk about a possible urostomy tube; however, Dr. Salas decided to follow the patient as he is without any foreign bodies. I had a long discussion with Dr. Salas today and he feels that the left-sided hydronephrosis which due to reflux. The bladder wall seems to be generally thickened and inflamed. The patient is being treated with Merrem and we are following the patient closely. If the patient starts complaining of spasms or pain, we will consider Pyridium at that time. He had a drop in his hemoglobin and today has received a total of 3 units of packed red blood cells in transfusion. When seen, he was currently being treated with meropenem and vancomycin as per Infectious Diseases and these antibiotics will be continued for a total of 47 days. LABORATORY DATA: This morning, his laboratory showed white cell count of 5.8 and hemoglobin and hematocrit was 7.8 and 24.5. Sodium is 135, potassium is 4.1, blood urea nitrogen is 49, creatinine is 1.7, and glucose is 120. IMPRESSION AND PLAN: When seen today, the patient is awake, alert, and oriented. He is in good spirits; however, he is frustrated with his overall medical condition. We will be starting Physical Therapy to try ambulating the patient and will be continuing to follow the patient closely. Fransisco Bowman MD [facility] # [id number]
--- NOTE | 2017-11-13 12:42 | CP.PCM.PN ---
<Ashlyn Briones - Last Filed: 11/13/17 13:31> Subjective - Date & Time of Evaluation Date of Evaluation: 11/13/17 Time of Evaluation: 12:38 - Subjective Subjective: Neurology PGY-[address] Kan Pt states that he felt nausea and tired. Nausea started after the cystocopy. RN reported 2 BM yesterday and 1 BM today. However, the stool was hard and pt needs to strain Objective - Vital Signs/Intake and Output Vital Signs (last 24 hours): Temp Pulse Resp BP Pulse Ox 98.8 F 86 18 156/85 H 99 11/13/17 07:30 11/13/17 07:30 11/13/17 07:30 11/13/17 07:30 11/13/17 07:30 Intake and Output: 11/13/17 11/13/17 06:59 18:59 Intake Total 840 Output Total 1500 Balance -660 - Medications Medications: Current Medications Acetaminophen (Tylenol 325mg Tab) 650 mg PO Q4H PRN PRN Reason: Temperature Last Admin: 11/12/17 21:04 Dose: 650 mg Alprazolam (Xanax) 0.25 mg PO Q4H PRN PRN Reason: Anxiety Stop: 11/13/17 16:29 Last Admin: 11/12/17 21:47 Dose: 0.25 mg Aspirin (Ecotrin) 81 mg PO DAILY [facility] Last Admin: 11/13/17 10:42 Dose: 81 mg Atorvastatin Calcium (Lipitor) 10 mg PO DIN [facility] Last Admin: 11/12/17 17:25 Dose: 10 mg Clopidogrel Bisulfate (Plavix) 75 mg PO DAILY [facility] Last Admin: 11/13/17 10:42 Dose: 75 mg Diazepam (Valium) 5 mg PO DAILY [facility] PRN Reason: Protocol Last Admin: 11/11/17 09:06 Dose: 5 mg Docusate Sodium (Colace) 100 mg PO BID [facility] Last Admin: 11/13/17 10:42 Dose: 100 mg Fluoxetine HCl (Prozac) 20 mg PO DAILY [facility] Last Admin: 11/13/17 10:42 Dose: 20 mg Gabapentin (Neurontin) 300 mg PO TID [facility] PRN Reason: Protocol Last Admin: 11/13/17 10:41 Dose: 300 mg Heparin Sodium (Porcine) (Heparin) 5,000 units SC Q12 [facility] PRN Reason: Protocol Last Admin: 11/11/17 21:58 Dose: 5,000 units Meropenem (Merrem Iv 1 Gm Premix) 50 mls @ 100 mls/hr IVPB Q12 [facility] PRN Reason: Protocol Stop: 11/15/17 22:46 Last Admin: 11/13/17 10:42 Dose: 100 mls/hr Sodium Chloride (Sodium Chloride 0.9%) 1,000 mls @ 100 mls/hr IV .Q10H [facility] Last Admin: 11/13/17 02:47 Dose: 100 mls/hr Insulin Detemir (Levemir) 10 unit SC HS [facility] Last Admin: 11/12/17 21:48 Dose: 10 unit Insulin Human Regular (Humulin R High) 0 units SC ACHS [facility] PRN Reason: Protocol Last Admin: 11/13/17 08:00 Dose: Not Given Pantoprazole Sodium (Protonix Ec Tab) 40 mg PO ACB [facility] Last Admin: 11/13/17 08:00 Dose: 40 mg Polyethylene Glycol (Miralax) 17 gm PO DAILY [facility] Last Admin: 11/13/17 10:42 Dose: 17 gm Tamsulosin HCl (Flomax) 0.4 mg PO BID [facility] Last Admin: 11/13/17 10:42 Dose: 0.4 mg Zolpidem Tartrate (Ambien) 5 mg PO HS PRN PRN Reason: Insomnia Last Admin: 11/11/17 21:58 Dose: 5 mg - Labs Labs: 11/13/17 06:00 11/13/17 06:00 PT 12.7 SECONDS (9.4-12.5) H 11/06/17 11:17 INR 1.11 (0.93-1.08) H 11/06/17 11:17 APTT 30.1 Seconds (25.1-36.5) 11/06/17 11:17 - Constitutional Appears: No Acute Distress - Head Exam Head Exam: ATRAUMATIC, NORMAL INSPECTION, NORMOCEPHALIC - Eye Exam Eye Exam: EOMI, Normal appearance, PERRL. absent: Scleral icterus Pupil Exam: NORMAL ACCOMODATION - ENT Exam ENT Exam: Mucous Membranes Moist - Neck Exam Additional comments: supple - Respiratory Exam Respiratory Exam: Decreased Breath Sounds, Clear to Ausculation Bilateral. absent: Rales, Rhonchi, Wheezes - Cardiovascular Exam Cardiovascular Exam: REGULAR RHYTHM, +S1, +S2 - GI/Abdominal Exam GI & Abdominal Exam: Distended, Soft, Tenderness (RLQ, LLQ, ), Normal Bowel Sounds - Extremities Exam Additional comments: [place] cath. Urine dark kathleen - Neurological Exam Neurological Exam: Alert, Awake, Oriented x3 Additional comments: speech: fluent recall: 3/3 Motor: 4/5 UE and LE b/l Sensory: intact [id number] coordination: intact - Psychiatric Exam Psychiatric exam: Normal Affect, Normal Mood - Skin Skin Exam: Dry, Warm Assessment and Plan - Assessment and Plan (Free Text) Plan: Mr Joseph, former smoker with Hx Parkinson on Sinemet, CAD s/p stents, diabetes,c /o R flank pain was found to have UTI and acute of chronic kidney injury. He had a ureteral stent in the past due to obstructing nephrolithiasis. He was found to have severe cystitis with possible R sided pyelonephritis, in the setting of indwelling ureteral stent. Pt get lightheaded when changing from sitting to standing. He has mild effect of parkinsonionism, not full Parkinson' s disease. He also has poor ambulation which interfere with his ambulation. Pt had a cystoscopy and ureter stent removal on 11/10/17. Pt spiked a fever of 102.8 on 11/11/17. Pt states that he had no bowel movement for 1 week. Hb is 8.9. Pt will receive 1u pRBC (total 3). Blood loss likely from hematuria. Delirium likely from severe sepsis, s/p nephrostomy tune, removal of stent, POD #3 Sepsis likely from healthcare associated pneumonia - CT head (11/12) - No acute intracranial hemorrahage. Mild chronic white matter ischemic changes. Moderate central volume loss. (+) mild mucosal thickening extends from ethmoid to frontal sinuses. - Per ID: will need 46 more days of treatment - Delirium precautions; daytime reoientation - continue medical management on current medical illness - maintain SBP 120-130 - maintain normothermia - maintain blood glucose 140-180 - Pending Orthostatic VS Dizziness likely from deconditioning from active medical conditions Parkinsonionism Gait dysfunction - Continue sinemet - Carotid doppler - 20-39% proximal ICA stenosis with antegrade flow in both vertebral aa. - CT head - mild chronic microangiopathic changes - continue physical therapy and occupational therapy - Recommend subacute rehabilitation for gait balance and muscle strengthening - avoid sudden movement - continue on current present medical management Constipation - Consider laxative, management per primary team Microcytic anemia, acute on chronic - Will get 1u pRBC today (total 3) - Hb raised from 7.7 to 8.9 today s/p 1pRBC s/r/d/w Dr. Kan <Shun Kan - Last Filed: 11/13/17 14:34> Objective - Vital Signs/Intake and Output Vital Signs (last 24 hours): Temp Pulse Resp BP Pulse Ox 98.7 F 77 18 111/69 99 11/13/17 14:04 11/13/17 14:04 11/13/17 14:04 11/13/17 14:04 11/13/17 07:30 Intake and Output: 11/13/17 11/13/17 06:59 18:59 Intake Total 840 50 Output Total 1500 Balance -660 50 - Medications Medications: Current Medications Acetaminophen (Tylenol 325mg Tab) 650 mg PO Q4H PRN PRN Reason: Temperature Last Admin: 11/12/17 21:04 Dose: 650 mg Alprazolam (Xanax) 0.25 mg PO Q4H PRN PRN Reason: Anxiety Stop: 11/13/17 16:29 Last Admin: 11/12/17 21:47 Dose: 0.25 mg Aspirin (Ecotrin) 81 mg PO DAILY [facility] Last Admin: 11/13/17 10:42 Dose: 81 mg Atorvastatin Calcium (Lipitor) 10 mg PO DIN [facility] Last Admin: 11/12/17 17:25 Dose: 10 mg Clopidogrel Bisulfate (Plavix) 75 mg PO DAILY [facility] Last Admin: 11/13/17 10:42 Dose: 75 mg Diazepam (Valium) 5 mg PO DAILY [facility] PRN Reason: Protocol Last Admin: 11/11/17 09:06 Dose: 5 mg Docusate Sodium (Colace) 100 mg PO BID [facility] Last Admin: 11/13/17 10:42 Dose: 100 mg Fluoxetine HCl (Prozac) 20 mg PO DAILY [facility] Last Admin: 11/13/17 10:42 Dose: 20 mg Gabapentin (Neurontin) 300 mg PO TID [facility] PRN Reason: Protocol Last Admin: 11/13/17 13:35 Dose: 300 mg Heparin Sodium (Porcine) (Heparin) 5,000 units SC Q12 [facility] PRN Reason: Protocol Last Admin: 11/11/17 21:58 Dose: 5,000 units Meropenem (Merrem Iv 1 Gm Premix) 50 mls @ 100 mls/hr IVPB Q12 [facility] PRN Reason: Protocol Stop: 11/15/17 22:46 Last Admin: 11/13/17 10:42 Dose: 100 mls/hr Sodium Chloride (Sodium Chloride 0.9%) 1,000 mls @ 100 mls/hr IV .Q10H [facility] Last Admin: 11/13/17 02:47 Dose: 100 mls/hr Insulin Detemir (Levemir) 10 unit SC HS [facility] Last Admin: 11/12/17 21:48 Dose: 10 unit Insulin Human Regular (Humulin R High) 0 units SC ACHS [facility] PRN Reason: Protocol Last Admin: 11/13/17 12:39 Dose: 1 units Pantoprazole Sodium (Protonix Ec Tab) 40 mg PO ACB [facility] Last Admin: 11/13/17 08:00 Dose: 40 mg Polyethylene Glycol (Miralax) 17 gm PO DAILY [facility] Last Admin: 11/13/17 10:42 Dose: 17 gm Tamsulosin HCl (Flomax) 0.4 mg PO BID [facility] Last Admin: 11/13/17 10:42 Dose: 0.4 mg Zolpidem Tartrate (Ambien) 5 mg PO HS PRN PRN Reason: Insomnia Last Admin: 11/11/17 21:58 Dose: 5 mg - Labs Labs: 11/13/17 06:00 11/13/17 06:00 PT 12.7 SECONDS (9.4-12.5) H 11/06/17 11:17 INR 1.11 (0.93-1.08) H 11/06/17 11:17 APTT 30.1 Seconds (25.1-36.5) 11/06/17 11:17 Attending/Attestation - Attestation I have personally seen and examined this patient.: Yes I have fully participated in the care of the patient.: Yes I have reviewed all pertinent clinical information, including history, physical exam and plan: Yes
--- NOTE | 2017-11-13 15:42 | PN ---
DATE OF SERVICE: 11/13/2017 LOCATION: The patient in room #565, bed #1. REASONS FOR CONSULTATION: Coronary artery disease, history of angioplasty and stent insertion, hypertension, diabetes, fever, history of removal of stent from the right ureter with cystoscopy and right retrograde pyelogram, urinary tract infection. SUBJECTIVE: The patient is lying flat in bed without any cardiac symptoms. He looks to be more alert today as compared to yesterday when he was drowsy. OBJECTIVE: VITAL SIGNS: Blood pressure 141/73, respirations 18, pulse 71, temperature 98.3. HEENT: Head is normocephalic. Eyes, pupils normal. Conjunctivae slightly pale. NECK: JVP low. Carotids equal. THORAX: AP diameter normal. LUNGS: Clear. CARDIOVASCULAR: S1 and S2. ABDOMEN: Soft. Bowels sounds are normal. EXTREMITIES: No clubbing. No cyanosis. LABORATORY DATA: WBC 5.7, hemoglobin 8.9, hematocrit 28.4, platelet 152; sodium 139, potassium 4.3, BUN 42, creatinine 1.7, random sugar 165, total protein and albumin normal, AST and ALT normal. DIAGNOSES: Probably delirium due to urinary tract infection, sepsis, high BUN, hydronephrosis, hydroureter, status post removal of stent from the ureter with cystoscopy and right retrograde pyelogram, coronary artery disease, history of angioplasty and stent insertion on 04/07/2017. The patient had a drug-eluting stent inserted in right coronary and plain balloon angioplasty of right posterior diagonal, and later on drug-eluting stent was inserted in left anterior descending on 05/10/2017. Ejection fraction at the time of catheterization was 55% to 60%. Removal of stent from the right ureter with pus-like discharge suggestive of urinary tract infection. The patient also was found to have new hydronephrosis and hydroureter on the left side, hypertension, diabetes, hyperlipidemia, anemia, renal dysfunction, parkinsonism, dizziness. PLAN: The patient received blood transfusion yesterday for anemia. The patient is on aspirin 81 mg daily, Flomax 0.4 daily, heparin 5000 units subcu q.12 hours, insulin as ordered, Lipitor 10 mg daily, meropenem 1 g IV q.12 hours, Neurontin 300 mg p.o. t.i.d., Plavix 75 daily, Prozac 20 daily, carbidopa/levodopa 25/100 one tablet p.o. at nighttime. The patient is getting 0.9% sodium chloride 100 mL an hour. We will repeat CBC, SMA-7 in the morning. We will follow with you. Joey Mendosa MD
[2017-11-13] MEDS: Magnesium Hydroxide Susp 30 ml UD PO PRN (21:58)
[2017-11-13] MEDS: Insulin Detemir 100 units/ml Vial (Levemir) SC SCH (21:58)
--- NOTE | 2017-11-14 00:54 | PN ---
DATE: 11/13/2017 SUBJECTIVE: The patient is in bed, in no acute distress, nontoxic. PHYSICAL EXAMINATION: VITAL SIGNS: Temperature is 98, blood pressure is 140/70, respiratory rate of 20, and heart rate of 77. HEENT: Unremarkable. NECK: Supple. LUNGS: Decreased breath sounds. HEART: Normal S1, S2. ABDOMEN: Soft, nontender. LABORATORY EXAMINATION: Reveals a white count of 5.7, hemoglobin of 8.9, platelets of 152, BUN of 42, creatinine of 1.7, procalcitonin is 1.33. Microbiology is noted. Cultures are negative. The patient is currently on meropenem, and vancomycin was given intermittently. ASSESSMENT AND PLAN: This is a 66-year-old male, who was admitted with a possible right-sided pyelonephritis, right-sided ureteral stent and history of nephrolithiasis with severe sepsis, status post nephrostomy tube, removal of the stent, on day #7 of meropenem, intermittent vancomycin, and now with postprocedure new sepsis with healthcare-associated pneumonia and appears to be improving, will complete 4 to 7 days of antibiotics for the new episode, pending final repeat cultures with 48 hours of no growth, and we will follow with you. Tigre Ordoñez MD
[2017-11-14 07:15] LABS: BASO # 0.02 K/mm3 (0.0-2.0); BASO % 0.4 % (0.0-3.0); EOS # 0.3 (0.0-0.7); EOS % 4.6 % (1.5-5.0); GRAN # 3.76 (1.4-6.5); GRAN % 68.7 % (50.0-68.0); HEMOGLOBIN 9.5 g/dL (14.0-18.0); LYMPH # 0.9 (1.2-3.4); MEAN CELL VOLUME 81.3 fl (80.0-105.0); MEAN CORPUSCULAR HEMOGLOBIN 25.1 pg (25.0-35.0); MEAN CORPUSCULAR HGB CONC 30.8 g/dl (31.0-37.0); MEAN PLATELET VOLUME 9.2 fl (7.0-11.0); MONO # 0.5 (0.1-0.6); MONO % 9.3 % (1.0-6.0); RBC 3.79 10^6/uL (3.5-6.1); RED CELL DISTRIBUTION WIDTH 16.6 % (11.5-14.5); WHITE BLOOD COUNT 5.5 10^3/ul (4.5-11.0)
[2017-11-14] MEDS: Insulin Reg-HIGH-Coverage SC SCH ×4 (07:30→21:30)
[2017-11-14] MEDS: Pantoprazole 40 mg EC Tab PO SCH (07:33)
[2017-11-14 07:50] LABS: ALB/GLOB RATIO 0.9 (1.1-1.8); CALCIUM 9.3 mg/dL (8.4-10.5); MAGNESIUM 2.1 mg/dL (1.7-2.2)
--- NOTE | 2017-11-14 09:04 | PN ---
DATE: 11/13/2017 UROLOGY PROGRESS NOTE SUBJECTIVE: The patient is seen in his room at [facility]. He reports feeling somewhat better. The patient did have a bowel movement yesterday, but was supposed to receive an enema today. He still feels some pelvic pressure. Urine is still lightly blood-tinged in his Taxus catheter. OBJECTIVE: ABDOMEN: Soft, nontender, nondistended. There is no rebound or guarding. VITAL SIGNS: He is afebrile, temperature 98.3, pulse 77, BP 142/77. LABORATORY DATA: WBC count 5.7, hemoglobin up to 8.9, creatinine stable at 1.7. Sugars are still elevated. IMPRESSION AND PLAN: The patient continues to improve after stent removal. Plavix has been held again and urine is clearing. I think he would be okay to restart Plavix tomorrow. As per Neurology, the patient appears to have Parkinson's, unsure if this is a new or old diagnosis. Continue to treat constipation. Continue IV antibiotics. The patient has multiple medical issues. Urologically, appears to be improved with stent removal. Cultures have been negative. He did appear to have a pyelonephrosis which appears to be improving with antibiotics. CT scan did not show any obstructing stones. Plan will be to continue further fluids and antibiotics and observation urologically. Troy Salas MD
[2017-11-14] MEDS: Meropenem IV 1 gm in NS 50 ML IVPB SCH ×2 (09:20→21:37)
[2017-11-14] MEDS: POLYETHYLENE GLYCOL 3350 17 GM/Dose PACKET PO SCH (09:20)
[2017-11-14] MEDS: Sodium Chloride 0.9% 1,000 ML IV SCH ×2 (09:21→17:18)
[2017-11-14 10:34] LABS: PH,URINE 6.5 (4.7-8.0); URINE BILIRUBIN NEGATIVE (NEGATIVE); URINE BLOOD LARGE (NEGATIVE); URINE GLUCOSE (UA) NEGATIVE (NEGATIVE); URINE LEUKOCYTE ESTERASE LARGE Leu/uL (NEGATIVE); URINE NITRATE NEGATIVE (NEGATIVE); URINE PROTEIN 30 mg/dL (<30 mg/dL); URINE UROBILINOGEN 0.2 E.U./dL (<1 E.U./dL)
[2017-11-14 10:38] LABS: URINE COLOR YELLOW (YELLOW)
[2017-11-14 10:39] LABS: URINE APPEARANCE TURBID (CLEAR)
[2017-11-14 10:44] LABS: URINE BACTERIA FEW (NEG); URINE WBC TNTC /hpf (0-6)
--- NOTE | 2017-11-14 14:07 | RAD ---
PROCEDURE: Fluoroscopic stent removal/retrograde pyelograms up to 1 hour HISTORY: STENT REMOVAL / RETROGRADE PYELOGRAM / (RIGHT) COMPARISON: 09/01/2017 TECHNIQUE: Multiple fluoroscopic images have been provided obtained in the operating room. FINDINGS: There is interval removal of the right ureteral stent. The total fluoroscopic time was 1:00 0.1 seconds. IMPRESSION: Successful fluoroscopic guided removal of right ureteral stent.
--- NOTE | 2017-11-14 15:15 | CT ---
PROCEDURE: CT Abdomen and Pelvis without intravenous contrast HISTORY: F/U on hydro, pylo, s/p cysto COMPARISON: 11/11/2017. TECHNIQUE: CT scan of the abdomen and pelvis was performed without administration of intravenous contrast. Oral contrast was not administered. Coronal and sagittal reformatted images were obtained. Radiation dose: Total exam DLP = 835.51 mGy-cm. This CT exam was performed using one or more of the following dose reduction techniques: Automated exposure control, adjustment of the mA and/or kV according to patient size, and/or use of iterative reconstruction technique. FINDINGS: LOWER THORAX: There is subsegmental atelectasis in the lower lobes and small pleural effusions. There is also a small pericardial effusion. The heart is normal in size. There are advanced atherosclerotic coronary artery calcifications. LIVER: There is mild hepatomegaly. No gross lesion or ductal dilatation. GALLBLADDER AND BILE DUCTS: No calcified gallstones. PANCREAS: Mild diffuse atrophy. No gross lesion or ductal dilatation. SPLEEN: There is moderate splenomegaly and punctate calcifications in the spleen likely related to granulomata. ADRENALS: No discrete nodule. KIDNEYS AND URETERS: Both kidneys are normal in size and there is significant perinephric fat stranding. There is a stable 3.2 cm simple cyst in the left interpolar region. No nephrolithiasis. There is redemonstration of moderate hydronephrosis and moderate diffuse dilatation of the ureteral use without obstructing stone or mass. The small amount of air in the right mid ureter, likely iatrogenic. VASCULATURE: No aortic aneurysm. BOWEL: The small bowel loops are normal in caliber. The colon is unremarkable. There is fecal stasis in the rectum. No bowel dilatation or obstruction. APPENDIX: Normal appendix. PERITONEUM: No free fluid. No free air. LYMPH NODES: No enlarged lymph nodes. BLADDER: The urinary bladder is well distended. There is severe circumferential mural thickening in the bladder wall with perivesical inflammatory changes. There are anterior superior bladder diverticula. There is air within the bladder lumen, likely iatrogenic. REPRODUCTIVE: Unremarkable. BONES: No acute fracture. OTHER FINDINGS: There are bilateral small fat containing inguinal hernias. IMPRESSION: 1. Little interval change in bilateral moderate hydronephrosis and diffuse dilatation of the ureters without distal obstruction. 2. Severe circumferential mural thickening of the urinary bladder wall with perivesical inflammatory changes which may be related to cystitis. Also noted are bladder diverticula. 3. Moderate splenomegaly and stigmata of prior granulomatous disease. 4. Fecal impaction in the rectum. No bowel obstruction. 5. Small bilateral pleural effusions and small pericardial effusion.
[2017-11-14] MEDS: Magnesium Hydroxide Susp 30 ml UD PO PRN (17:16)
[2017-11-14] MEDS ORDERED: Vancomycin 1gm in NS 250ml 1 GM/250 ML BAG IVPB STA (17:39)
--- NOTE | 2017-11-14 17:39 | CP.PCM.PN ---
Subjective - Date & Time of Evaluation Date of Evaluation: 11/14/17 Time of Evaluation: 12:10 - Subjective Subjective: Comfortable in bed, no fevers, not in distress. Still with noted pus from the urinary tube. Objective - Vital Signs/Intake and Output Vital Signs (last 24 hours): Temp Pulse Resp BP Pulse Ox 98.1 F 77 18 123/73 100 11/14/17 07:30 11/14/17 07:30 11/14/17 07:30 11/14/17 07:30 11/14/17 07:30 Intake and Output: 11/14/17 11/14/17 06:59 18:59 Intake Total 840 Output Total 2350 Balance -1510 - Medications Medications: Current Medications Acetaminophen (Tylenol 325mg Tab) 650 mg PO Q4H PRN PRN Reason: Temperature Last Admin: 11/12/17 21:04 Dose: 650 mg Aspirin (Ecotrin) 81 mg PO DAILY [facility] Last Admin: 11/13/17 10:42 Dose: 81 mg Atorvastatin Calcium (Lipitor) 10 mg PO DIN [facility] Last Admin: 11/13/17 17:11 Dose: 10 mg Clopidogrel Bisulfate (Plavix) 75 mg PO DAILY [facility] Last Admin: 11/13/17 10:42 Dose: 75 mg Diazepam (Valium) 5 mg PO DAILY [facility] PRN Reason: Protocol Last Admin: 11/11/17 09:06 Dose: 5 mg Docusate Sodium (Colace) 100 mg PO BID [facility] Last Admin: 11/13/17 17:11 Dose: 100 mg Fluoxetine HCl (Prozac) 20 mg PO DAILY [facility] Last Admin: 11/13/17 10:42 Dose: 20 mg Gabapentin (Neurontin) 300 mg PO TID [facility] PRN Reason: Protocol Last Admin: 11/13/17 17:11 Dose: 300 mg Heparin Sodium (Porcine) (Heparin) 5,000 units SC Q12 [facility] PRN Reason: Protocol Last Admin: 11/11/17 21:58 Dose: 5,000 units Meropenem (Merrem Iv 1 Gm Premix) 50 mls @ 100 mls/hr IVPB Q12 [facility] PRN Reason: Protocol Stop: 11/15/17 22:46 Last Admin: 11/13/17 21:58 Dose: 100 mls/hr Sodium Chloride (Sodium Chloride 0.9%) 1,000 mls @ 100 mls/hr IV .Q10H [facility] Last Admin: 11/13/17 21:55 Dose: Not Given Insulin Detemir (Levemir) 10 unit SC HS [facility] Last Admin: 11/13/17 21:58 Dose: 10 unit Insulin Human Regular (Humulin R High) 0 units SC ACHS [facility] PRN Reason: Protocol Last Admin: 11/14/17 07:30 Dose: Not Given Magnesium Hydroxide (Milk Of Magnesia) 30 ml PO DAILY PRN PRN Reason: Constipation Last Admin: 11/13/17 21:58 Dose: 30 ml Pantoprazole Sodium (Protonix Ec Tab) 40 mg PO ACB [facility] Last Admin: 11/14/17 07:33 Dose: 40 mg Polyethylene Glycol (Miralax) 17 gm PO DAILY [facility] Last Admin: 11/13/17 10:42 Dose: 17 gm Tamsulosin HCl (Flomax) 0.4 mg PO BID [facility] Last Admin: 11/13/17 17:11 Dose: 0.4 mg Zolpidem Tartrate (Ambien) 5 mg PO HS PRN PRN Reason: Insomnia Last Admin: 11/11/17 21:58 Dose: 5 mg - Labs Labs: 11/14/17 06:00 11/14/17 06:00 PT 12.7 SECONDS (9.4-12.5) H 11/06/17 11:17 INR 1.11 (0.93-1.08) H 11/06/17 11:17 APTT 30.1 Seconds (25.1-36.5) 11/06/17 11:17 - Constitutional Appears: Non-toxic - Head Exam Head Exam: NORMAL INSPECTION - ENT Exam ENT Exam: Mucous Membranes Moist - Neck Exam Neck Exam: absent: Meningismus - Respiratory Exam Respiratory Exam: Decreased Breath Sounds - Cardiovascular Exam Cardiovascular Exam: +S1, +S2 - GI/Abdominal Exam GI & Abdominal Exam: Soft. absent: Tenderness Assessment and Plan - Assessment and Plan (Free Text) Plan: Assessment new onset sepsis due to HCAP after removal of right sided ureteral stent and nephrostomy tube placement; still with purulent material from the nephrostomy tube consider right sided pyelonephritis in this patient with right sided ureteral stent and history of nephrolithiasis history of severe sepsis with acute on chronic renal failure probably related to possible perforated urinary bladder with retroperitoneal air and UTI with associated ureteral stone, right ureteral stent placement S/P lithotripsy history of C. diff. associated diarrhea CAD S/P PCI right ureteral stent placement because of obstructing ureteral stone 04/2017 HTN DM PVD history of depression Plan continue patient on Merrem and intermittent Vancomycin day 4 post-procedure (to complete 4-7 days for the pneumonia) - will repeat urine cx today since thereis purulent material from the nephrostomy tube will continue to follow clinically
--- NOTE | 2017-11-14 20:34 | PN ---
DATE: 11/14/2017 LOCATION: The patient is in room 565, bed 1. REASON FOR CONSULTATION AND FOLLOWUP: Coronary artery disease, angioplasty, stent insertion in 04/2017, hypertension, diabetes, fever, pyelonephritis, history of stent from the right ureter removal with cystoscopy and right retrograde pyelogram. SUBJECTIVE: The patient is still complaining suprapubic discomfort and pain. Denies any chest pain, shortness of breath or palpitation, lying flat in bed without any shortness of breath. The patient looks much more alert now was compared to before. PHYSICAL EXAMINATION VITAL SIGNS: Blood pressure 123/73, respirations 18, pulse 77 and temperature 98.1. HEENT: Head is normocephalic. Eyes, pupils normal. Conjunctivae slightly pale. NECK: JVP low. Carotids equal. THORAX: AP diameter normal. LUNGS: No rales. CARDIOVASCULAR: S1 and S2. ABDOMEN: Slight vague tenderness in the suprapubic area. No organomegaly. Bowels sounds are normal. EXTREMITIES: No clubbing. No cyanosis. LABORATORY DATA: WBC 5.5, hemoglobin 9.5, hematocrit 30.8 and platelet 167. Sodium 141, potassium 4.3, BUN 33, creatinine is 1.6, calcium 9.3, phosphorus 3.1 and magnesium 2.1. AST and ALT normal. Total protein and albumin normal. DIAGNOSES: Coronary artery disease history of stent insertion angioplasty in 04/2017, urinary tract infection, pyelonephritis, hydronephrosis, hydroureter, sepsis, status post removal of stent from right ureter and left ventricular ejection fraction on catheterization was 55% to 60%, status post removal of stent from the right ureter with pus-like discharge and some hematuria, new hydronephrosis and hydroureter on the left side, hypertension, diabetes, hyperlipidemia, anemia, renal dysfunction, parkinsonism, dizziness, status post blood transfusion. PLAN: We will continue aspirin 81 daily, heparin 5000 units subcu q.12 hours, atorvastatin 10 mg p.o. daily, Merrem 1 g IV q. 12 hours, Neurontin 300 t.i.d., Plavix 75 daily, 0.9% normal saline IV fluid. We will continue present therapy and we will follow with you. Clinically, cardiac status is stable. Joey Mendosa MD [facility] # [id number]
[2017-11-14] MEDS: Insulin Detemir 100 units/ml Vial (Levemir) SC SCH (21:37)
[2017-11-15] MEDS: Sodium Chloride 0.9% 1,000 ML IV SCH ×2 (05:05→18:18)
[2017-11-15 07:01] LABS: HEMOGLOBIN 9.1 g/dL (14.0-18.0); MEAN CELL VOLUME 80.4 fl (80.0-105.0); MEAN CORPUSCULAR HEMOGLOBIN 25.4 pg (25.0-35.0); MEAN CORPUSCULAR HGB CONC 31.6 g/dl (31.0-37.0); RBC 3.58 10^6/uL (3.5-6.1); RED CELL DISTRIBUTION WIDTH 16.7 % (11.5-14.5); WHITE BLOOD COUNT 4.3 10^3/ul (4.5-11.0)
[2017-11-15 07:30] LABS: ALB/GLOB RATIO 0.9 (1.1-1.8); ALBUMIN 2.8 g/dL (3.0-4.8); ALT/SGPT 26 U/L (7-56); AST/SGOT 26 U/L (17-59); BLOOD UREA NITROGEN 28 mg/dL (7-21); CALCIUM 9.3 mg/dL (8.4-10.5); GFR AFRICAN-AMERICAN > 60; GFR NON-AFRICAN AMERICAN > 60
--- NOTE | 2017-11-15 08:00 | PN ---
DATE: 11/13/2017 SUBJECTIVE: García is in room 565, bed 1. This morning, he continues IV antibiotics. Urology followup as well as Infectious Disease notes appreciated. Continuing antibiotics. Caution with analgesics. Of note is a question of a history of Parkinson disease. I know the patient for years. There is no history of Parkinson disease in the past. I reviewed his medical record from his most recent hospitalization in 08/2017. He was seen by the Neurology contaminated land consultant for a second opinion and was never on anti-Parkinson's medication. Apparently, this medication, Sinemet, was started at the rehab facility and given as a single nighttime dose only to look into this further, but to the best of my knowledge and by our last visit, there is no history of Parkinson disease in this man. Alex Bowman MD
[2017-11-15] MEDS: Insulin Reg-HIGH-Coverage SC SCH ×4 (10:18→21:44)
[2017-11-15] MEDS: Magnesium Hydroxide Susp 30 ml UD PO PRN (10:18)
[2017-11-15] MEDS: POLYETHYLENE GLYCOL 3350 17 GM/Dose PACKET PO SCH (10:19)
[2017-11-15] MEDS: Pantoprazole 40 mg EC Tab PO SCH (10:19)
[2017-11-15] MEDS: Meropenem IV 1 gm in NS 50 ML IVPB SCH ×2 (10:19→21:49)
--- NOTE | 2017-11-15 13:19 | PN ---
DATE: 11/14/2017 SUBJECTIVE: The patient was seen this Friday morning, in room 565 bed 1. He had a small firm bowel movement this morning and was being watched. Afterwards, he complains of significant lower abdominal tenderness. PHYSICAL EXAMINATION: There is dullness to percussion and a large bladder. ASSESSMENT AND PLAN: Bladder scan calculated a urinary residual volume of over 600 mL, so Norris catheter was placed. Urine was sent for urinalysis and culture as it was white and cloudy, appearing obviously infected. This should improve dramatically with drainage from Norris catheter, but I will continue the meropenem and leave a note to discuss with Infectious Disease and the patient will need to continue antibiotics in view of this findings. Case was also discussed with Urologist, Dr. Salas, and the patient's nurse at the bedside. I would expect dramatic clinical improvement in his overall condition and certainly in his comfort level by tomorrow. Alex Bowman MD [facility]
[2017-11-15] MEDS: Insulin Detemir 100 units/ml Vial (Levemir) SC SCH (21:49)
--- NOTE | 2017-11-16 01:31 | PN ---
DATE: 11/15/2017 SUBJECTIVE: The patient is in bed, in no acute distress. PHYSICAL EXAMINATION: VITAL SIGNS: Temperature is 97, blood pressure is 112/60 and respiratory rate of 18. HEENT: Unremarkable. NECK: Supple. LUNGS: Decreased breath sounds. HEART: Normal S1 and S2. ABDOMEN: Soft and nontender. LABORATORY DATA: Reveals a white count of 4.3 and hemoglobin of 9. BUN of 28 and creatinine of 1.2. Procalcitonin is 1.3. Cultures are negative. Review of orders reveals the patient to be on meropenem. ASSESSMENT AND PLAN: This is a 66-year-old male sepsis due to healthcare-associated pneumonia, removal of right-sided ureteral stent nephrostomy tube placement. Still with a purulent material from the nephrostomy tube. We will continue meropenem, intermittent vancomycin, postprocedure day #5, would complete 4 to 7 days for pneumonia. In this patient with peripheral vascular disease, diabetes, hypertension, coronary artery disease, and the patient with percutaneous coronary intervention. Tigre Ordoñez MD
--- NOTE | 2017-11-16 03:00 | CP.PCM.PN ---
Subjective - Date & Time of Evaluation Date of Evaluation: 11/11/17 Time of Evaluation: 01:00 - Subjective Subjective: S:Nurse calls and tells that patient has 102*F. No other complaints. Medical record was reviewed. O:T:102*F Stable. Not in distress. LUNGS:Normal breathing pattern. A:Fever. P:Septic work up as ordered. Tylenol prn. Objective - Vital Signs/Intake and Output Vital Signs (last 24 hours): Temp Pulse Resp BP Pulse Ox 97.4 F L 66 20 112/67 98 11/15/17 16:00 11/15/17 16:00 11/15/17 16:00 11/15/17 16:00 11/15/17 16:00 Intake and Output: 11/15/17 11/16/17 18:59 06:59 Intake Total 1370 720 Output Total 1701 1100 Balance -331 -380 - Medications Medications: Current Medications Acetaminophen (Tylenol 325mg Tab) 650 mg PO Q4H PRN PRN Reason: Temperature Last Admin: 11/12/17 21:04 Dose: 650 mg Aspirin (Ecotrin) 81 mg PO DAILY [facility] Last Admin: 11/15/17 10:19 Dose: 81 mg Atorvastatin Calcium (Lipitor) 10 mg PO DIN [facility] Last Admin: 11/15/17 17:23 Dose: 10 mg Clopidogrel Bisulfate (Plavix) 75 mg PO DAILY [facility] Last Admin: 11/13/17 10:42 Dose: 75 mg Diazepam (Valium) 5 mg PO DAILY [facility] PRN Reason: Protocol Last Admin: 11/11/17 09:06 Dose: 5 mg Docusate Sodium (Colace) 100 mg PO BID [facility] Last Admin: 11/15/17 17:23 Dose: 100 mg Fluoxetine HCl (Prozac) 20 mg PO DAILY [facility] Last Admin: 11/15/17 10:19 Dose: 20 mg Gabapentin (Neurontin) 300 mg PO TID [facility] PRN Reason: Protocol Last Admin: 11/15/17 17:23 Dose: 300 mg Heparin Sodium (Porcine) (Heparin) 5,000 units SC Q12 [facility] PRN Reason: Protocol Last Admin: 11/11/17 21:58 Dose: 5,000 units Sodium Chloride (Sodium Chloride 0.9%) 1,000 mls @ 100 mls/hr IV .Q10H [facility] Last Admin: 11/15/17 18:18 Dose: 100 mls/hr Insulin Detemir (Levemir) 10 unit SC HS [facility] Last Admin: 11/15/17 21:49 Dose: 10 unit Insulin Human Regular (Humulin R High) 0 units SC ACHS [facility] PRN Reason: Protocol Last Admin: 11/15/17 21:44 Dose: Not Given Magnesium Hydroxide (Milk Of Magnesia) 30 ml PO DAILY [facility] PRN Reason: Constipation Last Admin: 11/15/17 10:18 Dose: 30 ml Pantoprazole Sodium (Protonix Ec Tab) 40 mg PO ACB [facility] Last Admin: 11/15/17 10:19 Dose: 40 mg Polyethylene Glycol (Miralax) 17 gm PO DAILY [facility] Last Admin: 11/15/17 10:19 Dose: 17 gm Tamsulosin HCl (Flomax) 0.4 mg PO BID [facility] Last Admin: 11/15/17 17:23 Dose: 0.4 mg Zolpidem Tartrate (Ambien) 5 mg PO HS PRN PRN Reason: Insomnia Last Admin: 11/11/17 21:58 Dose: 5 mg - Labs Labs: 11/15/17 06:50 11/15/17 06:50 PT 12.7 SECONDS (9.4-12.5) H 11/06/17 11:17 INR 1.11 (0.93-1.08) H 11/06/17 11:17 APTT 30.1 Seconds (25.1-36.5) 11/06/17 11:17
[2017-11-16] MEDS: Sodium Chloride 0.9% 1,000 ML IV SCH ×4 (06:41→21:27)
[2017-11-16 08:01] LABS: HEMOGLOBIN 9.1 g/dL (14.0-18.0); MEAN CELL VOLUME 79.9 fl (80.0-105.0); MEAN CORPUSCULAR HEMOGLOBIN 25.1 pg (25.0-35.0); MEAN CORPUSCULAR HGB CONC 31.4 g/dl (31.0-37.0); MEAN PLATELET VOLUME 9.2 fl (7.0-11.0); RBC 3.63 10^6/uL (3.5-6.1); RED CELL DISTRIBUTION WIDTH 16.7 % (11.5-14.5); WHITE BLOOD COUNT 4.2 10^3/ul (4.5-11.0)
[2017-11-16 08:28] LABS: ALB/GLOB RATIO 0.9 (1.1-1.8); ALBUMIN 2.8 g/dL (3.0-4.8); ALT/SGPT 31 U/L (7-56); AST/SGOT 27 U/L (17-59); BLOOD UREA NITROGEN 23 mg/dL (7-21); CALCIUM 9.2 mg/dL (8.4-10.5); GFR AFRICAN-AMERICAN > 60; GFR NON-AFRICAN AMERICAN > 60
[2017-11-16] MEDS: POLYETHYLENE GLYCOL 3350 17 GM/Dose PACKET PO SCH (09:59)
[2017-11-16] MEDS: Insulin Reg-HIGH-Coverage SC SCH ×4 (09:59→21:17)
[2017-11-16] MEDS: Pantoprazole 40 mg EC Tab PO SCH (09:59)
--- NOTE | 2017-11-16 10:17 | PN ---
DATE: 11/15/2017 DAILY PROGRESS NOTE SUBJECTIVE: The patient seen this Friday morning room 565, bed 1. He is comfortable in bed, in no acute distress. Looking forward to getting out of bed, ambulating a little bit once again. Abdominal pain has been eliminated with insertion of Norris catheter. Urine remains almost white and cloudy. Urinalysis showed numerous bacteria, some blood and urine culture from yesterday when Norris catheter was placed is still pending. ID note appreciated, and I will discuss with ID regarding the new Norris catheter insertion. PLAN: I would recommend with continuing intravenous antibiotics at this time until we see the results of the urine culture obtained yesterday when Norris catheter was placed. We will get him out of bed, continue antibiotics, physical therapy, and add milk of magnesia as the CAT scan of the pelvis showed significant constipation. Alex Bowman MD
[2017-11-16] MEDS: Oxycodone/Acetaminophen 5/325 mg Tab PO PRN ×2 (13:32→21:26)
--- NOTE | 2017-11-16 18:38 | PN ---
DATE: 11/16/2017 SUBJECTIVE: The patient is seen in 565, bed 1. The patient has no fevers and no chills. OBJECTIVE: VITAL SIGNS: Temperature is 98, blood pressure is 120/70, and respiratory rate is 16. HEENT: Unremarkable. NECK: Supple. LUNGS: Have decreased breath sounds. HEART: Normal S1 and S2. ABDOMEN: Soft. LABORATORY DATA: Reveals a white count of 4.2, hemoglobin of 9, and platelets of 176. BUN of 23 and creatinine of 1.2. Procalcitonin is down to 1.33. Urinalysis is noted to be unremarkable, too numerous to count WBCs and microbiology reveals the urine cultures from the are negative and blood cultures are negative. ASSESSMENT AND PLAN: A 66-year-old male was admitted with sepsis with healthcare-associated pneumonia, removal of right-sided ureteral stent, nephrostomy tube placement and, hematuria from nephrostomy tube and developed healthcare-associated pneumonia, was completed the therapy, currently off of antibiotics, and this patient with peripheral vascular disease, diabetes, hypertension, coronary artery disease, and with off of antibiotics, afebrile, and normal white count. The patient is at risk of developing infections and currently off of antibiotics. Tigre Ordoñez MD
[2017-11-16 20:19] LABS: PH,URINE 6.5 (4.7-8.0); URINE BILIRUBIN NEGATIVE (NEGATIVE); URINE BLOOD LARGE (NEGATIVE); URINE GLUCOSE (UA) 100 mg/dL (NEGATIVE); URINE LEUKOCYTE ESTERASE LARGE Leu/uL (NEGATIVE); URINE NITRATE NEGATIVE (NEGATIVE); URINE PROTEIN TRACE mg/dL (<30 mg/dL); URINE UROBILINOGEN 0.2 E.U./dL (<1 E.U./dL)
[2017-11-16 20:20] LABS: URINE APPEARANCE CLOUDY (CLEAR); URINE COLOR STRAW (YELLOW)
[2017-11-16 20:51] LABS: URINE WBC 25 - 30 /hpf (0-6)
[2017-11-16 20:52] LABS: URINE BACTERIA MOD (NEG)
[2017-11-16] MEDS: Insulin Detemir 100 units/ml Vial (Levemir) SC SCH (21:25)
--- NOTE | 2017-11-16 23:02 | PN ---
DATE: 11/16/2017 SUBJECTIVE: The patient was seen this Friday morning, in room 565, bed 1. He is resting in bed comfortable, in no acute distress, but with multiple complaints. Complaining of leg pain, poor sleep, appetite, diet, not liking the food, and physical therapy. PHYSICAL EXAMINATION: HEENT: Head and neck unremarkable. LUNGS: Clear. HEART: Regular, not tachycardic. ABDOMEN: Soft and nontender, except for slight midline bladder tenderness on deep palpation. LABORATORY DATA: Finally, the urine has cleared, it is less turbid, less milky than in the past. Urine culture from two days ago shows no growth. ASSESSMENT AND PLAN: Antibiotics continue per Infectious Disease bridal stylist sales consultant. We will continue antibiotics for tomorrow. Repeat UA and C&S today. Continue IV hydration to maintain a high urine output as the urine is clearing. The patient will be ready to return to Rehab facility as early as tomorrow if cleared by Urology and Infectious Disease. We will ask Psychiatry to see the patient regarding his depression and apathy he is developing. We will continue the current diet with no sodium restriction, add Ambien for sleep, get out of bed today, Percocet for severe pain and physical therapy. Alex Bowman MD [facility]
[2017-11-17 07:17] LABS: HEMOGLOBIN 9.3 g/dL (14.0-18.0); MEAN CELL VOLUME 79.7 fl (80.0-105.0); MEAN CORPUSCULAR HEMOGLOBIN 24.9 pg (25.0-35.0); MEAN CORPUSCULAR HGB CONC 31.2 g/dl (31.0-37.0); MEAN PLATELET VOLUME 8.9 fl (7.0-11.0); RBC 3.74 10^6/uL (3.5-6.1); RED CELL DISTRIBUTION WIDTH 16.5 % (11.5-14.5); WHITE BLOOD COUNT 4.9 10^3/ul (4.5-11.0)
[2017-11-17 07:50] LABS: ALB/GLOB RATIO 0.9 (1.1-1.8); ALBUMIN 2.9 g/dL (3.0-4.8); ALT/SGPT 34 U/L (7-56); AST/SGOT 28 U/L (17-59); BLOOD UREA NITROGEN 23 mg/dL (7-21); CALCIUM 9.3 mg/dL (8.4-10.5); GFR AFRICAN-AMERICAN > 60; GFR NON-AFRICAN AMERICAN > 60
[2017-11-17 07:54] VITALS: BP 134/76; PULSE 67; RESP 20; TEMP 98.5; O2SAT 96
[2017-11-17] MEDS: Oxycodone/Acetaminophen 5/325 mg Tab PO PRN ×2 (10:13→14:27)
[2017-11-17] MEDS: POLYETHYLENE GLYCOL 3350 17 GM/Dose PACKET PO SCH (10:13)
[2017-11-17] MEDS: Pantoprazole 40 mg EC Tab PO SCH (10:13)
[2017-11-17] MEDS: Insulin Reg-HIGH-Coverage SC SCH (10:14)
--- NOTE | 2017-11-17 15:52 | PN ---
DATE: 11/17/2017 SUBJECTIVE: The patient is seen in his room. He is currently out of bed. He is feeling much better since the stent has been removed. He has been afebrile. OBJECTIVE: CURRENT VITAL SIGNS: Temperature 98.5, pulse of 67, BP of 134/76, and respirations 20. ABDOMEN: Soft, nontender, and nondistended. There is no hepatosplenomegaly or costovertebral angle tenderness. GENITOURINARY: He has a Norris catheter in place, which is draining cloudy colored urine. IMPRESSION AND PLAN: The patient is feeling much better with the stent removed. It is still unclear why the urine remains purulent, although cultures continued to be negative. We will discuss this with ID systems development consultant. Consider possible Nephrology evaluation. Neurologically, he is currently stable with a Norris catheter in place. His GFR has improved. It is now in normal range. Plan will be to continue tamsulosin twice a day. The patient is planning to return to rehab and I would plan on a voiding trial when the patient is able to stand up and ambulate even with assistance if he can stand, he will most likely be able to empty his bladder better. A postvoid residual will need to be monitored. As for the bilateral hydronephrosis, this appears to be due to reflux. This will need to be monitored as well along with his kidney function in his rehab facility. From my standpoint, the patient is able to return to rehab, although he will need to be monitored at that facility. Troy Salas MD
--- NOTE | 2017-11-17 18:26 | PN ---
DATE: 11/17/2017 LOCATION: Patient is in room 565, bed 1. REASON FOR CONSULTATION AND FOLLOWUP: Coronary artery disease, angioplasty and stent insertion on 04/2017, hypertension, diabetes, fever, pyelonephritis, history of stent in the right ureter which has been removed with cystoscopy and right retrograde pyelogram. SUBJECTIVE: The patient is lying flat in bed without chest pian, shortness of breath, palpation. Abdominal pain also is getting less. PHYSICAL EXAMINATION: VITAL SIGNS: Blood pressure 134/76, respirations 20, pulse 67, temperature 98.5. HEENT: Head: Normocephalic. Eyes: Pupils normal. Conjunctivae, slightly pale. NECK: JVP low. Carotids are equal. THORAX: AP diameter normal. LUNGS: Clear. CARDIOVASCULAR: S1 and S2. ABDOMEN: Soft and nontender. No organomegaly. Bowel sounds are normal. EXTREMITIES: No clubbing, no cyanosis. LABORATORY DATA: WBC 4.9, hemoglobin 9.3, hematocrit 29.8, platelets 186. Sodium 140, potassium 4.0, BUN 23, creatinine 1.2, random sugar 164, another random sugar 139. AST, ALT normal. Total protein 6.1, albumin 2.9. DIAGNOSES: Coronary artery disease, history of stent insertion, angioplasty in 04/2017, urinary tract infection, pyelonephritis, hydronephrosis, hydroureter sepsis, status post removal of stent from the right ureter and left ventricular ejection fraction on catheterization was 55 to 60%, status post removal of stents from right ureter and pus like discharge with that time hematuria was seen. A new hydronephrosis, hydroureter on the left side, hypertension, diabetes, hyperlipidemia, anemia, renal dysfunction, parkinsonism, dizziness, status post blood transfusions. PLAN: The patient not having any cardiac symptoms, so clinically cardiac status is continually stable, and the patient is on aspirin 81 mg daily, Plavix I have been put on hold for seven days because of hematuria. The patient is getting heparin 5000 subcu q.12 hour, Lipitor 10 mg daily, Neurontin 300 mg t.i.d, Protonix 40 daily. The patient getting IV fluid for renal dysfunction. We will continue present therapy, and we will follow. Joey Mendosa MD
--- NOTE | 2017-11-18 09:25 | PQF SEPSIS ---
This form is a permanent part of the medical record Doctor FRANCISCO Bowman noted "Sepsis due to healthcare associated Pneumonia", please verify if this diagnoses are present on admission. Clarification of your documentation is requested to better reflect the severity of illness and intensity of treatment of your patient. Indicators present [] Temp < 96.8 or > 100.4 [] WBC count > 12,000/mm3 or <000/mm3 or 10% immature neutrophils [] Heart Rate > 90 [] Respiratory Rate > 20 [] Fever or hypothermia [] Chills [] Positive blood cultures [] Hypotension [] Metabolic acidosis (Elevated lactate level, anion gap or reduced blood pH) [] Acute confusion /Altered Mental Status [] Shock [] Other: [] Location in the medical record that reflects the above clinical findings: [] Treatment Provided: [] PHYSICIAN'S RESPONSE: What? No Way! There was no pneumonia. He was septic fron uti, pylo, infected ureteral stent. It was all urinary tract origin not pneumonia. Based on your medical judgment of the clinical indicators outlined above, are you treating this patient for a known or suspected: [] Sepsis / Septicemia Please specify organism if known [] [] SIRS (Systemic Inflammatory Response Syndrome) [] Severe Sepsis (Sepsis with Associated Organ Dysfunction) [] Fever of Unknown Origin [] Other, please indicate: [] [] If Unable to Determine, please check the box, sign and date. Present On Admission (POA) Indicator: [] Present at the time of admission [xx] Not present at the time of admission [] Clinically Undetermined In responding to this query, please exercise your independent professional judgment. The fact that a question is asked does not imply that any particular answer is desired or expected. Thank you for your clarification on this documentation. If you have any questions please call:[ ] * Thank you, [X ] [facility] consultant [facility]
== END 2017-11-17 14:59 | DRG 698 ==
LOC: ED 09:45 → ERH 12:46 → 5RNO 14:03
PROVIDERS: ADMIT Internal Medicine; ATTEND Internal Medicine
PROC: 30233N1 Transfusion of Nonautologous Red Blood Cells into Peripheral Vein, Percutaneous Approach (ICD-10-PCS; 2017-11-06)
PROC: BT1D1ZZ Fluoroscopy of Right Kidney, Ureter and Bladder using Low Osmolar Contrast (ICD-10-PCS; 2017-11-10)
PROC: 0TP98DZ Removal of Intraluminal Device from Ureter, Via Natural or Artificial Opening Endoscopic (ICD-10-PCS; principal; 2017-11-10 11:45)
DX: T83.593A Infection and inflammatory reaction due to other urinary stents, initial encounter (principal); N13.6 Pyonephrosis; A41.9 Sepsis, unspecified organism; N17.9 Acute kidney failure, unspecified; E11.22 Type 2 diabetes mellitus with diabetic chronic kidney disease; N13.70 Vesicoureteral-reflux, unspecified; E11.42 Type 2 diabetes mellitus with diabetic polyneuropathy; E11.51 Type 2 diabetes mellitus with diabetic peripheral angiopathy without gangrene; I25.10 Atherosclerotic heart disease of native coronary artery without angina pectoris; E11.65 Type 2 diabetes mellitus with hyperglycemia; N18.9 Chronic kidney disease, unspecified; I12.9 Hypertensive chronic kidney disease with stage 1 through stage 4 chronic kidney disease, or unspecified chronic kidney disease; E78.00 Pure hypercholesterolemia, unspecified; K59.00 Constipation, unspecified; K21.9 Gastro-esophageal reflux disease without esophagitis; G47.00 Insomnia, unspecified; F32.9 Major depressive disorder, single episode, unspecified; F06.30 Mood disorder due to known physiological condition, unspecified; D64.9 Anemia, unspecified; F41.9 Anxiety disorder, unspecified; I95.1 Orthostatic hypotension; Y83.8 Other surgical procedures as the cause of abnormal reaction of the patient, or of later complication, without mention of misadventure at the time of the procedure; Z74.01 Bed confinement status; Z95.5 Presence of coronary angioplasty implant and graft; Z87.891 Personal history of nicotine dependence; Z90.49 Acquired absence of other specified parts of digestive tract